=== PATIENT | male | born 1980 | race Caucasian/White ===

== ENCOUNTER 2019-09-19 04:47 | Emergency (ER) | payer OTHER, SELFPAY ==
--- NOTE | ~2019-09-19 | XR_ITS ---
EXAMINATION: XR chest 1V portable DATE: 09/19/2019 06:16 INDICATION: Shortness of breath and wheezing TECHNIQUE: frontal view of the chest was obtained. COMPARISON: Chest radiograph dated 10/07/18 FINDINGS: The lungs remain clear with no focal airspace opacities, pulmonary edema, pleural effusion or pneumot horax. The cardiomediastinal silhouette is normal. Visualized bones and soft tissues are unremarkable . IMPRESSION: 1. No acute cardiopulmonary disease. Reviewed, dictated and finalized at location A.
[2019-09-19 04:51] VITALS: BP 138/103; PULSE 107; RESP 20; TEMP 36.6; O2SAT 100
[2019-09-19 05:05] VITALS: RESP 20
--- NOTE | 2019-09-19 05:05 | ED.GENADULT ---
HPI - General Adult General Chief complaint: Unspecified <Steve Reynolds MD - Last Filed: 09/19/19 06:45> Stated complaint: BLOOD POISONING; CP <Steve Reynolds MD - Last Filed: 09/19/19 06:45> Time Seen by Provider: 09/19/19 04:57 <Steve Reynolds MD - Last Filed: 09/19/19 06:45> History of Present Illness HPI narrative: 39 yo male with h/o bipolar disorder presents to the ED c/o of feeling sick. He feels like his blood is poisoned . He has had pain throughout his entire body for a few days. He also has some SOB. History is limited by psychiatric disorder. <Steve Reynolds MD - Last Filed: 09/19/19 06:45> Related Data Allergies/adverse reactions: Allergies Allergy/AdvReac Type Severity Reaction Status Date / Time cefaclor Allergy Unknown HIVES Verified 09/19/19 04:56 <Steve Reynolds MD - Last Filed: 09/19/19 06:45> Review of Systems Constitutional: Constitutional: Denies fever(s) <Steve Reynolds MD - Last Filed: 09/19/19 06:45> ENT: Denies sore throat <Steve Reynolds MD - Last Filed: 09/19/19 06:45> Cardiovascular: Cardiovascular: Reports chest pain <Steve Reynolds MD - Last Filed: 09/19/19 06:45> Respiratory: Respiratory: Reports cough and Reports dyspnea <Steve Reynolds MD - Last Filed: 09/19/19 06:45> Gastrointestinal: Gastrointestinal: Denies nausea and Denies vomiting <Steve Reynolds MD - Last Filed: 09/19/19 06:45> Musculoskeletal: Musculoskeletal: Reports back pain <Steve Reynolds MD - Last Filed: 09/19/19 06:45> PMFSH Past Medical History Medical History: Medical History Asthma Bipolar 1 disorder Hyperlipidemia Hypertension Seizure <Steve Reynolds MD - Last Filed: 09/19/19 06:45> Surgical History Surgical History: Surgical History H/O myringotomy History of tonsillectomy <Steve Reynolds MD - Last Filed: 09/19/19 06:45> Social History Social History: Social History Alcohol intake: current Gender identity (if verbalized by the patient): Male <Steve Reynolds MD - Last Filed: 09/19/19 06:45> Exam Const: General: alert <tSeve Reynolds MD - Last Filed: 09/19/19 06:45> Orientation/consciousness: patient oriented x3 <Steve Reynolds MD - Last Filed: 09/19/19 06:45> HENMT: Head: normal to inspection <Steve Reynolds MD - Last Filed: 09/19/19 06:45> Eyes: Pupils: Equal, round and reactive pupils present <Steve Reynolds MD - Last Filed: 09/19/19 06:45> Resp: Effort & Inspection: normal respiratory effort <Steve Reynolds MD - Last Filed: 09/19/19 06:45> Auscultation: wheezes <Steve Reynolds MD - Last Filed: 09/19/19 06:45> Cardio: Rate: regular rate and tachycardic <Steve Reynolds MD - Last Filed: 09/19/19 06:45> GI: GI Palp: Yes Soft to palpation and No Tenderness to palpation present (GI) <Steve Reynolds MD - Last Filed: 09/19/19 06:45> Skin: General skin exam: normal color <Steve Reynolds MD - Last Filed: 09/19/19 06:45> Rashes: no rashes <Steve Reynolds MD - Last Filed: 09/19/19 06:45> Neuro: General: patient oriented x3, moves all extremities, no focal motor deficits and CN's II-XI intact bilaterally <Steve Reynolds MD - Last Filed: 09/19/19 06:45> Speech: normal speech <Steve Reynolds MD - Last Filed: 09/19/19 06:45> Extrem: General: no edema <Steve Reynolds MD - Last Filed: 09/19/19 06:45> Psych: Appearance: disheveled <Steve Reynolds MD - Last Filed: 09/19/19 06:45> Affect: Anxious affect present <Steve Reynolds MD - Last Filed: 09/19/19 06:45> Thought content: Yes Paranoid delusions present <Steve Reynolds MD - Last Filed: 09/19/19 06:45> Course Reevaluation(s) Reevaluation #1: Sheila
[2019-09-19] MEDS: KETOROLAC (*BKC) 60 MG/2 ML VIAL IM (05:09)
[2019-09-19 05:21] VITALS: PULSE 101; RESP 20
[2019-09-19] MEDS: ALBUTEROL SULFATE (*SP) AEROSOL 1 PUFF 2 PUFF INHALATION (05:21)
[2019-09-19] MEDS: LORAZEPAM 1 MG TABLET PO (06:00)
[2019-09-19] MEDS: SODIUM CHLORIDE 0.9% IV 1,000 ML 999 ML IV CONT (07:04)
[2019-09-19 07:12] LABS: Basophils Percent Auto 1.2 % (0.2-1.2); Eosinophils Percent Auto 0.3 % (0-4.4); Hematocrit 44.8 % (42.0-52.0); Immature Granulocyte Absolute 0.01 K/mm3 (0.00-0.031); Immature Granulocyte Percent A 0.3 % (0-0.5); Lymphocytes Percent Auto 31.2 % (18.3-44.2); Mean Corpuscular HGB Conc 35.7 g/dl (32-36); Mean Corpuscular Hemoglobin 33.1 pg (26-34); Mean Corpuscular Volume 92.8 fl (80-100); Mean Platelet Volume 9.4 fl (7.4-10.4); Monocytes Absolute Auto 0.5 K/mm3 (0.1-0.6); Monocytes Percent Auto 15.3 % (2.6-8.5); Neutrophils Absolute Auto 1.7 K/mm3 (1.3-6.7); Neutrophils Percent Auto 51.7 % (45.5-73.1); Platelet Count Result 211 k/mm3 (150-375); Red Blood Count 4.83 M/mm3 (4.6-6.20); Red Cell Distribution Width 12.6 % (11.5-14.5); White Blood Count 3.2 K/mm3 (4.5-10.0)
--- NOTE | 2019-09-19 07:21 | PC.NURSE ---
Assumed care of pt, lights dimmed, pt alert on stretcher, given urinal for u/a sample
[2019-09-19 07:23] LABS: Creatine Kinase 177 U/L (55-170)
[2019-09-19 07:25] VITALS: BP 154/89; PULSE 99; RESP 17; O2SAT 99
[2019-09-19 07:25] LABS: Alanine Aminotransferase 115 U/L (4-50); Albumin Level 4.6 g/dL (3.5-5.1); Alkaline Phosphatase 192 U/L (38-126); Aspartate Amino Transferase 351 U/L (17-59); Bilirubin,Total 1.5 mg/dL (0.2-1.3); Blood Urea Nitrogen 17 mg/dL (9-20); Calcium 8.2 mg/dL (8.4-10.2); Carbon Dioxide 20 mmol/L (22-30); Chloride 101 mmol/L (98-107); Estimated CRCL calculation 96 ml/min; Estimated Glomerular Filt Rate > 60; Glucose 111 mg/dL (75-110); Potassium 3.8 mmol/L (3.4-5.0); Sodium 135 mmol/L (137-145)
--- NOTE | 2019-09-19 07:33 | ECG_ITS ---
Measurements Intervals Page Rate: 90 P: 31 MN: 138 QRS: 39 QRSD: 87 T: 7 QT: 398 QTc: 488 Interpretive Statements SINUS RHYTHM BORDERLINE T WAVE ABNORMALITY- INFERIOR LEADS BASELINE ARTIFACT- II, III BORDERLINE ECG Electronically Signed On 09-19-2019 7:50:00 CDT by Onur Rob D.O.
[2019-09-19 07:43] LABS: Add Urine Microscopic? YES; Amorphous Sediment Urine Few; Appearance Urine Clear (Clear); Bacteria Urine Trace /hpf; Bilirubin Urine 1+ (Negative); Blood Urine Negative (Negative); Color Urine Amber (Yellow); Glucose Urine UA Negative (Negative); Hyaline Casts Urine 50+ /lpf; Ketones Urine Negative (Negative); Leukocyte Esterase Ur Negative LEU/UL (Negative); Mucus Urine Heavy /lpf; Nitrate Urine Negative (Negative); Protein Urine 2+ mg/dL (Negative); RBC Urine 0-2 /hpf (0-2); Squamous Epithelial Cell Urine Rare /hpf (Few)
[2019-09-19 07:44] LABS: Specific Grav Ur 1.033 (1.001-1.035)
[2019-09-19 07:47] LABS: Ethanol 290 mg/dL (<10)
--- NOTE | 2019-09-19 07:48 | PC.NURSE ---
EDP AT BEDSIDE DISCUSSING POC, PT REQUEST BREAKFAST TRAY - ORDERED PER EDP VORB
[2019-09-19 07:56] LABS: Amphetamine Screen Urine Negative (Negative); Barbiturate Screen Urine Negative (Negative); Benzodiazepines Screen Urine Negative (Negative); Cannabinoid Screen Urine Positive (Negative); Cocaine Screen Urine Negative (Negative); Methadone Screen Urine Negative (Negative); Opiate Screen Urine Negative (Negative); Phencyclidine Screen Urine Negative (Negative)
[2019-09-19 08:18] LABS: Troponin I 0.019 ng/mL (0.000-0.034)
[2019-09-19 08:59] VITALS: BP 154/94; PULSE 103; RESP 14; O2SAT 99
== END 2019-09-19 09:00 | disposition home or self-care (01) ==
PROVIDERS: Emergency Medicine; Emergency Provider General Practice
DX: J45.909 Unspecified asthma, uncomplicated (principal); F41.9 Anxiety disorder, unspecified; F31.9 Bipolar disorder, unspecified; E78.5 Hyperlipidemia, unspecified; I10 Essential (primary) hypertension; G40.909 Epilepsy, unspecified, not intractable, without status epilepticus
CPT/HCPCS: 36415; 71045; 80053; 80307; 81001; 82550; 84443; 84484; 85025; 93005; 96360; 96372; 99284; A9270; J1885; J7030

== ENCOUNTER 2019-10-24 06:55 | Observation (INO) | payer OTHER, SELFPAY ==
[2019-10-24] VITALS (15 sets, daily range): BP systolic 140–164; BP diastolic 85–132; PULSE 74–122; RESP 18–26; TEMP 36.1–37; O2SAT 98–100; BMI 28.5; BMI 28.6
--- NOTE | ~2019-10-24 | US_ITS ---
EXAMINATION: US right upper quadrant DATE: 10/24/2019 15:21 INDICATION: Elevated liver enzymes TECHNIQUE: Multiple grayscale and Doppler ultrasound images of the abdomen were obtained. COMPARISON: 09/03/[address] dated 10/24/2019 and 09/02/2015 FINDINGS: The pancreatic head and body are normal in appearance. The pancreatic tail is not visualized. Liver has is enlarged with normal contour and smooth surface. There is increased parenchymal echogenicity a nd coarsened echotexture consistent with diffuse hepatic steatosis. A chronic hemangioma at the later al segment of the left hepatic lobe seen on the prior CT studies is not identified on the provided ul trasound images. No liver lesion identified. No intrahepatic biliary duct dilation suspected. Portal venous flow was seen in the hepatopetal, normal direction and has normal Doppler waveform. The gallb ladder is normal in appearance. There is no cholelithiasis. The common bile duct measures 5 mm, whic h is normal. Sonographic Vazquez sign was reported as negative by the security and privacy consultant. Visualized portion of the right kidney demonstrates normal echogenicity and contour with no hydronephrosis. IMPRESSION: 1. Hepatomegaly with diffuse hepatic steatosis. Reviewed, dictated and finalized at location A.
--- NOTE | ~2019-10-24 | XR_ITS ---
EXAMINATION: XR chest 1V portable INDICATION: Shortness of breath and cough TECHNIQUE: Portable AP chest at 0739 hours COMPARISON: 09/19/2019 FINDINGS: The lungs are free of acute opacities. There is no pleural effusion or pneumothorax. The ca rdiomediastinal silhouette is normal. The visualized bones and soft tissues are unremarkable. IMPRESSION: 1. No acute cardiopulmonary abnormality. Reviewed, dictated and finalized at location A.
--- NOTE | ~2019-10-24 | CT_ITS ---
EXAMINATION: CT abdomen pelvis w con INDICATION: Epigastric pain TECHNIQUE: Computed tomographic images of the abdomen and pelvis were obtained after the administrati on of 100 cc of Omnipaque 350 intravenous contrast. The dose-length product (DLP) was 563.94 mGy-cm. Automated exposure control and iterative reconstruction technique were employed. COMPARISON: 09/02/2015 FINDINGS: The lung bases are clear. The heart size is normal. The liver is diffusely low in attenuati on when compared with the spleen, consistent with hepatic steatosis. There is a stable 2.9 x 2.0 cm m ass with peripheral nodular enhancement in the left hepatic lobe, likely hemangioma. The spleen, panc reas, gallbladder, and adrenal glands are normal. The kidneys are unremarkable. No pathologically enl arged abdominal or pelvic lymph nodes are identified. There is no free intraperitoneal gas or evidenc e of bowel obstruction. The appendix is normal. There is mild lumbar spondylosis. There is a tiny fat -containing umbilical hernia. IMPRESSION: 1. No CT correlate for the patient's symptoms. 2. Diffuse hepatic steatosis. Reviewed, dictated and finalized at location A.
[2019-10-24 07:47] LABS: Basophils Absolute Auto 0.1 K/mm3 (0.0-0.1); Eosinophils Percent Auto 0.5 % (0-4.4); Hematocrit 45.7 % (42.0-52.0); Hemoglobin 18.3 g/dL (14.0-18.0); Immature Granulocyte Absolute 0.02 K/mm3 (0.00-0.031); Immature Granulocyte Percent A 0.3 % (0-0.5); Immature Platelet Fraction Pct 2.6 % (0.9-11.2); Lymphocytes Absolute Auto 2.85 K/mm3 (0.9-3.2); Lymphocytes Percent Auto 46.3 % (18.3-44.2); Mean Corpuscular Hemoglobin 36.5 pg (26-34); Mean Corpuscular Volume 91.2 fl (80-100); Monocytes Absolute Auto 0.6 K/mm3 (0.1-0.6); Monocytes Percent Auto 10.4 % (2.6-8.5); Neutrophils Absolute Auto 2.6 K/mm3 (1.3-6.7); Neutrophils Percent Auto 41.5 % (45.5-73.1); Platelet Count Result 324 k/mm3 (150-375); Red Blood Count 5.01 M/mm3 (4.6-6.20); Red Cell Distribution Width 12.9 % (11.5-14.5); White Blood Count 6.2 K/mm3 (4.5-10.0)
[2019-10-24] MEDS: ONDANSETRON INJ 4 MG/2 ML VIAL IV PUSH (07:48)
--- NOTE | 2019-10-24 07:48 | ECG_ITS ---
Measurements Intervals [place] Rate: 110 P: 38 NM: 140 QRS: 27 QRSD: 85 T: -7 QT: 344 QTc: 466 Interpretive Statements SINUS TACHYCARDIA NONSPECIFIC T-WAVE ABNORMALITY- INFERIOR LEADS ABNORMAL ECG Electronically Signed On 10-24-2019 8:18:21 CDT by Onur Rob D.O.
[2019-10-24] MEDS: SODIUM CHLORIDE 0.9% IV 1,000 ML 999 ML IV CONT (07:49)
[2019-10-24 08:01] LABS: Alanine Aminotransferase 301 U/L (4-50); Albumin Level 3.5 g/dL (3.5-5.1); Alkaline Phosphatase 285 U/L (38-126); Bilirubin,Total 2.6 mg/dL (0.2-1.3)
[2019-10-24 08:03] LABS: Estimated Glomerular Filt Rate > 60
[2019-10-24 08:09] LABS: Troponin I 0.026 ng/mL (0.000-0.034)
[2019-10-24 08:10] LABS: Aspartate Amino Transferase 801 U/L (17-59)
[2019-10-24 08:16] LABS: Blood Urea Nitrogen 15 mg/dL (9-20); Calcium 8.7 mg/dL (8.4-10.2); Chloride 95 mmol/L (98-107); Estimated Glomerular Filt Rate > 60; Glucose 104 mg/dL (75-110); Potassium 4.6 mmol/L (3.4-5.0); Sodium 129 mmol/L (137-145)
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
--- NOTE | 2019-10-24 08:33 | PC.NURSE ---
PT RESTING IN BED, STATES THAT HIS N/V HAS GOTTEN BETTER SINCE ZOFRAN ADMINISTERED.
[2019-10-24] MEDS: PROMETHAZINE HCL 25 MG/ML AMPUL 12.5 MG IV PUSH (09:34)
[2019-10-24] MEDS: MORPHINE SULFATE 4 MG/ML INJ IV PUSH ×3 (09:34→20:12)
[2019-10-24] MEDS: IBUPROFEN IV 800 MG/200 ML 800 MG/200 ML BAG 400 MG IVPB (10:35)
--- NOTE | 2019-10-24 11:10 | ADMGEN ---
This patient, Teodoro Waddell, was admitted to 2 Medical Room 241-. Patient/family oriented to hospital policies and general routines including ID bracelet, bed and alarms, visiting hours, pain management, procedures, bathroom and other care routines, personal items, smoking policy, room service/diet, and visiting hours. Valuables list has been completed. Information on how to activate the Rapid Response Team has been discussed. Patient/Family are encouraged to report perceived risks to care and to ask questions if they do not understand what they are told or what they should do.
[2019-10-24] MEDS: SODIUM CHLORIDE 0.9% IV 1,000 ML 200 ML IV CONT ×3 (12:06→22:12)
--- NOTE | 2019-10-24 13:12 | PM.IMHP ---
H&P: HPI History of Present Illness Date/Time: 10/24/19 13:12 Chief complaint: alcoholic hepatitis Narrative: Teodoro Waddell is a 39 year old male Who has a long history of having alcoholism. patient has been to rehab in the past and stated he does not want to go to rehab this time. The patient also had a history of heroin use and when to present for about 3 years and states that he no longer uses heroin. The patient states that he drinks about 18 beers a day plus about a pt of vodka a day. He also occasionally smokes marijuana. He is on nonfunctioning alcoholic. He does not work. He does deal with depression and anxiety. He stated that his depression anxiety has got worse since the COVID outbreaks. He states that he cannot go to rehab at this time because his father just had his knee replaced and needs his help. His mother brother and sister are all functioning alcoholic and he lives with his parents so it is difficult for him to get away from this. 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 The patient had elevated liver enzymes 4 years ago when I saw him. We had a long conversation at that time about stopping the alcohol and that the liver may be able to turn around but the patient continued to drink. The patient was here in August of this year with abdominal pain and generalized achiness. The patient stated he felt like he had COVID at 1 time but was tested negative. The patient stated he has been nauseated for several months and does spitting up clear phlegm. He has also had abdominal pain as well. I do not think that he is seen a GI specialist for his elevated liver enzymes in several years. The patient stated that he was nauseated. The patient had a CT of his abdomen due to elevated lipase and elevated liver enzymes. He does have a stable 2.9 x 2.0 cm mass with peripheral nodular enhancement in the left hepatic lobe likely hemangioma. There is no CT correlation for the patient's symptoms and he has diffuse hepatic steatosis. The patient was made NPO. He was given IV fluids, Zofran IV, Phenergan, morphine, and IV ibuprofen in the emergency room. I have spent at least 60 minutes with the patient discussing his lab results and the affects of his alcoholism. And the treatment plan. Date of service 10/24/2019 Review of Systems Review of Systems: All systems reviewed & are unremarkable except as noted in HPI and below Constitutional: Constitutional: Reports as per HPI and Reports no additional constitutional complaints Eyes: Eyes: Reports as per HPI and Reports no additional eye complaints ENT: Reports system reviewed and no additional complaints, except as documented and Reports Normal hearing present Cardiovascular: Cardiovascular: Reports no additional cardiovascular complaints Respiratory: Respiratory: Reports no additional respiratory complaints and Reports no additional respiratory complaints Gastrointestinal: Gastrointestinal: Reports as per HPI and Reports no additional gastrointestinal complaints Musculoskeletal: Musculoskeletal: Reports no additional musculoskeletal complaints Integumentary/Breasts: Skin/Breast: Reports system reviewed and no additional complaints, except as docu and Reports as per HPI Neurologic: Reports system reviewed and no additional complaints, except as documented, Reports as per HPI and Reports Normal hearing present Psychiatric: Psychiatric: Reports no additional psychiatric complaints and Reports as per HPI Endocrine: Endocrine: Reports no additional endocrine complaints Hematologic/Lymphatic: Hematologic/Lymphatic: Reports no additional hematologic/lymphatic complaints Allergic/Immunologic: Allergic/Immunologic: Reports no additional allergic/immunologic complaints [facility] Past Medical History Medical History (Updated 10/24/19 @ 13:42 by Noa Quintanilla NP) Alcoholism /alcohol abuse Asthma Bipolar 1 disorder Depression with anxiety Elevated liver function tests Hi
[2019-10-24] MEDS: FOLIC ACID 1 MG/0.2 ML INJ IV PUSH (13:45)
[2019-10-24] MEDS: chlordiazePOXIDE 25 MG CAPSULE PO ×2 (13:45→18:04)
[2019-10-24] MEDS: THIAMINE HCL 200 MG/2 ML VIAL 100 MG IV PUSH (13:46)
[2019-10-24] MEDS: busPIRone HCL 5 MG TABLET 15 MG PO ×2 (14:19→18:04)
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
[2019-10-24] MEDS: hydrALAZINE HCL 20 MG/ML VIAL 10 MG IV PUSH (18:14)
--- NOTE | 2019-10-24 18:16 | PC.NURSE ---
B/P elevated at 154/102. HR 110s-130s. Patient denies symptoms with elevated HR. Called Noa Quintanilla NP and notified her of patient's vital signs. IV Hydralazine administered. Patient due for IV Ativan at 1900. Will administer when due. Gave scheduled Librium as ordered.
[2019-10-24 19:44] LABS: LDL Cholesterol Direct 74 mg/dL
[2019-10-24 19:45] LABS: Cholesterol > 650 mg/dL (0-200)
[2019-10-24 19:46] LABS: Triglycerides > 2625 mg/dL (<150)
[2019-10-24] MEDS: AMITRIPTYLINE HCL 25 MG TABLET 50 MG PO (20:17)
[2019-10-24] MEDS: FAMOTIDINE 20 MG/2 ML VIAL IV PUSH (20:17)
[2019-10-24 20:34] LABS: Hepatitis B Surface Antigen Negative (Negative)
[2019-10-24 20:40] LABS: HAV RESULT Negative (Negative); Hepatitis B Core IgM Result Negative (Negative)
[2019-10-24 20:53] LABS: Hepatitis C Virus Antibody Reactive (Negative)
[2019-10-25] VITALS (8 sets, daily range): BP systolic 117–148; BP diastolic 71–100; PULSE 77–124; RESP 14–20; TEMP 36.3–36.8; O2SAT 99–100
[2019-10-25] MEDS: chlordiazePOXIDE 25 MG CAPSULE PO ×4 (00:43→18:10)
[2019-10-25] MEDS: SODIUM CHLORIDE 0.9% IV 1,000 ML 200 ML IV CONT ×2 (03:43→08:30)
[2019-10-25 05:45] LABS: Basophils Percent Auto 0.8 % (0.2-1.2); Eosinophils Absolute Auto 0.1 K/mm3 (0-0.3); Hemoglobin 13.5 g/dL (14.0-18.0); Immature Granulocyte Absolute 0.02 K/mm3 (0.00-0.031); Immature Granulocyte Percent A 0.5 % (0-0.5); Lymphocytes Absolute Auto 1.21 K/mm3 (0.9-3.2); Lymphocytes Percent Auto 30.3 % (18.3-44.2); Mean Corpuscular HGB Conc 37.5 g/dl (32-36); Mean Corpuscular Hemoglobin 35.5 pg (26-34); Mean Corpuscular Volume 94.7 fl (80-100); Mean Platelet Volume 10.1 fl (7.4-10.4); Monocytes Absolute Auto 0.3 K/mm3 (0.1-0.6); Monocytes Percent Auto 7.5 % (2.6-8.5); Neutrophils Absolute Auto 2.4 K/mm3 (1.3-6.7); Neutrophils Percent Auto 58.9 % (45.5-73.1); Platelet Count Result 154 k/mm3 (150-375); Red Cell Distribution Width 12.6 % (11.5-14.5)
[2019-10-25 05:54] LABS: Lactic Acid 0.6 mmol/L (0.7-2.1)
[2019-10-25 07:16] LABS: LDL Cholesterol Direct < 60 mg/dL; Triglycerides > 2625 mg/dL (<150)
[2019-10-25 07:18] LABS: Alanine Aminotransferase 183 U/L (4-50); Albumin Level 2.9 g/dL (3.5-5.1); Alkaline Phosphatase 179 U/L (38-126); Anion Gap 12.6 mmol/L (7-16); Aspartate Amino Transferase 400 U/L (17-59); Bilirubin,Total 1.7 mg/dL (0.2-1.3); Blood Urea Nitrogen 8 mg/dL (9-20); Calcium 6.8 mg/dL (8.4-10.2); Carbon Dioxide 17 mmol/L (22-30); Chloride 105 mmol/L (98-107); Estimated CRCL calculation 96 ml/min; Estimated Glomerular Filt Rate > 60; Glucose 92 mg/dL (75-110); Lactate Dehydrogenase 1039 U/L (313-618); Lipase 575 U/L (23-300); Magnesium 1.1 mg/dL (1.6-2.3); Phosphorus 3.2 mg/dL (2.5-4.5); Potassium 3.6 mmol/L (3.4-5.0); Sodium 131 mmol/L (137-145)
[2019-10-25 07:20] LABS: Cholesterol 474 mg/dL (0-200)
[2019-10-25] MEDS: THIAMINE HCL 200 MG/2 ML VIAL 100 MG IV PUSH (08:31)
[2019-10-25] MEDS: FAMOTIDINE 20 MG/2 ML VIAL IV PUSH ×2 (08:31→20:06)
[2019-10-25] MEDS: FOLIC ACID 1 MG/0.2 ML INJ IV PUSH (08:31)
[2019-10-25] MEDS: busPIRone HCL 5 MG TABLET 15 MG PO ×3 (08:31→16:47)
[2019-10-25] MEDS: MORPHINE SULFATE 4 MG/ML INJ IV PUSH ×4 (08:32→19:59)
[2019-10-25] MEDS: hydrALAZINE HCL 20 MG/ML VIAL 10 MG IV PUSH ×2 (09:26→16:59)
--- NOTE | 2019-10-25 10:15 | WPDGIPROGNO ---
Progress Note: A&P Additional Plan patient alert and comfortable this morning. Less jittery. Tolerated diet without difficulty. Notes only minimal epigastric pain today. Physical exam reveals patient to be alert. Vital signs stable. Lungs are clear. Heart without murmur. Abdomen bowel sounds are present soft no organomegaly evident. Nontender epigastric area. Labs reveal total bilirubin 1.7, direct bilirubin 0. AST 400, ALT 183, alk-phos 179. Impression 1. Alcoholic hepatitis. 2. Alcohol abuse 3. HCV positive. hepatitis C virus RNA pending to ensure this is a true positive. If so then referral for antiviral therapy would be indicated. plan is for continued alcohol abstinence. Patient would benefit from a support group. Continue monitor LFTs as after discharge. Subjective Date/time seen: 10/25/19 10:15 Objective Data Vital Signs Vital Signs: Vital Signs - 24 hr 10/24/19 10:26 10/24/19 11:01 10/24/19 12:00 Temperature 98.6 F Pulse Rate 93 100 100 Pulse Rate [Left Radial] Respiratory Rate 21 H 21 H 18 Blood Pressure 147/105 H 153/105 H 157/102 H Pulse Oximetry 99 98 99 10/24/19 15:56 10/24/19 18:00 10/24/19 18:47 Temperature 98.0 F 97.6 F Pulse Rate 74 114 H 122 H Pulse Rate [Left Radial] Respiratory Rate 18 18 Blood Pressure 141/92 H 154/102 H 143/91 H Pulse Oximetry 99 98 10/24/19 20:00 10/25/19 00:00 10/25/19 04:00 Temperature 96.9 F L 97.4 F L 97.6 F Pulse Rate 112 H 91 77 Pulse Rate [Left Radial] 110 H 91 77 Respiratory Rate 20 18 18 Blood Pressure 140/85 129/71 139/83 Pulse Oximetry 98 99 100 10/25/19 08:00 10/25/19 09:57 Temperature 97.8 F Pulse Rate 106 H Pulse Rate [Left Radial] Respiratory Rate 16 Blood Pressure 148/100 H 130/86 Pulse Oximetry 99 Intake/Output Intake/Output: Intake & Output 10/22/19 10/23/19 10/24/19 10/25/19 23:59 23:59 23:59 23:59 Intake Total 3590 2520 Output Total 375 1000 Balance 3215 1520 Meds/Results Medications: Active Medications Generic Name Dose Route Start Last Admin Trade Name Freq PRN Reason Stop Dose Admin Albuterol 2 puff 10/24/19 13:08 Proventil Hfa INHALATION QID PRN shortness of breath or wheezing Amitriptyline HCl 50 mg 10/24/19 21:00 10/24/19 20:17 Elavil PO 50 mg HS JERILYN Administration Buspirone HCl 15 mg 10/24/19 13:00 10/25/19 08:31 Buspar PO 15 mg TID JERILYN Administration Chlordiazepoxide HCl 25 mg 10/24/19 13:15 10/25/19 06:15 Librium Po PO 25 mg Q6HR JERILYN Administration Famotidine 20 mg 10/24/19 21:00 10/25/19 08:31 Pepcid Iv IV PUSH 20 mg Q12HR JERILYN Administration Folic Acid 1 mg 10/24/19 09:00 10/25/19 08:31 Folic Acid Inj IV PUSH 1 mg QAM JERILYN Administration Hydralazine HCl 10 mg 10/24/19 13:12 10/25/19 09:26 Apresoline Hcl Inj IV PUSH 10 mg Q8H PRN Administration Blood Pressure - High Sodium Chloride 1,000 mls @ 200 mls/hr 10/24/19 10:00 10/25/19 08:30 Normal Saline Iv IV CONT 200 mls/hr .Q5H JERILYN Administration Lorazepam 0.5 mg 10/24/19 13:07 10/25/19 09:31 Ativan Inj IV PUSH 0.5 mg Q4H PRN Administration Anxiety Morphine Sulfate 4 mg 10/24/19 09:58 10/25/19 08:32 Morphine Sulfate Inj IV PUSH 4 mg Q2H PRN Administration Pain Rated 7-10 Promethazine HCl 12.5 mg 10/24/19 09:58 Phenergan Inj IV PUSH Q6H PRN Nausea Thiamine HCl 100 mg 10/24/19 09:00 10/25/19 08:31 Thiamine Hcl Inj IV PUSH 100 mg QAM JERILYN Administration Radiology Results: ITS Impressions Chest X-Ray 10/24/19 07:42 IMPRESSION: 1. No acute cardiopulmonary abnormality. Abdomen/Pelvis CT 10/24/19 08:19 IMPRESSION: 1. No CT correlate for the patient's symptoms. 2. Diffuse hepatic steatosis. Upper Quadrant Ultrasound 10/24/19 15:22 IMPRESSION: 1. Hepatomegaly with diffuse hepatic steatosis. Labs Labs: Laborato
--- NOTE | 2019-10-25 13:34 | PM.IMPN ---
Progress Note: A&P Assessment and Plan (1) Elevated liver function tests: Code(s): R79.89 - Other specified abnormal findings of blood chemistry Status: Chronic Assessment and Plan: ALT 301 and AST 801 on admission. Lipase slightly elevated at 575. Atorvastatin on hold. Dr. Mendenhall consulted. [place] related to alcoholic hepatitis. LFTs trending down. Mag level low which we will replace. LDH elevated for unclear reasons. CXR clear making COVID less likely. LFTs have been elevated in the past possibly related to hepatic steatosis or from alcohol. HepC Ab positive but awaiting viral load. RUQ showing hepatomegaly with diffuse hepatic steatosis. Metabolic nongap acidosis noted. Need to monitor this closely. (2) Alcoholism /alcohol abuse: Code(s): F10.20 - Alcohol dependence, uncomplicated Status: Chronic Assessment and Plan: Patietn with hx of alcoholism. He is refusing inpatient therapy but is willing to do outpatient therapy. CIWA score running up to 8. Continue Librium scheduled. Ativan IV available as needed. Morphine also available for pain which help. Continue folic acid and thiamine. He has had withdrawal seizures in the past. (3) Hypertension: Code(s): I10 - Essential (primary) hypertension Status: Chronic Assessment and Plan: Patient's blood pressure was reviewed on 10/25/19. Blood pressure better controlled. Will continue current medications. HCTZ remains on hold. Hydralazine available as needed. (4) Asthma: Code(s): J45.909 - Unspecified asthma, uncomplicated Status: Chronic Assessment and Plan: No wheezing. Continue with inhaler. (5) Hyperlipidemia: Code(s): E78.5 - Hyperlipidemia, unspecified Status: Chronic Assessment and Plan: TC 650 with TG 2625. LDL normal. LFTs elevated. Atorvastatin on hold. Patient will need to follow up with his PCP for further evaluation and treatment. (6) History of marijuana use: Code(s): Z87.898 - Personal history of other specified conditions Status: Chronic Assessment and Plan: This will most likely make his anxiety worse by possibly causing more paranoia. (7) Depression with anxiety: Code(s): F41.8 - Other specified anxiety disorders Status: Chronic Assessment and Plan: Mood stable overall. Continue with BuSpar and amitriptyline Subjective Date/time seen: 08/04/20 13:34 Interval history: 39yo male with hx of alcoholism here for abd pain and found to have elevated LFTs. Patient feeling better. Complains of RUQ and epigatric pain of about 1 month duration. COVID negative one week ago. Shaking today but better with Ativan. Last drink was yesterday. Exam Narrative: Exam Narrative: AF 97.8 130/81 116 14 99% ra Gen - NARD Chest - CTA bilaterally, nml RR CV - Tachycardic but regular Abd - soft. NT/ND (patient received narcotics recently) Ext - No pedal edema Neuro - Alert and orientedx4. Nonfocal exam. Psych - anxious, mildly tremulous Skin - Warm and dry Objective Data Vital Signs Vital Signs: Vital Signs - 24 hr 10/24/19 15:56 10/24/19 18:00 10/24/19 18:47 Temperature 98.0 F 97.6 F Pulse Rate 74 114 H 122 H Pulse Rate [Left Radial] Respiratory Rate 18 18 Blood Pressure 141/92 H 154/102 H 143/91 H Pulse Oximetry 99 98 10/24/19 20:00 10/25/19 00:00 10/25/19 04:00 Temperature 96.9 F L 97.4 F L 97.6 F Pulse Rate 112 H 91 77 Pulse Rate [Left Radial] 110 H 91 77 Respiratory Rate 20 18 18 Blood Pressure 140/85 129/71 139/83 Pulse Oximetry 98 99 100 10/25/19 08:00 10/25/19 09:57 10/25/19 13:32 Temperature 97.8 F 97.8 F Pulse Rate 106 H 116 H Pulse Rate [Left Radial] Respiratory Rate 16 14 Blood Pressure 148/100 H 130/86 130/81 Pulse Oximetry 99 99 Intake/Output Intake/Output: Intake & Output 10/22/19 10/23/19 10/24/19 10/25/19 23:59 23:59 2
--- NOTE | 2019-10-25 16:32 | PCCCNOTE ---
On 10/25/19, the student, [ Loretta Still], provided care and completed [facility] documentation on this patient. I have reviewed the student's documentation and agree with the findings.
[2019-10-25] MEDS: SODIUM CHLORIDE 0.9% IV 1,000 ML 70 ML IV CONT (16:42)
[2019-10-25] MEDS: MAGNESIUM SULF 2 GM/WATER 50ML 2 GM/50 ML BAG IVPB (16:43)
[2019-10-25] MEDS: AMITRIPTYLINE HCL 25 MG TABLET 50 MG PO (20:05)
[2019-10-26] VITALS: BP 140/88; PULSE 118; RESP 20; TEMP 36.8; O2SAT 98
[2019-10-26] MEDS: chlordiazePOXIDE 25 MG CAPSULE PO ×3 (00:18→12:13)
[2019-10-26 05:36] LABS: Hematocrit 36.6 % (42.0-52.0); Hemoglobin 12.7 g/dL (14.0-18.0); Immature Platelet Fraction Pct 6.5 % (0.9-11.2); Mean Corpuscular HGB Conc 34.7 g/dl (32-36); Mean Corpuscular Hemoglobin 33.5 pg (26-34); Mean Corpuscular Volume 96.6 fl (80-100); Platelet Count Result 135 k/mm3 (150-375); Red Blood Count 3.79 M/mm3 (4.6-6.20); Red Cell Distribution Width 13.2 % (11.5-14.5); White Blood Count 5.6 K/mm3 (4.5-10.0)
[2019-10-26 06:01] LABS: Alanine Aminotransferase 133 U/L (4-50); Albumin Level 3.1 g/dL (3.5-5.1); Alkaline Phosphatase 181 U/L (38-126); Anion Gap 8.5 mmol/L (7-16); Aspartate Amino Transferase 217 U/L (17-59); Blood Urea Nitrogen 7 mg/dL (9-20); Calcium 7.5 mg/dL (8.4-10.2); Carbon Dioxide 28 mmol/L (22-30); Chloride 101 mmol/L (98-107); Estimated CRCL calculation 96 ml/min; Estimated Glomerular Filt Rate > 60; Glucose 93 mg/dL (75-110); Lactate Dehydrogenase 775 U/L (313-618); Magnesium 1.6 mg/dL (1.6-2.3); Phosphorus 3.2 mg/dL (2.5-4.5); Potassium 3.5 mmol/L (3.4-5.0); Sodium 134 mmol/L (137-145)
[2019-10-26 06:19] VITALS: BP 157/93; PULSE 89; RESP 20; TEMP 36.6; O2SAT 98
[2019-10-26] MEDS: hydrALAZINE HCL 20 MG/ML VIAL 10 MG IV PUSH (06:20)
[2019-10-26] MEDS: SODIUM CHLORIDE 0.9% IV 1,000 ML 70 ML IV CONT (06:23)
[2019-10-26] MEDS: MORPHINE SULFATE 4 MG/ML INJ IV PUSH (06:38)
[2019-10-26 08:00] VITALS: BP 132/82; PULSE 101; RESP 18; TEMP 36.8; O2SAT 98
[2019-10-26] MEDS: MAGNESIUM SULF 2 GM/WATER 50ML 2 GM/50 ML BAG IVPB (08:05)
[2019-10-26] MEDS: FOLIC ACID 1 MG/0.2 ML INJ IV PUSH (08:06)
[2019-10-26] MEDS: FAMOTIDINE 20 MG/2 ML VIAL IV PUSH (08:06)
[2019-10-26] MEDS: THIAMINE HCL 200 MG/2 ML VIAL 100 MG IV PUSH (08:06)
[2019-10-26] MEDS: busPIRone HCL 5 MG TABLET 15 MG PO ×2 (08:06→12:13)
--- NOTE | 2019-10-26 09:37 | WPDGIPROGNO ---
Progress Note: A&P Additional Plan Patient continues to improve. Currently denies pain. Tolerating diet. Physical exam reveals him to be alert. Vital signs stable. HEENT exam unremarkable. He is anicteric. Lungs are clear. Heart without murmur. Abdomen bowel sounds are present soft nontender with no organomegaly. Labs reveal total bilirubin 1.0, AST 217, ALT 133, alk-phos 181, all of these are improving. Impression 1. Alcoholic hepatitis. Gradual decline in LFTs noted. Plan is for outpatient rehab. Follow LFTs is an outpatient. Patient will need to avoid alcohol. Alcohol rehab strongly encourage. 2. HCV positive. Plan is for HCV- RNA analysis to determine if this is a true positive. This is pending. This can be followed as an outpatient. Subjective Date/time seen: 10/26/19 09:37 Objective Data Vital Signs Vital Signs: Vital Signs - 24 hr 10/25/19 09:57 10/25/19 13:32 10/25/19 16:00 Temperature 97.8 F 98.2 F Pulse Rate 116 H 124 H Respiratory Rate 14 14 Blood Pressure 130/86 130/81 142/90 H Pulse Oximetry 99 99 10/25/19 17:52 10/25/19 20:00 10/26/19 00:00 Temperature 97.9 F 98.2 F Pulse Rate 122 H 108 H 118 H Respiratory Rate 20 20 Blood Pressure 117/76 144/91 H 140/88 Pulse Oximetry 100 98 10/26/19 06:19 Temperature 98 F Pulse Rate 89 Respiratory Rate 20 Blood Pressure 157/93 H Pulse Oximetry 98 Intake/Output Intake/Output: Intake & Output 10/23/19 10/24/19 10/25/19 10/26/19 23:59 23:59 23:59 23:59 Intake Total 3590 5242 1800 Output Total 375 2000 1300 Balance 3215 3242 500 Meds/Results Medications: Active Medications Generic Name Dose Route Start Last Admin Trade Name Freq PRN Reason Stop Dose Admin Albuterol 2 puff 10/24/19 13:08 Proventil Hfa INHALATION QID PRN shortness of breath or wheezing Amitriptyline HCl 50 mg 10/24/19 21:00 10/25/19 20:05 Elavil PO 50 mg HS JERILYN Administration Buspirone HCl 15 mg 10/24/19 13:00 10/26/19 08:06 Buspar PO 15 mg TID JERILYN Administration Chlordiazepoxide HCl 25 mg 10/24/19 13:15 10/26/19 06:07 Librium Po PO 25 mg Q6HR JERILYN Administration Famotidine 20 mg 10/24/19 21:00 10/26/19 08:06 Pepcid Iv IV PUSH 20 mg Q12HR JERILYN Administration Folic Acid 1 mg 10/24/19 09:00 10/26/19 08:06 Folic Acid Inj IV PUSH 1 mg QAM JERILYN Administration Hydralazine HCl 10 mg 10/24/19 13:12 10/26/19 06:20 Apresoline Hcl Inj IV PUSH 10 mg Q8H PRN Administration Blood Pressure - High Sodium Chloride 1,000 mls @ 70 mls/hr 10/24/19 10:00 10/26/19 06:25 Normal Saline Iv IV CONT Not Given .[id number] JERILYN Lorazepam 0.5 mg 10/24/19 13:07 10/26/19 08:06 Ativan Inj IV PUSH 0.5 mg Q4H PRN Administration Anxiety Morphine Sulfate 2 mg 10/26/19 07:09 Morphine Sulfate Inj IV PUSH Q2H PRN Pain Rated 7-10 Promethazine HCl 12.5 mg 10/24/19 09:58 Phenergan Inj IV PUSH Q6H PRN Nausea Thiamine HCl 100 mg 10/24/19 09:00 10/26/19 08:06 Thiamine Hcl Inj IV PUSH 100 mg QAM JERILYN Administration Radiology Results: ITS Impressions Chest X-Ray 10/24/19 07:42 IMPRESSION: 1. No acute cardiopulmonary abnormality. Abdomen/Pelvis CT 10/24/19 08:19 IMPRESSION: 1. No CT correlate for the patient's symptoms. 2. Diffuse hepatic steatosis. Upper Quadrant Ultrasound 10/24/19 15:22 IMPRESSION: 1. Hepatomegaly with diffuse hepatic steatosis. Labs Labs: Laboratory Results - last 24 hr 10/26/19 10/26/19 04:44 04:44 WBC 5.6 RBC 3.79 L Hgb 12.7 L Hct 36.6 L MCV 96.6 MCH 33.5 D MCHC 34.7 RDW 13.2 Plt Count 135 L MPV 11.0 H % Immature Plt Fraction 6.5 Sodium 134 L Potassium 3.5 Chloride 101 Carbon Dioxide 28 Anion Gap 8.5 BUN 7 L Creatinine 0.90 Estim Creat Clear Calc 96 Estimated GFR > 60 Glucose 93 Calcium 7.5 L Phos
--- NOTE | 2019-10-26 11:14 | PCNFU ---
Nutrition Follow-Up Complete: Unintended wt loss r/t vomitting as evidience by 30lb wt loss over the last 6 weeks Goal: PO intake of 75% or greater to maintain wt Patient has met goal at 100% meal consumption Pt current nutrition is low fat. Nutrition recommendation: Agree with recommendations Last recorded weight is 88.1 kg. Bowel Motility: no bowel movement reported Labs Reviewed: Hgb (127) Hct (36.6) Alb (3.1) Na (134) BUN (7) ALT (133) AST (217) Meds Noted: proventil, elavil, folic acid, ativan, thiamine, normal saline, phenergan Additional Notes: Patient states dislike of low fat diet. Would not recommend change in diet at this time. Patient requested ensure compact TID rather than BID. Diet office was contacted. Patient reports some nausea but states it is unrelated to food. Patient reports good appetite and consuming 100% of meals. Follow up in 5 days
[2019-10-26 13:14] VITALS: BP 136/80; PULSE 91; RESP 16; TEMP 36.6; O2SAT 99
[2019-10-26] MEDS: MORPHINE SULFATE 2 MG/ML INJ IV PUSH (13:28)
--- NOTE | 2019-10-26 15:36 | PM.DS ---
DS: Admitting Diagnosis Admitting Diagnosis Admitting Diagnosis: Other specified abnormal findings of blood chemistry DS: Discharge Diagnosis Discharge Diagnosis (1) Elevated liver function tests: Code(s): R79.89 - Other specified abnormal findings of blood chemistry Status: Chronic Assessment and Plan: AST 801 and ALT 301 on admission. Lipase slightly elevated at 575. Atorvastatin on hold. GI consulted. [place] related to alcoholic hepatitis. LFTs trending down to 217 and 133 respectfully. Mag level low which we will replace. LDH elevated for unclear reasons but improved on recheck. CXR clear. LFTs have been elevated in the past possibly related to hepatic steatosis and/or from alcohol. HepC Ab positive but awaiting viral load. RUQ showing hepatomegaly with diffuse hepatic steatosis. Metabolic nongap acidosis noted that resolved on recheck. (2) Alcoholism /alcohol abuse: Code(s): F10.20 - Alcohol dependence, uncomplicated Status: Chronic Assessment and Plan: Patietn with hx of alcoholism. He is refusing inpatient therapy but is willing to do outpatient therapy. He was monitored with [facility] protocol. Continue Librium scheduled. Ativan IV available as needed and has only needed once today. He ws started on folic acid and thiamine. He has had withdrawal seizures in the past. He feels comfortable with discharge. Home with Librium. He was educated extensively about the benefits of abstaining from alcohol. Social work provided information about therapy. (3) Hypertension: Code(s): I10 - Essential (primary) hypertension Status: Chronic Assessment and Plan: Patient's blood pressure monitored. Blood pressure well controlled. Will continue current medications. HCTZ remained on hold. Hydralazine available as needed. (4) Asthma: Code(s): J45.909 - Unspecified asthma, uncomplicated Status: Chronic Assessment and Plan: No wheezing. We continued with inhaler. (5) Hyperlipidemia: Code(s): E78.5 - Hyperlipidemia, unspecified Status: Chronic Assessment and Plan: TC 650 with TG 2625. LDL normal. LFTs elevated. Atorvastatin on hold. Patient will need to follow up with his PCP for further evaluation and treatment. This could be contributing to his elevated Lipase. No treatment until LFTs improve. (6) History of marijuana use: Code(s): Z87.898 - Personal history of other specified conditions Status: Chronic Assessment and Plan: This will most likely make his anxiety worse by possibly causing more paranoia. Recommend stopping marijuana use. (7) Depression with anxiety: Code(s): F41.8 - Other specified anxiety disorders Status: Chronic Assessment and Plan: Mood stable overall. Continue with BuSpar and amitriptyline DS: Summary Hospital Course Reason for hospitalization: 39yo male with hx of alcoholism here for for withdrawal. Please see H&P for details Hospital Course: As above Time Spent with Patient Time attestation: Total time spent providing and/or coordinating discharge services:34 minutes Time spent: Greater than 30 minutes Exam Narrative: Exam Narrative: Feels better. Eating normally. Still with epigastric pain. No change in pain with eating. Feels comfortable with discharge plan. AF 136/80 91 16 99% ra Gen - NARD Chest - CTA bilaterally, nml RR CV - RRR S1/S2 Abd - soft. NT/ND. So guarding or pain i the epigastric region Ext - No pedal edema Neuro - Alert and orientedx4. Nonfocal exam. Psych - nml mood and affect, no tremors noted Skin - Warm and dry DS: Data Data Completed and Pending Labs on day of discharge: Labs from last 24 hours 10/26/19 10/26/19 04:44 04:44 WBC 5.6 RBC 3.79 L Hgb 12.7 L Hct 36.6 L MCV 96.6 MCH 33.5 D MCHC 34.7 RDW 13.2 Plt Count 135 L MPV 11.0 H % Immature Plt Frac
[2019-11-03 14:35] LABS: Hepatitis C RNA, Quant PCR <15 IU/mL
--- NOTE | 2019-11-04 11:23 | PC.NURSE ---
HCV RNA PCR Ius/ml- <15 HCV RNA PCR log Ius/ml- 1.18 Dr. Cee aware of findings. NO PCP
== END 2019-10-26 17:17 | disposition home or self-care (01) ==
LOC: ANHED 10:00 → ANH2MED 10:43
PROVIDERS: Internal Medicine Gastroenterology; Nurse Practitioner; Admitting Provider Internal Medicine; Emergency Provider Emergency Medicine; Visit Provider Internal Medicine
DX: F10.230 Alcohol dependence with withdrawal, uncomplicated (principal); K70.10 Alcoholic hepatitis without ascites; F10.20 Alcohol dependence, uncomplicated; R79.89 Other specified abnormal findings of blood chemistry; E87.2 Acidosis; R10.13 Epigastric pain; F31.9 Bipolar disorder, unspecified; F41.8 Other specified anxiety disorders; E78.5 Hyperlipidemia, unspecified; I10 Essential (primary) hypertension; J45.909 Unspecified asthma, uncomplicated; Z87.891 Personal history of nicotine dependence; Z87.898 Personal history of other specified conditions
CPT/HCPCS: 36415; 71045; 74177; 76705; 80048; 80053; 80061; 80074; 80076; 83605; 83615; 83690; 83735; 84100; 84443; 84484; 85025; 85027; 85055; 87522; 93005; 96361; 96365; 96375; 96376; 99285; A9270; G0378; G0379; J0360; J1741; J2060; J2270; J2405; J2550; J3411; J3475; J7030; Q9967

== ENCOUNTER 2020-03-24 20:08 | Emergency (ER) | payer OTHER, SELFPAY ==
--- NOTE | ~2020-03-24 | XR_ITS ---
EXAMINATION: XR lumbar spine 2-3V DATE: 03/24/2020 20:49 INDICATION: Low back pain TECHNIQUE: Anteroposterior and lateral views of the lumbar spine, and cone-down lateral view of the l umbosacral junction were obtained. COMPARISON: None. FINDINGS: There is no fracture. There are 2 mm of retrolisthesis of L5 on S1. The vertebral body heig hts are maintained. There is mild loss of intervertebral disc space height throughout the lumbar spin e. Small degenerative osteophytes project from the anterior endplates of multiple vertebral bodies. IMPRESSION: 1. Mild lumbar spondylosis without acute findings. Reviewed, dictated and finalized at location A. 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
[2020-03-24 20:10] VITALS: BP 145/89; PULSE 104; RESP 18; TEMP 36.3; O2SAT 100
[2020-03-24] MEDS: HYDROcodone/acetaminophen (*CRX) 5-325 MG TABLET 1 TAB PO (20:48)
[2020-03-24] MEDS: KETOROLAC (*BKC) 60 MG/2 ML VIAL IM (20:49)
[2020-03-24] MEDS: ORPHENADRINE CITRATE 100 MG TABLET.ER PO (20:49)
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
== END 2020-03-24 21:46 | disposition home or self-care (01) ==
PROVIDERS: Emergency Provider Emergency Medicine
DX: M54.5 Low back pain (principal); F31.9 Bipolar disorder, unspecified; F41.9 Anxiety disorder, unspecified; E78.5 Hyperlipidemia, unspecified; I10 Essential (primary) hypertension; Z87.891 Personal history of nicotine dependence; F10.20 Alcohol dependence, uncomplicated
CPT/HCPCS: 72100; 96372; 99283; A9270; J1885

== ENCOUNTER 2020-03-25 07:55 | Inpatient (IN) | payer OTHER, SELFPAY ==
[2020-03-25] VITALS (20 sets, daily range): BP systolic 143–169; BP diastolic 97–109; PULSE 88–159; RESP 20–38; TEMP 35.6–36.7; O2SAT 95–100; BMI 30.2
--- NOTE | ~2020-03-25 | XR_ITS ---
XR chest 1V portable 03/30/2020 06:15 Indication: Respiratory failure Procedure: AP portable chest Comparison: Comparison to multiple prior studies sequentially, with oldest reviewed study dated 06/2020. Findings: Endotracheal tube tip 3.3 cm above the valerie. Right IJ central line tip in the SVC. NG tub e in the stomach. Heart size normal. Bilateral perihilar airspace disease is unchanged from . No significant effusion or pneumothorax. Impression: 1: Stable bilateral perihilar airspace disease, consistent with mild edema. Pneumonia less favored. Reviewed, dictated and finalized at location A. ICU Impression: 1: Stable bilateral perihilar airspace disease, consistent with mild edema. Pne umonia less favored.
--- NOTE | ~2020-03-25 | XR_ITS ---
XR chest ET placement 03/26/2020 06:16 Indication: Dyspnea. Shortness of breath. Procedure: AP portable chest Comparison: Comparison to multiple prior studies sequentially, with oldest reviewed study dated 10/2015. Findings: Endotracheal tube tip approximately 1.6 cm above the valerie. NG tube in the stomach. There are bilateral perihilar infiltrates with peribronchial thickening. No significant pleural effusion or pneumothorax. Impression: 1: Bilateral perihilar interstitial infiltrates which may represent mild edema versus pneumonia. Reviewed, dictated and finalized at location A. ETEER Impression: 1: Bilateral perihilar interstitial infiltrates which may represent mild edema versus pneumonia.
--- NOTE | ~2020-03-25 | XR_ITS ---
XR chest 1V portable 03/28/2020 06:11 Indication: Respiratory failure Procedure: AP portable chest Comparison: Comparison to multiple prior studies sequentially, with oldest reviewed study dated 05/2019. Findings: There are bilateral perihilar infiltrates with peribronchial thickening. No significant eff usion or pneumothorax. Low lung volumes. Endotracheal tube tip 4.2 cm above the valerie. NG tube in th e stomach. Right IJ central line tip in the SVC. Impression: 1: Bilateral perihilar interstitial infiltrates with peribronchial thickening, mild edema versus atyp ical pneumonia. Reviewed, dictated and finalized at location A. L SEPARATOR Impression: 1: Bilateral perihilar interstitial infiltrates with peribronchial thickening, mild edema versus atypical pneumonia.
--- NOTE | ~2020-03-25 | XR_ITS ---
XR chest 1V portable 03/31/2020 06:00 Indication: Respiratory failure Procedure: AP portable chest Comparison: Comparison to multiple prior studies sequentially, with oldest reviewed study dated 07/2020. Findings: Cardiomegaly. Bilateral perihilar airspace disease. Right IJ central line tip in the SVC. S mall left pleural effusion. No pneumothorax. Impression: 1: Improving bilateral perihilar airspace disease, likely resolving edema. Pneumonia less favored alt logan not excluded. Reviewed, dictated and finalized at location A. MACHINE FILLER Impression: 1: Improving bilateral perihilar airspace disease, likely resolving edema. Pneu monia less favored although not excluded.
--- NOTE | ~2020-03-25 | XR_ITS ---
XR abdomen obstructive series DATE: 03/27/2020 15:33 INDICATION: Abdominal firmness, distention TECHNIQUE: Portable supine and upright AP views of the abdomen COMPARISON: 03/2020 abdomen for orogastric tube placement 03/25/2020 CTA chest abdomen pelvis FINDINGS: Orogastric tube tip overlies the distal esophagus the lower thorax. Advancement is recommen ded. A catheter overlies the right common femoral vein, external and common iliac veins, terminating at S1 level. There is gaseous distention of the transverse colon and portions of the ascending and descending colo n. The small bowel is relatively gasless. No apparent intraperitoneal free air is detected. IMPRESSION: Orogastric tube in lower chest; advancement is recommended Nonspecific bowel gas pattern, without evidence of obstruction Reviewed, dictated and finalized at Location A. Reviewed, dictated and finalized at location B. SE COOK
--- NOTE | ~2020-03-25 | XR_ITS ---
XR chest 1V portable 03/27/2020 05:51 Indication: Respiratory failure Procedure: AP portable chest Comparison: Comparison to multiple prior studies sequentially, with oldest reviewed study dated 09/18. Findings: Endotracheal tube tip 3.5 cm above the valerie. NG tube in the stomach. Right IJ central jermaine e tip in the SVC. Cardiomegaly. Mild interstitial edema. No significant effusion or pneumothorax. No acute osseous abnormality. Impression: 1: Cardiomegaly with mild interstitial edema. No significant change. Reviewed, dictated and finalized at location A. Y CARVER Impression: 1: Cardiomegaly with mild interstitial edema. No significant change.
--- NOTE | ~2020-03-25 | US_ITS ---
EXAMINATION: US renal BI EXAM DATE: 03/26/2020 17:47 INDICATION: Elevated creatinine, acute kidney insufficiency. TECHNIQUE: Multiple grayscale and Doppler images of the kidneys were obtained (by a technologist who performed the scan) and subsequently reviewed. There is no prior study for comparison. FINDINGS: Right kidney: There is normal contour and echogenicity. It measures 13.8 x 5.4 x 6.0 centimeters. T here are no focal renal lesions identified. There is no hydronephrosis. Left kidney: There is normal contour and echogenicity. It measures 10.4 x 5.5 x 5.4 centimeters. Th ere are no focal renal lesions identified. There is no hydronephrosis. Berman catheter within collapsed bladder is not fully evaluated. Incidental note made of hepatic steat osis. IMPRESSION: 1. Sonographically unremarkable kidneys. 2. Hepatic steatosis. Reviewed, dictated and finalized at location A. WAY COMMISSIONER
--- NOTE | ~2020-03-25 | XR_ITS ---
EXAMINATION: XR abdomen NG/feed tube rechec EXAM DATE: 03/27/2020 16:15 INDICATION: OGT advanced . TECHNIQUE: Frontal projection of the upper abdomen, frontal projection lower abdomen/pelvis for inter pretation. Comparison is made to prior examination from earlier same day. FINDINGS: Tip of the nasogastric tube projects over gastric bubble. Side port is above the gastroeso phageal junction. Could be safely advanced 5-10 cm. Several loops of air-filled bowel identified. IMPRESSION: Feeding tube tip in stomach but could be safely advanced 5-10 cm. Reviewed, dictated and finalized at location A. RINARY HOSPITAL ATTENDANT
--- NOTE | ~2020-03-25 | CT_ITS ---
EXAMINATION: CTA chest abdomen pelvis DATE: 03/25/2020 09:39 INDICATION: Chest, abdominal and back pain TECHNIQUE: Computed tomographic angiography (CTA) of the chest, abdomen and pelvis was performed with 150 cc of Omnipaque-350 intravenous contrast. Additional 3D reconstructions utilizing rotating maxim um intensity projection (MIP) were performed. Automated exposure control and iterative reconstruction technique were employed. The dose-length product was 911.78 mGy-cm. COMPARISON: CT abdomen and pelvis dated 10/24/[address] dated 10/07/2018 FINDINGS: Chest: Lungs are clear with no pneumonia, pulmonary edema, pleural effusion or pneumothorax. Heart size is n ormal. No pericardial effusion. Thoracic aorta is normal in caliber with no dissection. No pathologic ally enlarged thoracic lymphadenopathy. There are bridging osteophytes at multiple levels in the spin e, consistent with diffuse idiopathic skeletal hyperostosis (DISH). Abdomen and pelvis: Diffuse hepatic steatosis. 3.1 cm hemangioma in the lateral segment of the left hepatic lobe with garth racteristic peripheral discontiguous puddling of contrast evident on the prior CT . Gallbladder, sple en, bilateral adrenal glands and kidneys are normal. There is edema at the head of the pancreas with surrounding peripancreatic stranding and nonloculated peripancreatic/retroperitoneal fluid which exte nds caudally along the duodenum and anterior right pararenal space consistent with acute interstitial pancreatitis. No evident hemorrhage, parenchymal necrosis or loculated fluid collections to suggest abscess or walled off necrosis. Bowels including the appendix are normal. Abdominal aorta is normal i n caliber with no dissection. Mild lumbar spondylosis. IMPRESSION: 1. Radiographically uncomplicated acute interstitial pancreatitis. Correlate with amylase and lipase levels. 2. Normal aorta. 3. Diffuse hepatic steatosis. Reviewed, dictated and finalized at location A. MOTIVE SALES EXECUTIVE IMPRESSION: 1. Radiographically uncomplicated acute interstitial pancreatitis. Correlate wi amylase and lipase levels. 2. Normal aorta. 3. Diffuse hepatic steatosis.
--- NOTE | ~2020-03-25 | XR_ITS ---
XR abdomen NG/feed tube insert INDICATION: Evaluate NG tube position. TECHNIQUE: Limited KUB perform for evaluating NG tube . COMPARISON: No prior studies for comparison. FINDINGS: NG tube tip in the stomach, side-port near the expected location of the GE junction.. Visu alized bowel gas pattern is unremarkable. IMPRESSION: 1: NG tube tip in the stomach, side port near the expected location of the GE junction. Reviewed, dictated and finalized at location A. R STEWARD/STEWARDESS
--- NOTE | ~2020-03-25 | XR_ITS ---
XR chest port-a-cath/central 03/26/2020 06:39 Indication: Central line placement Procedure: AP portable chest Comparison: Comparison to multiple prior studies sequentially, with oldest reviewed study dated 10/07. Findings: Endotracheal tube tip 2 cm above the valerie. NG tube in the stomach. Right IJ central line tip in the SVC. Heart size normal. There is bilateral perihilar interstitial infiltration. No pleural effusion or pneumothorax. Impression: 1: Bilateral perihilar interstitial infiltrates may represent mild edema versus pneumonia. Reviewed, dictated and finalized at location A. ORATE PLANNER Impression: 1: Bilateral perihilar interstitial infiltrates may represent mild edema versus pneumonia.
--- NOTE | ~2020-03-25 | XR_ITS ---
EXAMINATION: XR abdomen obstructive series DATE: 03/30/2020 10:42 INDICATION: Abdominal distention. TECHNIQUE: Upright and supine views of the abdomen were obtained. COMPARISON: CT abdomen and pelvis 03/25/2019 FINDINGS: There are no dilated loops of bowel. No free intraperitoneal gas. The nasogastric tube tip is in the stomach. IMPRESSION: 1. Nonobstructive bowel gas pattern. Reviewed, dictated and finalized at location A. AND STOCKING IRONER
--- NOTE | ~2020-03-25 | XR_ITS ---
EXAMINATION: XR abdomen/kub 1V EXAM DATE: 04/03/2020 11:10 INDICATION: Constipation. TECHNIQUE: Frontal projection(s) of the abdomen for interpretation. Comparison is made to prior exami nation from 03/30/2020. FINDINGS: Moderate amount of colonic gas, only small amount of colonic stool. No small bowel dilati on, nonobstructive bowel gas pattern. There are no suspicious calcifications identified. There is no organomegaly suspected. The bones are unremarkable. IMPRESSION: Moderate amount of colonic gas, small amount of stool. Reviewed, dictated and finalized at location B. ERING MACHINE OPERATOR
--- NOTE | ~2020-03-25 | XR_ITS ---
XR chest 1V portable 03/29/2020 06:30 Indication: Respiratory failure Procedure: AP portable chest Comparison: Comparison to multiple prior studies sequentially, with oldest reviewed study dated 06/2020. Findings: Endotracheal tube tip 4 cm above the valerie. NG tube in the stomach. Right IJ central line tip in the SVC. Borderline heart size. There is mild interstitial edema. Small left effusion. No pneu mothorax. Impression: 1: Mild interstitial edema with small left effusion. Reviewed, dictated and finalized at location A. TED CIRCUIT BOARD ASSEMBLY REPAIRER Impression: 1: Mild interstitial edema with small left effusion.
--- NOTE | 2020-03-25 08:03 | ECG_ITS ---
Measurements Intervals [place] Rate: 103 P: 57 IN: 145 QRS: 31 QRSD: 93 T: 14 QT: 371 QTc: 488 Interpretive Statements SINUS TACHYCARDIA BORDERLINE ST-T WAVE ABNORMALITY- INFERIOR LEADS BORDERLINE ECG Electronically Signed On 03-25-2020 8:07:53 [employer]ITAL [employer]IA ASSOCIATE by Onur Rob D.O.
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
[2020-03-25] MEDS: LABETALOL HCL INJ 100 MG/20 ML VIAL 10 MG IV PUSH (08:10)
[2020-03-25] MEDS: fentaNYL CITRATE INJ (*CRX) 100 MCG/2 ML VIAL 50 MCG IV PUSH (08:11)
[2020-03-25] MEDS: SODIUM CHLORIDE 0.9% IV 1,000 ML 999 ML IV CONT (08:11)
[2020-03-25] MEDS: LORazepam INJ (*CRX) 2 MG/ML VIAL 1 MG IV PUSH ×6 (08:14→21:31)
[2020-03-25 08:22] LABS: Partial Thromboplastin Time 32.3 SECONDS (22.3-36.8); Prothrombin Time 13.8 Seconds (11.1-14.7)
--- NOTE | 2020-03-25 08:35 | PC.NURSE ---
Pt reports unable to provide urine sample at this time, fluids infusing, urinal at bedside.
[2020-03-25 08:40] LABS: Basophils Percent Auto 0.3 % (0.2-1.2); Eosinophils Percent Auto 0.1 % (0-4.4); Hematocrit 38.5 % (42.0-52.0); Hemoglobin 17.1 g/dL (14.0-18.0); Immature Granulocyte Absolute 0.12 K/mm3 (0.00-0.031); Immature Granulocyte Percent A 0.9 % (0-0.5); Immature Platelet Fraction Pct 1.9 % (0.9-11.2); Lymphocytes Absolute Auto 1.87 K/mm3 (0.9-3.2); Lymphocytes Percent Auto 14.2 % (18.3-44.2); Mean Corpuscular HGB Conc 44.4 g/dl (32-36); Mean Corpuscular Hemoglobin 40.8 pg (26-34); Mean Corpuscular Volume 91.9 fl (80-100); Mean Platelet Volume 10.1 fl (7.4-10.4); Monocytes Absolute Auto 0.8 K/mm3 (0.1-0.6); Monocytes Percent Auto 6.3 % (2.6-8.5); Neutrophils Absolute Auto 10.3 K/mm3 (1.3-6.7); Neutrophils Percent Auto 78.2 % (45.5-73.1); Platelet Count Result 228 k/mm3 (150-375); Red Blood Count 4.19 M/mm3 (4.6-6.20); Red Cell Distribution Width 12.1 % (11.5-14.5); White Blood Count 13.2 K/mm3 (4.5-10.0)
[2020-03-25 09:02] LABS: Add Urine Microscopic? YES; Appearance Urine Clear (Clear); Bacteria Urine Trace /hpf; Bilirubin Urine Negative (Negative); Blood Urine Negative (Negative); Color Urine Yellow (Yellow); Glucose Urine UA Negative (Negative); Ketones Urine Trace mg/dL (Negative); Leukocyte Esterase Ur Negative LEU/UL (Negative); Mucus Urine Rare /lpf; Nitrate Urine Negative (Negative); Protein Urine 1+ mg/dL (Negative); Specific Grav Ur 1.024 (1.001-1.035); Urobilinogen Urine Negative mg/dL (<2.0); WBC Urine 0-3 /hpf
[2020-03-25 09:10] LABS: Sodium 128 mmol/L (137-145)
[2020-03-25 09:11] LABS: Chloride 95 mmol/L (98-107); Potassium 2.7 mmol/L (3.4-5.0)
[2020-03-25 09:12] LABS: Blood Urea Nitrogen 15 mg/dL (9-20); Estimated CRCL calculation 99 ml/min; Estimated Glomerular Filt Rate > 60; Glucose 99 mg/dL (75-110)
[2020-03-25 09:13] LABS: Calcium 7.7 mg/dL (8.4-10.2)
--- NOTE | 2020-03-25 09:37 | PC.NURSE ---
Pt to CT scan via stretcher.
[2020-03-25 09:42] LABS: Troponin I < 0.012 ng/mL (0.000-0.034)
[2020-03-25] MEDS: MORPHINE SULFATE (*CRX) 4 MG/ML INJ IV PUSH ×4 (10:11→20:02)
[2020-03-25] MEDS: ONDANSETRON INJ 4 MG/2 ML VIAL IV PUSH ×2 (10:17→17:12)
[2020-03-25] MEDS: chlordiazePOXIDE (*CRX) 25 MG CAPSULE PO ×3 (10:22→14:03)
--- NOTE | 2020-03-25 12:37 | ADMGEN ---
This patient, Teodoro Waddell, was admitted to IMU Room 206-02. Patient/family oriented to hospital policies and general routines including ID bracelet, bed and alarms, visiting hours, pain management, procedures, bathroom and other care routines, personal items, smoking policy, room service/diet, and visiting hours. Information on how to activate the Rapid Response Team has been discussed. Patient/Family are encouraged to report perceived risks to care and to ask questions if they do not understand what they are told or what they should do.
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
[2020-03-25] MEDS: LACTATED RINGERS 1,000 ML 150 ML IV CONT ×2 (14:02→22:11)
[2020-03-25] MEDS: chlordiazePOXIDE (*CRX) 25 MG CAPSULE 50 MG PO (17:11)
[2020-03-25] MEDS: SODIUM CHLORIDE 0.9% IV 500 ML IV CONT (18:12)
--- NOTE | 2020-03-25 18:27 | PC.NURSE ---
Dr. Gibbs notified of pending lab results related to lipemia. Will repeat labs in AM.
[2020-03-25] MEDS: GABAPENTIN 300 MG CAPSULE PO (18:59)
[2020-03-25] MEDS: busPIRone HCL 5 MG TABLET 15 MG PO (18:59)
[2020-03-25] MEDS: QUEtiapine FUMARATE 100 MG TABLET 400 MG PO (20:03)
[2020-03-25] MEDS: CYCLOBENZAPRINE HCL 10 MG TABLET PO (20:03)
--- NOTE | 2020-03-25 21:51 | PC.NURSE ---
This patient, Teodoro Waddell, was transferred to [ICU 11 ] on 03/25/20 at 2140. Personal belongings sent with patient. Report given to [ ]. Appropriate documentation sent with patient.
[2020-03-25] MEDS: SODIUM CHLORIDE 0.9% IV 500 ML 999 ML IV CONT (22:13)
[2020-03-25] MEDS: dexmedeTOMIDine 400 MCG/100 ML 400 MCG/100 ML BAG 16.22 MCG IV CONT (22:18)
--- NOTE | 2020-03-25 22:25 | PC.NURSE ---
This patient, Teodoro Nationmichelle, was received from [ ] on 03/25/20 at 2225. Patient/family oriented to unit policies and routines
[2020-03-25] MEDS: SODIUM CHLORIDE 0.9% IV 500 ML 999 ML (23:43)
[2020-03-26] VITALS (45 sets, daily range): BP systolic 75–104; BP diastolic 40–72; PULSE 111–134; RESP 14–60; TEMP 36.6–37.5; O2SAT 93–100; BMI 31.1
--- NOTE | 2020-03-26 | ECHO_ITS ---
Patient Info Name: Teodoro Waddell Age: 40 years : 1980 Gender: Male Ht: 69 in Wt: 211 lbs BSA: 2.19 m2 HR: 125 bpm BP: 99 / 67 mmHg Heart Rhythm: Tachycardia Technical Quality: Good Exam Date: 03/26/2020 10:57 AM Exam Location: [facility] Patient Status: Inpatient Admit Date: 03/25/2020 Staff Ordering Physician: Fabio Monroe MD It Security Specialist: Mark Kim RDCS Attending Provider: Shahrzad Hood MD Exam Type: CA echo dop color flow w con Study Info Indications R65.21 - Severe sepsis with septic shock Complete two-dimensional, color flow and Doppler transthoracic echocardiogram is performed with contrast to opacify the left ventricle and to improve the deliniation of the left ventricle endocardial borders. Contrast/Agitated Saline Contrast/Ag. Saline: Definity Amount: 3.00 ml Administered By: Constanza Salter RN Existing IV Access: Yes History/Risk Factors Pancreatitis; EtOH abuse, polysubstance abuse, HoTN. Summary 1. Left ventricular chamber dimension is normal. 2. Left ventricular systolic function is low normal, estimated at 50-55%. 3. There is mildly increased left ventricular wall thickness. 4. The left ventricular diastolic function is grade I diastolic dysfunction. 5. There is mild tricuspid valve regurgitation. Left Ventricle Left ventricular chamber dimension is normal. Left ventricular systolic function is low normal, estimated at 50-55%. There is mildly increased left ventricular wall thickness. The left ventricular diastolic function is grade I diastolic dysfunction. Right Ventricle Right ventricular chamber dimension is normal. Right ventricular systolic function is normal. Left Atria Left atrial chamber dimension is normal. Right Atria Right atrial chamber dimension is normal. Atrial Septum Intact interatrial septum visualized by color flow imaging. Aortic Valve The aortic valve is probable trileaflet. There is mild aortic valve sclerosis. There is no aortic valve stenosis. There is trace aortic valve regurgitation. Pulmonic Valve The pulmonic valve is normal. There is no pulmonic valve stenosis. There is trace pulmonic regurgitation. Mitral Valve The mitral valve has normal leaflets. There is no mitral valve stenosis. There is trace mitral valve regurgitation. Tricuspid Valve The tricuspid valve leaflets are normal. There is no significant tricuspid valve stenosis. There is mild tricuspid valve regurgitation. No pulmonary hypertension, estimated pulmonary arterial systolic pressure is 32 mmHg. Pericardium/Pleural The pericardium appears normal. There is no pericardial effusion. Inferior Vena Cava Normal inferior vena cava with <50% collapse upon inspiration consistent with elevated right atrial pressure, 10 mmHg. Aorta The aortic root size at the sinus of Valsalva is normal. The prox ascending aorta size is normal. Left Ventricular Outflow Tract Name Value Normal LVOT 2D LVOT Diameter 2.18 cm LVOT Doppler LVOT Peak Gradient 4 mmHg
[2020-03-26] MEDS: LORazepam INJ (*CRX) 2 MG/ML VIAL 1 MG IV PUSH (00:05)
[2020-03-26] MEDS: chlordiazePOXIDE (*CRX) 25 MG CAPSULE 50 MG PO (00:06)
[2020-03-26] MEDS: ONDANSETRON INJ 4 MG/2 ML VIAL IV PUSH (01:13)
[2020-03-26] MEDS: MORPHINE SULFATE (*CRX) 4 MG/ML INJ IV PUSH (01:15)
[2020-03-26 05:19] LABS: Hematocrit 43.3 % (42.0-52.0); Hemoglobin 17.8 g/dL (14.0-18.0); Mean Platelet Volume 10.6 fl (7.4-10.4); Platelet Count Result 123 k/mm3 (150-375); Red Blood Count 4.56 M/mm3 (4.6-6.20); Red Cell Distribution Width 12.7 % (11.5-14.5); White Blood Count 3.1 K/mm3 (4.5-10.0)
--- NOTE | 2020-03-26 05:30 | WPDPROCEDUR ---
Procedures Intubation Intubation Date: 03/26/20 Intubation Time: 05:05 A pre-procedural Time-Out was completed immediately before starting the procedure and confirmed: Patient Identification, Site, Procedure, Patient Position and the Availability of Requisite Equipment: Yes Sedative: none Paralytic: rocuronium Mg given: 60 Laryngoscope: Bhavik ET tube size: cuffed Tube secured depth (cm): 26 Tube secured location: teeth Tube placement confirmation: visualized tube passing through cords, equal breath sounds bilaterally, no breath sounds over epigastrium and confirmation by capnometry Patient tolerated procedure: well and no complications Intubation complications: none Additional comments: Date of service was 03/26/2020 at 05:05 hrs
[2020-03-26 05:32] LABS: Mean Corpuscular HGB Conc 41.1 g/dl (32-36)
[2020-03-26] MEDS: NOREPINEPHRINE 8 MG/D5W 250 ML 8 MG/250 ML BAG 13.13 MG IV CONT (05:36)
[2020-03-26] MEDS: FENTANYL 2,500MCG/NS250ML(*CRX 2,500 MCG/250 ML BAG IV CONT (05:37)
[2020-03-26] MEDS: SODIUM CHLORIDE 0.9% IV 500 ML 999 ML (05:38)
--- NOTE | 2020-03-26 06:20 | WPDPROCEDUR ---
Procedures Central Line Placement Right IJ: Central Line Date: 03/26/20 Central Line Time: 06:00 The patient/family/POA understand(s) and acknowledge(s) the need to proceed with central venous catheter insertion as an important element of the patient's clinical management.: Yes Time Out Performed: Yes Patient Position: supine Patient placed on monitor/pulse ox: Yes Provider Prep: mask, sterile gown, Max. sterile barrier precautions, cap and hand hygiene with conventional soap/water or alcohol based hand rub Sterile US Technique with sterile gel/sterile probe covers: Yes Micronesian: 7 Length (cm): 17 Depth of Insertion (cm): 16 Post Procedure: sutured in place, good blood return, all ports aspirated, flushed, capped, transparent dressing, securement product and aseptic technique maintained throughout procedure Post procedure x-ray: tip of catheter in good position and no pneumothorax seen Patient tolerated procedure: well Complications: none Additional comments: Date of service of procedure was 03/26/2020 at 6 am.
[2020-03-26 07:02] LABS: Blood Urea Nitrogen 12 mg/dL (8-26); Chloride 104 mmol/L (98-109); Estimated CRCL calculation 48 ml/min; Estimated Glomerular Filt Rate 35; Potassium 3.6 mmol/L (3.5-4.9); Sodium 129 mmol/L (138-146)
[2020-03-26 08:45] LABS: Arterial Blood Gas Ventilator rate 14 /MIN; Base Excess ABG -6.5 mEq/l (+/-2.0); Device VENTILATOR; Fractional Inspired Oxygen 50 %; HCO3 ABG 16.4 mEq/l (22.0-26.0); Oxygen Content ABG 19.3 %vol (16.0-22.0); Oxygen Saturation ABG 98.3 % (95.0-100.0); Oxyhemoglobin 97.3 % THb (90.0-100.0); PCO2 ABG 26.3 mmHg (35.0-45.0); PO2 ABG 112.9 mmHg (80.0-100.0); PO2 FiO2 Ratio Arterial Blood 2.26 %; Site Drawn RIGHT BRACHIAL; pH ABG 7.413 (7.350-7.450)
[2020-03-26] MEDS: LACTATED RINGERS 1,000 ML 999 ML IV CONT ×2 (08:45→10:24)
[2020-03-26 08:46] LABS: Arterial Blood Gas PEEP 5 cmH2O; Arterial Blood Gas Tidal Volume 500 ml; Arterial Blood Gas Vent Mode CMV
[2020-03-26] MEDS: INSULIN HUMAN REGULAR (*BKC) 100 UNITS in SODIUM CHLORIDE 0.9% IV 99 ML IV CONT (08:46)
[2020-03-26] MEDS: FOLIC ACID 1 MG TABLET PO (08:47)
[2020-03-26] MEDS: LORATADINE 10 MG TABLET PO (08:47)
[2020-03-26] MEDS: THIAMINE HCL 100 MG TABLET PO (08:47)
[2020-03-26] MEDS: ATORVASTATIN 20 MG TABLET PO (08:47)
[2020-03-26] MEDS: PANTOPRAZOLE 40 MG TABLET PO (08:47)
[2020-03-26] MEDS: busPIRone HCL 5 MG TABLET 15 MG PO ×3 (08:47→16:04)
[2020-03-26] MEDS: DEXTROSE 5%/0.9% SOD CHL 1,000 ML 100 ML IV CONT (08:51)
[2020-03-26] MEDS: POTASSIUM CHLORIDE 20 MEQ PACKET (FOR LIQUID) 40 MEQ FEED TUBE (08:51)
[2020-03-26 09:07] LABS: Glucose Point of Care 129 (65-105)
--- NOTE | 2020-03-26 09:37 | WPDCNINT ---
Assessment and Plan Assessment and plan (1) Acute respiratory failure: Code(s): J96.00 - Acute respiratory failure, unspecified whether with hypoxia or hypercapnia Status: Acute Assessment and Plan: Acute Respiratory failure secondary to alcohol withdrawal, suspected aspiration, pancreatitis Continue full mechanical ventilation support to prevent hypoxemia/hypercarbia and end organ damage. ABG and PCXR reviewed and will repeat in am. Low tidal volume ventilation strategy to prevent volutrauma Patient on Levaquin. I will add Flagyl (2) Pancreatitis: Code(s): K85.90 - Acute pancreatitis without necrosis or infection, unspecified Status: Acute Assessment and Plan: Secondary to alcohol versus hypertriglyceridemia NPO Patient on empiric antibiotics IV fluids Currently on fentanyl infusion for pain control CT abdomen reviewed (3) Alcohol withdrawal: Qualifiers: Complication of substance-induced condition: uncomplicated Qualified Code(s): F10.230 - Alcohol dependence with withdrawal, uncomplicated Code(s): F10.239 - Alcohol dependence with withdrawal, unspecified Status: Acute Assessment and Plan: Now sedated on Versed infusion Thiamine and folic acid (4) Acute alcoholic hepatitis: Code(s): K70.10 - Alcoholic hepatitis without ascites Status: Acute Assessment and Plan: Maryjane's Discriminant Function for Alcoholic Hepatitis calculated and does not suggest treatment with steroids Continue monitoring LFTs CT abdomen review (5) Hypotension: Code(s): I95.9 - Hypotension, unspecified Status: Acute Assessment and Plan: Will give 1 L LR bolus Continue Levophed Continue IV fluids Monitor lactic acid level (6) Hypertriglyceridemia: Code(s): E78.1 - Pure hyperglyceridemia Status: Acute Assessment and Plan: Patient has history of hypertriglyceridemia Patient's blood appears lipemic as per report from lab Triglycerides level is pending but anticipated will be very high I will start patient on IV dextrose and IV insulin infusion Nephrology consulted for plasma exchange (7) FIGUEROA (acute kidney injury): Code(s): N17.9 - Acute kidney failure, unspecified Status: Acute Assessment and Plan: Likely secondary to sepsis and hypotension Continue aggressive volume resuscitation Check CK level Accurate intake and output monitoring Nephrology consulted Monitor electrolytes Additional Plan DVT prophylaxis -subcutaneous Lovenox Stress ulcer prophylaxis -Protonix Nutrition -NPO Code Status - Full Code Total Critical Care Time - 40 minutes Due to a high probability of clinically significant, life threatening deterioration, the patient required my highest level of preparedness to intervene emergently and I personally spent this critical care time directly and personally managing the patient. This critical care time included obtaining a history; examining the patient; pulse oximetry; ordering and review of studies; arranging urgent treatment with development of a management plan; evaluation of patient's response to treatment; frequent reassessment; and discussions with other providers. It was exclusive of separately billable procedures and treating other patients and teaching time. Please see Assessment and Plan section and the rest of the note for further information on patient assessment and treatment Glass Artist Consult Note Consult date: 03/26/20 Time Seen: 07:00 HPI: Teodoro Waddell is a 40 year old male with past medical history of alcoholism, bipolar moved disorder, seizure disorder, hyperlipidemia, alcohol withdrawal seizures and drug abuse. 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 He started drinking alcohol at about age 25. He drinks about 15 beers per day. He has tried to quit using naltrexone unsuccessfully. He follows at [facility] for his psychiatric care.
[2020-03-26 10:07] LABS: Glucose Point of Care 129 (65-105)
[2020-03-26 11:06] LABS: Glucose Point of Care 103 (65-105)
[2020-03-26] MEDS: metroNIDAZOLE 500 MG/ISO 100ML 500 MG/100 ML BAG 100 MG IVPB ×2 (11:16→18:00)
[2020-03-26] MEDS: PERFLUTREN LIPID MICROSPHERES 1.5 ML VIAL DILUTED TO 10 ML TOTAL VOLUME IV PUSH (11:22)
[2020-03-26 12:05] LABS: Glucose Point of Care 90 (65-105)
--- NOTE | 2020-03-26 13:33 | WPDPROCEDUR ---
Procedures Central Line Placement Right Femoral: Central Line Date: 03/26/20 Central Line Time: 12:30 Discussed w/ the patient/family/POA,the placement of a central venous catheter, including its clinical necessity/indication & associated potential risks, benifits and alternatives.: Yes The patient/family/POA understand(s) and acknowledge(s) the need to proceed with central venous catheter insertion as an important element of the patient's clinical management.: Yes Consent: Informed verbal consent obtained from patient's father and mother by phone after explanation of risks and benefits along with alternatives. Time Out Performed: Yes Patient Position: supine Patient placed on monitor/pulse ox: Yes Provider Prep: mask, sterile gown, sterile gloves, Max. sterile barrier precautions, cap and hand hygiene with conventional soap/water or alcohol based hand rub Central line prep: 2% Chlorhexidine scrub Local anesthesia used: lidocaine 1% Amount of anesthesia used (ml): 5 Sterile US Technique with sterile gel/sterile probe covers: Yes Central line lumen inserted: triple Romanian: 12 Length (cm): 20 Depth of Insertion (cm): 20 Post Procedure: sutured in place, good blood return, all ports aspirated, flushed, capped, transparent dressing and antimicrobial product Patient tolerated procedure: well Complications: none Additional comments: Temporary hemodialysis catheter inserted for therapeutic plasma exchange
--- NOTE | 2020-03-26 13:34 | PM.EVENT ---
Event Note Event Note Event Note: Triglyceride level was too high and could not be measured by our lab. Specimen was sent out to outside lab. In light of patient's pancreatitis, worsening clinical status including renal failure, respiratory fail and shock I discussed with Dr. Nichols regarding starting patient on therapeutic plasma exchange for hypertriglyceridemia. He was in agreement with the plan. Although we do not have accurate triglyceride level, it is clear that level is very high. His blood is grossly lipemic and when collected in avial 2/3rd of top portion turns to white. I spoke to patient's father and mother by phone and updated them with patient's current status treatment plan. They verbalized understanding and gave verbal consent to place dialysis catheter and also pursue plasma exchange to treat his hypertriglyceridemia. Temporary hemodialysis catheter placed in right femoral area without any complication. Nephrology notified.
--- NOTE | 2020-03-26 13:36 | PM.CNNEP ---
Assessment and Plan Assessment and plan (1) FIGUEROA (acute kidney injury): Code(s): N17.9 - Acute kidney failure, unspecified Status: Acute Assessment and Plan: Teodoro has acute kidney injury. His baseline creatinine is normal. Today the creatinine jose to 2.1. This could be due to pancreatitis and 3rd spacing. The patient also received contrast for a CT scan earlier. This could have caused the creatinine to rise as well. His blood pressure is a little soft as well which could be contributing as well. Obstruction is always a possibility we will see what the ultrasound shows. Rhabdomyolysis is also a possibility. We can check a CK. other causes such as glomerulonephritis and interstitial nephritis are less likely in this scenario. Will check a renal ultrasound, CPK, urine electrolytes, urine eosinophils. (2) Hypertriglyceridemia: Code(s): E78.1 - Pure hyperglyceridemia Status: Acute Assessment and Plan: The patient has very high triglycerides. The serum is clearly lipemic on visual inspection in the lab. It is so high that interferes with the lipase and liver enzymes. causes of hypertriglyceridemia include genetic causes, alcohol, high carb diets, and high fat intake especially if poor quality fats and in patients with a concurrent high carb diet. Because the triglycerides are so high it is unlikely that medical therapy is going to reduce these very quickly and he has pancreatitis so it would be prudent to get the triglycerides down more quickly. For this reason I think we should do plasmapheresis. I have called the plasmapheresis nurses who will be on standby when the catheter is placed and will do a treatment today. We can repeat a triglyceride level in the morning and do another plasmapheresis if needed. (3) Pancreatitis: Code(s): K85.90 - Acute pancreatitis without necrosis or infection, unspecified Status: Acute Assessment and Plan: The patient has evidence of this on CT scan. Will get a lipase in the morning when triglycerides are lower hopefully. He is getting supportive care. (4) Acute respiratory failure: Code(s): J96.00 - Acute respiratory failure, unspecified whether with hypoxia or hypercapnia Status: Acute Assessment and Plan: The patient is on the ventilator and getting supportive care. (5) Hypertension: Qualifiers: Hypertension type: unspecified Qualified Code(s): I10 - Essential (primary) hypertension Code(s): I10 - Essential (primary) hypertension Status: Chronic Assessment and Plan: His blood pressure is a bit soft right now. This could be from 3rd spacing due to the pancreatitis or from sepsis. (6) Bipolar 1 disorder: Code(s): F31.9 - Bipolar disorder, unspecified Status: Acute History of Present Illness Reason for Consult Consult date: 03/26/20 Chief Complaint Chief complaint: Acute alcoholic pancreatitis, alcohol withdrawl History of Present Illness Narrative: Teodoro is an unfortunate 40-year-old gentleman who has hypertriglyceridemia. The patient was admitted to the hospital with abdominal pain. This is accompanied by nausea and vomiting. This has been going on for the last day or 2. He went to the emergency room and was evaluated. He was found to have a Tender belly. CT was done which showed pancreatitis. He also diffuse hepatic steatosis. Is a past history of bipolar disorder. He also has alcohol abuse disorder as well. He has had seizures with withdrawal in the past. He is intubated and sedated and cannot give a history. triglyceride levels last admission were very high over 2625. This time they could not be measured at all being above the upper limits of there technique. So this was sent out to [facility]. The serum was visibly lipemic. Lipase levels were also unable to be done because of the huge amount of lipids in the
[2020-03-26 14:02] LABS: Glucose Point of Care 86 (65-105)
[2020-03-26] MEDS: NOREPINEPHRINE 8 MG/D5W 250 ML 8 MG/250 ML BAG 20.63 MG IV CONT (14:41)
[2020-03-26 15:06] LABS: Glucose Point of Care 86 (65-105)
[2020-03-26] MEDS: DEXTROSE 5%/0.9% SOD CHL 1,000 ML 150 ML IV CONT (16:03)
[2020-03-26 16:11] LABS: Glucose Point of Care 93 (65-105)
[2020-03-26 16:20] LABS: Total Protein Urine Random 19 mg/dL
--- NOTE | 2020-03-26 16:41 | PM.IMPN ---
Progress Note: A&P Assessment and Plan (1) Acute alcoholic pancreatitis: Qualifiers: Acute pancreatitis complication: no infection or necrosis Qualified Code(s): K85.20 - Alcohol induced acute pancreatitis without necrosis or infection Code(s): K85.20 - Alcohol induced acute pancreatitis without necrosis or infection Status: Acute Assessment and Plan: Bowel rest Analgesics p.r.n. IV fluids for hydration (2) Alcohol withdrawal: Qualifiers: Complication of substance-induced condition: uncomplicated Qualified Code(s): F10.230 - Alcohol dependence with withdrawal, uncomplicated Code(s): F10.239 - Alcohol dependence with withdrawal, unspecified Status: Acute Assessment and Plan: Scheduled p.o. Librium 50mg q6h with sips, p.r.n. IV lorazepam, thiamin, folic acid (3) Epigastric abdominal pain: Code(s): R10.13 - Epigastric pain Status: Acute Assessment and Plan: Suspect due to a combination of alcohol induced gastritis and pancreatitis However laboratory results are delayed due to lipemia of serum NPO (except meds with sips), pantoprazole, analgesics p.r.n. (4) Acute alcoholic hepatitis: Code(s): K70.10 - Alcoholic hepatitis without ascites Status: Acute Assessment and Plan: Monitor transaminases with abstention from alcohol No indication for steroids at this time Screen for viral hepatitis Ultrasound liver (5) Bipolar 1 disorder: Code(s): F31.9 - Bipolar disorder, unspecified Status: Acute Assessment and Plan: Resume gabapentin, buspirone, and quetiapine (6) Hypertension: Qualifiers: Hypertension type: unspecified Qualified Code(s): I10 - Essential (primary) hypertension Code(s): I10 - Essential (primary) hypertension Status: Chronic Assessment and Plan: Acute elevation likely due to alcohol withdrawal and anxiety and pain Monitor with p.r.n. hydralazine (7) Alcoholism /alcohol abuse: Code(s): F10.20 - Alcohol dependence, uncomplicated Status: Chronic (8) Hyperlipidemia: Qualifiers: Hyperlipidemia type: unspecified Qualified Code(s): E78.5 - Hyperlipidemia, unspecified Code(s): E78.5 - Hyperlipidemia, unspecified Status: Chronic Assessment and Plan: Check lipid panel complicated with pancreatitis and Acute renal failure pt had line placed today and will start plasmapheresis tonite (9) History of marijuana use: Code(s): Z87.898 - Personal history of other specified conditions Status: Chronic (10) Hypokalemia: Code(s): E87.6 - Hypokalemia Status: Acute Assessment and Plan: IV supplementation and follow-up lab Subjective Date/time seen: 03/26/20 16:41 Interval history: 40 year old male alcoholic with bipolar 1 disorder. 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 He started drinking alcohol at about age 25. He drinks about 15 beers per day. Pt has high triglycerides levels causing pancreatitis and Acute renal failure Review of Systems Review of Systems: All systems reviewed & are unremarkable except as noted in HPI and below Exam Narrative: Exam Narrative: General: younger male intubated in icu HEENT: EOMI, PERRL, sclerae nonicteric, pharyngeal mucosa pink and intact NECK: No JVD, adenopathy, or thyromegaly ABDOMEN: BS hypoactive, soft, MILD-MODERATE EPIGASTRIC TENDERNESS, distended and tense EXTREMITIES: No cyanosis, edema, or clubbing NEUROLOGIC: CN intact and symmetric to inspection. Mild tremor or outstretched hands. MUSCULOSKELETAL: Tone and strength symmetric. PSYCH: Alert. Oriented to person, place, and time. Anxious. Objective Data Vital Signs Vital Signs: Vital Signs - 24 hr 03/25/20 18:00 03/25/20 19:57 03/25/20 20:00 Temperature 36.3 C L Pulse Rate 131 H 130 H 148 H Pulse Rate [Bilateral Pedal (Dorsalis Pedis) Palpation] R
[2020-03-26] MEDS: CALCIUM GLUC 2,000 MG/NS 100ML 2,000 MG/100 ML BAG 100 MG IVPB (16:43)
[2020-03-26] MEDS: SODIUM CHLORIDE 0.9% IV 1,000 ML 10 ML IV CONT (16:44)
[2020-03-26 17:20] LABS: Creatinine Urine 444.3 mg/dL; Ur Ttl Prot Creatinine Ratio 0.04 mg/mg (0-0.20)
[2020-03-26 17:38] LABS: Sodium Urine Random < 5 meq/L
[2020-03-26] MEDS: HEPARIN SODIUM, PORCINE 10,000 UNITS/10 ML VIAL 10000 UNITS XX (17:59)
--- NOTE | 2020-03-26 18:33 | PM.EVENT ---
Event Note Event Note Event Note: Patient is undergoing plasmapheresis. Is to remove the triglycerides. The resultant plasma is milky in appearance. The patient was seen at 5:30 p.m.
[2020-03-26 18:53] LABS: Lactic Acid Reflex 1.2 mmol/L (0.7-2.1)
--- NOTE | 2020-03-26 19:11 | P.PNCROSS_ITS ---
Event Note Event Note Event Note: Transfer Note Nursing staff called me in IMU yesterday evening as the patient was exhibiting withdrawal symptoms with tachycardia, diaphoresis, hallucinations, and not staying in the bed. He was just given ativan IV by his nurse. I consulted our Curator Of [employer], Dr. Matthew who is in agreement that we should transfer the patient to ICU to initiate a Precedex IV drip for his severe withdrawal symptoms. CIWA-AR score >25. The patient was transferred to ICU and started on Precedex IV. I was called by nursing staff as the patient was hypotensive and on arriving to bedside the patient appeared very sedated and had course breath sounds. The patient was emergently intubated to protect his airway as he was very sedated and I started empiric IV antibiotics for possible pneumonia as the patient had course breath sounds and might have aspirated. Blood cultures and lactic acid were ordered. NS IV bolus was ordered. I placed a right IJ central line for vasopressor support. I have called and updated our Curator Of [employer], Dr. Matthew with the overnight events of this patient.
[2020-03-26 21:33] LABS: Reference Lab Test Result 0.8
[2020-03-26] MEDS: MAGNESIUM SULF 2 GM/WATER 50ML 2 GM/50 ML BAG IVPB (22:49)
[2020-03-26] MEDS: CALCIUM GLUCONATE 1,000 MG/10 ML VIAL 1000 MG IV PUSH (22:50)
[2020-03-27] VITALS (27 sets, daily range): BP systolic 97–123; BP diastolic 55–80; PULSE 109–130; RESP 14–27; TEMP 36.6–37.9; O2SAT 92–100
[2020-03-27] MEDS: metroNIDAZOLE 500 MG/ISO 100ML 500 MG/100 ML BAG 100 MG IVPB ×4 (00:08→18:20)
[2020-03-27] MEDS: MAGNESIUM SULF 2 GM/WATER 50ML 2 GM/50 ML BAG 6 GM IVPB (00:15)
[2020-03-27 02:15] LABS: Hematocrit 38.2 % (42.0-52.0); Hemoglobin 13.3 g/dL (14.0-18.0); Immature Platelet Fraction Pct 9.3 % (0.9-11.2); Mean Corpuscular HGB Conc 34.8 g/dl (32-36); Mean Corpuscular Hemoglobin 34.3 pg (26-34); Mean Corpuscular Volume 98.5 fl (80-100); Mean Platelet Volume 10.4 fl (7.4-10.4); Platelet Count Result 80 k/mm3 (150-375); Red Blood Count 3.88 M/mm3 (4.6-6.20); White Blood Count 11.2 K/mm3 (4.5-10.0)
[2020-03-27 03:33] LABS: Alanine Aminotransferase 40 U/L (4-50); Albumin Level 3.3 g/dL (3.5-5.1); Alkaline Phosphatase 44 U/L (38-126); Anion Gap 12 mmol/L (8-16); Aspartate Amino Transferase 152 U/L (17-59); Bilirubin,Total 2.4 mg/dL (0.2-1.3); Blood Urea Nitrogen 20 mg/dL (9-20); Calcium 4.3 mg/dL (8.4-10.2); Carbon Dioxide 16 mmol/L (22-30); Chloride 106 mmol/L (98-107); Estimated CRCL calculation 51 ml/min; Estimated Glomerular Filt Rate 37; Glucose 101 mg/dL (75-110); Lipase 1516 U/L (23-300); Magnesium 1.4 mg/dL (1.6-2.3); Phosphorus 2.9 mg/dL (2.5-4.5); Sodium 134 mmol/L (137-145)
[2020-03-27 03:50] LABS: Triglycerides 1791 mg/dL (<150)
[2020-03-27 04:15] LABS: Alveolar/Arterial O2 Gradient 107.9 mmHg; Carboxyhemoglobin 0.3 % THb (0-2.0); Fractional Inspired Oxygen 30 %; HCO3 ABG 13.9 mEq/l (22.0-26.0); Methemoglobin ABG 0.3 %THb (0-1.5); Oxygen Saturation ABG 91.1 % (95.0-100.0); Oxyhemoglobin 92.5 % THb (90.0-100.0); PCO2 ABG 32.1 mmHg (35.0-45.0); PO2 ABG 68.3 mmHg (80.0-100.0); PO2 FiO2 Ratio Arterial Blood 2.28 %; Reduced Hemoglobin 6.9 %THb (0-5.0); Total Hemoglobin 13.8 g/dL (12.0-18.0)
[2020-03-27 04:16] LABS: Site Drawn LEFT RADIAL; pH ABG 7.254 (7.350-7.450)
[2020-03-27 04:17] LABS: Arterial Blood Gas PEEP 5 cmH2O; Arterial Blood Gas Tidal Volume 500 ml; Arterial Blood Gas Vent Mode CMV; Arterial Blood Gas Ventilator rate 14 /MIN; Device VENTILATOR
[2020-03-27] MEDS: NOREPINEPHRINE 8 MG/D5W 250 ML 8 MG/250 ML BAG 20.63 MG IV CONT (04:31)
[2020-03-27] MEDS: SODIUM BICARBONATE 8.4% 150 MEQ in DEXTROSE 5% 1,000 ML 950 ML 125 MEQ IV CONT ×3 (04:55→22:16)
[2020-03-27 06:03] LABS: Glucose Point of Care 142 (65-105)
[2020-03-27] MEDS: FENTANYL 2,500MCG/NS250ML(*CRX 2,500 MCG/250 ML BAG 10 MCG IV CONT (07:30)
[2020-03-27] MEDS: ENOXAPARIN 30 MG/0.3 ML SYRINGE SUB-Q (07:32)
[2020-03-27] MEDS: THIAMINE HCL 100 MG TABLET PO (07:32)
[2020-03-27] MEDS: busPIRone HCL 5 MG TABLET 15 MG PO ×3 (07:32→18:18)
[2020-03-27] MEDS: ATORVASTATIN 20 MG TABLET PO (07:32)
[2020-03-27] MEDS: FOLIC ACID 1 MG TABLET PO (07:32)
[2020-03-27] MEDS: PANTOPRAZOLE 40 MG TABLET PO (07:33)
[2020-03-27] MEDS: LORATADINE 10 MG TABLET PO (07:33)
--- NOTE | 2020-03-27 09:58 | PM.PNNEP ---
Progress Note: A&P Assessment and Plan (1) FIGUEROA (acute kidney injury): Code(s): N17.9 - Acute kidney failure, unspecified Status: Acute Assessment and Plan: Teodoro has acute kidney injury. His baseline creatinine is normal. Urine electrolytes Are pre renal. Urinalysis is relatively bland Ultrasound is unremarkable This could be due to pancreatitis and 3rd spacing. The patient also received contrast for a CT scan earlier. This could have caused the creatinine to rise as well. His blood pressure is a little soft as well which could be contributing as well. Rhabdomyolysis is also a possibility. CPK is pending I think. I can't figure out from the system. (2) Hypertriglyceridemia: Code(s): E78.1 - Pure hyperglyceridemia Status: Acute Assessment and Plan: The patient has very high triglycerides. The serum is clearly lipemic on visual inspection in the lab. He had plasmapheresis yesterday and the triglyceride level is down to 1700. Will do another treatment today. Discussed with Dr. Matthew who is going to put him on an insulin drip. (3) Pancreatitis: Code(s): K85.90 - Acute pancreatitis without necrosis or infection, unspecified Status: Acute Assessment and Plan: The patient has evidence of this on CT scan. Will get a lipase in the morning when triglycerides are lower hopefully. He is getting supportive care. (4) Acute respiratory failure: Code(s): J96.00 - Acute respiratory failure, unspecified whether with hypoxia or hypercapnia Status: Acute Assessment and Plan: The patient is on the ventilator and getting supportive care. (5) Hypertension: Qualifiers: Hypertension type: unspecified Qualified Code(s): I10 - Essential (primary) hypertension Code(s): I10 - Essential (primary) hypertension Status: Chronic Assessment and Plan: His blood pressure is well controlled (6) Bipolar 1 disorder: Code(s): F31.9 - Bipolar disorder, unspecified Status: Acute Subjective Date/time seen: 03/27/20 09:58 Interval history: Patient is on the ventilator. Waking up a little bit. Sedatives are being increased. Review of Systems Review of Systems: ROS unobtainable: Yes unobtainable due to medical condition Exam Narrative: Exam Narrative: WDWN in NAD skin no rash head ncat lungs coarse upper airway noise bilaterally cor reg no rub abd BS+ nontender and soft ext no edema. Objective Data Vital Signs Vital Signs: Vital Signs - 24 hr 03/26/20 10:00 03/26/20 10:32 03/26/20 11:05 Temperature Pulse Rate 127 H 123 H Pulse Rate [Bilateral Pedal (Dorsalis Pedis) Palpation] 124 H Respiratory Rate 60 H 29 H Blood Pressure 82/40 L Pulse Oximetry 96 03/26/20 11:10 03/26/20 11:12 03/26/20 11:28 Temperature Pulse Rate 130 H 122 H 120 H Pulse Rate [Bilateral Pedal (Dorsalis Pedis) Palpation] Respiratory Rate 28 H 26 H Blood Pressure Pulse Oximetry 95 97 03/26/20 11:38 03/26/20 11:51 03/26/20 12:00 Temperature 37.3 C Pulse Rate 121 H 124 H 120 H Pulse Rate [Bilateral Pedal (Dorsalis Pedis) Palpation] Respiratory Rate 30 H 27 H Blood Pressure 100/72 86/62 L Pulse Oximetry 97 03/26/20 13:53 03/26/20 14:00 03/26/20 14:41 Temperature Pulse Rate 114 H 120 H 118 H Pulse Rate [Bilateral Pedal (Dorsalis Pedis) Palpation] Respiratory Rate 26 H Blood Pressure 95/64 L 93/63 L Pulse Oximetry 98 03/26/20 14:45 03/26/20 15:06 03/26/20 15:09 Temperature Pulse Rate 117 H 117 H Pulse Rate [Bilateral Pedal (Dorsalis Pedis) Palpation] 117 H Respiratory Rate 21 H Blood Pressure Pulse Oximetry 98 96 03/26/20 16:00 03/26/20 16:36 03/26/20 18:00 Temperature 37.2 C 36.6 C Pulse Rate 118 H 119 H 113 H Pulse Rate [Bilateral Pedal (Dorsalis Pedis) Palpation] Respiratory Rate 20 21 H Blood Pressure 95/60 L
[2020-03-27] MEDS: INSULIN HUMAN REGULAR (*BKC) 100 UNITS in SODIUM CHLORIDE 0.9% IV 99 ML IV CONT (10:01)
[2020-03-27] MEDS: MAGNESIUM SULF 2 GM/WATER 50ML 2 GM/50 ML BAG IVPB (10:01)
[2020-03-27] MEDS: DEXTROSE 10% 1,000 ML 30 ML IV CONT (10:01)
[2020-03-27 10:54] LABS: Glucose Point of Care 159 (65-105)
--- NOTE | 2020-03-27 11:15 | PCDIET ---
ICU Rounding Note: Patient remains NPO with plan for plasmapheresis again today. OG to LIS with reported 1300mL output thus far. Last recorded weight is 95.8kg which is stable with last review. +I/O. Bowel Motility: No documented BM as of yet. Labs Reviewed: TG (1791), Lipase (1516), Glu (142), Cr (2.0), Na (134), Alb (3.3), Ca (4.3), Mg (1.4) Meds Noted: Fentanyl, Folic Acid, Heparin, Lipitor, Calcium Gluconate, Aspart, Levaquin, Magnesium Sulfate, Flagyl, Versed, Levophed, Protonix, Vitamin B1, D5/150mEq NaHCO3 at 125mL/hr Additional Notes: No documented skin breakdown. Following daily in ICU rounds. Assessing/reassessing every 3 days.
--- NOTE | 2020-03-27 12:23 | WPDINTPN ---
Progress Note: A&P Assessment and Plan (1) Acute respiratory failure: Code(s): J96.00 - Acute respiratory failure, unspecified whether with hypoxia or hypercapnia Status: Acute Assessment and Plan: Acute Respiratory failure secondary to alcohol withdrawal, suspected aspiration, pancreatitis Continue full mechanical ventilation support to prevent hypoxemia/hypercarbia and end organ damage. ABG and PCXR reviewed and will repeat in am. Low tidal volume ventilation strategy to prevent volutrauma Continue Levaquin and Flagyl for possible aspiration -continue fentanyl Versed for sedation maintain RASS of 0-2 (2) Pancreatitis: Code(s): K85.90 - Acute pancreatitis without necrosis or infection, unspecified Status: Acute Assessment and Plan: Secondary to alcohol versus hypertriglyceridemia NPO Patient on empiric antibiotics Continue IV fluids Currently on fentanyl infusion for pain control CT abdomen pelvis 03/25/2020 showed acute interstitial pancreatitis, diffuse hepatic steatosis (3) Alcohol withdrawal: Qualifiers: Complication of substance-induced condition: uncomplicated Qualified Code(s): F10.230 - Alcohol dependence with withdrawal, uncomplicated Code(s): F10.239 - Alcohol dependence with withdrawal, unspecified Status: Acute Assessment and Plan: Now sedated on Versed infusion Thiamine and folic acid MVI (4) Acute alcoholic hepatitis: Code(s): K70.10 - Alcoholic hepatitis without ascites Status: Acute Assessment and Plan: Maryjane's Discriminant Function for Alcoholic Hepatitis calculated and does not suggest treatment with steroids LFTs trending down, likely related to hepatic steatosis and alcoholic hepatitis CT abdomen review (5) Hypotension: Code(s): I95.9 - Hypotension, unspecified Status: Acute Assessment and Plan: Patient received adequate amount of IV fluids Hypotension could be related to severe sepsis, septic shock, pancreatitis, sedation Continue IV fluids Lactic acid level was 1.2 (6) Hypertriglyceridemia: Code(s): E78.1 - Pure hyperglyceridemia Status: Acute Assessment and Plan: Patient has history of hypertriglyceridemia Patient's blood appears lipemic as per report from lab Triglycerides significantly elevated, patient started plasma exchange -patient also started this more insulin infusion dextrose to prevent hypoglycemia (7) FIGUEROA (acute kidney injury): Code(s): N17.9 - Acute kidney failure, unspecified Status: Acute Assessment and Plan: Likely secondary to sepsis and hypotension, rhabdomyolysis Continue aggressive volume resuscitation Check CK level Accurate intake and output monitoring Appreciate neurology evaluation and recommendation Monitor electrolytes Additional Plan DVT prophylaxis -subcutaneous Lovenox Stress ulcer prophylaxis -Protonix Nutrition -NPO Code Status - Full Code Total Critical Care Time - 34 minutes Due to a high probability of clinically significant, life threatening deterioration, the patient required my highest level of preparedness to intervene emergently and I personally spent this critical care time directly and personally managing the patient. This critical care time included obtaining a history; examining the patient; pulse oximetry; ordering and review of studies; arranging urgent treatment with development of a management plan; evaluation of patient's response to treatment; frequent reassessment; and discussions with other providers. It was exclusive of separately billable procedures and treating other patients and teaching time. Please see Assessment and Plan section and the rest of the note for further information on patient assessment and treatment Subjective Date/time seen: 03/27/20 12:23 Interval history: Reason for consult: Severe hypertriglyceridemia requiring plasmapheresis, alcoholic hepatitis acute respiratory failu
[2020-03-27 12:30] LABS: Glucose Point of Care 134 (65-105)
[2020-03-27 12:59] LABS: Anion Gap 7 mmol/L (8-16); Blood Urea Nitrogen 20 mg/dL (9-20); Calcium 4.2 mg/dL (8.4-10.2); Carbon Dioxide 25 mmol/L (22-30); Chloride 102 mmol/L (98-107); Estimated CRCL calculation 59 ml/min; Estimated Glomerular Filt Rate 45; Glucose 133 mg/dL (75-110); Potassium 3.4 mmol/L (3.4-5.0); Sodium 134 mmol/L (137-145)
[2020-03-27 15:11] LABS: Glucose Point of Care 111 (65-105)
[2020-03-27] MEDS: DEXTROSE 50% 25 GM/50 ML SYRINGE IV PUSH (17:39)
[2020-03-27 17:53] LABS: Anion Gap 7 mmol/L (8-16); Blood Urea Nitrogen 20 mg/dL (9-20); Calcium 3.8 mg/dL (8.4-10.2); Carbon Dioxide 25 mmol/L (22-30); Chloride 104 mmol/L (98-107); Estimated CRCL calculation 63 ml/min; Estimated Glomerular Filt Rate 48; Glucose 78 mg/dL (75-110); Potassium 3.1 mmol/L (3.4-5.0); Sodium 136 mmol/L (137-145)
[2020-03-27 17:55] LABS: Glucose Point of Care 39 (65-105)
[2020-03-27 18:28] LABS: Glucose Point of Care 145 (65-105)
[2020-03-27 21:40] LABS: Anion Gap 3 mmol/L (8-16); Blood Urea Nitrogen 19 mg/dL (9-20); Calcium 3.9 mg/dL (8.4-10.2); Carbon Dioxide 28 mmol/L (22-30); Chloride 103 mmol/L (98-107); Estimated CRCL calculation 67 ml/min; Estimated Glomerular Filt Rate 52; Glucose 73 mg/dL (75-110); Potassium 2.8 mmol/L (3.4-5.0); Sodium 134 mmol/L (137-145)
[2020-03-27 21:48] LABS: Glucose Point of Care 76 (65-105)
[2020-03-27] MEDS: FENTANYL 2,500MCG/NS250ML(*CRX 2,500 MCG/250 ML BAG 12.5 MCG IV CONT (22:57)
[2020-03-28] VITALS (38 sets, daily range): BP systolic 90–104; BP diastolic 55–67; PULSE 82–116; RESP 16–24; TEMP 36.9–38.9; O2SAT 93–97
[2020-03-28] MEDS: metroNIDAZOLE 500 MG/ISO 100ML 500 MG/100 ML BAG 100 MG IVPB ×4 (00:20→17:20)
[2020-03-28] MEDS: DEXTROSE 50% 25 GM/50 ML SYRINGE IV PUSH ×2 (00:33→05:01)
[2020-03-28 01:01] LABS: Glucose Point of Care 50 (65-105)
[2020-03-28 01:01] LABS: Glucose Point of Care 110 (65-105)
[2020-03-28 04:33] LABS: Hematocrit 29.7 % (42.0-52.0); Hemoglobin 10.5 g/dL (14.0-18.0); Immature Platelet Fraction Pct 8.1 % (0.9-11.2); Mean Corpuscular HGB Conc 35.4 g/dl (32-36); Mean Corpuscular Hemoglobin 33.5 pg (26-34); Mean Corpuscular Volume 94.9 fl (80-100); Mean Platelet Volume 10.4 fl (7.4-10.4); Platelet Count Result 66 k/mm3 (150-375); Red Blood Count 3.13 M/mm3 (4.6-6.20); Red Cell Distribution Width 12.9 % (11.5-14.5); White Blood Count 8.6 K/mm3 (4.5-10.0)
[2020-03-28 04:38] LABS: Alveolar/Arterial O2 Gradient 84.2 mmHg; Arterial Blood Gas PEEP 5 cmH2O; Arterial Blood Gas Tidal Volume 500 ml; Arterial Blood Gas Vent Mode CMV; Arterial Blood Gas Ventilator rate 16 /MIN; Base Excess ABG 1.6 mEq/l (+/-2.0); Carboxyhemoglobin 0.3 % THb (0-2.0); Device VENTILATOR; Fractional Inspired Oxygen 30 %; HCO3 ABG 26.5 mEq/l (22.0-26.0); Methemoglobin ABG 0.3 %THb (0-1.5); Modified Allen's Test Unable to perform; Oxygen Content ABG 18.3 %vol (16.0-22.0); Oxygen Saturation ABG 95.8 % (95.0-100.0); Oxyhemoglobin 95.4 % THb (90.0-100.0); PCO2 ABG 42.7 mmHg (35.0-45.0); PO2 ABG 79.5 mmHg (80.0-100.0); PO2 FiO2 Ratio Arterial Blood 2.65 %; Site Drawn LEFT RADIAL; Total Hemoglobin 13.6 g/dL (12.0-18.0); pH ABG 7.411 (7.350-7.450)
[2020-03-28] MEDS: INSULIN HUMAN REGULAR (*BKC) 100 UNITS in SODIUM CHLORIDE 0.9% IV 99 ML IV CONT (04:48)
[2020-03-28 04:50] LABS: Alanine Aminotransferase 26 U/L (4-50); Albumin Level 2.9 g/dL (3.5-5.1); Alkaline Phosphatase 39 U/L (38-126); Anion Gap 3 mmol/L (8-16); Aspartate Amino Transferase 114 U/L (17-59); Bilirubin,Total 1.3 mg/dL (0.2-1.3); Blood Urea Nitrogen 17 mg/dL (9-20); Carbon Dioxide 32 mmol/L (22-30); Chloride 101 mmol/L (98-107); Creatine Kinase 1476 U/L (55-170); Estimated CRCL calculation 76 ml/min; Estimated Glomerular Filt Rate > 60; Glucose 38 mg/dL (75-110); Lipase 863 U/L (23-300); Magnesium 1.8 mg/dL (1.6-2.3); Potassium 2.9 mmol/L (3.4-5.0); Sodium 136 mmol/L (137-145); Triglycerides 172 mg/dL (<150)
[2020-03-28] MEDS: SODIUM BICARBONATE 8.4% 150 MEQ in DEXTROSE 5% 1,000 ML 950 ML 125 MEQ IV CONT (06:25)
[2020-03-28 07:00] LABS: Glucose Point of Care 78 (65-105)
[2020-03-28] MEDS: ENOXAPARIN 30 MG/0.3 ML SYRINGE SUB-Q (08:22)
[2020-03-28] MEDS: ATORVASTATIN 20 MG TABLET PO (08:22)
[2020-03-28] MEDS: busPIRone HCL 5 MG TABLET 15 MG PO ×3 (08:22→17:20)
[2020-03-28] MEDS: FOLIC ACID 1 MG TABLET PO (08:23)
[2020-03-28] MEDS: LORATADINE 10 MG TABLET PO (08:23)
[2020-03-28] MEDS: THIAMINE HCL 100 MG TABLET PO (08:24)
[2020-03-28] MEDS: PANTOPRAZOLE 40 MG TABLET PO (08:57)
[2020-03-28 09:04] LABS: Glucose Point of Care 85 (65-105)
[2020-03-28] MEDS: KCL 20 MEQ/SW 100 ML 100 ML 50 MEQ IVPB (09:44)
--- NOTE | 2020-03-28 11:07 | PCDIET ---
ICU Rounding Note: Patient remains NPO with significant gastric output, per RN. Last recorded weight is 101.4kg which is increased from last review. +I/O. Bowel Motility: No documented BM. Labs Reviewed: Lipase (863), TG (172), Hgb (10.5), Hct (29.7), Mg (1.4), Ca (4.0), K (2.9), Na (136) Meds Noted: Vitamin B1, Levophed, Protonix, Albuterol, Lipitor, Novolog, Aspart, Versed, Levophed, Fentanyl, Folic Acid, Levaquin, Flagyl, Versed, KCl, D5/NaHCO3 at 125mL/hr Additional Notes: No documented skin breakdown. Following daily in ICU rounds. Assessing/reassessing every 3 days.
[2020-03-28] MEDS: dexmedeTOMIDine 400 MCG/100 ML 400 MCG/100 ML BAG 5.07 MCG IV CONT (11:24)
[2020-03-28] MEDS: DEXTROSE 5%/0.9% SOD CHL 1,000 ML 100 ML IV CONT ×2 (11:39→21:15)
[2020-03-28 11:51] LABS: Glucose Point of Care 94 (65-105)
--- NOTE | 2020-03-28 13:30 | PC.NURSE ---
1329- PER DR. AGUILA TURN PRECEDEX TO 0.7 MCG/KG/HR. TITRATE DOWN VERSED THEN FENTANYL. WILL CONTINUE TO MONITOR
--- NOTE | 2020-03-28 14:31 | PM.IMPN ---
Progress Note: A&P Assessment and Plan (1) Acute alcoholic pancreatitis: Qualifiers: Acute pancreatitis complication: no infection or necrosis Qualified Code(s): K85.20 - Alcohol induced acute pancreatitis without necrosis or infection Code(s): K85.20 - Alcohol induced acute pancreatitis without necrosis or infection Status: Acute Assessment and Plan: Bowel rest Analgesics p.r.n. IV fluids for hydration (2) Alcohol withdrawal: Qualifiers: Complication of substance-induced condition: uncomplicated Qualified Code(s): F10.230 - Alcohol dependence with withdrawal, uncomplicated Code(s): F10.239 - Alcohol dependence with withdrawal, unspecified Status: Acute Assessment and Plan: Scheduled p.o. Librium 50mg q6h with sips, p.r.n. IV lorazepam, thiamin, folic acid (3) Epigastric abdominal pain: Code(s): R10.13 - Epigastric pain Status: Acute Assessment and Plan: Suspect due to a combination of alcohol induced gastritis and pancreatitis (4) Acute alcoholic hepatitis: Code(s): K70.10 - Alcoholic hepatitis without ascites Status: Acute Assessment and Plan: Monitor transaminases with abstention from alcohol (5) Bipolar 1 disorder: Code(s): F31.9 - Bipolar disorder, unspecified Status: Acute Assessment and Plan: Resume gabapentin, buspirone, and quetiapine (6) Hypertension: Qualifiers: Hypertension type: unspecified Qualified Code(s): I10 - Essential (primary) hypertension Code(s): I10 - Essential (primary) hypertension Status: Chronic Assessment and Plan: Acute elevation likely due to alcohol withdrawal and anxiety and pain Monitor with p.r.n. hydralazine (7) Alcoholism /alcohol abuse: Code(s): F10.20 - Alcohol dependence, uncomplicated Status: Chronic (8) Hyperlipidemia: Qualifiers: Hyperlipidemia type: unspecified Qualified Code(s): E78.5 - Hyperlipidemia, unspecified Code(s): E78.5 - Hyperlipidemia, unspecified Status: Chronic Assessment and Plan: Check lipid panel complicated with pancreatitis and Acute renal failure pt had line placed today and will start plasmapheresis tonite (9) History of marijuana use: Code(s): Z87.898 - Personal history of other specified conditions Status: Chronic (10) Hypokalemia: Code(s): E87.6 - Hypokalemia Status: Acute Assessment and Plan: IV supplementation and follow-up lab (11) FIGUEROA (acute kidney injury): Code(s): N17.9 - Acute kidney failure, unspecified Status: Acute Assessment and Plan: Seen by nephrology, kidney function being monitored, continue hydration likely prerenal (12) Hypertriglyceridemia: Code(s): E78.1 - Pure hyperglyceridemia Status: Acute Assessment and Plan: Sp plasmapheresis, triglycerides come down. Subjective Date/time seen: 03/28/20 14:31 Interval history: 40 year old male alcoholic with bipolar 1 disorder. 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 He started drinking alcohol at about age 25. He drinks about 15 beers per day. Pt has high triglycerides levels causing pancreatitis and Acute renal failure. Pt sp plasmapheresis under nephrology. pt had episode of withdrawal last night. Pt is with restraints in icu and is still intubated. Review of Systems Review of Systems: ROS unobtainable: Yes unobtainable due to endotracheal tube Exam Narrative: Exam Narrative: General: younger male intubated in icu HEENT: EOMI, PERRL, sclerae nonicteric, pharyngeal mucosa pink and intact NECK: No JVD, adenopathy, or thyromegaly ABDOMEN: soft non tender EXTREMITIES: No cyanosis, edema, or clubbing NEUROLOGIC: CN intact and symmetric to inspection. Mild tremor or outstretched hands. MUSCULOSKELETAL: Tone and strength symmetric. PSYCH:Sedated Objective Data Vital Si
--- NOTE | 2020-03-28 14:44 | WPDINTPN ---
Progress Note: A&P Assessment and Plan (1) Acute respiratory failure: Code(s): J96.00 - Acute respiratory failure, unspecified whether with hypoxia or hypercapnia Status: Acute Assessment and Plan: Acute Respiratory failure secondary to alcohol withdrawal, suspected aspiration, pancreatitis Continue full mechanical ventilation support to prevent hypoxemia/hypercarbia and end organ damage. ABG and PCXR reviewed and will repeat in am. Low tidal volume ventilation strategy to prevent volutrauma Continue Levaquin and Flagyl for possible aspiration -continue fentanyl Versed for sedation maintain RASS of 0-2 -start Precedex infusion, wean fentanyl Versed. (2) Pancreatitis: Code(s): K85.90 - Acute pancreatitis without necrosis or infection, unspecified Status: Acute Assessment and Plan: Secondary to alcohol versus hypertriglyceridemia NPO Patient on empiric antibiotics Continue IV fluids Currently on fentanyl infusion for pain control CT abdomen pelvis 03/25/2020 showed acute interstitial pancreatitis, diffuse hepatic steatosis (3) Alcohol withdrawal: Qualifiers: Complication of substance-induced condition: uncomplicated Qualified Code(s): F10.230 - Alcohol dependence with withdrawal, uncomplicated Code(s): F10.239 - Alcohol dependence with withdrawal, unspecified Status: Acute Assessment and Plan: Now sedated on Versed infusion Thiamine and folic acid MVI -continues to be tremulous and agitated (4) Acute alcoholic hepatitis: Code(s): K70.10 - Alcoholic hepatitis without ascites Status: Acute Assessment and Plan: Maryjane's Discriminant Function for Alcoholic Hepatitis calculated and does not suggest treatment with steroids LFTs trending down, likely related to hepatic steatosis and alcoholic hepatitis CT abdomen review (5) Hypotension: Code(s): I95.9 - Hypotension, unspecified Status: Acute Assessment and Plan: Patient received adequate amount of IV fluids Hypotension could be related to severe sepsis, septic shock, pancreatitis, sedation Continue IV fluids Lactic acid level was 1.2 (6) Hypertriglyceridemia: Code(s): E78.1 - Pure hyperglyceridemia Status: Acute Assessment and Plan: Patient has history of hypertriglyceridemia Patient's blood appears lipemic as per report from lab Triglycerides significantly elevated, patient received plasma exchange on 03/26/2020 and 03/27/2020. Triglyceride level 172 this morning. -discontinued insulin infusion which was being used for hypertriglyceridemia. (7) FIGUEROA (acute kidney injury): Code(s): N17.9 - Acute kidney failure, unspecified Status: Acute Assessment and Plan: RESOLVED Likely secondary to sepsis and hypotension, rhabdomyolysis Continue aggressive volume resuscitation CK levels elevated, will trend Accurate intake and output monitoring Appreciate neurology evaluation and recommendation Monitor electrolytes Additional Plan DVT prophylaxis -subcutaneous Lovenox Stress ulcer prophylaxis -Protonix Nutrition -NPO Code Status - Full Code Total Critical Care Time - 33 minutes Due to a high probability of clinically significant, life threatening deterioration, the patient required my highest level of preparedness to intervene emergently and I personally spent this critical care time directly and personally managing the patient. This critical care time included obtaining a history; examining the patient; pulse oximetry; ordering and review of studies; arranging urgent treatment with development of a management plan; evaluation of patient's response to treatment; frequent reassessment; and discussions with other providers. It was exclusive of separately billable procedures and treating other patients and teaching time. Please see Assessment and Plan section and the rest of the note for further information on patient assessment and treatment [place]
[2020-03-28 16:25] LABS: Glucose Point of Care 105 (65-105)
--- NOTE | 2020-03-28 17:02 | PM.PNNEP ---
Progress Note: A&P Assessment and Plan (1) FIGUEROA (acute kidney injury): Code(s): N17.9 - Acute kidney failure, unspecified Status: Acute Assessment and Plan: Teodoro has acute kidney injury. His baseline creatinine is normal. Urine electrolytes Are pre renal. Urinalysis is relatively bland Ultrasound is unremarkable his creatinine has fallen to normal. CK is mildly high at 1476, not high enough to bother the kidneys. Will view from a distance (2) Hypertriglyceridemia: Code(s): E78.1 - Pure hyperglyceridemia Status: Acute Assessment and Plan: The patient has very high triglycerides. The serum is clearly lipemic on visual inspection in the lab. He had plasmapheresis yesterday and the triglyceride level is down to 172 (3) Pancreatitis: Code(s): K85.90 - Acute pancreatitis without necrosis or infection, unspecified Status: Acute Assessment and Plan: The patient has evidence of this on CT scan. Lipase is high but better. He is getting supportive care. (4) Acute respiratory failure: Code(s): J96.00 - Acute respiratory failure, unspecified whether with hypoxia or hypercapnia Status: Acute Assessment and Plan: The patient is on the ventilator and getting supportive care. (5) Hypertension: Qualifiers: Hypertension type: unspecified Qualified Code(s): I10 - Essential (primary) hypertension Code(s): I10 - Essential (primary) hypertension Status: Chronic Assessment and Plan: His blood pressure is well controlled (6) Bipolar 1 disorder: Code(s): F31.9 - Bipolar disorder, unspecified Status: Acute Subjective Date/time seen: 03/28/20 17:02 Interval history: Patient is on the ventilator. resting comfortably on sedatives. Review of Systems Review of Systems: ROS unobtainable: Yes unobtainable due to medical condition Exam Narrative: Exam Narrative: WDWN in NAD skin no rash head ncat lungs coarse upper airway noise bilaterally cor reg no rub or gallop abd BS+ nontender and soft ext no edema. no cyanosis Objective Data Vital Signs Vital Signs: Vital Signs - 24 hr 03/27/20 17:13 03/27/20 17:14 03/27/20 17:20 Temperature Pulse Rate 124 H 124 H 124 H Respiratory Rate 16 17 Blood Pressure 97/56 L Pulse Oximetry 03/27/20 17:28 03/27/20 18:00 03/27/20 18:22 Temperature Pulse Rate 112 H 120 H 123 H Respiratory Rate 18 19 19 Blood Pressure 100/62 Pulse Oximetry 96 95 03/27/20 20:00 03/27/20 20:28 03/27/20 22:00 Temperature 37.1 C Pulse Rate 111 H 111 H 109 H Respiratory Rate 14 17 Blood Pressure 106/64 101/63 Pulse Oximetry 97 97 97 03/27/20 22:57 03/27/20 23:08 03/28/20 00:00 Temperature 37.1 C Pulse Rate 111 H 111 H 109 H Respiratory Rate 16 16 Blood Pressure 101/61 Pulse Oximetry 96 97 03/28/20 02:00 03/28/20 02:03 03/28/20 04:00 Temperature Pulse Rate 107 H 107 H 108 H Respiratory Rate 19 16 16 Blood Pressure 104/65 90/56 L Pulse Oximetry 97 97 03/28/20 04:44 03/28/20 06:00 03/28/20 08:00 Temperature 36.9 C 37.1 C Pulse Rate 109 H 112 H 116 H Respiratory Rate 16 24 H Blood Pressure 98/57 L 94/59 L Pulse Oximetry 97 97 95 03/28/20 08:06 03/28/20 10:00 03/28/20 10:48 Temperature 37.2 C Pulse Rate 114 H 105 H 102 H Respiratory Rate 20 16 Blood Pressure 99/57 L Pulse Oximetry 95 95 03/28/20 11:09 03/28/20 11:24 03/28/20 12:00 Temperature 38.1 C H Pulse Rate 102 H 109 H 109 H Respiratory Rate 16 16 Blood Pressure 102/58 L Pulse Oximetry 95 94 03/28/20 12:59 03/28/20 13:00 03/28/20 13:29 Temperature Pulse Rate 103 H 103 H 100 Respiratory Rate 16 16 16 Blood Pressure Pulse Oximetry 03/28/20 13:46 03/28/20 13:57 03/28/20 14:00 Temperature 38.5 C H Pulse Rate 92 90 88 Respiratory Rate 16 16 Blood Pressure 91/55 L Pulse Oximetry 94
[2020-03-28] MEDS: dexmedeTOMIDine 400 MCG/100 ML 400 MCG/100 ML BAG 17.75 MCG IV CONT ×2 (17:33→22:53)
[2020-03-28] MEDS: FENTANYL 2,500MCG/NS250ML(*CRX 2,500 MCG/250 ML BAG 12.5 MCG IV CONT (19:27)
[2020-03-28 21:18] LABS: Glucose Point of Care 98 (65-105)
[2020-03-29] VITALS (34 sets, daily range): BP systolic 94–125; BP diastolic 61–81; PULSE 84–94; RESP 13–24; TEMP 36.9–39.7; O2SAT 93–100
[2020-03-29 01:06] LABS: Glucose Point of Care 119 (65-105)
[2020-03-29] MEDS: dexmedeTOMIDine 400 MCG/100 ML 400 MCG/100 ML BAG 17.75 MCG IV CONT ×3 (01:16→09:24)
[2020-03-29 04:21] LABS: Alveolar/Arterial O2 Gradient 93.6 mmHg; Carboxyhemoglobin 0.3 % THb (0-2.0); Fractional Inspired Oxygen 30 %; HCO3 ABG 24.8 mEq/l (22.0-26.0); Methemoglobin ABG 0.6 %THb (0-1.5); Oxygen Content ABG 15.1 %vol (16.0-22.0); Oxyhemoglobin 94.6 % THb (90.0-100.0); PCO2 ABG 36.8 mmHg (35.0-45.0); PO2 ABG 77.1 mmHg (80.0-100.0); PO2 FiO2 Ratio Arterial Blood 2.57 %; Reduced Hemoglobin 4.5 %THb (0-5.0); Total Hemoglobin 11.3 g/dL (12.0-18.0); pH ABG 7.447 (7.350-7.450)
[2020-03-29 04:22] LABS: Arterial Blood Gas PEEP 5 cmH2O; Arterial Blood Gas Tidal Volume 500 ml; Arterial Blood Gas Vent Mode CMV; Arterial Blood Gas Ventilator rate 16 /MIN; Device VENTILATOR; Modified Allen's Test Pass; Site Drawn RIGHT RADIAL
[2020-03-29 04:29] LABS: Hematocrit 28.6 % (42.0-52.0); Hemoglobin 9.8 g/dL (14.0-18.0); Immature Platelet Fraction Pct 5.4 % (0.9-11.2); Mean Corpuscular HGB Conc 34.3 g/dl (32-36); Mean Corpuscular Hemoglobin 33.2 pg (26-34); Mean Corpuscular Volume 96.9 fl (80-100); Mean Platelet Volume 10.7 fl (7.4-10.4); Platelet Count Result 70 k/mm3 (150-375); Red Blood Count 2.95 M/mm3 (4.6-6.20); Red Cell Distribution Width 13.9 % (11.5-14.5); White Blood Count 6.9 K/mm3 (4.5-10.0)
[2020-03-29 04:41] LABS: Alanine Aminotransferase 26 U/L (4-50); Albumin Level 2.7 g/dL (3.5-5.1); Alkaline Phosphatase 71 U/L (38-126); Anion Gap 2 mmol/L (8-16); Aspartate Amino Transferase 120 U/L (17-59); Bilirubin,Total 1.1 mg/dL (0.2-1.3); Blood Urea Nitrogen 14 mg/dL (9-20); Calcium 4.4 mg/dL (8.4-10.2); Carbon Dioxide 33 mmol/L (22-30); Chloride 102 mmol/L (98-107); Estimated CRCL calculation 85 ml/min; Estimated Glomerular Filt Rate > 60; Glucose 149 mg/dL (75-110); Lipase 614 U/L (23-300); Magnesium 1.7 mg/dL (1.6-2.3); Sodium 137 mmol/L (137-145); Triglycerides 328 mg/dL (<150)
[2020-03-29 04:50] LABS: Glucose Point of Care 141 (65-105)
[2020-03-29 05:01] LABS: Creatine Kinase 1558 U/L (55-170)
[2020-03-29] MEDS: metroNIDAZOLE 500 MG/ISO 100ML 500 MG/100 ML BAG 100 MG IVPB ×5 (05:40→23:32)
[2020-03-29 06:41] LABS: Glucose Point of Care 148 (65-105)
[2020-03-29] MEDS: ATORVASTATIN 20 MG TABLET PO (08:49)
[2020-03-29] MEDS: LORATADINE 10 MG TABLET PO (08:49)
[2020-03-29] MEDS: ENOXAPARIN 30 MG/0.3 ML SYRINGE SUB-Q (08:49)
[2020-03-29] MEDS: busPIRone HCL 5 MG TABLET 15 MG PO ×3 (08:49→17:36)
[2020-03-29] MEDS: FOLIC ACID 1 MG TABLET PO (08:49)
[2020-03-29] MEDS: THIAMINE HCL 100 MG TABLET PO (08:51)
[2020-03-29] MEDS: PANTOPRAZOLE 40 MG TABLET PO (08:51)
[2020-03-29] MEDS: DEXTROSE 5%/0.9% SOD CHL 1,000 ML 100 ML IV CONT (09:02)
--- NOTE | 2020-03-29 10:45 | PCDIET ---
ICU Rounding Note: MD order to start Vital 1.2 at 10mL/hr today via OG. Last recorded weight is 99.8kg which is decreased from last review. +I/O noted. Bowel Motility: No documented BM. Labs Reviewed: TG (328), Lipase (614), Hgb (9.8), Hct (28.6), Glu (149), Ca (4.4), K (3.0) Meds Noted: Albuterol, Lipitor, Folic Acid, Levaquin, Versed, Thiamine, Levophed, Protonix, Precedex, Fentanyl, Novolog, Levaquin, Flagyl Additional Notes: No documented skin breakdown. Recommend replacement of K+ and Ca2+ as medically appropriate. Following daily in ICU rounds. Assessing/reassessing every Thursday/Thursday.
[2020-03-29 12:18] LABS: Glucose Point of Care 128 (65-105)
[2020-03-29] MEDS: INSULIN HUMAN REGULAR (*BKC) 100 UNITS in SODIUM CHLORIDE 0.9% IV 99 ML IV CONT (12:24)
--- NOTE | 2020-03-29 13:07 | PM.PNNEP ---
Progress Note: A&P Assessment and Plan (1) FIGUEROA (acute kidney injury): Code(s): N17.9 - Acute kidney failure, unspecified Status: Acute Assessment and Plan: Teodoro has acute kidney injury. His baseline creatinine is normal. Urine electrolytes Are pre renal. Urinalysis is relatively bland Ultrasound is unremarkable his creatinine has fallen to normal. CK is 1500 or so. (2) Hypertriglyceridemia: Code(s): E78.1 - Pure hyperglyceridemia Status: Acute Assessment and Plan: The patient has very high triglycerides. The serum is clearly lipemic on visual inspection in the lab. He had plasmapheresis yesterday and the triglyceride level is Back up to 328. Discussed with Dr. Matthew. He is going to restart the insulin drip. (3) Pancreatitis: Code(s): K85.90 - Acute pancreatitis without necrosis or infection, unspecified Status: Acute Assessment and Plan: The patient has evidence of this on CT scan. Lipase is high but better. He is getting supportive care. (4) Acute respiratory failure: Code(s): J96.00 - Acute respiratory failure, unspecified whether with hypoxia or hypercapnia Status: Acute Assessment and Plan: The patient is on the ventilator and getting supportive care. (5) Hypertension: Qualifiers: Hypertension type: unspecified Qualified Code(s): I10 - Essential (primary) hypertension Code(s): I10 - Essential (primary) hypertension Status: Chronic Assessment and Plan: His blood pressure is well controlled (6) Bipolar 1 disorder: Code(s): F31.9 - Bipolar disorder, unspecified Status: Acute Subjective Date/time seen: 03/29/20 13:07 Interval history: Patient is on the ventilator. resting comfortably on sedatives. Review of Systems Review of Systems: ROS unobtainable: Yes unobtainable due to medical condition Exam Narrative: Exam Narrative: WDWN in NAD skin no rash head ncat lungs coarse upper airway noise bilaterally cor reg no rub or gallop abd BS+ nontender and somewhat distended ext no edema. no cyanosis Objective Data Vital Signs Vital Signs: Vital Signs - 24 hr 03/28/20 13:29 03/28/20 13:46 03/28/20 13:57 Temperature Pulse Rate 100 92 90 Respiratory Rate 16 16 Blood Pressure Pulse Oximetry 03/28/20 14:00 03/28/20 14:11 03/28/20 15:06 Temperature 38.5 C H Pulse Rate 88 89 88 Respiratory Rate 16 16 Blood Pressure 91/55 L Pulse Oximetry 94 96 03/28/20 15:40 03/28/20 16:00 03/28/20 16:40 Temperature 38.0 C H Pulse Rate 88 85 84 Respiratory Rate 16 16 16 Blood Pressure 91/55 L Pulse Oximetry 94 03/28/20 17:20 03/28/20 17:33 03/28/20 17:40 Temperature Pulse Rate 85 84 82 Respiratory Rate 16 16 Blood Pressure Pulse Oximetry 95 03/28/20 18:00 03/28/20 18:34 03/28/20 18:57 Temperature 38.9 C H Pulse Rate 82 82 82 Respiratory Rate 16 16 16 Blood Pressure 94/66 L Pulse Oximetry 96 03/28/20 19:27 03/28/20 20:00 03/28/20 20:49 Temperature 37.3 C Pulse Rate 82 82 84 Respiratory Rate 16 16 Blood Pressure 95/65 L Pulse Oximetry 95 94 03/28/20 22:00 03/28/20 22:49 03/28/20 22:51 Temperature Pulse Rate 83 83 83 Respiratory Rate 16 16 16 Blood Pressure 102/67 Pulse Oximetry 95 03/28/20 22:53 03/28/20 23:03 03/29/20 00:00 Temperature 37.0 C Pulse Rate 83 83 84 Respiratory Rate 16 16 Blood Pressure 108/73 Pulse Oximetry 95 94 03/29/20 01:00 03/29/20 01:16 03/29/20 01:27 Temperature Pulse Rate 85 84 84 Respiratory Rate 16 16 16 Blood Pressure Pulse Oximetry 03/29/20 02:00 03/29/20 02:41 03/29/20 02:50 Temperature 36.9 C Pulse Rate 84 84 84 Respiratory Rate 16 16 Blood Pressure 111/76 Pulse Oximetry 96 96 03/29/20 04:00 03/29/20 04:27 03/29/20 04:34 Temperature Pulse Rate 85 84 85 Respiratory Rate
[2020-03-29 13:36] LABS: Glucose Point of Care 119 (65-105)
--- NOTE | 2020-03-29 14:06 | WPDINTPN ---
Progress Note: A&P Assessment and Plan (1) Acute respiratory failure: Code(s): J96.00 - Acute respiratory failure, unspecified whether with hypoxia or hypercapnia Status: Acute Assessment and Plan: Acute Respiratory failure secondary to alcohol withdrawal, suspected aspiration, pancreatitis Continue full mechanical ventilation support to prevent hypoxemia/hypercarbia and end organ damage. ABG and PCXR reviewed and will repeat in am. place pt on ASV mode Started on precedex and will wean versed and fentanyl Continue Levaquin and Flagyl for possible aspiration (2) Pancreatitis: Code(s): K85.90 - Acute pancreatitis without necrosis or infection, unspecified Status: Acute Assessment and Plan: Secondary to alcohol versus hypertriglyceridemia Lipase trending down Patient on empiric antibiotics Continue IV fluids Currently on fentanyl infusion for pain control CT abdomen pelvis 03/25/2020 showed acute interstitial pancreatitis, diffuse hepatic steatosis (3) Alcohol withdrawal: Qualifiers: Complication of substance-induced condition: uncomplicated Qualified Code(s): F10.230 - Alcohol dependence with withdrawal, uncomplicated Code(s): F10.239 - Alcohol dependence with withdrawal, unspecified Status: Acute Assessment and Plan: On precedex Thiamine and folic acid MVI -continues to be tremulous and agitated (4) Acute alcoholic hepatitis: Code(s): K70.10 - Alcoholic hepatitis without ascites Status: Acute Assessment and Plan: Maryjane's Discriminant Function for Alcoholic Hepatitis calculated and does not suggest treatment with steroids LFTs trending down, likely related to hepatic steatosis and alcoholic hepatitis CT abdomen review (5) Hypotension: Code(s): I95.9 - Hypotension, unspecified Status: Acute Assessment and Plan: Patient received adequate amount of IV fluids Hypotension could be related to severe sepsis, septic shock, pancreatitis, sedation OFF levophed Continue IV fluids Lactic acid level was 1.2 (6) Hypertriglyceridemia: Code(s): E78.1 - Pure hyperglyceridemia Status: Acute Assessment and Plan: Patient has history of hypertriglyceridemia Patient's blood appears lipemic as per report from lab Triglycerides significantly elevated, patient received plasma exchange on 03/26/2020 and 03/27/2020. Triglyceride level 172 this morning. restart insulin infusion which was being used for hypertriglyceridemia. (7) FIGUEROA (acute kidney injury): Code(s): N17.9 - Acute kidney failure, unspecified Status: Acute Assessment and Plan: RESOLVED Likely secondary to sepsis and hypotension, rhabdomyolysis Continue aggressive volume resuscitation CK levels elevated, will trend Accurate intake and output monitoring Appreciate neurology evaluation and recommendation Monitor electrolytes Additional Plan DVT prophylaxis -subcutaneous Lovenox Stress ulcer prophylaxis -Protonix Nutrition -NPO Code Status - Full Code Total Critical Care Time - 33 minutes Due to a high probability of clinically significant, life threatening deterioration, the patient required my highest level of preparedness to intervene emergently and I personally spent this critical care time directly and personally managing the patient. This critical care time included obtaining a history; examining the patient; pulse oximetry; ordering and review of studies; arranging urgent treatment with development of a management plan; evaluation of patient's response to treatment; frequent reassessment; and discussions with other providers. It was exclusive of separately billable procedures and treating other patients and teaching time. Please see Assessment and Plan section and the rest of the note for further information on patient assessment and treatment Subjective Date/time seen: 03/29/20 14:06 Interval history: Reason for consult: Se
[2020-03-29] MEDS: dexmedeTOMIDine 400 MCG/100 ML 400 MCG/100 ML BAG 20.28 MCG IV CONT ×2 (14:15→21:21)
[2020-03-29] MEDS: ACETAMINOPHEN ELIXIR 325 MG/10.15 ML UDC 650 MG PO (14:19)
[2020-03-29 16:01] LABS: Glucose Point of Care 112 (65-105)
[2020-03-29 16:47] LABS: Glucose Point of Care 55 (65-105)
[2020-03-29 17:40] LABS: Glucose Point of Care 75 (65-105)
--- NOTE | 2020-03-29 18:09 | PM.IMPN ---
Progress Note: A&P Assessment and Plan (1) Acute alcoholic pancreatitis: Qualifiers: Acute pancreatitis complication: no infection or necrosis Qualified Code(s): K85.20 - Alcohol induced acute pancreatitis without necrosis or infection Code(s): K85.20 - Alcohol induced acute pancreatitis without necrosis or infection Status: Acute Assessment and Plan: Bowel rest Analgesics p.r.n. IV fluids for hydration 03/29/20 18:09 Patient is a 40-year-old male with past medical history of heroin abuse stopped age of 23, at age of 25 he started drinking alcohol he presented emergency department with nausea or vomiting epigastric he was withdrawing from alcohol, acute pancreatitis and hypertriglyceridemia had a plasmapheresis, patient went into respiratory distress and was intubated currently Precedex and Versed, unable to provide any review of symptoms, patient is seen by physician coder and pickling solution maker will continue to monitor. (2) Alcohol withdrawal: Qualifiers: Complication of substance-induced condition: uncomplicated Qualified Code(s): F10.230 - Alcohol dependence with withdrawal, uncomplicated Code(s): F10.239 - Alcohol dependence with withdrawal, unspecified Status: Acute Assessment and Plan: Scheduled p.o. Librium 50mg q6h with sips, p.r.n. IV lorazepam, thiamin, folic acid (3) Epigastric abdominal pain: Code(s): R10.13 - Epigastric pain Status: Acute Assessment and Plan: Suspect due to a combination of alcohol induced gastritis and pancreatitis (4) Acute alcoholic hepatitis: Code(s): K70.10 - Alcoholic hepatitis without ascites Status: Acute Assessment and Plan: Monitor transaminases with abstention from alcohol (5) Bipolar 1 disorder: Code(s): F31.9 - Bipolar disorder, unspecified Status: Acute Assessment and Plan: Resume gabapentin, buspirone, and quetiapine (6) Hypertension: Qualifiers: Hypertension type: unspecified Qualified Code(s): I10 - Essential (primary) hypertension Code(s): I10 - Essential (primary) hypertension Status: Chronic Assessment and Plan: Acute elevation likely due to alcohol withdrawal and anxiety and pain Monitor with p.r.n. hydralazine (7) Alcoholism /alcohol abuse: Code(s): F10.20 - Alcohol dependence, uncomplicated Status: Chronic (8) Hyperlipidemia: Qualifiers: Hyperlipidemia type: unspecified Qualified Code(s): E78.5 - Hyperlipidemia, unspecified Code(s): E78.5 - Hyperlipidemia, unspecified Status: Chronic Assessment and Plan: Check lipid panel complicated with pancreatitis and Acute renal failure pt had line placed today and will start plasmapheresis tonite (9) History of marijuana use: Code(s): Z87.898 - Personal history of other specified conditions Status: Chronic (10) Hypokalemia: Code(s): E87.6 - Hypokalemia Status: Acute Assessment and Plan: IV supplementation and follow-up lab (11) FIGUEROA (acute kidney injury): Code(s): N17.9 - Acute kidney failure, unspecified Status: Acute Assessment and Plan: Seen by nephrology, kidney function being monitored, continue hydration likely prerenal (12) Hypertriglyceridemia: Code(s): E78.1 - Pure hyperglyceridemia Status: Acute Assessment and Plan: Sp plasmapheresis, triglycerides come down. Subjective Date/time seen: 03/29/20 18:09 Patient is a 40-year-old male with past medical history of heroin abuse stopped age of 23, at age of 25 he started drinking alcohol he presented emergency department with nausea or vomiting epigastric he was withdrawing from alcohol, acute pancreatitis and hypertriglyceridemia had a plasmapheresis, patient went into respiratory distress and was intubated currently Precedex and Versed, unable to provide any review of symptoms, patient is see
[2020-03-29 18:44] LABS: Glucose Point of Care 102 (65-105)
[2020-03-29 22:07] LABS: Glucose Point of Care 54 (65-105)
[2020-03-29 22:07] LABS: Glucose Point of Care 57 (65-105)
[2020-03-29] MEDS: DEXTROSE 50% 25 GM/50 ML SYRINGE IV PUSH (22:12)
[2020-03-29 23:19] LABS: Glucose Point of Care 108 (65-105)
[2020-03-29] MEDS: dexmedeTOMIDine 400 MCG/100 ML 400 MCG/100 ML BAG 25.35 MCG IV CONT (23:21)
[2020-03-30] VITALS (36 sets, daily range): BP systolic 94–133; BP diastolic 62–86; PULSE 79–100; RESP 18–45; TEMP 36.8–38.9; O2SAT 93–99
[2020-03-30 00:26] LABS: Glucose Point of Care 110 (65-105)
[2020-03-30] MEDS: dexmedeTOMIDine 400 MCG/100 ML 400 MCG/100 ML BAG 25.35 MCG IV CONT ×2 (03:29→06:33)
[2020-03-30 03:34] LABS: Glucose Point of Care 56 (65-105)
[2020-03-30 04:34] LABS: Alveolar/Arterial O2 Gradient 112.5 mmHg; Base Excess ABG 3.8 mEq/l (+/-2.0); Carboxyhemoglobin 0.3 % THb (0-2.0); Fractional Inspired Oxygen 30 %; HCO3 ABG 25.9 mEq/l (22.0-26.0); Methemoglobin ABG 0.5 %THb (0-1.5); Oxygen Content ABG 14.6 %vol (16.0-22.0); Oxygen Saturation ABG 95.1 % (95.0-100.0); Oxyhemoglobin 94.1 % THb (90.0-100.0); PCO2 ABG 30.9 mmHg (35.0-45.0); PO2 ABG 65.1 mmHg (80.0-100.0); PO2 FiO2 Ratio Arterial Blood 2.17 %; Reduced Hemoglobin 5.1 %THb (0-5.0)
[2020-03-30 04:37] LABS: Device VENTILATOR; Modified Allen's Test Pass; Site Drawn RIGHT RADIAL; pH ABG 7.542 (7.350-7.450)
[2020-03-30] MEDS: ACETAMINOPHEN ELIXIR 325 MG/10.15 ML UDC 650 MG PO (05:08)
[2020-03-30 05:37] LABS: Hematocrit 28.5 % (42.0-52.0); Hemoglobin 9.8 g/dL (14.0-18.0); Mean Corpuscular HGB Conc 34.4 g/dl (32-36); Mean Corpuscular Hemoglobin 32.8 pg (26-34); Mean Corpuscular Volume 95.3 fl (80-100); Mean Platelet Volume 10.3 fl (7.4-10.4); Platelet Count Result 80 k/mm3 (150-375); Red Blood Count 2.99 M/mm3 (4.6-6.20); Red Cell Distribution Width 13.8 % (11.5-14.5); White Blood Count 8.3 K/mm3 (4.5-10.0)
[2020-03-30] MEDS: metroNIDAZOLE 500 MG/ISO 100ML 500 MG/100 ML BAG 100 MG IVPB ×3 (05:46→17:53)
[2020-03-30 05:50] LABS: Glucose Point of Care 69 (65-105)
[2020-03-30 05:50] LABS: Glucose Point of Care 93 (65-105)
[2020-03-30 05:55] LABS: Alanine Aminotransferase 25 U/L (4-50); Albumin Level 2.9 g/dL (3.5-5.1); Alkaline Phosphatase 78 U/L (38-126); Anion Gap 2 mmol/L (8-16); Aspartate Amino Transferase 158 U/L (17-59); Bilirubin,Total 1.2 mg/dL (0.2-1.3); Blood Urea Nitrogen 8 mg/dL (9-20); Calcium 5.7 mg/dL (8.4-10.2); Carbon Dioxide 32 mmol/L (22-30); Chloride 104 mmol/L (98-107); Estimated CRCL calculation 92 ml/min; Estimated Glomerular Filt Rate > 60; Glucose 75 mg/dL (75-110); Lipase 516 U/L (23-300); Magnesium 1.7 mg/dL (1.6-2.3); Potassium 2.7 mmol/L (3.4-5.0); Sodium 138 mmol/L (137-145); Triglycerides 223 mg/dL (<150)
[2020-03-30 06:20] LABS: Creatine Kinase 3877 U/L (55-170)
[2020-03-30 08:06] LABS: Glucose Point of Care 105 (65-105)
[2020-03-30 08:06] LABS: Glucose Point of Care 111 (65-105)
[2020-03-30] MEDS: LORATADINE 10 MG TABLET PO (08:06)
[2020-03-30] MEDS: FOLIC ACID 1 MG TABLET PO (08:06)
[2020-03-30] MEDS: ENOXAPARIN 30 MG/0.3 ML SYRINGE SUB-Q (08:06)
[2020-03-30] MEDS: busPIRone HCL 5 MG TABLET 15 MG PO (08:06)
[2020-03-30] MEDS: ATORVASTATIN 20 MG TABLET PO (08:06)
[2020-03-30] MEDS: PANTOPRAZOLE 40 MG TABLET PO (08:07)
[2020-03-30] MEDS: THIAMINE HCL 100 MG TABLET PO (08:07)
[2020-03-30 09:33] LABS: Glucose Point of Care 100 (65-105)
[2020-03-30] MEDS: POTASSIUM CHLORIDE 20 MEQ PACKET (FOR LIQUID) 40 MEQ (09:45)
[2020-03-30] MEDS: POTASSIUM CHLORIDE 20 MEQ PACKET (FOR LIQUID) 40 MEQ FEED TUBE (09:54)
--- NOTE | 2020-03-30 10:26 | PM.PNNEP ---
Progress Note: A&P Assessment and Plan (1) FIGUEROA (acute kidney injury): Code(s): N17.9 - Acute kidney failure, unspecified Status: Acute Assessment and Plan: Teodoro has acute kidney injury. His baseline creatinine is normal. Urine electrolytes Are pre renal. Urinalysis is relatively bland Ultrasound is unremarkable his creatinine has fallen to normal. CK is now above 3000. Will check a urinalysis. He was on atorvastatin at home. We can check an anti- YOBANI and other antibody tests. (2) Hypertriglyceridemia: Code(s): E78.1 - Pure hyperglyceridemia Status: Acute Assessment and Plan: The patient has very high triglycerides. The serum is clearly lipemic on visual inspection in the lab. Plasmapheresis brought it down from unmeasurable levels to 175 but then jose. Insulin drip brought the level back down but the patient keeps getting hypoglycemic. Patient has elevated CPK so gemfibrozil was stopped. Difficult situation (3) Pancreatitis: Code(s): K85.90 - Acute pancreatitis without necrosis or infection, unspecified Status: Acute Assessment and Plan: The patient has evidence of this on CT scan. Lipase is high but better. He is getting supportive care. (4) Acute respiratory failure: Code(s): J96.00 - Acute respiratory failure, unspecified whether with hypoxia or hypercapnia Status: Acute Assessment and Plan: The patient is on the ventilator and getting supportive care. (5) Hypertension: Qualifiers: Hypertension type: unspecified Qualified Code(s): I10 - Essential (primary) hypertension Code(s): I10 - Essential (primary) hypertension Status: Chronic Assessment and Plan: His blood pressure is well controlled (6) Bipolar 1 disorder: Code(s): F31.9 - Bipolar disorder, unspecified Status: Acute Subjective Date/time seen: 03/30/20 10:26 Interval history: Patient is on the ventilator. resting comfortably on Precedex Review of Systems Review of Systems: ROS unobtainable: Yes unobtainable due to medical condition Exam Narrative: Exam Narrative: WDWN in NAD skin no rash head ncat lungs coarse upper airway noise bilaterally cor reg no rub or gallop abd BS+ nontender and somewhat distended ext no edema. no cyanosis Objective Data Vital Signs Vital Signs: Vital Signs - 24 hr 03/29/20 11:07 03/29/20 12:00 03/29/20 14:00 Temperature 39.7 C H Pulse Rate 88 90 91 Respiratory Rate 13 24 H Blood Pressure 122/79 125/81 Pulse Oximetry 98 98 99 03/29/20 14:15 03/29/20 14:18 03/29/20 14:19 Temperature 39.4 C H Pulse Rate 92 92 Respiratory Rate 19 Blood Pressure Pulse Oximetry 97 03/29/20 16:00 03/29/20 16:23 03/29/20 16:53 Temperature 39.4 C H 39.4 C H Pulse Rate 91 89 Respiratory Rate 21 H Blood Pressure 103/65 Pulse Oximetry 98 99 03/29/20 18:00 03/29/20 19:30 03/29/20 19:39 Temperature 39.6 C H Pulse Rate 88 88 90 Respiratory Rate 14 17 Blood Pressure 115/69 Pulse Oximetry 96 99 03/29/20 20:00 03/29/20 21:21 03/29/20 22:00 Temperature 37.8 C H Pulse Rate 89 90 94 Respiratory Rate 18 17 20 Blood Pressure 94/61 L 110/71 Pulse Oximetry 98 97 03/29/20 23:21 03/29/20 23:30 03/29/20 23:41 Temperature 37.8 C H Pulse Rate 92 93 Respiratory Rate 20 Blood Pressure Pulse Oximetry 100 03/30/20 00:00 03/30/20 01:02 03/30/20 02:00 Temperature 38.1 C H 36.8 C 37.8 C H Pulse Rate 93 100 Respiratory Rate 19 20 Blood Pressure 123/78 109/70 Pulse Oximetry 98 95 03/30/20 03:18 03/30/20 03:29 03/30/20 04:00 Temperature 37.9 C H Pulse Rate 93 93 93 Respiratory Rate 18 18 23 H Blood Pressure 124/86 Pulse Oximetry 98 03/30/20 04:41 03/30/20 05:08 03/30/20 06:00 Temperature 37.9 C H 37.9 C H Pulse Rate 97 92 Respiratory Rate 24 H Blood Pressure 133/83 Pulse Oxime
[2020-03-30 10:37] LABS: Glucose Point of Care 129 (65-105)
--- NOTE | 2020-03-30 11:22 | WPDINTPN ---
Progress Note: A&P Assessment and Plan (1) Acute respiratory failure: Code(s): J96.00 - Acute respiratory failure, unspecified whether with hypoxia or hypercapnia Status: Acute Assessment and Plan: Acute Respiratory failure secondary to alcohol withdrawal, suspected aspiration, pancreatitis Continue full mechanical ventilation support to prevent hypoxemia/hypercarbia and end organ damage. ABG and PCXR reviewed and will repeat in am. Pt on ASV, will place patient on pressure support ventilation and evaluate for extubation. Patient only on Precedex which will start weaning Continue Levaquin and Flagyl for possible aspiration (2) Pancreatitis: Code(s): K85.90 - Acute pancreatitis without necrosis or infection, unspecified Status: Acute Assessment and Plan: Secondary to alcohol versus hypertriglyceridemia Lipase trending down Patient on empiric antibiotics Continue IV fluids CT abdomen pelvis 03/25/2020 showed acute interstitial pancreatitis, diffuse hepatic steatosis (3) Alcohol withdrawal: Qualifiers: Complication of substance-induced condition: uncomplicated Qualified Code(s): F10.230 - Alcohol dependence with withdrawal, uncomplicated Code(s): F10.239 - Alcohol dependence with withdrawal, unspecified Status: Acute Assessment and Plan: On precedex Thiamine and folic acid MVI -continues to be tremulous and agitated (4) Acute alcoholic hepatitis: Code(s): K70.10 - Alcoholic hepatitis without ascites Status: Acute Assessment and Plan: Maryjane's Discriminant Function for Alcoholic Hepatitis calculated and does not suggest treatment with steroids LFTs trending down, likely related to hepatic steatosis and alcoholic hepatitis CT abdomen review (5) Hypotension: Code(s): I95.9 - Hypotension, unspecified Status: Acute Assessment and Plan: Patient received adequate amount of IV fluids Hypotension could be related to severe sepsis, septic shock, pancreatitis, sedation OFF levophed Continue IV fluids Lactic acid level was 1.2 (6) Hypertriglyceridemia: Code(s): E78.1 - Pure hyperglyceridemia Status: Acute Assessment and Plan: Patient has history of hypertriglyceridemia Patient's blood appears lipemic as per report from lab Triglycerides significantly elevated, patient received plasma exchange on 03/26/2020 and 03/27/2020. Triglyceride level 172 this morning. restart insulin infusion which was being used for hypertriglyceridemia. Will hold off gemfibrozil due to elevated CK level as it can cause rhabdomyolysis. (7) FIGUEROA (acute kidney injury): Code(s): N17.9 - Acute kidney failure, unspecified Status: Acute Assessment and Plan: RESOLVED Likely secondary to sepsis and hypotension, rhabdomyolysis Continue aggressive volume resuscitation CK levels elevated, will trend Accurate intake and output monitoring Appreciate neurology evaluation and recommendation Monitor electrolytes Additional Plan DVT prophylaxis -subcutaneous Lovenox Stress ulcer prophylaxis -Protonix Nutrition -tolerated trickle tube feeds, currently on hold for possible extubation Code Status - Full Code Total Critical Care Time - 34 minutes Due to a high probability of clinically significant, life threatening deterioration, the patient required my highest level of preparedness to intervene emergently and I personally spent this critical care time directly and personally managing the patient. This critical care time included obtaining a history; examining the patient; pulse oximetry; ordering and review of studies; arranging urgent treatment with development of a management plan; evaluation of patient's response to treatment; frequent reassessment; and discussions with other providers. It was exclusive of separately billable procedures and treating other patients and teaching time. Please see Assessment and Plan section and the re
[2020-03-30 11:49] LABS: Erythrocyte Sedimentation Rate > 140 mm/hr (0-20)
[2020-03-30 11:53] LABS: Glucose Point of Care 123 (65-105)
--- NOTE | 2020-03-30 11:53 | PCDIET ---
Nutrition Follow-Up Complete: Nutrition Diagnosis: Inadequate oral intake related to pancreatitis/mechanical ventilation as evidenced by NPO status. Nutrition Goal: Patient to meet estimated nutritional needs. Goal in progress. Patient previously receiving Vital 1.2 at 10mL/hr but currently held for breathing trial. RN reports 250mL gastric output after tube feedings held. MD ordering obstructive series. If unable to resume tube feedings or extubate/advance diet, would consider parenteral nutrition. Clinimix 5/15 E at 40mL/hr recommended at initiation. Would continue to replace calcium, if appropriate. Last recorded weight is 101.3 kg which is increased from last review. +I/O. Bowel Motility: Last documented BM on 03/25/20 x 3. Abdomen round and distended, per RN. Labs Reviewed: TG (223), Lipase (516), Hgb (9.8), Hct (28.5), Glu (111), K (2.7), Alb (2.9), Ca (5.7) Meds Noted: Precedex, Morphine, Levophed, Folic Acid, Flagyl, Protonix, IV Aspart, D20 at 70mL/hr, Levaquin, KCl, Thiamine Additional Notes: No documented skin breakdown. Will continue to monitor with same goal. Nutrition Monitoring and Evaluation: Follow up every Thursday/Thursday.
[2020-03-30 11:59] LABS: Add Urine Microscopic? YES; Appearance Urine Clear (Clear); Bacteria Urine Trace /hpf; Bilirubin Urine Negative (Negative); Blood Urine 2+ (Negative); Color Urine Yellow (Yellow); Glucose Urine UA Negative (Negative); Ketones Urine Trace mg/dL (Negative); Leukocyte Esterase Ur Trace LEU/UL (NEGATIVE); Mucus Urine Rare /lpf; Nitrate Urine Negative (Negative); Protein Urine 1+ mg/dL (Negative); RBC Urine >75 /hpf (0-2); Specific Grav Ur 1.021 (1.001-1.035); WBC Urine 0-3 /hpf (0-3)
[2020-03-30 12:03] LABS: Alveolar/Arterial O2 Gradient 101.4 mmHg; Device VENTILATOR; Fractional Inspired Oxygen 30 %; HCO3 ABG 23.7 mEq/l (22.0-26.0); Modified Allen's Test Pass; Oxygen Content ABG 14.3 %vol (16.0-22.0); Oxygen Saturation ABG 96.4 % (95.0-100.0); Oxyhemoglobin 94.7 % THb (90.0-100.0); PCO2 ABG 31.1 mmHg (35.0-45.0); PO2 FiO2 Ratio Arterial Blood 2.53 %; Site Drawn RIGHT RADIAL; Total Hemoglobin 10.7 g/dL (12.0-18.0); pH ABG 7.499 (7.350-7.450)
[2020-03-30 12:04] LABS: Arterial Blood Gas PEEP 5 cmH2O; Arterial Blood Gas Vent Mode SPONTANEOUS; Peak Inspiratory Pressure 8 cmH2O
[2020-03-30] MEDS: dexmedeTOMIDine 400 MCG/100 ML 400 MCG/100 ML BAG 5.07 MCG IV CONT (12:07)
[2020-03-30 13:38] LABS: Glucose Point of Care 123 (65-105)
[2020-03-30] MEDS: LORazepam INJ (*CRX) 2 MG/ML VIAL 1 MG IV PUSH ×4 (14:11→22:50)
--- NOTE | 2020-03-30 14:30 | PM.IMPN ---
Progress Note: A&P Assessment and Plan (1) Acute alcoholic pancreatitis: Qualifiers: Acute pancreatitis complication: no infection or necrosis Qualified Code(s): K85.20 - Alcohol induced acute pancreatitis without necrosis or infection Code(s): K85.20 - Alcohol induced acute pancreatitis without necrosis or infection Status: Acute Assessment and Plan: Patient is a 40-year-old male with past medical history of heroin abuse stopped age of 23, at age of 25 he started drinking alcohol he presented emergency department with nausea or vomiting epigastric he was withdrawing from alcohol, acute pancreatitis and hypertriglyceridemia had a plasmapheresis, patient went into respiratory distress and was intubated currently Precedex and Versed, pt is extubated but still on precedex presently. (2) Alcohol withdrawal: Qualifiers: Complication of substance-induced condition: uncomplicated Qualified Code(s): F10.230 - Alcohol dependence with withdrawal, uncomplicated Code(s): F10.239 - Alcohol dependence with withdrawal, unspecified Status: Acute Assessment and Plan: Scheduled p.o. Librium 50mg q6h with sips, p.r.n. IV lorazepam, thiamin, folic acid (3) Epigastric abdominal pain: Code(s): R10.13 - Epigastric pain Status: Acute Assessment and Plan: Suspect due to a combination of alcohol induced gastritis and pancreatitis (4) Acute alcoholic hepatitis: Code(s): K70.10 - Alcoholic hepatitis without ascites Status: Acute Assessment and Plan: Monitor transaminases with abstention from alcohol (5) Bipolar 1 disorder: Code(s): F31.9 - Bipolar disorder, unspecified Status: Acute Assessment and Plan: Resume gabapentin, buspirone, and quetiapine (6) Hypertension: Qualifiers: Hypertension type: unspecified Qualified Code(s): I10 - Essential (primary) hypertension Code(s): I10 - Essential (primary) hypertension Status: Chronic Assessment and Plan: Acute elevation likely due to alcohol withdrawal and anxiety and pain Monitor with p.r.n. hydralazine (7) Alcoholism /alcohol abuse: Code(s): F10.20 - Alcohol dependence, uncomplicated Status: Chronic (8) Hyperlipidemia: Qualifiers: Hyperlipidemia type: unspecified Qualified Code(s): E78.5 - Hyperlipidemia, unspecified Code(s): E78.5 - Hyperlipidemia, unspecified Status: Chronic Assessment and Plan: Check lipid panel complicated with pancreatitis and Acute renal failure pt had line placed today and will start plasmapheresis tonite (9) History of marijuana use: Code(s): Z87.898 - Personal history of other specified conditions Status: Chronic (10) Hypokalemia: Code(s): E87.6 - Hypokalemia Status: Acute Assessment and Plan: IV supplementation and follow-up lab (11) FIGUEROA (acute kidney injury): Code(s): N17.9 - Acute kidney failure, unspecified Status: Acute Assessment and Plan: Seen by nephrology, kidney function being monitored, continue hydration likely prerenal (12) Hypertriglyceridemia: Code(s): E78.1 - Pure hyperglyceridemia Status: Acute Assessment and Plan: Sp plasmapheresis, triglycerides come down. Subjective Date/time seen: 03/30/20 14:30 Interval history: 40 year old male alcoholic with bipolar 1 disorder. 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 He started drinking alcohol at about age 25. He drinks about 15 beers per day. Pt has high triglycerides levels causing pancreatitis and Acute renal failure. Pt sp plasmapheresis x 2 under nephrology. Pt is intubated in icu. On precedex for alcohol withdrawl. pt is extubated. pt has a low potassium level. Review of Systems Review of Systems: All systems reviewed & are unremarkable except as noted in HPI and below Exam Narrative: Exam Narrative:
[2020-03-30 15:30] LABS: Glucose Point of Care 86 (65-105)
[2020-03-30] MEDS: dexmedeTOMIDine 400 MCG/100 ML 400 MCG/100 ML BAG 12.68 MCG IV CONT (17:46)
[2020-03-30 17:53] LABS: Glucose Point of Care 60 (65-105)
--- NOTE | 2020-03-30 18:15 | PC.NURSE ---
1730- PT TRYING TO GET OUT OUT BED. STATED HE WANTS TO GET DRESSED AND GO HOME. REMINDED PT THAT HE IS IN ICU AND CAN NOT LEAVE OR GET UP AT THIS TIME. PT HELPED BACK TO BED. CENTRAL LINE DRESSING CHANGED. 1734- PT ON Q 1 HOUR BLOOD SUGARS. BLOOD SUGAR- 60. CALLED DR. AGUILA AND HE STATED TO TURN DOWN INSULIN TO 3 UNITS/HR AND TURN UP D20 TO 100 MLS/HR. CHECK BLOOD SUGARS Q1 HOUR. PRECEDEX TURNED UP TO 1 MCG/KG/MIN.
[2020-03-30 18:46] LABS: Glucose Point of Care 60 (65-105)
--- NOTE | 2020-03-30 18:47 | PC.NURSE ---
1846- SPOKE WITH DR. AGUILA ABOUT PT BLOOD SUGAR 60. HE STATED TO STOP INSULIN DRIP AND D20 INFUSION. START D5NS@ 75 ML/HR. CONTINUE TO CHECK BLOOD SUGARS
[2020-03-30] MEDS: DEXTROSE 5%/0.9% SOD CHL 1,000 ML 75 ML IV CONT (19:00)
[2020-03-30] MEDS: DEXTROSE 50% 25 GM/50 ML SYRINGE IV PUSH (19:55)
[2020-03-30 20:31] LABS: Glucose Point of Care 115 (65-105)
[2020-03-30 20:31] LABS: Glucose Point of Care 47 (65-105)
[2020-03-30] MEDS: DEXTROSE 10% 1,000 ML 75 ML IV CONT (20:36)
[2020-03-30 21:31] LABS: Glucose Point of Care 110 (65-105)
[2020-03-30] MEDS: dexmedeTOMIDine 400 MCG/100 ML 400 MCG/100 ML BAG 38.03 MCG IV CONT (21:52)
[2020-03-30 22:29] LABS: Glucose Point of Care 118 (65-105)
[2020-03-30 23:30] LABS: Glucose Point of Care 110 (65-105)
[2020-03-31] VITALS (25 sets, daily range): BP systolic 95–130; BP diastolic 59–98; PULSE 82–94; RESP 20–45; TEMP 36–37.7; O2SAT 90–98
[2020-03-31] MEDS: dexmedeTOMIDine 400 MCG/100 ML 400 MCG/100 ML BAG 38.03 MCG IV CONT ×4 (00:13→09:56)
[2020-03-31] MEDS: metroNIDAZOLE 500 MG/ISO 100ML 500 MG/100 ML BAG 100 MG IVPB ×5 (00:14→23:49)
[2020-03-31 00:56] LABS: Glucose Point of Care 115 (65-105)
[2020-03-31] MEDS: LORazepam INJ (*CRX) 2 MG/ML VIAL 1 MG IV PUSH ×5 (01:20→15:35)
[2020-03-31 01:34] LABS: Glucose Point of Care 117 (65-105)
[2020-03-31 02:44] LABS: Glucose Point of Care 134 (65-105)
[2020-03-31 04:42] LABS: Glucose Point of Care 123 (65-105)
[2020-03-31 05:37] LABS: Alveolar/Arterial O2 Gradient 99.7 mmHg; Carboxyhemoglobin 0.3 % THb (0-2.0); Fractional Inspired Oxygen 28 %; HCO3 ABG 24.1 mEq/l (22.0-26.0); Methemoglobin ABG 0.9 %THb (0-1.5); Oxygen Content ABG 12.5 %vol (16.0-22.0); Oxygen Saturation ABG 93.6 % (95.0-100.0); Oxyhemoglobin 91.5 % THb (90.0-100.0); PCO2 ABG 32.3 mmHg (35.0-45.0); PO2 ABG 61.8 mmHg (80.0-100.0); PO2 FiO2 Ratio Arterial Blood 2.21 %; Reduced Hemoglobin 7.3 %THb (0-5.0); Total Hemoglobin 9.7 g/dL (12.0-18.0)
[2020-03-31 05:39] LABS: Device NASAL CANNULA; Modified Allen's Test Unable to perform; Site Drawn RIGHT RADIAL
[2020-03-31 06:06] LABS: Hematocrit 27.3 % (42.0-52.0); Hemoglobin 9.2 g/dL (14.0-18.0); Mean Corpuscular HGB Conc 33.7 g/dl (32-36); Mean Corpuscular Volume 97.8 fl (80-100); Mean Platelet Volume 10.3 fl (7.4-10.4); Platelet Count Result 129 k/mm3 (150-375); Red Blood Count 2.79 M/mm3 (4.6-6.20); Red Cell Distribution Width 13.7 % (11.5-14.5); White Blood Count 8.8 K/mm3 (4.5-10.0)
[2020-03-31 06:36] LABS: Alanine Aminotransferase 23 U/L (4-50); Albumin Level 2.8 g/dL (3.5-5.1); Alkaline Phosphatase 60 U/L (38-126); Anion Gap 3 mmol/L (8-16); Aspartate Amino Transferase 113 U/L (17-59); Blood Urea Nitrogen 6 mg/dL (9-20); Calcium 6.5 mg/dL (8.4-10.2); Carbon Dioxide 32 mmol/L (22-30); Chloride 102 mmol/L (98-107); Creatine Kinase 2638 U/L (55-170); Estimated CRCL calculation 124 ml/min; Estimated Glomerular Filt Rate > 60; Glucose 126 mg/dL (75-110); Lipase 344 U/L (23-300); Magnesium 1.5 mg/dL (1.6-2.3); Sodium 137 mmol/L (137-145); Triglycerides 223 mg/dL (<150)
[2020-03-31 08:04] LABS: Glucose Point of Care 131 (65-105)
[2020-03-31] MEDS: ENOXAPARIN 30 MG/0.3 ML SYRINGE SUB-Q (08:48)
[2020-03-31] MEDS: busPIRone HCL 5 MG TABLET 15 MG PO ×3 (08:48→17:03)
[2020-03-31] MEDS: THIAMINE HCL 100 MG TABLET PO (08:49)
[2020-03-31] MEDS: FOLIC ACID 1 MG TABLET PO (08:49)
[2020-03-31] MEDS: PANTOPRAZOLE 40 MG TABLET PO (08:49)
[2020-03-31] MEDS: LORATADINE 10 MG TABLET PO (08:49)
[2020-03-31] MEDS: MAGNESIUM SULF 2 GM/WATER 50ML 2 GM/50 ML BAG IVPB (09:35)
[2020-03-31 10:10] LABS: Glucose Point of Care 132 (65-105)
--- NOTE | 2020-03-31 10:10 | PM.IMPN ---
Progress Note: A&P Assessment and Plan (1) Acute alcoholic pancreatitis: Qualifiers: Acute pancreatitis complication: no infection or necrosis Qualified Code(s): K85.20 - Alcohol induced acute pancreatitis without necrosis or infection Code(s): K85.20 - Alcohol induced acute pancreatitis without necrosis or infection Status: Acute Assessment and Plan: Patient is a 40-year-old male with past medical history of heroin abuse stopped age of 23, at age of 25 he started drinking alcohol he presented emergency department with nausea or vomiting epigastric he was withdrawing from alcohol, acute pancreatitis and hypertriglyceridemia had a plasmapheresis patient went into respiratory distress and was intubated currently Precedex and Versed, pt is extubated but still on precedex presently. Wean precedex as possible. (2) Alcohol withdrawal: Qualifiers: Complication of substance-induced condition: uncomplicated Qualified Code(s): F10.230 - Alcohol dependence with withdrawal, uncomplicated Code(s): F10.239 - Alcohol dependence with withdrawal, unspecified Status: Acute Assessment and Plan: Continue precedex, vitamins (3) Epigastric abdominal pain: Code(s): R10.13 - Epigastric pain Status: Acute Assessment and Plan: Suspect due to a combination of alcohol induced gastritis and pancreatitis (4) Acute alcoholic hepatitis: Code(s): K70.10 - Alcoholic hepatitis without ascites Status: Acute Assessment and Plan: Monitor transaminases with abstention from alcohol (5) Bipolar 1 disorder: Code(s): F31.9 - Bipolar disorder, unspecified Status: Acute Assessment and Plan: Resume gabapentin, buspirone, and quetiapine (6) Hypertension: Qualifiers: Hypertension type: unspecified Qualified Code(s): I10 - Essential (primary) hypertension Code(s): I10 - Essential (primary) hypertension Status: Chronic Assessment and Plan: Acute elevation likely due to alcohol withdrawal and anxiety and pain Monitor with p.r.n. hydralazine (7) Alcoholism /alcohol abuse: Code(s): F10.20 - Alcohol dependence, uncomplicated Status: Chronic (8) Hyperlipidemia: Qualifiers: Hyperlipidemia type: unspecified Qualified Code(s): E78.5 - Hyperlipidemia, unspecified Code(s): E78.5 - Hyperlipidemia, unspecified Status: Chronic Assessment and Plan: s/p plasmapheresis (9) History of marijuana use: Code(s): Z87.898 - Personal history of other specified conditions Status: Chronic (10) Hypokalemia: Code(s): E87.6 - Hypokalemia Status: Acute Assessment and Plan: IV supplementation and follow-up lab (11) FIGUEROA (acute kidney injury): Code(s): N17.9 - Acute kidney failure, unspecified Status: Acute Assessment and Plan: Seen by nephrology, kidney function being monitored, continue hydration likely prerenal (12) Hypertriglyceridemia: Code(s): E78.1 - Pure hyperglyceridemia Status: Acute Assessment and Plan: Sp plasmapheresis with improvement Subjective Date/time seen: 03/31/20 10:10 Interval history: 03/25 Admitted for alcohol w/d, pancreatitis, severe hypertriglyceridemia. Aspiration pneumonia PM of 03/25. Plasma exchange on 03/26/2020 and 03/27/2020 for hypertriglyceridemia 03/31/2020: Restless and confused. Review of Systems Review of Systems: ROS unobtainable: Yes unobtainable due to medical condition Exam Narrative: Exam Narrative: HEENT: EOMI, PERRL, sclerae nonicteric, pharyngeal mucosa pink and intact NECK: No JVD CHEST: Coarse BS with diffuse expiratory wheezes HEART: NL S1/S2, regular, no murmur ABDOMEN: BS+, soft, nontender, no mass, no bruits EXTREMITIES: No cyanosis, edema, or clubbing NEUROLOGIC: CN intact and symmetric to inspection. MUSCULOSKELETAL: Tone and strength sym
[2020-03-31] MEDS: FUROSEMIDE INJ 40 MG/4 ML VIAL IV PUSH (11:00)
[2020-03-31] MEDS: DEXTROSE 10% 1,000 ML 75 ML IV CONT (11:42)
--- NOTE | 2020-03-31 12:09 | PM.PNNEP ---
Progress Note: A&P Assessment and Plan (1) FIGUEROA (acute kidney injury): Code(s): N17.9 - Acute kidney failure, unspecified Status: Acute Assessment and Plan: Teodoro has acute kidney injury. His baseline creatinine is normal. Urine electrolytes Are pre renal. Urinalysis is relatively bland Ultrasound is unremarkable his creatinine has fallen to normal. (2) Hypertriglyceridemia: Code(s): E78.1 - Pure hyperglyceridemia Status: Acute Assessment and Plan: The patient has very high triglycerides. The serum is clearly lipemic on visual inspection in the lab. Plasmapheresis brought it down from unmeasurable levels to 175 but then jose. The patient does not tolerate insulin drip. Likely his triglyceride levels have stayed below 500. (3) Pancreatitis: Code(s): K85.90 - Acute pancreatitis without necrosis or infection, unspecified Status: Acute Assessment and Plan: The patient has evidence of this on CT scan. Lipase is gradually improving. He is getting supportive care. (4) Acute respiratory failure: Code(s): J96.00 - Acute respiratory failure, unspecified whether with hypoxia or hypercapnia Status: Acute Assessment and Plan: The patient is extubated. Getting supportive care. (5) Hypertension: Qualifiers: Hypertension type: unspecified Qualified Code(s): I10 - Essential (primary) hypertension Code(s): I10 - Essential (primary) hypertension Status: Chronic Assessment and Plan: His blood pressure is well controlled. (6) Bipolar 1 disorder: Code(s): F31.9 - Bipolar disorder, unspecified Status: Acute (7) Rhabdomyolysis: Code(s): M62.82 - Rhabdomyolysis Status: Acute Assessment and Plan: CPK is up and down. Thankfully is below 3000 now. The patient does have some blood in the urine but has lots of red cells. So it is unclear whether the CK is spilling into his urine but there could be some of this. The patient was on atorvastatin before he came in but is off of this now. The patient does not have any stigmata of dermatomyositis and no prior complaints of polymyositis but his CPK has always been elevated even back to 2011. So he may have some sort of rheumatologic disorder. Serology is pending. Sed rate is high but of course he has severe pancreatitis which could do this. Subjective Date/time seen: 03/31/20 12:09 Interval history: Patient has been extubated. resting comfortably on Precedex He does not interact very well. He is coughing some He says his belly hurts some. But not too much more when I palpate Review of Systems Review of Systems: ROS unobtainable: Yes unobtainable due to medical condition Exam Narrative: Exam Narrative: WDWN in NAD skin no rash head ncat lungs coarse upper airway noise bilaterally with increased expiratory phase cor reg no rub or gallop abd BS+ nontender and somewhat distended. Not very tende. ext no edema. no cyanosis Objective Data Vital Signs Vital Signs: Vital Signs - 24 hr 03/30/20 12:18 03/30/20 13:30 03/30/20 13:58 Temperature 37.7 C H Pulse Rate 84 84 Respiratory Rate 29 H 29 H Blood Pressure 94/62 L Pulse Oximetry 98 97 03/30/20 14:00 03/30/20 14:36 03/30/20 15:48 Temperature Pulse Rate 89 85 86 Respiratory Rate 30 H 29 H 35 H Blood Pressure Pulse Oximetry 03/30/20 16:00 03/30/20 17:46 03/30/20 18:00 Temperature 38.0 C H 37.6 C H Pulse Rate 85 88 96 Respiratory Rate 35 H 45 H 40 H Blood Pressure 102/63 101/64 Pulse Oximetry 98 96 03/30/20 18:30 03/30/20 19:16 03/30/20 19:20 Temperature Pulse Rate 89 89 88 Respiratory Rate 43 H 43 H 44 H Blood Pressure Pulse Oximetry 03/30/20 20:00 03/30/20 21:19 03/30/20 21:51 Temperature 37.7 C H Pulse Rate 94 94 88 Respiratory Rate 35 H 28 H 28 H Blood Pressure 126/71 126/71 Pulse Oxim
[2020-03-31 12:30] LABS: Glucose Point of Care 124 (65-105)
[2020-03-31] MEDS: dexmedeTOMIDine 400 MCG/100 ML 400 MCG/100 ML BAG 30.42 MCG IV CONT ×5 (12:50→23:48)
--- NOTE | 2020-03-31 13:12 | WPDINTPN ---
Progress Note: A&P Assessment and Plan (1) Acute respiratory failure: Code(s): J96.00 - Acute respiratory failure, unspecified whether with hypoxia or hypercapnia Status: Acute Assessment and Plan: Acute Respiratory failure secondary to alcohol withdrawal, suspected aspiration, pancreatitis Extubated successfully on 03/30/2020, remains on 2 L nasal cannula with good O2 sat Patient only on Precedex which will start weaning Continue Levaquin and Flagyl for possible aspiration (2) Pancreatitis: Code(s): K85.90 - Acute pancreatitis without necrosis or infection, unspecified Status: Acute Assessment and Plan: Secondary to alcohol versus hypertriglyceridemia Lipase trending down Patient on empiric antibiotics Continue IV fluids CT abdomen pelvis 03/25/2020 showed acute interstitial pancreatitis, diffuse hepatic steatosis (3) Alcohol withdrawal: Qualifiers: Complication of substance-induced condition: uncomplicated Qualified Code(s): F10.230 - Alcohol dependence with withdrawal, uncomplicated Code(s): F10.239 - Alcohol dependence with withdrawal, unspecified Status: Acute Assessment and Plan: On precedex with p.r.n. Ativan Thiamine and folic acid MVI -continues to be tremulous and agitated (4) Acute alcoholic hepatitis: Code(s): K70.10 - Alcoholic hepatitis without ascites Status: Acute Assessment and Plan: Maryjane's Discriminant Function for Alcoholic Hepatitis calculated and does not suggest treatment with steroids LFTs trending down, likely related to hepatic steatosis and alcoholic hepatitis CT abdomen reviewed (5) Hypotension: Code(s): I95.9 - Hypotension, unspecified Status: Acute Assessment and Plan: Patient received adequate amount of IV fluids Hypotension could be related to severe sepsis, septic shock, pancreatitis, sedation OFF levophed Continue IV fluids Lactic acid level was 1.2 (6) Hypertriglyceridemia: Code(s): E78.1 - Pure hyperglyceridemia Status: Acute Assessment and Plan: Patient has history of hypertriglyceridemia Patient's blood appears lipemic as per report from lab Triglycerides significantly elevated, patient received plasma exchange on 03/26/2020 and 03/27/2020. Triglyceride level 172 this morning. Patient has been hypoglycemic despite being on D20 and insulin infusion. Will hold off gemfibrozil due to elevated CK level as it can cause rhabdomyolysis. (7) FIGUEROA (acute kidney injury): Code(s): N17.9 - Acute kidney failure, unspecified Status: Acute Assessment and Plan: RESOLVED Likely secondary to sepsis and hypotension, rhabdomyolysis Continue aggressive volume resuscitation CK levels trending down Accurate intake and output monitoring Appreciate neurology evaluation and recommendation Monitor electrolytes Additional Plan DVT prophylaxis -subcutaneous Lovenox Stress ulcer prophylaxis -Protonix Nutrition -start full liquid diet Code Status - Full Code Total Critical Care Time - 32 minutes Due to a high probability of clinically significant, life threatening deterioration, the patient required my highest level of preparedness to intervene emergently and I personally spent this critical care time directly and personally managing the patient. This critical care time included obtaining a history; examining the patient; pulse oximetry; ordering and review of studies; arranging urgent treatment with development of a management plan; evaluation of patient's response to treatment; frequent reassessment; and discussions with other providers. It was exclusive of separately billable procedures and treating other patients and teaching time. Please see Assessment and Plan section and the rest of the note for further information on patient assessment and treatment Subjective Date/time seen: 03/31/20 13:12 Interval history: Reason for consult: Severe hypertriglycerid
[2020-03-31 14:16] LABS: Glucose Point of Care 138 (65-105)
[2020-03-31 16:31] LABS: Glucose Point of Care 132 (65-105)
[2020-03-31 18:12] LABS: Glucose Point of Care 117 (65-105)
[2020-03-31 20:00] LABS: Glucose Point of Care 139 (65-105)
[2020-03-31] MEDS: AMITRIPTYLINE HCL 25 MG TABLET 50 MG PO (21:47)
[2020-03-31 22:04] LABS: Glucose Point of Care 130 (65-105)
[2020-03-31 23:46] LABS: Glucose Point of Care 134 (65-105)
[2020-04-01] VITALS (24 sets, daily range): BP systolic 98–133; BP diastolic 59–86; PULSE 80–99; RESP 25–42; TEMP 36.2–37.3; O2SAT 92–100
[2020-04-01 02:21] LABS: Glucose Point of Care 114 (65-105)
[2020-04-01] MEDS: metroNIDAZOLE 500 MG/ISO 100ML 500 MG/100 ML BAG 100 MG IVPB (04:35)
[2020-04-01 04:56] LABS: Hematocrit 27.2 % (42.0-52.0); Hemoglobin 9.4 g/dL (14.0-18.0); Mean Corpuscular HGB Conc 34.6 g/dl (32-36); Mean Corpuscular Hemoglobin 32.9 pg (26-34); Mean Corpuscular Volume 95.1 fl (80-100); Mean Platelet Volume 10.3 fl (7.4-10.4); Platelet Count Result 157 k/mm3 (150-375); Red Blood Count 2.86 M/mm3 (4.6-6.20); Red Cell Distribution Width 13.2 % (11.5-14.5)
[2020-04-01] MEDS: dexmedeTOMIDine 400 MCG/100 ML 400 MCG/100 ML BAG 30.42 MCG IV CONT (05:04)
[2020-04-01] MEDS: DEXTROSE 10% 1,000 ML 75 ML IV CONT (05:08)
[2020-04-01 05:13] LABS: Lactic Acid Reflex 0.9 mmol/L (0.7-2.1)
[2020-04-01 05:30] LABS: Alanine Aminotransferase 20 U/L (4-50); Alkaline Phosphatase 58 U/L (38-126); Anion Gap 3 mmol/L (8-16); Aspartate Amino Transferase 72 U/L (17-59); Blood Urea Nitrogen 6 mg/dL (9-20); CRP 17.4 mg/dL (<1.0); Calcium 7.3 mg/dL (8.4-10.2); Carbon Dioxide 32 mmol/L (22-30); Chloride 101 mmol/L (98-107); Estimated CRCL calculation 139 ml/min; Estimated Glomerular Filt Rate > 60; Glucose 122 mg/dL (75-110); Lipase 361 U/L (23-300); Magnesium 1.6 mg/dL (1.6-2.3); Potassium 3.1 mmol/L (3.4-5.0); Sodium 136 mmol/L (137-145); Triglycerides 319 mg/dL (<150)
[2020-04-01 05:46] LABS: Creatine Kinase 1107 U/L (55-170)
[2020-04-01] MEDS: LORazepam INJ (*CRX) 2 MG/ML VIAL 1 MG IV PUSH (06:32)
[2020-04-01 06:52] LABS: Glucose Point of Care 112 (65-105)
[2020-04-01 08:07] LABS: Glucose Point of Care 109 (65-105)
[2020-04-01] MEDS: PANTOPRAZOLE 40 MG TABLET PO (08:15)
[2020-04-01] MEDS: THIAMINE HCL 100 MG TABLET PO (08:15)
[2020-04-01] MEDS: FOLIC ACID 1 MG TABLET PO (08:16)
[2020-04-01] MEDS: busPIRone HCL 5 MG TABLET 15 MG PO ×3 (08:16→16:25)
[2020-04-01] MEDS: ENOXAPARIN 30 MG/0.3 ML SYRINGE SUB-Q (08:16)
[2020-04-01] MEDS: LORATADINE 10 MG TABLET PO (08:17)
[2020-04-01] MEDS: POTASSIUM CHLORIDE 20 MEQ TABLET 40 MEQ PO (09:03)
[2020-04-01] MEDS: FUROSEMIDE INJ 40 MG/4 ML VIAL IV PUSH (09:04)
[2020-04-01] MEDS: ENOXAPARIN 40 MG/0.4 ML SYRINGE SUB-Q (09:04)
[2020-04-01] MEDS: dexmedeTOMIDine 400 MCG/100 ML 400 MCG/100 ML BAG 25.35 MCG IV CONT ×2 (09:12→13:51)
[2020-04-01 10:13] LABS: Glucose Point of Care 124 (65-105)
--- NOTE | 2020-04-01 10:26 | PM.IMPN ---
Progress Note: A&P Assessment and Plan (1) Acute alcoholic pancreatitis: Qualifiers: Acute pancreatitis complication: no infection or necrosis Qualified Code(s): K85.20 - Alcohol induced acute pancreatitis without necrosis or infection Code(s): K85.20 - Alcohol induced acute pancreatitis without necrosis or infection Status: Acute Assessment and Plan: Patient is a 40-year-old male with past medical history of heroin abuse stopped age of 23, at age of 25 he started drinking alcohol he presented emergency department with nausea or vomiting epigastric he was withdrawing from alcohol, acute pancreatitis and hypertriglyceridemia had a plasmapheresis patient went into respiratory distress and was intubated currently Precedex and Versed, pt is extubated but still on precedex presently. Wean precedex as possible. Advance diet as tolerated. (2) Alcohol withdrawal: Qualifiers: Complication of substance-induced condition: uncomplicated Qualified Code(s): F10.230 - Alcohol dependence with withdrawal, uncomplicated Code(s): F10.239 - Alcohol dependence with withdrawal, unspecified Status: Acute Assessment and Plan: Continue precedex, vitamins (3) Epigastric abdominal pain: Code(s): R10.13 - Epigastric pain Status: Acute Assessment and Plan: Suspect due to a combination of alcohol induced gastritis and pancreatitis (4) Acute alcoholic hepatitis: Code(s): K70.10 - Alcoholic hepatitis without ascites Status: Acute Assessment and Plan: Monitor transaminases with abstention from alcohol (5) Bipolar 1 disorder: Code(s): F31.9 - Bipolar disorder, unspecified Status: Acute Assessment and Plan: Resume gabapentin, buspirone, and quetiapine (6) Hypertension: Qualifiers: Hypertension type: unspecified Qualified Code(s): I10 - Essential (primary) hypertension Code(s): I10 - Essential (primary) hypertension Status: Chronic Assessment and Plan: Acute elevation likely due to alcohol withdrawal and anxiety and pain Monitor with p.r.n. hydralazine (7) Alcoholism /alcohol abuse: Code(s): F10.20 - Alcohol dependence, uncomplicated Status: Chronic (8) Hyperlipidemia: Qualifiers: Hyperlipidemia type: unspecified Qualified Code(s): E78.5 - Hyperlipidemia, unspecified Code(s): E78.5 - Hyperlipidemia, unspecified Status: Chronic Assessment and Plan: s/p plasmapheresis (9) History of marijuana use: Code(s): Z87.898 - Personal history of other specified conditions Status: Chronic (10) Hypokalemia: Code(s): E87.6 - Hypokalemia Status: Acute Assessment and Plan: IV supplementation and follow-up lab (11) FIGUEROA (acute kidney injury): Code(s): N17.9 - Acute kidney failure, unspecified Status: Acute Assessment and Plan: resolved (12) Hypertriglyceridemia: Code(s): E78.1 - Pure hyperglyceridemia Status: Acute Assessment and Plan: S/p plasmapheresis with improvement Subjective Date/time seen: 04/01/20 10:26 Interval history: 03/25 Admitted for alcohol w/d, pancreatitis, severe hypertriglyceridemia. Aspiration pneumonia PM of 03/25. Plasma exchange on 03/26/2020 and 03/27/2020 for hypertriglyceridemia 04/01/2020: Restless and confused intermittently. Review of Systems Review of Systems: ROS unobtainable: Yes unobtainable due to medical condition Exam Narrative: Exam Narrative: HEENT: EOMI, PERRL, sclerae nonicteric, pharyngeal mucosa pink and intact NECK: No JVD CHEST: Coarse BS with diffuse expiratory wheezes HEART: NL S1/S2, regular, no murmur ABDOMEN: BS+, soft, nontender, no mass, no bruits EXTREMITIES: No cyanosis, edema, or clubbing NEUROLOGIC: CN intact and symmetric to inspection. MUSCULOSKELETAL: Tone and strength symmetric. PSYCH: Alert. Oriented to
--- NOTE | 2020-04-01 11:42 | PM.PNNEP ---
Progress Note: A&P Assessment and Plan (1) FIGUEROA (acute kidney injury): Code(s): N17.9 - Acute kidney failure, unspecified Status: Acute Assessment and Plan: Teodoro has acute kidney injury. His baseline creatinine is normal. Urine electrolytes Are pre renal. Urinalysis is relatively bland Ultrasound is unremarkable his creatinine has fallen to normal. (2) Hypertriglyceridemia: Code(s): E78.1 - Pure hyperglyceridemia Status: Acute Assessment and Plan: The patient has very high triglycerides. The serum is clearly lipemic on visual inspection in the lab. Plasmapheresis brought it down from unmeasurable levels to 175 but then jose. The patient does not tolerate insulin drip. Likely his triglyceride levels have stayed below 500. This seems to be doing pretty well. He pulled out his Mike catheter yesterday. We will view from a distance. (3) Pancreatitis: Code(s): K85.90 - Acute pancreatitis without necrosis or infection, unspecified Status: Acute Assessment and Plan: The patient has evidence of this on CT scan. Lipase is gradually improving. He is getting supportive care. (4) Acute respiratory failure: Code(s): J96.00 - Acute respiratory failure, unspecified whether with hypoxia or hypercapnia Status: Acute Assessment and Plan: The patient is extubated. Getting supportive care. (5) Hypertension: Qualifiers: Hypertension type: unspecified Qualified Code(s): I10 - Essential (primary) hypertension Code(s): I10 - Essential (primary) hypertension Status: Chronic Assessment and Plan: His blood pressure is well controlled. (6) Bipolar 1 disorder: Code(s): F31.9 - Bipolar disorder, unspecified Status: Acute (7) Rhabdomyolysis: Code(s): M62.82 - Rhabdomyolysis Status: Acute Assessment and Plan: CPK is up and down. Thankfully is below 3000 now. The patient does have some blood in the urine but has lots of red cells. So it is unclear whether the CK is spilling into his urine but there could be some of this. The patient was on atorvastatin before he came in but is off of this now. The patient does not have any stigmata of dermatomyositis and no prior complaints of polymyositis but his CPK has always been elevated even back to 2011. So he may have some sort of rheumatologic disorder. Serology is pending. Sed rate is high but of course he has severe pancreatitis which could do this. Subjective Date/time seen: 04/01/20 11:42 Interval history: Patient has been extubated. Becoming more agitated. Requires a lot of Precedex. Review of Systems Review of Systems: ROS unobtainable: Yes unobtainable due to medical condition Exam Narrative: Exam Narrative: WDWN in NAD skin no rash head ncat lungs coarse upper airway noise bilaterally with increased expiratory phase cor reg no rub or gallop abd BS+ Still somewhat distended. ext no edema. no cyanosis Objective Data Vital Signs Vital Signs: Vital Signs - 24 hr 03/31/20 12:00 03/31/20 12:50 03/31/20 14:00 Temperature 37.3 C Pulse Rate 90 90 90 Respiratory Rate 37 H 37 H 36 H Blood Pressure 119/71 95/61 L Pulse Oximetry 91 90 03/31/20 15:36 03/31/20 16:00 03/31/20 18:00 Temperature 36.4 C L Pulse Rate 90 85 82 Respiratory Rate 36 H 30 H 26 H Blood Pressure 96/66 L 106/73 Pulse Oximetry 94 94 03/31/20 18:54 03/31/20 19:43 03/31/20 20:00 Temperature 36.0 C L Pulse Rate 82 82 82 Respiratory Rate 29 H 29 H 28 H Blood Pressure 130/78 Pulse Oximetry 94 03/31/20 21:48 03/31/20 22:00 03/31/20 23:48 Temperature Pulse Rate 83 84 86 Respiratory Rate 31 H 30 H 28 H Blood Pressure 116/98 H Pulse Oximetry 98 03/31/20 23:57 04/01/20 00:00 04/01/20 02:00 Temperature 36.2 C L Pulse Rate 87 87 88 Respiratory Rate 40 H 27 H 34 H Blood Pressure 1
[2020-04-01] MEDS: QUEtiapine FUMARATE 100 MG TABLET 200 MG PO ×2 (11:52→20:32)
[2020-04-01 12:32] LABS: Glucose Point of Care 133 (65-105)
--- NOTE | 2020-04-01 13:34 | WPDINTPN ---
Progress Note: A&P Assessment and Plan (1) Acute respiratory failure: Code(s): J96.00 - Acute respiratory failure, unspecified whether with hypoxia or hypercapnia Status: Acute Assessment and Plan: Acute Respiratory failure secondary to alcohol withdrawal, suspected aspiration, pancreatitis Extubated successfully on 03/30/2020, currently on room air with good O2 sat Continue Precedex, started patient on Seroquel. Wean Precedex as tolerated Continue Zosyn (2) Pancreatitis: Code(s): K85.90 - Acute pancreatitis without necrosis or infection, unspecified Status: Acute Assessment and Plan: Secondary to alcohol versus hypertriglyceridemia Lipase trending down Patient on empiric antibiotics Start full liquid diet CT abdomen pelvis 03/25/2020 showed acute interstitial pancreatitis, diffuse hepatic steatosis (3) Alcohol withdrawal: Qualifiers: Complication of substance-induced condition: uncomplicated Qualified Code(s): F10.230 - Alcohol dependence with withdrawal, uncomplicated Code(s): F10.239 - Alcohol dependence with withdrawal, unspecified Status: Acute Assessment and Plan: On precedex with p.r.n. Ativan Thiamine and folic acid MVI -continues to be tremulous and agitated (4) Acute alcoholic hepatitis: Code(s): K70.10 - Alcoholic hepatitis without ascites Status: Acute Assessment and Plan: Maryjane's Discriminant Function for Alcoholic Hepatitis calculated and does not suggest treatment with steroids LFTs trending down, likely related to hepatic steatosis and alcoholic hepatitis CT abdomen reviewed (5) Hypotension: Code(s): I95.9 - Hypotension, unspecified Status: Acute Assessment and Plan: Patient received adequate amount of IV fluids Hypotension could be related to severe sepsis, septic shock, pancreatitis, sedation OFF levophed Continue IV fluids Lactic acid level was 1.2 (6) Hypertriglyceridemia: Code(s): E78.1 - Pure hyperglyceridemia Status: Acute Assessment and Plan: Patient has history of hypertriglyceridemia Patient's blood appears lipemic as per report from lab Triglycerides significantly elevated, patient received plasma exchange on 03/26/2020 and 03/27/2020. Triglyceride level 172 this morning. Patient was also intermittently on insulin D 20 but was hypoglycemic -started patient on gemfibrozil (7) FIGUEROA (acute kidney injury): Code(s): N17.9 - Acute kidney failure, unspecified Status: Acute Assessment and Plan: RESOLVED Likely secondary to sepsis and hypotension, rhabdomyolysis Continue aggressive volume resuscitation CK levels trending down Accurate intake and output monitoring Appreciate neurology evaluation and recommendation Monitor electrolytes Additional Plan DVT prophylaxis -subcutaneous Lovenox Stress ulcer prophylaxis -Protonix Nutrition -start full liquid diet Code Status - Full Code Total Critical Care Time - 32 minutes Due to a high probability of clinically significant, life threatening deterioration, the patient required my highest level of preparedness to intervene emergently and I personally spent this critical care time directly and personally managing the patient. This critical care time included obtaining a history; examining the patient; pulse oximetry; ordering and review of studies; arranging urgent treatment with development of a management plan; evaluation of patient's response to treatment; frequent reassessment; and discussions with other providers. It was exclusive of separately billable procedures and treating other patients and teaching time. Please see Assessment and Plan section and the rest of the note for further information on patient assessment and treatment Subjective Date/time seen: 04/01/20 13:34 Interval history: Reason for consult: Severe hypertriglyceridemia requiring plasmapheresis, alcoholic hepatitis acute respiratory
[2020-04-01] MEDS: gemfibroziL 600 MG TABLET PO (16:25)
[2020-04-01] MEDS: MORPHINE SULFATE (*CRX) 4 MG/ML INJ IV PUSH ×3 (16:26→22:51)
[2020-04-01] MEDS: DEXTROSE 5%/0.9% SOD CHL 1,000 ML 50 ML IV CONT (16:51)
[2020-04-01 17:19] LABS: Glucose Point of Care 141 (65-105)
[2020-04-01] MEDS: dexmedeTOMIDine 400 MCG/100 ML 400 MCG/100 ML BAG 20.28 MCG IV CONT ×2 (18:04→22:53)
[2020-04-01] MEDS: AMITRIPTYLINE HCL 25 MG TABLET 50 MG PO (20:32)
[2020-04-01 23:15] LABS: Glucose Point of Care 113 (65-105)
[2020-04-01 23:15] LABS: Glucose Point of Care 133 (65-105)
[2020-04-02] VITALS (27 sets, daily range): BP systolic 102–144; BP diastolic 57–92; PULSE 84–99; RESP 24–43; TEMP 36.6–37.3; O2SAT 95–99
[2020-04-02] MEDS: LORazepam INJ (*CRX) 2 MG/ML VIAL 1 MG IV PUSH ×4 (00:52→13:57)
[2020-04-02] MEDS: dexmedeTOMIDine 400 MCG/100 ML 400 MCG/100 ML BAG 38.03 MCG IV CONT ×8 (01:44→20:40)
[2020-04-02] MEDS: OLANZapine 10 MG INJ VIAL 2.5 MG IM ×2 (01:47→04:06)
[2020-04-02 05:10] LABS: Hematocrit 24.6 % (42.0-52.0); Hemoglobin 8.4 g/dL (14.0-18.0); Mean Corpuscular HGB Conc 34.1 g/dl (32-36); Mean Corpuscular Hemoglobin 33.3 pg (26-34); Mean Corpuscular Volume 97.6 fl (80-100); Mean Platelet Volume 10.5 fl (7.4-10.4); Platelet Count Result 181 k/mm3 (150-375); Red Blood Count 2.52 M/mm3 (4.6-6.20); Red Cell Distribution Width 12.9 % (11.5-14.5); White Blood Count 14.7 K/mm3 (4.5-10.0)
[2020-04-02 05:56] LABS: Alanine Aminotransferase 18 U/L (4-50); Albumin Level 2.8 g/dL (3.5-5.1); Alkaline Phosphatase 54 U/L (38-126); Anion Gap 3 mmol/L (8-16); Aspartate Amino Transferase 56 U/L (17-59); Bilirubin,Total 0.9 mg/dL (0.2-1.3); Blood Urea Nitrogen 9 mg/dL (9-20); Calcium 7.5 mg/dL (8.4-10.2); Carbon Dioxide 29 mmol/L (22-30); Chloride 105 mmol/L (98-107); Creatine Kinase 584 U/L (55-170); Estimated CRCL calculation 138 ml/min; Estimated Glomerular Filt Rate > 60; Glucose 97 mg/dL (75-110); Phosphorus 3.2 mg/dL (2.5-4.5); Potassium 3.1 mmol/L (3.4-5.0); Sodium 137 mmol/L (137-145)
[2020-04-02 07:35] LABS: Arterial Blood Gas Minute Volume 7 LPM; Arterial Blood Gas PEEP 5 cmH2O; Arterial Blood Gas Vent Mode ASV
[2020-04-02] MEDS: chlordiazePOXIDE (*CRX) 10 MG CAPSULE PO (07:45)
[2020-04-02] MEDS: POTASSIUM CHLORIDE 20 MEQ TABLET 40 MEQ PO ×2 (07:46→11:35)
[2020-04-02] MEDS: gemfibroziL 600 MG TABLET PO ×2 (07:46→16:32)
[2020-04-02] MEDS: busPIRone HCL 5 MG TABLET 15 MG PO ×3 (07:47→16:32)
[2020-04-02] MEDS: ENOXAPARIN 40 MG/0.4 ML SYRINGE SUB-Q (07:48)
[2020-04-02] MEDS: FOLIC ACID 1 MG TABLET PO (07:49)
[2020-04-02] MEDS: LORATADINE 10 MG TABLET PO (08:39)
[2020-04-02] MEDS: QUEtiapine FUMARATE 100 MG TABLET 200 MG PO (08:39)
[2020-04-02] MEDS: THIAMINE HCL 100 MG TABLET PO (08:39)
[2020-04-02] MEDS: PANTOPRAZOLE 40 MG TABLET PO (08:39)
[2020-04-02 09:11] LABS: CRP 14.5 mg/dL (<1.0); Lipase 362 U/L (23-300); Magnesium 1.2 mg/dL (1.6-2.3)
--- NOTE | 2020-04-02 10:10 | PCPTNOTE ---
Attempted PT eval. Karolina FITZPATRICK stated pt is sedated. Will hold PT for today.
--- NOTE | 2020-04-02 10:57 | WPDINTPN ---
Progress Note: A&P Assessment and Plan (1) Acute respiratory failure: Code(s): J96.00 - Acute respiratory failure, unspecified whether with hypoxia or hypercapnia Status: Acute Assessment and Plan: Acute Respiratory failure secondary to alcohol withdrawal, suspected aspiration, pancreatitis Extubated successfully on 03/30/2020, currently on room air with good O2 sat Wean Precedex as tolerated Continue Zosyn (2) Pancreatitis: Code(s): K85.90 - Acute pancreatitis without necrosis or infection, unspecified Status: Acute Assessment and Plan: Secondary to alcohol versus hypertriglyceridemia Lipase trending down Patient on empiric antibiotics Patient denies any abdominal pain. Will advance diet as tolerated CT abdomen pelvis 03/25/2020 showed acute interstitial pancreatitis, diffuse hepatic steatosis (3) Alcohol withdrawal: Qualifiers: Complication of substance-induced condition: uncomplicated Qualified Code(s): F10.230 - Alcohol dependence with withdrawal, uncomplicated Code(s): F10.239 - Alcohol dependence with withdrawal, unspecified Status: Acute Assessment and Plan: On precedex with p.r.n. Ativan which patient has been getting frequently Thiamine and folic acid MVI Will add scheduled Librium try to cut down on p.r.n. Ativan needs and use and also wean off Precedex (4) Acute alcoholic hepatitis: Code(s): K70.10 - Alcoholic hepatitis without ascites Status: Acute Assessment and Plan: Maryjane's Discriminant Function for Alcoholic Hepatitis calculated and does not suggest treatment with steroids LFTs trending down, likely related to hepatic steatosis and alcoholic hepatitis CT abdomen reviewed (5) Hypotension: Code(s): I95.9 - Hypotension, unspecified Status: Acute Assessment and Plan: Resolve after Patient received adequate amount of IV fluids Hypotension could be related to severe sepsis, septic shock, pancreatitis, sedation OFF levophed (6) Hypertriglyceridemia: Code(s): E78.1 - Pure hyperglyceridemia Status: Acute Assessment and Plan: Patient has history of hypertriglyceridemia Patient's blood appears lipemic as per report from lab Triglycerides significantly elevated, patient received plasma exchange on 03/26/2020 and 03/27/2020. Patient was also intermittently on insulin D 20 but was hypoglycemic Patient now on gemfibrozil Monitor levels (7) FIGUEROA (acute kidney injury): Code(s): N17.9 - Acute kidney failure, unspecified Status: Acute Assessment and Plan: RESOLVED Likely secondary to sepsis and hypotension, rhabdomyolysis Continue aggressive volume resuscitation CK levels trending down Accurate intake and output monitoring Appreciate neurology evaluation and recommendation Monitor electrolytes Replace low potassium (8) Hypoglycemia: Code(s): E16.2 - Hypoglycemia, unspecified Status: Acute Assessment and Plan: Advance diet as tolerated Wean dextrose fluid. Decreased to 30 mL per are this morning Additional Plan DVT prophylaxis -subcutaneous Lovenox Stress ulcer prophylaxis -Protonix Nutrition -advance diet as tolerated Code Status - Full Code Total Critical Care Time - 30 minutes Due to a high probability of clinically significant, life threatening deterioration, the patient required my highest level of preparedness to intervene emergently and I personally spent this critical care time directly and personally managing the patient. This critical care time included obtaining a history; examining the patient; pulse oximetry; ordering and review of studies; arranging urgent treatment with development of a management plan; evaluation of patient's response to treatment; frequent reassessment; and discussions with other providers. It was exclusive of separately billable procedures and treating other patients and teaching time. Please see Assessment and P
[2020-04-02] MEDS: MORPHINE SULFATE (*CRX) 4 MG/ML INJ IV PUSH ×2 (11:00→14:27)
[2020-04-02] MEDS: MAGNESIUM SULF 2 GM/WATER 50ML 2 GM/50 ML BAG IVPB (11:33)
[2020-04-02 12:06] LABS: Glucose Point of Care 112 (65-105)
--- NOTE | 2020-04-02 13:01 | PCDIET ---
Nutrition Follow-Up Complete: Nutrition Diagnosis: Inadequate oral intake related to pancreatitis/mechanical ventilation as evidenced by NPO status. Nutrition Goal: Patient to meet estimated nutritional needs. Goal in progress. Patient tolerated full liquid diet at breakfast, per RN, with MD order to advance diet to low fat. Will monitor intakes/tolerance and provide additional recommendations, as needed. Noted patient took little intake over weekend with documented emesis x 3 yesterday. Last recorded weight is 97.9 kg which is down from last review. -I/O. Bowel Motility: No new BM documented. If medically appropriate, would consider medication to promote BM. Labs Reviewed: Hgb (8.4), Hct (24.8), K (3.1), Alb (2.8), Luis Fernando Ca (8.46), Mg (1.2), Lipase (362) Meds Noted: Librium, Precedex, D5NS at 30mL/hr, Folic Acid, Lopid, Morphine, Protonix, Zosyn, Thiamine, KCl, Magnesium Sulfate Additional Notes: No documented skin breakdown. Will continue to monitor with same goal. Nutrition Monitoring and Evaluation: Follow up every 3 days.
--- NOTE | 2020-04-02 13:02 | PM.PNNEP ---
Progress Note: A&P Assessment and Plan (1) FIGUEROA (acute kidney injury): Code(s): N17.9 - Acute kidney failure, unspecified Status: Acute Assessment and Plan: resolved likely due to volume depletion/dehydration creatinine is within normal limits (2) Hypertriglyceridemia: Code(s): E78.1 - Pure hyperglyceridemia Status: Acute Assessment and Plan: quite severe as noted by admission labs s/p plasmapheresis x 2 with improvement in triglyceride level still elevated at this time though significantly better continue ongoing medical management (3) Pancreatitis: Code(s): K85.90 - Acute pancreatitis without necrosis or infection, unspecified Status: Acute Assessment and Plan: as noted by admission labs and imaging presumably secondary to #2 continue supportive therapy (4) Hypertension: Qualifiers: Hypertension type: unspecified Qualified Code(s): I10 - Essential (primary) hypertension Code(s): I10 - Essential (primary) hypertension Status: Chronic Assessment and Plan: reasonable control at this time follow trend of hemodynamics Nothing much else to add from renal perspective -- will follow from a distance. Subjective Date/time seen: 04/02/20 13:02 Noted ongoing issues with confusion and agitation in the last 24 hours although at the time of my visit, he seemed more calm and stated he needs to go home and would like to eat something. No apparent distress noted currently and denies any other complaints. Exam Narrative: Exam Narrative: General: WD/WN male in NAD Heart: normal S1 and S2; no rub Lungs: coarse breath sounds Abdomen: soft, nontender, mild distension, positive bowel sounds Extremities: no cyanosis or clubbing; no edema Skin: warm and dry Objective Data Vital Signs Vital Signs: Vital Signs Temp Pulse Resp BP Pulse Ox 04/02/20 12:07 89 30 H 04/02/20 11:55 88 28 H 04/02/20 11:34 36.9 C 04/02/20 11:01 36.7 C 90 30 H 122/67 96 04/02/20 10:00 36.7 C 89 34 H 138/86 99 04/02/20 09:17 92 34 H 04/02/20 08:46 92 43 H 04/02/20 08:00 36.7 C 90 29 H 130/77 98 04/02/20 06:08 91 31 H 04/02/20 06:00 37.3 C 91 30 H 107/62 96 04/02/20 04:04 93 29 H 04/02/20 03:56 36.8 C 92 28 H 127/62 95 04/02/20 03:53 93 127/57 L 04/02/20 02:00 94 27 H 127/73 96 04/02/20 01:44 97 29 H 04/02/20 00:00 36.6 C 99 27 H 109/59 L 97 04/01/20 22:53 99 27 H 04/01/20 22:00 98 29 H 109/59 L 97 04/01/20 20:00 36.8 C 88 26 H 100/68 100 Intake/Output Intake/Output: Intake & Output 03/30/20 03/31/20 04/01/20 04/02/20 23:59 23:59 23:59 23:59 Intake Total 1614 2760 2480 2880 Output Total 1175 2750 3750 4850 Balance 439 10 -4380 -1970 Meds/Results Medications: Active Medications Generic Name Dose Route Start Last Admin Trade Name Freq PRN Reason Stop Dose Admin Acetaminophen 650 mg 03/29/20 13:52 03/30/20 05:08 Acetaminophen Elixir 325 Mg/10.15 Ml Udc PO 650 mg Q6H PRN Administration Mild Pain (1-3) or Fever Albuterol 2 puff 03/25/20 18:02 Albuterol Sulfate (*Sp) Aerosol 1 Puff INHALATION QID PRN shortness of breath or wheezing Amitriptyline HCl 50 mg 03/31/20 21:00 04/01/20 20:32 Amitriptyline Hcl 25 Mg Tablet PO 50 mg HS JERILYN Administration Buspirone HCl 15 mg 03/25/20 17:00 04/02/20 16:32 Buspirone Hcl 5 Mg Tablet PO 15 mg TID JERILYN Administration Chlordiazepoxide HCl 25 mg 04/02/20 14:00 04/02/20 13:39 Chlordiazepoxide (*Crx) 25 Mg Capsule PO 25 mg Q8HR JERILYN Administration Dextrose 12.5 gm 03/27/20 04:23 03/30/20 19:55 Dextrose 50% 25 Gm/50 Ml Syringe IV PUSH 12.5 gm PRN PRN Administration Hypoglycemia Protocol Enoxaparin Sodium 40 mg 04/01/20 09:00 04/02/20 07:48 Enoxaparin 40 Mg/0.4 Ml Syringe SUB-Q 40 mg FLORENCIA
[2020-04-02] MEDS: chlordiazePOXIDE (*CRX) 25 MG CAPSULE PO ×2 (13:39→20:44)
[2020-04-02 17:55] LABS: Glucose Point of Care 96 (65-105)
[2020-04-02] MEDS: DEXTROSE 5%/0.9% SOD CHL 1,000 ML 30 ML IV CONT (18:05)
[2020-04-02] MEDS: AMITRIPTYLINE HCL 25 MG TABLET 50 MG PO (20:44)
[2020-04-03] VITALS (19 sets, daily range): BP systolic 89–130; BP diastolic 58–75; PULSE 78–137; RESP 22–36; TEMP 36.7–37.2; O2SAT 96–100
[2020-04-03 00:31] LABS: Glucose Point of Care 96 (65-105)
[2020-04-03] MEDS: dexmedeTOMIDine 400 MCG/100 ML 400 MCG/100 ML BAG 38.03 MCG IV CONT (00:33)
[2020-04-03] MEDS: dexmedeTOMIDine 400 MCG/100 ML 400 MCG/100 ML BAG 17.75 MCG IV CONT (04:28)
[2020-04-03] MEDS: chlordiazePOXIDE (*CRX) 25 MG CAPSULE PO ×3 (05:52→22:00)
[2020-04-03 06:45] LABS: Hematocrit 27.8 % (42.0-52.0); Hemoglobin 9.3 g/dL (14.0-18.0); Mean Corpuscular HGB Conc 33.5 g/dl (32-36); Mean Corpuscular Hemoglobin 33.2 pg (26-34); Mean Corpuscular Volume 99.3 fl (80-100); Mean Platelet Volume 10.3 fl (7.4-10.4); Platelet Count Result 238 k/mm3 (150-375); Red Cell Distribution Width 12.6 % (11.5-14.5); White Blood Count 13.7 K/mm3 (4.5-10.0)
[2020-04-03 07:04] LABS: Alanine Aminotransferase 16 U/L (4-50); Alkaline Phosphatase 72 U/L (38-126); Anion Gap 1 mmol/L (8-16); Aspartate Amino Transferase 45 U/L (17-59); Bilirubin,Total 0.9 mg/dL (0.2-1.3); Blood Urea Nitrogen 6 mg/dL (9-20); Calcium 8.3 mg/dL (8.4-10.2); Carbon Dioxide 31 mmol/L (22-30); Chloride 105 mmol/L (98-107); Creatine Kinase 267 U/L (55-170); Estimated CRCL calculation 156 ml/min; Estimated Glomerular Filt Rate > 60; Glucose 93 mg/dL (75-110); Lipase 306 U/L (23-300); Magnesium 1.4 mg/dL (1.6-2.3); Phosphorus 3.8 mg/dL (2.5-4.5); Potassium 3.8 mmol/L (3.4-5.0); Sodium 137 mmol/L (137-145); Triglycerides 324 mg/dL (<150)
--- NOTE | 2020-04-03 08:38 | PCPTNOTE ---
Attempted PT eval. Pt refused, states he doesn't feel good and wants to sleep. Will try again later today.
[2020-04-03] MEDS: busPIRone HCL 5 MG TABLET 15 MG PO ×3 (09:41→17:39)
[2020-04-03] MEDS: PANTOPRAZOLE 40 MG TABLET PO (09:41)
[2020-04-03] MEDS: ENOXAPARIN 40 MG/0.4 ML SYRINGE SUB-Q (09:41)
[2020-04-03] MEDS: FOLIC ACID 1 MG TABLET PO (09:41)
[2020-04-03] MEDS: MAGNESIUM SULF 2 GM/WATER 50ML 2 GM/50 ML BAG IVPB (09:41)
[2020-04-03] MEDS: LORATADINE 10 MG TABLET PO (09:41)
[2020-04-03] MEDS: gemfibroziL 600 MG TABLET PO ×2 (09:41→17:40)
[2020-04-03] MEDS: THIAMINE HCL 100 MG TABLET PO (09:41)
[2020-04-03] MEDS: ACETAMINOPHEN ELIXIR 325 MG/10.15 ML UDC 650 MG PO (09:45)
[2020-04-03] MEDS: polyethylene glycoL 3350 17 GM POWD.PACK PO (09:47)
--- NOTE | 2020-04-03 10:34 | PCDIET ---
ICU Rounding Note: Patient consuming 0-10% of meals. Refused breakfast due to feeling tight in abdomen, per RN. Miralax given. Recommend adding fat free Ensure Clear with meals for 240kcal and 8g protein each. Agree with low fat diet. Last recorded weight is 94kg which is decreased from last review. -I/O. Bowel Motility: Still no BM - Miralax given today. Labs Reviewed: Hgb (9.3), Hct (27.8), Glu (267), Mg (1.4), Lipase (306), TG (324) Meds Noted: Albuterol, Precedex, D5NS at 30mL/hr, Folic Acid, Lopid, Novolog, Morphine, Protonix, Zosyn, Thiamine, Miralax Additional Notes: No documented skin breakdown. Following daily in ICU rounds. Assessing/reassessing every 3 days.
--- NOTE | 2020-04-03 10:49 | WPDINTPN ---
Progress Note: A&P Assessment and Plan (1) Acute respiratory failure: Code(s): J96.00 - Acute respiratory failure, unspecified whether with hypoxia or hypercapnia Status: Acute Assessment and Plan: Acute Respiratory failure secondary to alcohol withdrawal, suspected aspiration, pancreatitis Extubated successfully on 03/30/2020, currently on room air with good O2 sat Continue Zosyn (2) Pancreatitis: Code(s): K85.90 - Acute pancreatitis without necrosis or infection, unspecified Status: Acute Assessment and Plan: Secondary to alcohol versus hypertriglyceridemia Lipase trending down Patient on empiric antibiotics Patient denies any abdominal pain. Will advance diet as tolerated CT abdomen pelvis 03/25/2020 showed acute interstitial pancreatitis, diffuse hepatic steatosis (3) Alcohol withdrawal: Qualifiers: Complication of substance-induced condition: uncomplicated Qualified Code(s): F10.230 - Alcohol dependence with withdrawal, uncomplicated Code(s): F10.239 - Alcohol dependence with withdrawal, unspecified Status: Acute Assessment and Plan: Improved Continue scheduled Librium, continue titration of precedex. Will decrease p.r.n. Ativan which may be causing excessive sedation Thiamine and folic acid MVI (4) Acute alcoholic hepatitis: Code(s): K70.10 - Alcoholic hepatitis without ascites Status: Acute Assessment and Plan: Maryjane's Discriminant Function for Alcoholic Hepatitis calculated and does not suggest treatment with steroids LFTs trending down, likely related to hepatic steatosis and alcoholic hepatitis CT abdomen reviewed (5) Hypotension: Code(s): I95.9 - Hypotension, unspecified Status: Acute Assessment and Plan: Resolve after Patient received adequate amount of IV fluids Hypotension could be related to severe sepsis, septic shock, pancreatitis, sedation OFF levophed (6) Hypertriglyceridemia: Code(s): E78.1 - Pure hyperglyceridemia Status: Acute Assessment and Plan: Patient has history of hypertriglyceridemia Patient's blood appears lipemic as per report from lab Triglycerides significantly elevated, patient received plasma exchange on 03/26/2020 and 03/27/2020. Patient was also intermittently on insulin D 20 but was hypoglycemic Patient now on gemfibrozil Monitor levels (7) FIGUEROA (acute kidney injury): Code(s): N17.9 - Acute kidney failure, unspecified Status: Acute Assessment and Plan: RESOLVED Likely secondary to sepsis and hypotension, rhabdomyolysis Continue aggressive volume resuscitation CK levels trending down Accurate intake and output monitoring Appreciate neurology evaluation and recommendation Monitor electrolytes Replace low potassium (8) Hypoglycemia: Code(s): E16.2 - Hypoglycemia, unspecified Status: Acute Assessment and Plan: Advance diet as tolerated Wean dextrose fluid. Decreased to 30 mL per are this morning (9) Constipation: Code(s): K59.00 - Constipation, unspecified Status: Acute Assessment and Plan: MiraLax p.r.n. added Check KUB to rule out ileus (10) Electrolyte abnormality: Code(s): E87.8 - Other disorders of electrolyte and fluid balance, not elsewhere classified Status: Acute Assessment and Plan: Replace low magnesium Additional Plan DVT prophylaxis -subcutaneous Lovenox Stress ulcer prophylaxis -Protonix Nutrition -advance diet as tolerated Code Status - Full Code Physical therapy, up in chair, incentive spirometry Total Critical Care Time - 31 minutes Due to a high probability of clinically significant, life threatening deterioration, the patient required my highest level of preparedness to intervene emergently and I personally spent this critical care time directly and personally managing the patient. This critical care time included obtaining a history; exami
[2020-04-03] MEDS: dexmedeTOMIDine 400 MCG/100 ML 400 MCG/100 ML BAG 5.07 MCG IV CONT (12:03)
[2020-04-03 14:56] LABS: Glucose Point of Care 128 (65-105)
--- NOTE | 2020-04-03 16:58 | PM.IMPN ---
Progress Note: A&P Assessment and Plan (1) Acute alcoholic pancreatitis: Qualifiers: Acute pancreatitis complication: no infection or necrosis Qualified Code(s): K85.20 - Alcohol induced acute pancreatitis without necrosis or infection Code(s): K85.20 - Alcohol induced acute pancreatitis without necrosis or infection Status: Acute Assessment and Plan: Patient is a 40-year-old male with past medical history of heroin abuse stopped age of 23, at age of 25 he started drinking alcohol he presented emergency department with nausea or vomiting epigastric he was withdrawing from alcohol, acute pancreatitis and hypertriglyceridemia had a plasmapheresis patient went into respiratory distress and was intubated currently Precedex and Versed, pt is extubated on librium weaning off precedex (2) Alcohol withdrawal: Qualifiers: Complication of substance-induced condition: uncomplicated Qualified Code(s): F10.230 - Alcohol dependence with withdrawal, uncomplicated Code(s): F10.239 - Alcohol dependence with withdrawal, unspecified Status: Acute Assessment and Plan: Continue Librium and vitamins weaning off Precedex (3) Epigastric abdominal pain: Code(s): R10.13 - Epigastric pain Status: Acute Assessment and Plan: Suspect due to a combination of alcohol induced gastritis and pancreatitis on iv zosyn (4) Acute alcoholic hepatitis: Code(s): K70.10 - Alcoholic hepatitis without ascites Status: Acute Assessment and Plan: Monitor transaminases with abstention from alcohol (5) Bipolar 1 disorder: Code(s): F31.9 - Bipolar disorder, unspecified Status: Acute Assessment and Plan: Resume gabapentin, buspirone, and quetiapine (6) Hypertension: Qualifiers: Hypertension type: unspecified Qualified Code(s): I10 - Essential (primary) hypertension Code(s): I10 - Essential (primary) hypertension Status: Chronic Assessment and Plan: Acute elevation likely due to alcohol withdrawal and anxiety and pain Monitor with p.r.n. hydralazine (7) Alcoholism /alcohol abuse: Code(s): F10.20 - Alcohol dependence, uncomplicated Status: Chronic (8) Hyperlipidemia: Qualifiers: Hyperlipidemia type: unspecified Qualified Code(s): E78.5 - Hyperlipidemia, unspecified Code(s): E78.5 - Hyperlipidemia, unspecified Status: Chronic Assessment and Plan: s/p plasmapheresis (9) History of marijuana use: Code(s): Z87.898 - Personal history of other specified conditions Status: Chronic (10) Hypokalemia: Code(s): E87.6 - Hypokalemia Status: Acute Assessment and Plan: IV supplementation and follow-up lab (11) FIGUEROA (acute kidney injury): Code(s): N17.9 - Acute kidney failure, unspecified Status: Acute Assessment and Plan: resolved (12) Hypertriglyceridemia: Code(s): E78.1 - Pure hyperglyceridemia Status: Acute Assessment and Plan: S/p plasmapheresis with improvement Subjective Date/time seen: 04/03/20 16:58 Interval history: 40 year old male alcoholic with bipolar 1 disorder. 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 He started drinking alcohol at about age 25. He drinks about 15 beers per day. Pt has high triglycerides levels causing pancreatitis and Acute renal failure. Pt sp plasmapheresis x 2 under nephrology. Pt is extubated being observed in icu Review of Systems Review of Systems: All systems reviewed & are unremarkable except as noted in HPI and below Exam Narrative: Exam Narrative: Younger male CHEST: normal breathing HEART: NL S1/S2, regular, no murmur ABDOMEN: BS+, soft, nontender, no mass, no bruits EXTREMITIES: No cyanosis, edema, or clubbing NEUROLOGIC: CN intact and symmetric to inspection. MUSCULOSKELETAL: Tone and strength symmetric. PSYCH: Alert. Orien
[2020-04-03 17:52] LABS: Glucose Point of Care 105 (65-105)
[2020-04-03] MEDS: AMITRIPTYLINE HCL 25 MG TABLET 50 MG PO (22:45)
[2020-04-04] VITALS (13 sets, daily range): BP systolic 110–134; BP diastolic 70–88; PULSE 100–128; RESP 18–30; TEMP 36.7–37.3; O2SAT 96–100
[2020-04-04 00:54] LABS: Glucose Point of Care 130 (65-105)
[2020-04-04] MEDS: MORPHINE SULFATE (*CRX) 4 MG/ML INJ IV PUSH ×4 (00:56→22:39)
[2020-04-04 08:12] LABS: Hematocrit 24.8 % (42.0-52.0); Hemoglobin 8.3 g/dL (14.0-18.0); Mean Corpuscular HGB Conc 33.5 g/dl (32-36); Mean Corpuscular Hemoglobin 32.9 pg (26-34); Mean Corpuscular Volume 98.4 fl (80-100); Mean Platelet Volume 9.8 fl (7.4-10.4); Platelet Count Result 304 k/mm3 (150-375); Red Blood Count 2.52 M/mm3 (4.6-6.20); Red Cell Distribution Width 12.5 % (11.5-14.5); White Blood Count 13.8 K/mm3 (4.5-10.0)
[2020-04-04 08:22] LABS: Alanine Aminotransferase 16 U/L (4-50); Albumin Level 3.1 g/dL (3.5-5.1); Alkaline Phosphatase 75 U/L (38-126); Anion Gap 4 mmol/L (8-16); Aspartate Amino Transferase 45 U/L (17-59); Bilirubin,Total 0.8 mg/dL (0.2-1.3); Blood Urea Nitrogen 6 mg/dL (9-20); Calcium 8.2 mg/dL (8.4-10.2); Carbon Dioxide 27 mmol/L (22-30); Chloride 105 mmol/L (98-107); Creatine Kinase 108 U/L (55-170); Estimated CRCL calculation 135 ml/min; Estimated Glomerular Filt Rate > 60; Glucose 108 mg/dL (75-110); Lipase 200 U/L (23-300); Magnesium 1.6 mg/dL (1.6-2.3); Phosphorus 3.7 mg/dL (2.5-4.5); Potassium 3.3 mmol/L (3.4-5.0); Sodium 136 mmol/L (137-145)
[2020-04-04] MEDS: FOLIC ACID 1 MG TABLET PO (08:48)
[2020-04-04] MEDS: ENOXAPARIN 40 MG/0.4 ML SYRINGE SUB-Q (08:48)
[2020-04-04] MEDS: busPIRone HCL 5 MG TABLET 15 MG PO ×3 (08:48→17:01)
[2020-04-04] MEDS: LORATADINE 10 MG TABLET PO (08:49)
[2020-04-04] MEDS: THIAMINE HCL 100 MG TABLET PO (08:49)
[2020-04-04] MEDS: PANTOPRAZOLE 40 MG TABLET PO (08:49)
[2020-04-04] MEDS: gemfibroziL 600 MG TABLET PO ×2 (08:50→17:00)
[2020-04-04] MEDS: chlordiazePOXIDE (*CRX) 25 MG CAPSULE PO ×2 (08:52→20:49)
--- NOTE | 2020-04-04 09:04 | WPDINTPN ---
Progress Note: A&P Assessment and Plan (1) Acute respiratory failure: Code(s): J96.00 - Acute respiratory failure, unspecified whether with hypoxia or hypercapnia Status: Acute Assessment and Plan: Acute Respiratory failure secondary to alcohol withdrawal, suspected aspiration, pancreatitis Extubated successfully on 03/30/2020, currently on room air with good O2 sat Continue Zosyn (2) Pancreatitis: Code(s): K85.90 - Acute pancreatitis without necrosis or infection, unspecified Status: Acute Assessment and Plan: Secondary to alcohol versus hypertriglyceridemia Lipase trending down Patient on empiric antibiotics Patient denies any abdominal pain. Will advance diet as tolerated CT abdomen pelvis 03/25/2020 showed acute interstitial pancreatitis, diffuse hepatic steatosis (3) Alcohol withdrawal: Qualifiers: Complication of substance-induced condition: uncomplicated Qualified Code(s): F10.230 - Alcohol dependence with withdrawal, uncomplicated Code(s): F10.239 - Alcohol dependence with withdrawal, unspecified Status: Acute Assessment and Plan: Improved Continue scheduled Librium, Precedex discontinued P.r.n. Ativan as needed Thiamine and folic acid MVI (4) Acute alcoholic hepatitis: Code(s): K70.10 - Alcoholic hepatitis without ascites Status: Acute Assessment and Plan: Maryjane's Discriminant Function for Alcoholic Hepatitis calculated and does not suggest treatment with steroids LFTs trending down, likely related to hepatic steatosis and alcoholic hepatitis CT abdomen reviewed (5) Hypotension: Code(s): I95.9 - Hypotension, unspecified Status: Acute Assessment and Plan: Resolve after Patient received adequate amount of IV fluids Hypotension could be related to severe sepsis, septic shock, pancreatitis, sedation OFF levophed (6) Hypertriglyceridemia: Code(s): E78.1 - Pure hyperglyceridemia Status: Acute Assessment and Plan: Patient has history of hypertriglyceridemia Patient's blood appears lipemic as per report from lab Triglycerides significantly elevated, patient received plasma exchange on 03/26/2020 and 03/27/2020. Patient was also intermittently on insulin D 20 but was hypoglycemic Patient now on gemfibrozil Monitor levels (7) FIGUEROA (acute kidney injury): Code(s): N17.9 - Acute kidney failure, unspecified Status: Acute Assessment and Plan: RESOLVED Likely secondary to sepsis and hypotension, rhabdomyolysis Continue aggressive volume resuscitation CK levels trending down Accurate intake and output monitoring Appreciate neurology evaluation and recommendation Monitor electrolytes Replace low potassium (8) Hypoglycemia: Code(s): E16.2 - Hypoglycemia, unspecified Status: Acute Assessment and Plan: Resolved. Will discontinue dextrose IV fluids Patient on regular diet now (9) Constipation: Code(s): K59.00 - Constipation, unspecified Status: Acute Assessment and Plan: Resolved with MiraLax p.r.n. added KUB done yesterday showed no obstruction or ileus (10) Electrolyte abnormality: Code(s): E87.8 - Other disorders of electrolyte and fluid balance, not elsewhere classified Status: Acute Assessment and Plan: Replace low potassium and magnesium Additional Plan DVT prophylaxis -subcutaneous Lovenox Stress ulcer prophylaxis -Protonix Nutrition -advance diet as tolerated Code Status - Full Code Continue Physical therapy, up in chair, incentive spirometry Transfer out of ICU today Subjective Date/time seen: 04/04/20 Patient in planes of nausea this morning and had 1 episode of emesis. He did eat her roast beef sandwich for dinner yesterday and did okay with no nausea vomiting at that time. He also complains of back pain 11/30 which is chronic for which he takes Flexeril and pain medication at home He has
[2020-04-04] MEDS: MAGNESIUM SULF 2 GM/WATER 50ML 2 GM/50 ML BAG IVPB (09:31)
[2020-04-04] MEDS: POTASSIUM CHLORIDE 20 MEQ TABLET 40 MEQ PO (09:32)
[2020-04-04 10:15] LABS: RNP Antibodies <1.0
[2020-04-04 10:41] LABS: JO 1 Antibody <1.0
[2020-04-04 11:39] LABS: Glucose Point of Care 119 (65-105)
--- NOTE | 2020-04-04 13:58 | PC.NURSE ---
1355- PT DISCHARGED TO FLOOR WITH TELE. PT WENT TO ROOM 243, REPORT GIVEN TO NANETTE BENÍTEZ. PT VITAL SIGNS STABLE AND STATED BACK PAIN WAS TOLERABLE. PT BELONGINGS WITH HIM AND CHART.
--- NOTE | 2020-04-04 14:23 | PCDIET ---
Nutrition Follow-Up Complete: Nutrition Diagnosis: Inadequate oral intake related to pancreatitis/mechanical ventilation as evidenced by NPO status. Nutrition Goal: Patient to meet estimated nutritional needs. Goal in progress. Patient reports tolerating small amounts of low fat diet. Intake records 0-25% of meals. Patient reports taking Ensure Clear with meals and would like to continue receiving galan flavor with all meals. Small, frequent meals encouraged to maximize intake. Last recorded weight is 94 kg. which is stable with last review. Bowel Motility: BM x 5 today. Labs Reviewed: Lipase (200), Hgb (8.3), Hct (24.8), K (3.3), Na (136), Alb (3.1) Meds Noted: Protonix, Morphine, Albuterol, Folic Acid, Lopid, Miralax, Vitamin B1, Zosyn, Magnesium Sulfate, KCl Additional Notes: No documented skin breakdown. Will continue to monitor with same goal. Nutrition Monitoring and Evaluation: Follow up every 5 days.
[2020-04-04] MEDS: ONDANSETRON INJ 4 MG/2 ML VIAL IV PUSH (14:36)
--- NOTE | 2020-04-04 15:23 | PM.IMPN ---
Progress Note: A&P Assessment and Plan (1) Acute alcoholic pancreatitis: Qualifiers: Acute pancreatitis complication: no infection or necrosis Qualified Code(s): K85.20 - Alcohol induced acute pancreatitis without necrosis or infection Code(s): K85.20 - Alcohol induced acute pancreatitis without necrosis or infection Status: Acute Assessment and Plan: Patient is a 40-year-old male with past medical history of heroin abuse stopped age of 23, at age of 25 he started drinking alcohol he presented emergency department with nausea or vomiting epigastric he was withdrawing from alcohol, acute pancreatitis and hypertriglyceridemia had a plasmapheresis pt is extubated on librium watch on the medical floor for any further alcholol withdrawl signs (2) Alcohol withdrawal: Qualifiers: Complication of substance-induced condition: uncomplicated Qualified Code(s): F10.230 - Alcohol dependence with withdrawal, uncomplicated Code(s): F10.239 - Alcohol dependence with withdrawal, unspecified Status: Acute Assessment and Plan: Continue Librium and vitamins (3) Epigastric abdominal pain: Code(s): R10.13 - Epigastric pain Status: Acute Assessment and Plan: Suspect due to a combination of alcohol induced gastritis and pancreatitis on iv zosyn (4) Acute alcoholic hepatitis: Code(s): K70.10 - Alcoholic hepatitis without ascites Status: Acute Assessment and Plan: Monitor transaminases with abstention from alcohol (5) Bipolar 1 disorder: Code(s): F31.9 - Bipolar disorder, unspecified Status: Acute Assessment and Plan: Resume gabapentin, buspirone, and quetiapine (6) Hypertension: Qualifiers: Hypertension type: unspecified Qualified Code(s): I10 - Essential (primary) hypertension Code(s): I10 - Essential (primary) hypertension Status: Chronic Assessment and Plan: Acute elevation likely due to alcohol withdrawal and anxiety and pain Monitor with p.r.n. hydralazine (7) Alcoholism /alcohol abuse: Code(s): F10.20 - Alcohol dependence, uncomplicated Status: Chronic (8) Hyperlipidemia: Qualifiers: Hyperlipidemia type: unspecified Qualified Code(s): E78.5 - Hyperlipidemia, unspecified Code(s): E78.5 - Hyperlipidemia, unspecified Status: Chronic Assessment and Plan: s/p plasmapheresis (9) History of marijuana use: Code(s): Z87.898 - Personal history of other specified conditions Status: Chronic (10) Hypokalemia: Code(s): E87.6 - Hypokalemia Status: Acute Assessment and Plan: continue to watch (11) FIGUEROA (acute kidney injury): Code(s): N17.9 - Acute kidney failure, unspecified Status: Acute Assessment and Plan: resolved (12) Hypertriglyceridemia: Code(s): E78.1 - Pure hyperglyceridemia Status: Acute Assessment and Plan: S/p plasmapheresis with improvement Subjective Date/time seen: 04/04/20 15:23 Interval history: 40 year old male alcoholic with bipolar 1 disorder. 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 He started drinking alcohol at about age 25. He drinks about 15 beers per day. Pt has high triglycerides levels causing pancreatitis and Acute renal failure. Pt sp plasmapheresis x 2 under nephrology. Pt is extubated being observed in icu, stable for transfer to the medical floor. Complaints of nausea and abdominal discomfort. Pt had several bowel movements yesterday loose movements Review of Systems Review of Systems: All systems reviewed & are unremarkable except as noted in HPI and below Exam Narrative: Exam Narrative: Younger male CHEST: normal breathing HEART: NL S1/S2, regular, no murmur ABDOMEN: BS+, soft, nontender, no mass, no bruits EXTREMITIES: No cyanosis, edema, or clubbing NEUROLOGIC: CN intact and symmetric to inspection
[2020-04-04 17:53] LABS: Glucose Point of Care 99 (65-105)
[2020-04-04 20:40] LABS: Glucose Point of Care 105 (65-105)
[2020-04-04] MEDS: AMITRIPTYLINE HCL 25 MG TABLET 50 MG PO (20:49)
[2020-04-04] MEDS: CALCIUM CARBONATE (TUMS) 500 MG (200 MG ELEMENTAL) PO (21:40)
[2020-04-05] VITALS (8 sets, daily range): BP systolic 122–135; BP diastolic 65–80; PULSE 114–130; RESP 16–20; TEMP 36.6–37.3; O2SAT 96–99
[2020-04-05] MEDS: LORazepam INJ (*CRX) 2 MG/ML VIAL 1 MG IV PUSH (00:35)
--- NOTE | 2020-04-05 00:57 | PC.NURSE ---
Pt attempting to use urinal and spilled saturating bed. Pt aggitated and pulse is 150. Pt given Ativan and reinforced need to stay in bed. Pt is very weak and unsteady.
[2020-04-05] MEDS: gemfibroziL 600 MG TABLET PO ×2 (05:16→17:26)
[2020-04-05 05:58] LABS: Alanine Aminotransferase 17 U/L (4-50); Albumin Level 3.4 g/dL (3.5-5.1); Alkaline Phosphatase 76 U/L (38-126); Anion Gap 3 mmol/L (8-16); Aspartate Amino Transferase 39 U/L (17-59); Bilirubin,Total 0.6 mg/dL (0.2-1.3); Blood Urea Nitrogen 5 mg/dL (9-20); Calcium 8.8 mg/dL (8.4-10.2); Carbon Dioxide 29 mmol/L (22-30); Chloride 103 mmol/L (98-107); Creatine Kinase 72 U/L (55-170); Estimated CRCL calculation 135 ml/min; Estimated Glomerular Filt Rate > 60; Glucose 100 mg/dL (75-110); Lipase 193 U/L (23-300); Magnesium 1.8 mg/dL (1.6-2.3); Phosphorus 3.9 mg/dL (2.5-4.5); Potassium 4.1 mmol/L (3.4-5.0); Sodium 135 mmol/L (137-145)
[2020-04-05 06:04] LABS: Hematocrit 26.8 % (42.0-52.0); Hemoglobin 8.9 g/dL (14.0-18.0); Mean Corpuscular HGB Conc 33.2 g/dl (32-36); Mean Corpuscular Volume 99.3 fl (80-100); Platelet Count Result 453 k/mm3 (150-375); Red Cell Distribution Width 12.4 % (11.5-14.5); White Blood Count 12.9 K/mm3 (4.5-10.0)
[2020-04-05 08:13] LABS: Glucose Point of Care 100 (65-105)
[2020-04-05] MEDS: ONDANSETRON INJ 4 MG/2 ML VIAL IV PUSH ×2 (08:20→16:29)
[2020-04-05] MEDS: MORPHINE SULFATE (*CRX) 4 MG/ML INJ IV PUSH ×2 (08:20→16:29)
[2020-04-05] MEDS: LORATADINE 10 MG TABLET PO (08:21)
[2020-04-05] MEDS: busPIRone HCL 5 MG TABLET 15 MG PO ×3 (08:21→17:26)
[2020-04-05] MEDS: PANTOPRAZOLE 40 MG TABLET PO (08:21)
[2020-04-05] MEDS: chlordiazePOXIDE (*CRX) 25 MG CAPSULE PO ×2 (08:21→20:25)
[2020-04-05] MEDS: ENOXAPARIN 40 MG/0.4 ML SYRINGE SUB-Q (08:21)
[2020-04-05] MEDS: FOLIC ACID 1 MG TABLET PO (08:21)
[2020-04-05] MEDS: THIAMINE HCL 100 MG TABLET PO (08:22)
[2020-04-05] MEDS: POTASSIUM CHLORIDE 20 MEQ PACKET (FOR LIQUID) 40 MEQ PO (09:51)
[2020-04-05 11:43] LABS: SM Antibody <1.0; SM/RNP Antibody <1.0
--- NOTE | 2020-04-05 12:14 | PM.IMPN ---
Progress Note: A&P Assessment and Plan (1) Acute alcoholic pancreatitis: Qualifiers: Acute pancreatitis complication: no infection or necrosis Qualified Code(s): K85.20 - Alcohol induced acute pancreatitis without necrosis or infection Code(s): K85.20 - Alcohol induced acute pancreatitis without necrosis or infection Status: Acute Assessment and Plan: Patient is a 40-year-old male with past medical history of heroin abuse stopped age of 23, at age of 25 he started drinking alcohol he presented emergency department with nausea or vomiting epigastric he was withdrawing from alcohol, acute pancreatitis and hypertriglyceridemia had a plasmapheresis. Pt having some abdominal pains today, hopeful discharge tomorrow (2) Alcohol withdrawal: Qualifiers: Complication of substance-induced condition: uncomplicated Qualified Code(s): F10.230 - Alcohol dependence with withdrawal, uncomplicated Code(s): F10.239 - Alcohol dependence with withdrawal, unspecified Status: Acute Assessment and Plan: Continue Librium and vitamins (3) Epigastric abdominal pain: Code(s): R10.13 - Epigastric pain Status: Acute Assessment and Plan: Suspect due to a combination of alcohol induced gastritis and pancreatitis on iv zosyn (4) Acute alcoholic hepatitis: Code(s): K70.10 - Alcoholic hepatitis without ascites Status: Acute Assessment and Plan: Monitor transaminases with abstention from alcohol (5) Bipolar 1 disorder: Code(s): F31.9 - Bipolar disorder, unspecified Status: Acute Assessment and Plan: Resume gabapentin, buspirone, and quetiapine (6) Hypertension: Qualifiers: Hypertension type: unspecified Qualified Code(s): I10 - Essential (primary) hypertension Code(s): I10 - Essential (primary) hypertension Status: Chronic Assessment and Plan: Acute elevation likely due to alcohol withdrawal and anxiety and pain Monitor with p.r.n. hydralazine (7) Alcoholism /alcohol abuse: Code(s): F10.20 - Alcohol dependence, uncomplicated Status: Chronic (8) Hyperlipidemia: Qualifiers: Hyperlipidemia type: unspecified Qualified Code(s): E78.5 - Hyperlipidemia, unspecified Code(s): E78.5 - Hyperlipidemia, unspecified Status: Chronic Assessment and Plan: s/p plasmapheresis (9) History of marijuana use: Code(s): Z87.898 - Personal history of other specified conditions Status: Chronic (10) Hypokalemia: Code(s): E87.6 - Hypokalemia Status: Acute Assessment and Plan: continue to watch (11) FIGUEROA (acute kidney injury): Code(s): N17.9 - Acute kidney failure, unspecified Status: Acute Assessment and Plan: resolved (12) Hypertriglyceridemia: Code(s): E78.1 - Pure hyperglyceridemia Status: Acute Assessment and Plan: S/p plasmapheresis with improvement Subjective Date/time seen: 04/05/20 12:14 Interval history: 40 year old male alcoholic with bipolar 1 disorder. 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 He started drinking alcohol at about age 25. He drinks about 15 beers per day. Pt has high triglycerides levels causing pancreatitis and Acute renal failure. Pt sp plasmapheresis x 2 under nephrology. Pt complains of abdominal pains otherwise is better, hopeful DC tomorrow. Review of Systems Review of Systems: All systems reviewed & are unremarkable except as noted in HPI and below Exam Narrative: Exam Narrative: Younger male CHEST: normal breathing HEART: NL S1/S2, regular, no murmur ABDOMEN: BS+, soft, nontender, no mass, no bruits EXTREMITIES: No cyanosis, edema, or clubbing NEUROLOGIC: CN intact and symmetric to inspection. MUSCULOSKELETAL: Tone and strength symmetric. PSYCH: Alert. Oriented to person only. Restless, moving around. Objective Data Vital
[2020-04-05 12:44] LABS: Glucose Point of Care 101 (65-105)
[2020-04-05] MEDS: CYCLOBENZAPRINE HCL 10 MG TABLET PO (13:28)
[2020-04-05] MEDS: CENTRAL LINE FLUSH 10 ML IV PUSH ×2 (13:30→20:25)
[2020-04-05 14:10] LABS: Reference Lab Test Name CMP
[2020-04-05] MEDS: AMITRIPTYLINE HCL 25 MG TABLET 50 MG PO (20:25)
[2020-04-06] VITALS (12 sets, daily range): BP systolic 107–133; BP diastolic 65–79; PULSE 113–136; RESP 16–22; TEMP 36.7–37.1; O2SAT 95–99
[2020-04-06] MEDS: CENTRAL LINE FLUSH 10 ML IV PUSH (05:43)
[2020-04-06] MEDS: gemfibroziL 600 MG TABLET PO ×2 (05:43→17:14)
[2020-04-06 06:31] LABS: Hematocrit 25.7 % (42.0-52.0); Hemoglobin 8.5 g/dL (14.0-18.0); Mean Corpuscular HGB Conc 33.1 g/dl (32-36); Mean Corpuscular Hemoglobin 32.4 pg (26-34); Mean Corpuscular Volume 98.1 fl (80-100); Mean Platelet Volume 9.7 fl (7.4-10.4); Platelet Count Result 558 k/mm3 (150-375); Red Blood Count 2.62 M/mm3 (4.6-6.20); Red Cell Distribution Width 12.3 % (11.5-14.5); White Blood Count 11.2 K/mm3 (4.5-10.0)
[2020-04-06] MEDS: MORPHINE SULFATE (*CRX) 4 MG/ML INJ IV PUSH (06:37)
[2020-04-06 06:46] LABS: Anion Gap 4 mmol/L (8-16); Blood Urea Nitrogen 5 mg/dL (9-20); Calcium 8.4 mg/dL (8.4-10.2); Carbon Dioxide 27 mmol/L (22-30); Chloride 101 mmol/L (98-107); Estimated CRCL calculation 106 ml/min; Estimated Glomerular Filt Rate > 60; Glucose 98 mg/dL (75-110); Potassium 3.9 mmol/L (3.4-5.0); Sodium 132 mmol/L (137-145); Triglycerides 286 mg/dL (<150)
[2020-04-06] MEDS: chlordiazePOXIDE (*CRX) 25 MG CAPSULE PO ×3 (10:13→20:50)
[2020-04-06] MEDS: FOLIC ACID 1 MG TABLET PO (10:14)
[2020-04-06] MEDS: LORATADINE 10 MG TABLET PO (10:14)
[2020-04-06] MEDS: busPIRone HCL 5 MG TABLET 15 MG PO ×3 (10:14→17:13)
[2020-04-06] MEDS: PANTOPRAZOLE 40 MG TABLET PO (10:14)
[2020-04-06] MEDS: POTASSIUM CHLORIDE 20 MEQ PACKET (FOR LIQUID) 40 MEQ PO (10:14)
[2020-04-06] MEDS: ENOXAPARIN 40 MG/0.4 ML SYRINGE SUB-Q (10:14)
[2020-04-06] MEDS: THIAMINE HCL 100 MG TABLET PO (10:15)
[2020-04-06] MEDS: NEOMYCIN/POLYMYXIN/BACITRACIN OINTMENT PACKET 1 PACKET (10:30)
--- NOTE | 2020-04-06 10:39 | PM.IMPN ---
Progress Note: A&P Assessment and Plan (1) Acute alcoholic pancreatitis: Qualifiers: Acute pancreatitis complication: no infection or necrosis Qualified Code(s): K85.20 - Alcohol induced acute pancreatitis without necrosis or infection Code(s): K85.20 - Alcohol induced acute pancreatitis without necrosis or infection Status: Acute Assessment and Plan: Patient is a 40-year-old male with past medical history of heroin abuse stopped age of 23, at age of 25 he started drinking alcohol he presented emergency department with nausea or vomiting epigastric he was withdrawing from alcohol, acute pancreatitis and hypertriglyceridemia had a plasmapheresis. Pt having some abdominal pains, and tachycardia today. (2) Alcohol withdrawal: Qualifiers: Complication of substance-induced condition: uncomplicated Qualified Code(s): F10.230 - Alcohol dependence with withdrawal, uncomplicated Code(s): F10.239 - Alcohol dependence with withdrawal, unspecified Status: Acute Assessment and Plan: Continue Librium and vitamins (3) Epigastric abdominal pain: Code(s): R10.13 - Epigastric pain Status: Acute Assessment and Plan: Suspect due to a combination of alcohol induced gastritis and pancreatitis on iv zosyn, monitor lipase. (4) Acute alcoholic hepatitis: Code(s): K70.10 - Alcoholic hepatitis without ascites Status: Acute Assessment and Plan: Monitor transaminases with abstention from alcohol (5) Bipolar 1 disorder: Code(s): F31.9 - Bipolar disorder, unspecified Status: Acute Assessment and Plan: Resume gabapentin, buspirone, and quetiapine (6) Hypertension: Qualifiers: Hypertension type: unspecified Qualified Code(s): I10 - Essential (primary) hypertension Code(s): I10 - Essential (primary) hypertension Status: Chronic Assessment and Plan: Acute elevation likely due to alcohol withdrawal and anxiety and pain Monitor with p.r.n. hydralazine (7) Alcoholism /alcohol abuse: Code(s): F10.20 - Alcohol dependence, uncomplicated Status: Chronic Assessment and Plan: Pt is on librium (8) Hyperlipidemia: Qualifiers: Hyperlipidemia type: unspecified Qualified Code(s): E78.5 - Hyperlipidemia, unspecified Code(s): E78.5 - Hyperlipidemia, unspecified Status: Chronic Assessment and Plan: s/p plasmapheresis (9) History of marijuana use: Code(s): Z87.898 - Personal history of other specified conditions Status: Chronic (10) Hypokalemia: Code(s): E87.6 - Hypokalemia Status: Acute Assessment and Plan: continue to watch (11) FIGUEROA (acute kidney injury): Code(s): N17.9 - Acute kidney failure, unspecified Status: Acute Assessment and Plan: resolved (12) Hypertriglyceridemia: Code(s): E78.1 - Pure hyperglyceridemia Status: Acute Assessment and Plan: S/p plasmapheresis with improvement order tricor for high triglycerides Subjective Date/time seen: 04/06/20 10:39 Interval history: 40 year old male alcoholic with bipolar 1 disorder. 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 He started drinking alcohol at about age 25. He drinks about 15 beers per day. Pt has high triglycerides levels causing pancreatitis and Acute renal failure. Pt sp plasmapheresis x 2 under nephrology. Pt complains of abdominal pains and tachycardia . Central line is red Review of Systems Review of Systems: All systems reviewed & are unremarkable except as noted in HPI and below Exam Narrative: Exam Narrative: Younger male central line redness CHEST: normal breathing HEART: NL S1/S2, regular, no murmur ABDOMEN: BS+, soft, nontender, no mass, no bruits EXTREMITIES: No cyanosis, edema, or clubbing NEUROLOGIC: CN intact and symmetric to inspection. MUSCULOSKELETAL: Tone and
[2020-04-06 10:54] LABS: Lipase 187 U/L (23-300)
[2020-04-06] MEDS: HYDROcodone/acetaminophen (*CRX) 5-325 MG TABLET 1 TAB PO ×2 (12:03→20:50)
[2020-04-06] MEDS: CYCLOBENZAPRINE HCL 10 MG TABLET PO ×2 (14:24→20:50)
[2020-04-06] MEDS: AMITRIPTYLINE HCL 25 MG TABLET 50 MG PO (20:50)
[2020-04-07] VITALS (9 sets, daily range): BP systolic 121–126; BP diastolic 74–81; PULSE 115–126; RESP 16–20; TEMP 36.6–37; O2SAT 98–100
[2020-04-07] MEDS: HYDROcodone/acetaminophen (*CRX) 5-325 MG TABLET 1 TAB PO ×3 (05:32→20:45)
[2020-04-07] MEDS: CYCLOBENZAPRINE HCL 10 MG TABLET PO ×2 (05:32→16:18)
[2020-04-07] MEDS: chlordiazePOXIDE (*CRX) 25 MG CAPSULE PO ×2 (05:32→07:01)
[2020-04-07] MEDS: gemfibroziL 600 MG TABLET PO ×2 (05:33→16:18)
--- NOTE | 2020-04-07 05:55 | ECG_ITS ---
Measurements Intervals Cullen Rate: 129 P: 59 VA: 130 QRS: 46 QRSD: 74 T: -61 QT: 312 QTc: 458 Interpretive Statements SINUS TACHYCARDIA DELAYED PRECORDIAL R/S TRANSITION ST-T WAVE ABNORMALITY IN INFERIOR LEADS- CONSIDER ISCHEMIA BASELINE ARTIFACT- I, II, AVR ABNORMAL ECG Electronically Signed On 04-07-2020 8:07:13 GINNER by Onur Rob D.O.
[2020-04-07 06:03] LABS: Hematocrit 30.5 % (42.0-52.0); Hemoglobin 10.3 g/dL (14.0-18.0); Mean Corpuscular HGB Conc 33.8 g/dl (32-36); Mean Corpuscular Volume 97.8 fl (80-100); Mean Platelet Volume 9.4 fl (7.4-10.4); Platelet Count Result 813 k/mm3 (150-375); Red Blood Count 3.12 M/mm3 (4.6-6.20); Red Cell Distribution Width 12.3 % (11.5-14.5); White Blood Count 12.1 K/mm3 (4.5-10.0)
[2020-04-07 06:16] LABS: Anion Gap 8 mmol/L (8-16); Blood Urea Nitrogen 6 mg/dL (9-20); Calcium 9.5 mg/dL (8.4-10.2); Carbon Dioxide 26 mmol/L (22-30); Chloride 100 mmol/L (98-107); Estimated CRCL calculation 120 ml/min; Estimated Glomerular Filt Rate > 60; Glucose 100 mg/dL (75-110); Potassium 4.3 mmol/L (3.4-5.0); Sodium 134 mmol/L (137-145)
[2020-04-07] MEDS: SODIUM CHLORIDE 0.9% IV 500 ML 999 ML IV CONT (06:41)
--- NOTE | 2020-04-07 06:44 | PM.EVENT ---
Event Note Event Note Event Note: [facility] Note Called to assess this patient secondary to tachycardia. EKG was obtained which showed sinus tachycardia. ON my arrival to bedside the patient is alert and oriented by very shaky. He is also diaphoretic and tells me that he feels very anxious. We will administer 500 ml IV NS bolus and increase his Librium to 50 mg TID. Continue to monitor closely.
[2020-04-07] MEDS: ONDANSETRON INJ 4 MG/2 ML VIAL IV PUSH ×2 (06:50→20:50)
[2020-04-07] MEDS: POTASSIUM CHLORIDE 20 MEQ PACKET (FOR LIQUID) 40 MEQ PO (08:55)
[2020-04-07] MEDS: ENOXAPARIN 40 MG/0.4 ML SYRINGE SUB-Q (08:55)
[2020-04-07] MEDS: PANTOPRAZOLE 40 MG TABLET PO (08:56)
[2020-04-07] MEDS: LORATADINE 10 MG TABLET PO (08:56)
[2020-04-07] MEDS: THIAMINE HCL 100 MG TABLET PO (08:56)
[2020-04-07] MEDS: busPIRone HCL 5 MG TABLET 15 MG PO ×3 (08:56→16:18)
[2020-04-07] MEDS: FENOFIBRATE NANOCRYSTALLIZED 145 MG TABLET PO (08:56)
[2020-04-07] MEDS: FOLIC ACID 1 MG TABLET PO (08:56)
[2020-04-07] MEDS: chlordiazePOXIDE (*CRX) 5 MG CAPSULE PO (09:34)
--- NOTE | 2020-04-07 10:31 | PCOTNOTE ---
Attempted to see pt this am. Pt refused all therapeutic activities/exercises stating he was not feeling good, his acid reflux was bothering him. Pt stated that there was nothing he wanted to participate in since he could not have a shower. 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 Will continue per POC duration/frequency.
[2020-04-07] MEDS: CALCIUM CARBONATE (TUMS) 500 MG (200 MG ELEMENTAL) PO ×2 (10:59→20:50)
[2020-04-07] MEDS: SODIUM CHLORIDE 0.9% IV 1,000 ML 75 ML IV CONT ×2 (11:59→20:50)
--- NOTE | 2020-04-07 13:28 | PM.IMPN ---
Progress Note: A&P Assessment and Plan (1) Acute alcoholic pancreatitis: Qualifiers: Acute pancreatitis complication: no infection or necrosis Qualified Code(s): K85.20 - Alcohol induced acute pancreatitis without necrosis or infection Code(s): K85.20 - Alcohol induced acute pancreatitis without necrosis or infection Status: Acute Assessment and Plan: Patient is a 40-year-old male with past medical history of heroin abuse stopped age of 23, at age of 25 he started drinking alcohol he presented emergency department with nausea or vomiting epigastric he was withdrawing from alcohol, acute pancreatitis and hypertriglyceridemia had a plasmapheresis. Pt tachycardiac, ST, today continue iv fluids continue scheduled librium and await BC (2) Alcohol withdrawal: Qualifiers: Complication of substance-induced condition: uncomplicated Qualified Code(s): F10.230 - Alcohol dependence with withdrawal, uncomplicated Code(s): F10.239 - Alcohol dependence with withdrawal, unspecified Status: Acute Assessment and Plan: Continue Librium and vitamins (3) Epigastric abdominal pain: Code(s): R10.13 - Epigastric pain Status: Acute Assessment and Plan: Suspect due to a combination of alcohol induced gastritis and pancreatitis on iv zosyn, lipase down (4) Acute alcoholic hepatitis: Code(s): K70.10 - Alcoholic hepatitis without ascites Status: Acute Assessment and Plan: Monitor transaminases with abstention from alcohol (5) Bipolar 1 disorder: Code(s): F31.9 - Bipolar disorder, unspecified Status: Acute Assessment and Plan: Resume gabapentin, buspirone, and quetiapine (6) Hypertension: Qualifiers: Hypertension type: unspecified Qualified Code(s): I10 - Essential (primary) hypertension Code(s): I10 - Essential (primary) hypertension Status: Chronic Assessment and Plan: Acute elevation likely due to alcohol withdrawal and anxiety and pain Monitor with p.r.n. hydralazine (7) Alcoholism /alcohol abuse: Code(s): F10.20 - Alcohol dependence, uncomplicated Status: Chronic Assessment and Plan: Pt is on librium (8) Hyperlipidemia: Qualifiers: Hyperlipidemia type: unspecified Qualified Code(s): E78.5 - Hyperlipidemia, unspecified Code(s): E78.5 - Hyperlipidemia, unspecified Status: Chronic Assessment and Plan: s/p plasmapheresis (9) History of marijuana use: Code(s): Z87.898 - Personal history of other specified conditions Status: Chronic (10) Hypokalemia: Code(s): E87.6 - Hypokalemia Status: Acute Assessment and Plan: continue to watch (11) FIGUEROA (acute kidney injury): Code(s): N17.9 - Acute kidney failure, unspecified Status: Acute Assessment and Plan: resolved (12) Hypertriglyceridemia: Code(s): E78.1 - Pure hyperglyceridemia Status: Acute Assessment and Plan: S/p plasmapheresis with improvement order tricor for high triglycerides Subjective Date/time seen: 04/07/20 13:28 Interval history: 40 year old male alcoholic with bipolar 1 disorder. 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 He started drinking alcohol at about age 25. He drinks about 15 beers per day. Pt has high triglycerides levels causing pancreatitis and Acute renal failure. Pt sp plasmapheresis x 2 under nephrology. Pt is still tachycardic today, ST. Review of Systems Review of Systems: All systems reviewed & are unremarkable except as noted in HPI and below Exam Narrative: Exam Narrative: Younger male anxious CHEST: normal breathing HEART: NL S1/S2, regular, no murmur ABDOMEN: BS+, soft, nontender, no mass, no bruits EXTREMITIES: No cyanosis, edema, or clubbing NEUROLOGIC: CN intact and symmetric to inspection. MUSCULOSKELETAL: Tone and strength symmetric.
[2020-04-07] MEDS: chlordiazePOXIDE (*CRX) 25 MG CAPSULE 50 MG PO ×2 (13:32→20:46)
[2020-04-07] MEDS: AMITRIPTYLINE HCL 25 MG TABLET 50 MG PO (20:46)
[2020-04-08] VITALS (9 sets, daily range): BP systolic 108–119; BP diastolic 58–68; PULSE 112–134; RESP 16–20; TEMP 36.1–36.6; O2SAT 96–99
[2020-04-08 01:57] LABS: IFOB Positive Control Positive; Immunochemical Fecal Occult Bl Negative (N)
[2020-04-08] MEDS: ONDANSETRON INJ 4 MG/2 ML VIAL IV PUSH (04:40)
[2020-04-08] MEDS: HYDROcodone/acetaminophen (*CRX) 5-325 MG TABLET 1 TAB PO ×3 (04:40→18:11)
[2020-04-08 05:54] LABS: Alanine Aminotransferase 26 U/L (4-50); Albumin Level 3.9 g/dL (3.5-5.1); Alkaline Phosphatase 70 U/L (38-126); Anion Gap 4 mmol/L (8-16); Aspartate Amino Transferase 42 U/L (17-59); Bilirubin,Total 0.4 mg/dL (0.2-1.3); Blood Urea Nitrogen 7 mg/dL (9-20); Calcium 9.3 mg/dL (8.4-10.2); Carbon Dioxide 29 mmol/L (22-30); Chloride 100 mmol/L (98-107); Estimated CRCL calculation 119 ml/min; Estimated Glomerular Filt Rate > 60; Glucose 100 mg/dL (75-110); Magnesium 1.5 mg/dL (1.6-2.3); Potassium 4.3 mmol/L (3.4-5.0); Sodium 133 mmol/L (137-145)
[2020-04-08] MEDS: chlordiazePOXIDE (*CRX) 25 MG CAPSULE 50 MG PO ×3 (06:10→20:39)
[2020-04-08] MEDS: gemfibroziL 600 MG TABLET PO ×2 (06:10→16:07)
[2020-04-08] MEDS: POTASSIUM CHLORIDE 20 MEQ PACKET (FOR LIQUID) 40 MEQ PO (08:31)
[2020-04-08] MEDS: busPIRone HCL 5 MG TABLET 15 MG PO ×3 (08:32→16:07)
[2020-04-08] MEDS: THIAMINE HCL 100 MG TABLET PO (08:32)
[2020-04-08] MEDS: PANTOPRAZOLE 40 MG TABLET PO (08:32)
[2020-04-08] MEDS: LORATADINE 10 MG TABLET PO (08:32)
[2020-04-08] MEDS: FOLIC ACID 1 MG TABLET PO (08:32)
[2020-04-08] MEDS: ENOXAPARIN 40 MG/0.4 ML SYRINGE SUB-Q (08:32)
[2020-04-08] MEDS: FENOFIBRATE NANOCRYSTALLIZED 145 MG TABLET PO (08:32)
[2020-04-08] MEDS: MAGNESIUM OXIDE 400 MG TABLET PO (09:01)
[2020-04-08] MEDS: MAGNESIUM SULF 2 GM/WATER 50ML 2 GM/50 ML BAG IVPB (09:01)
[2020-04-08] MEDS: chlordiazePOXIDE (*CRX) 5 MG CAPSULE PO (09:02)
[2020-04-08] MEDS: CYCLOBENZAPRINE HCL 10 MG TABLET PO ×2 (11:04→18:11)
--- NOTE | 2020-04-08 13:27 | PM.IMPN ---
Progress Note: A&P Assessment and Plan (1) Acute alcoholic pancreatitis: Qualifiers: Acute pancreatitis complication: no infection or necrosis Qualified Code(s): K85.20 - Alcohol induced acute pancreatitis without necrosis or infection Code(s): K85.20 - Alcohol induced acute pancreatitis without necrosis or infection Status: Acute Assessment and Plan: Patient is a 40-year-old male with past medical history of heroin abuse stopped age of 23, at age of 25 he started drinking alcohol he presented emergency department with nausea or vomiting epigastric he was withdrawing from alcohol, acute pancreatitis and hypertriglyceridemia had a plasmapheresis. Pt tachycardiac, ST, today continue iv fluids continue scheduled librium and await BC 04/08/20 13:27 40 year old male alcoholic with bipolar 1 disorder. 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 He started drinking alcohol at about age 25. He drinks about 15 beers per day. Pt has high triglycerides levels causing pancreatitis and Acute renal failure. Pt sp plasmapheresis x 2 under nephrology. 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 Patient is participating in PT OT (2) Alcohol withdrawal: Qualifiers: Complication of substance-induced condition: uncomplicated Qualified Code(s): F10.230 - Alcohol dependence with withdrawal, uncomplicated Code(s): F10.239 - Alcohol dependence with withdrawal, unspecified Status: Acute Assessment and Plan: Continue Librium and vitamins (3) Epigastric abdominal pain: Code(s): R10.13 - Epigastric pain Status: Acute Assessment and Plan: Suspect due to a combination of alcohol induced gastritis and pancreatitis on iv zosyn, lipase down (4) Acute alcoholic hepatitis: Code(s): K70.10 - Alcoholic hepatitis without ascites Status: Acute Assessment and Plan: Monitor transaminases with abstention from alcohol (5) Bipolar 1 disorder: Code(s): F31.9 - Bipolar disorder, unspecified Status: Acute Assessment and Plan: Resume gabapentin, buspirone, and quetiapine (6) Hypertension: Qualifiers: Hypertension type: unspecified Qualified Code(s): I10 - Essential (primary) hypertension Code(s): I10 - Essential (primary) hypertension Status: Chronic Assessment and Plan: Acute elevation likely due to alcohol withdrawal and anxiety and pain Monitor with p.r.n. hydralazine (7) Alcoholism /alcohol abuse: Code(s): F10.20 - Alcohol dependence, uncomplicated Status: Chronic Assessment and Plan: Pt is on librium (8) Hyperlipidemia: Qualifiers: Hyperlipidemia type: unspecified Qualified Code(s): E78.5 - Hyperlipidemia, unspecified Code(s): E78.5 - Hyperlipidemia, unspecified Status: Chronic Assessment and Plan: s/p plasmapheresis (9) History of marijuana use: Code(s): Z87.898 - Personal history of other specified conditions Status: Chronic (10) Hypokalemia: Code(s): E87.6 - Hypokalemia Status: Acute Assessment and Plan: continue to watch (11) FIGUEROA (acute kidney injury): Code(s): N17.9 - Acute kidney failure, unspecified Status: Acute Assessment and Plan: resolved (12) Hypertriglyceridemia: Code(s): E78.1 - Pure hyperglyceridemia Status: Acute Assessment and Plan: S/p plasmapheresis with improvement order tricor for high triglycerides Subjective Date/time seen: 04/08/20 13:27 40 year old male alcoholic with bipolar 1 disorder. He is a former heroin user who quit at about
[2020-04-08] MEDS: SODIUM CHLORIDE 0.9% IV 1,000 ML 75 ML IV CONT (15:35)
[2020-04-08] MEDS: AMITRIPTYLINE HCL 25 MG TABLET 50 MG PO (20:39)
[2020-04-09] VITALS: BP 119/68; PULSE 113
[2020-04-09 03:00] VITALS: BP 115/72; PULSE 115; RESP 16; TEMP 36.2; O2SAT 99
[2020-04-09] MEDS: HYDROcodone/acetaminophen (*CRX) 5-325 MG TABLET 1 TAB PO (03:45)
[2020-04-09] MEDS: CYCLOBENZAPRINE HCL 10 MG TABLET PO ×2 (03:45→13:05)
[2020-04-09 04:00] VITALS: BP 119/68; PULSE 120
[2020-04-09] MEDS: SODIUM CHLORIDE 0.9% IV 1,000 ML 75 ML IV CONT (04:58)
[2020-04-09 05:26] LABS: Hematocrit 29.3 % (42.0-52.0); Hemoglobin 9.4 g/dL (14.0-18.0); Mean Corpuscular HGB Conc 32.1 g/dl (32-36); Mean Corpuscular Hemoglobin 32.6 pg (26-34); Mean Corpuscular Volume 101.7 fl (80-100); Mean Platelet Volume 8.9 fl (7.4-10.4); Platelet Count Result 913 k/mm3 (150-375); Red Blood Count 2.88 M/mm3 (4.6-6.20); Red Cell Distribution Width 12.3 % (11.5-14.5); White Blood Count 10.5 K/mm3 (4.5-10.0)
[2020-04-09 05:43] LABS: Triglycerides 241 mg/dL (<150)
[2020-04-09 05:46] LABS: Alanine Aminotransferase 24 U/L (4-50); Albumin Level 3.8 g/dL (3.5-5.1); Alkaline Phosphatase 68 U/L (38-126); Anion Gap 5 mmol/L (8-16); Aspartate Amino Transferase 33 U/L (17-59); Bilirubin,Total 0.4 mg/dL (0.2-1.3); Blood Urea Nitrogen 6 mg/dL (9-20); Calcium 9.2 mg/dL (8.4-10.2); Carbon Dioxide 32 mmol/L (22-30); Chloride 98 mmol/L (98-107); Estimated CRCL calculation 119 ml/min; Estimated Glomerular Filt Rate > 60; Glucose 100 mg/dL (75-110); Magnesium 1.6 mg/dL (1.6-2.3); Potassium 4.3 mmol/L (3.4-5.0); Sodium 135 mmol/L (137-145)
[2020-04-09] MEDS: gemfibroziL 600 MG TABLET PO (05:57)
[2020-04-09] MEDS: chlordiazePOXIDE (*CRX) 25 MG CAPSULE 50 MG PO (05:57)
[2020-04-09 08:00] VITALS: PULSE 131
[2020-04-09] MEDS: ENOXAPARIN 40 MG/0.4 ML SYRINGE SUB-Q (08:25)
[2020-04-09] MEDS: POTASSIUM CHLORIDE 20 MEQ PACKET (FOR LIQUID) 40 MEQ PO (08:25)
[2020-04-09] MEDS: FENOFIBRATE NANOCRYSTALLIZED 145 MG TABLET PO (08:26)
[2020-04-09] MEDS: busPIRone HCL 5 MG TABLET 15 MG PO (08:26)
[2020-04-09] MEDS: FOLIC ACID 1 MG TABLET PO (08:26)
[2020-04-09] MEDS: THIAMINE HCL 100 MG TABLET PO (08:26)
[2020-04-09] MEDS: LORATADINE 10 MG TABLET PO (08:26)
[2020-04-09] MEDS: PANTOPRAZOLE 40 MG TABLET PO (08:26)
[2020-04-09 08:30] VITALS: BP 104/58; PULSE 122
[2020-04-09 10:00] VITALS: BP 121/66; PULSE 101; RESP 14; TEMP 36.3; O2SAT 98
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
[2020-04-09] MEDS: MAGNESIUM OXIDE 400 MG TABLET PO (11:16)
--- NOTE | 2020-04-09 12:01 | PM.DS ---
DS: Admitting Diagnosis Admitting Diagnosis Admitting Diagnosis: Chief Complaint: abdominal pain DS: Discharge Diagnosis Discharge Diagnosis (1) Acute alcoholic pancreatitis: Qualifiers: Acute pancreatitis complication: no infection or necrosis Qualified Code(s): K85.20 - Alcohol induced acute pancreatitis without necrosis or infection Code(s): K85.20 - Alcohol induced acute pancreatitis without necrosis or infection Status: Acute Assessment and Plan: Patient is a 40-year-old male with past medical history of heroin abuse stopped age of 23, at age of 25 he started drinking alcohol he presented emergency department with nausea or vomiting epigastric he was withdrawing from alcohol, acute pancreatitis and hypertriglyceridemia had a plasmapheresis. Pt tachycardiac, ST, today continue iv fluids continue scheduled librium and await BC 40 year old male alcoholic with bipolar 1 disorder. 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 He started drinking alcohol at about age 25. He drinks about 15 beers per day. Pt has high triglycerides levels causing pancreatitis and Acute renal failure. Pt sp plasmapheresis x 2 under nephrology. 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 Patient is participating in PT OT. (2) Alcohol withdrawal: Qualifiers: Complication of substance-induced condition: uncomplicated Qualified Code(s): F10.230 - Alcohol dependence with withdrawal, uncomplicated Code(s): F10.239 - Alcohol dependence with withdrawal, unspecified Status: Acute Assessment and Plan: Continue Librium and vitamins (3) Epigastric abdominal pain: Code(s): R10.13 - Epigastric pain Status: Acute Assessment and Plan: Suspect due to a combination of alcohol induced gastritis and pancreatitis on iv zosyn, lipase down (4) Acute alcoholic hepatitis: Code(s): K70.10 - Alcoholic hepatitis without ascites Status: Acute Assessment and Plan: Monitor transaminases with abstention from alcohol (5) Bipolar 1 disorder: Code(s): F31.9 - Bipolar disorder, unspecified Status: Acute Assessment and Plan: Resume gabapentin, buspirone, and quetiapine (6) Hypertension: Qualifiers: Hypertension type: unspecified Qualified Code(s): I10 - Essential (primary) hypertension Code(s): I10 - Essential (primary) hypertension Status: Chronic Assessment and Plan: Acute elevation likely due to alcohol withdrawal and anxiety and pain Monitor with p.r.n. hydralazine (7) Alcoholism /alcohol abuse: Code(s): F10.20 - Alcohol dependence, uncomplicated Status: Chronic Assessment and Plan: Pt is on librium (8) Hyperlipidemia: Qualifiers: Hyperlipidemia type: unspecified Qualified Code(s): E78.5 - Hyperlipidemia, unspecified Code(s): E78.5 - Hyperlipidemia, unspecified Status: Chronic Assessment and Plan: s/p plasmapheresis (9) History of marijuana use: Code(s): Z87.898 - Personal history of other specified conditions Status: Chronic (10) Hypokalemia: Code(s): E87.6 - Hypokalemia Status: Acute Assessment and Plan: continue to watch (11) FIGUEROA (acute kidney injury): Code(s): N17.9 - Acute kidney failure, unspecified Status: Acute Assessment and Plan: resolved (12) Hypertriglyceridemia: Code(s): E78.1 - Pure hyperglyceridemia Status: Acute Assessment and Plan: S/p plasmapheresis with improvement order tricor for high triglycerides DS: Summary Hospital Course Reason for hosp
== END 2020-04-09 13:33 | disposition home or self-care (01) | DRG 282 ==
LOC: ANHED 08:25 → ANHIMU 11:39 → ANHICU 21:50 → ANH2MED 04-09 12:01 → ANHICU 04-10 10:00
PROVIDERS: Internal Medicine; Internal Medicine Nephrology; Admitting Provider Family Medicine; Emergency Provider Emergency Medicine; PCP Nurse Practitioner; Visit Provider Family Medicine
DX: K85.20 Alcohol induced acute pancreatitis without necrosis or infection (principal); F10.230 Alcohol dependence with withdrawal, uncomplicated; J96.00 Acute respiratory failure, unspecified whether with hypoxia or hypercapnia; E78.1 Pure hyperglyceridemia; K29.20 Alcoholic gastritis without bleeding; K70.10 Alcoholic hepatitis without ascites; T17.890A Other foreign object in other parts of respiratory tract causing asphyxiation, initial encounter; N17.9 Acute kidney failure, unspecified; I10 Essential (primary) hypertension; E78.5 Hyperlipidemia, unspecified; E87.6 Hypokalemia; M62.82 Rhabdomyolysis; F31.9 Bipolar disorder, unspecified; I95.9 Hypotension, unspecified; Z87.891 Personal history of nicotine dependence
CPT/HCPCS: 36415; 36600; 71045; 71275; 74018; 74019; 74174; 76775; 80048; 80053; 80061; 81001; 82150; 82274; 82375; 82533; 82550; 82570; 82805; 83050; 83540; 83550; 83605; 83690; 83735; 84100; 84156; 84300; 84478; 84484; 85025; 85027; 85055; 85610; 85652; 85730; 85999; 86038; 86140; 86235; 86704; 86803; 87040; 87070; 87086; 87205; 87340; 93005; 94002; 94003; 96361; 96374; 96375; 97110; 97116; 97161; 97165; 97530; 97535; 99285; A9270; C1751; C1752; C8929; J0610; J1644; J1650; J1815; J1940; J1956; J2060; J2250; J2270; J2405; J2543; J3010; J3475; J3480; J7030; J7040; J7042; J7070; J7120; P9047; Q9957; Q9967

== ENCOUNTER 2020-08-27 09:00 | Emergency (ER) | payer OTHER, SELFPAY ==
[2020-08-27 09:05] VITALS: BP 132/81; PULSE 85; RESP 18; TEMP 36.3; O2SAT 98
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
[2020-08-27] MEDS: TETANUS,DIPHTHERIA,AC PERTUSSIS ADULT (0.5 ML) BOOSTRIX IM (09:42)
[2020-08-27] MEDS: KETOROLAC (*BKC) 60 MG/2 ML VIAL IM (09:43)
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
--- NOTE | 2020-08-29 11:00 | PC.NURSE ---
Pts wounds were cleaned with normal saline, Neosporin was placed on wounds and covered with a bandage and wrapped in koban
== END 2020-08-27 10:57 | disposition home or self-care (01) ==
PROVIDERS: Emergency Provider Nurse Practitioner; PCP Nurse Practitioner
DX: T23.262A Burn of second degree of back of left hand, initial encounter (principal); T23.222A Burn of second degree of single left finger (nail) except thumb, initial encounter; Z23 Encounter for immunization; J45.909 Unspecified asthma, uncomplicated; F31.9 Bipolar disorder, unspecified; F41.9 Anxiety disorder, unspecified; E78.5 Hyperlipidemia, unspecified; I10 Essential (primary) hypertension; F10.20 Alcohol dependence, uncomplicated; Z87.891 Personal history of nicotine dependence; T31.0 Burns involving less than 10% of body surface; X12.XXXA Contact with other hot fluids, initial encounter
CPT/HCPCS: 16020; 90471; 90715; 96372; 99283; A9270; J1885

== ENCOUNTER 2021-02-15 15:02 | Emergency (ER) | payer OTHER, SELFPAY ==
--- NOTE | ~2021-02-15 | XR_ITS ---
EXAMINATION: XR chest 1V portable INDICATION: Cough TECHNIQUE: Portable AP chest at 2239 hours COMPARISON: 03/31/2020 FINDINGS: The lungs are free of acute opacities. There is no pleural effusion or pneumothorax. The ca rdiomediastinal silhouette is normal. The visualized bones and soft tissues are unremarkable. IMPRESSION: 1. No acute cardiopulmonary abnormality. Reviewed, dictated and finalized at location [facility]
[2021-02-15 15:11] VITALS: PULSE 78; RESP 20; TEMP 36.9; O2SAT 99
--- NOTE | 2021-02-15 15:14 | ECG_ITS ---
Measurements Intervals [place] Rate: 94 P: 45 CA: 151 QRS: 22 QRSD: 98 T: 16 QT: 359 QTc: 451 Interpretive Statements SINUS RHYTHM DELAYED PRECORDIAL R/S TRANSITION BORDERLINE ECG Electronically Signed On 02-16-2021 7:05:47 [employer] by Onur Rob D.O.
--- NOTE | 2021-02-15 15:29 | PC.NURSE ---
patient arrived to [facility] via [facility]. patient requested to go to a facility with psych services but was denied that request by [facility]. patient angry about not being taken someplace that can actually do something . patient states that today is his birthday and to celebrate he smoked some crack and drank a lot . patient states that he has thoughts of self harm and wants to just end it all . patient states he plans on blowing his fucking head off with a gun but has no gun. patient states he has been hospitalized in the past for SI but has had no previous attempts
[2021-02-15 15:32] LABS: Basophils Absolute Auto 0.1 K/mm3 (0.0-0.1); Basophils Percent Auto 0.4 % (0.2-1.2); Eosinophils Percent Auto 0.1 % (0-4.4); Hemoglobin 16.3 g/dL (14.0-18.0); Immature Granulocyte Absolute 0.07 K/mm3 (0.00-0.031); Immature Granulocyte Percent A 0.5 % (0-0.5); Lymphocytes Absolute Auto 3.69 K/mm3 (0.9-3.2); Lymphocytes Percent Auto 25.1 % (18.3-44.2); Mean Corpuscular Volume 94.1 fl (80-100); Mean Platelet Volume 8.8 fl (7.4-10.4); Monocytes Absolute Auto 0.7 K/mm3 (0.1-0.6); Monocytes Percent Auto 4.8 % (2.6-8.5); Neutrophils Absolute Auto 10.2 K/mm3 (1.3-6.7); Neutrophils Percent Auto 69.1 % (45.5-73.1); Platelet Count Result 452 k/mm3 (150-375); Red Cell Distribution Width 12.3 % (11.5-14.5); White Blood Count 14.7 K/mm3 (4.5-10.0)
[2021-02-15 15:36] LABS: Add Urine Microscopic? YES; Appearance Urine Cloudy (Clear); Bilirubin Urine Negative (Negative); Blood Urine 1+ (Negative); Color Urine Yellow (Yellow); Glucose Urine UA Negative (Negative); Ketones Urine Trace mg/dL (Negative); Leukocyte Esterase Ur Negative LEU/UL (Negative); Mucus Urine Rare /lpf; Nitrate Urine Negative (Negative); Protein Urine 1+ mg/dL (Negative); RBC Urine 0-2 /hpf (0-2); Squamous Epithelial Cell Urine Rare /hpf (Few); Urobilinogen Urine Negative mg/dL (<2.0)
[2021-02-15 15:43] LABS: Alanine Aminotransferase 30 U/L (4-50); Albumin Level 5.4 g/dL (3.5-5.1); Alkaline Phosphatase 87 U/L (38-126); Anion Gap 19 mmol/L (8-16); Aspartate Amino Transferase 38 U/L (17-59); Bilirubin,Total 0.5 mg/dL (0.2-1.3); Blood Urea Nitrogen 14 mg/dL (9-20); Calcium 9.4 mg/dL (8.4-10.2); Carbon Dioxide 21 mmol/L (22-30); Chloride 102 mmol/L (98-107); Estimated CRCL calculation 84 ml/min; Estimated Glomerular Filt Rate > 60; Glucose 99 mg/dL (65-110); Potassium 3.7 mmol/L (3.4-5.0); Sodium 142 mmol/L (137-145)
[2021-02-15 15:56] LABS: Amphetamine Screen Urine Negative (Negative); Barbiturate Screen Urine Negative (Negative); Benzodiazepines Screen Urine Negative (Negative); Cannabinoid Screen Urine Positive (Negative); Cocaine Screen Urine Negative (Negative); Methadone Screen Urine Negative (Negative); Opiate Screen Urine Negative (Negative); Phencyclidine Screen Urine Negative (Negative)
[2021-02-15 16:14] LABS: Thyroid Stimulating Hormone 0.568 uIU/mL (0.465-4.680)
[2021-02-15 17:24] LABS: Ethanol 404 mg/dL (<10)
[2021-02-15 17:38] LABS: Acetaminophen < 10 ug/mL (10-30); Salicylate < 1.0 mg/dL (2-20)
[2021-02-15] MEDS: ONDANSETRON HCL ODT 4 MG TABLET PO (17:43)
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
[2021-02-15] MEDS: LORazepam (*CRX) 1 MG TABLET PO (18:28)
[2021-02-15] MEDS: THIAMINE HCL 200 MG/2 ML VIAL 100 MG IV PUSH (19:48)
[2021-02-15] MEDS: SODIUM CHLORIDE 0.9% IV 1,000 ML 999 ML IV CONT (19:48)
[2021-02-15 19:50] VITALS: BP 147/92; PULSE 126; RESP 20; TEMP 37; O2SAT 97
[2021-02-15] MEDS: FOLIC ACID 1 MG/0.2 ML INJ IV PUSH (20:17)
[2021-02-15] MEDS: chlordiazePOXIDE (*CRX) 25 MG CAPSULE 50 MG PO (20:21)
[2021-02-15] MEDS: ONDANSETRON INJ 4 MG/2 ML VIAL IV PUSH (20:22)
[2021-02-15] MEDS: BELLADONNA ALK/PHENOB ELIX 10 ML, MAG HYDROX/ALUMINUM HYD/SIMETH 30 ML, LIDOCAINE HCL 2... PO (22:49)
[2021-02-15] MEDS: PANTOPRAZOLE SODIUM IV 40 MG VIAL IV PUSH (22:50)
[2021-02-16 02:13] LABS: Ethanol 114 mg/dL (<10)
[2021-02-16 02:25] VITALS: BP 123/64; PULSE 93; RESP 15; O2SAT 97
[2021-02-16] MEDS: SODIUM CHLORIDE 0.9% IV 500 ML 999 ML IV CONT (03:13)
[2021-02-16] MEDS: PROMETHAZINE HCL 25 MG/ML AMPUL 12.5 MG IV PUSH (03:13)
[2021-02-16] MEDS: chlordiazePOXIDE (*CRX) 25 MG CAPSULE 50 MG PO (06:01)
[2021-02-16 06:29] LABS: Alanine Aminotransferase 23 U/L (4-50); Albumin Level 4.1 g/dL (3.5-5.1); Alkaline Phosphatase 68 U/L (38-126); Anion Gap 5 mmol/L (8-16); Aspartate Amino Transferase 31 U/L (17-59); Bilirubin,Total 0.5 mg/dL (0.2-1.3); Blood Urea Nitrogen 11 mg/dL (9-20); Calcium 8.5 mg/dL (8.4-10.2); Carbon Dioxide 29 mmol/L (22-30); Chloride 105 mmol/L (98-107); Estimated CRCL calculation 92 ml/min; Estimated Glomerular Filt Rate > 60; Glucose 105 mg/dL (65-110); Sodium 139 mmol/L (137-145)
[2021-02-16 06:43] LABS: Ethanol < 10 mg/dL (<10)
--- NOTE | 2021-02-16 07:28 | PC.NURSE ---
Pt ETOH <10 upon most recent blood draw. Jonelle at [facility] contacted and she states someone will be out to evaluate the pt today.
[2021-02-16 10:27] VITALS: BP 145/99; PULSE 96; RESP 18; O2SAT 97
== END 2021-02-16 10:29 | disposition home or self-care (01) ==
PROVIDERS: Emergency Medicine; General Practice; Emergency Provider Emergency Medicine; PCP Nurse Practitioner
DX: R45.851 Suicidal ideations (principal); F12.10 Cannabis abuse, uncomplicated; F10.20 Alcohol dependence, uncomplicated; Y90.8 Blood alcohol level of 240 mg/100 ml or more; F31.9 Bipolar disorder, unspecified; J45.909 Unspecified asthma, uncomplicated; F41.8 Other specified anxiety disorders; E78.5 Hyperlipidemia, unspecified; I10 Essential (primary) hypertension; Z87.891 Personal history of nicotine dependence; Z98.62 Peripheral vascular angioplasty status; R94.31 Abnormal electrocardiogram [ECG] [EKG]
CPT/HCPCS: 36415; 71045; 80053; 80307; 81001; 84443; 85025; 93005; 96361; 96374; 96375; 99284; A9270; C9113; J2405; J2550; J3411; J7030; J7040

== ENCOUNTER 2023-03-08 10:18 | Emergency (ER) | payer OTHER, SELFPAY ==
[2023-03-08 11:09] VITALS: BP 166/90; PULSE 94; RESP 18; TEMP 36.2; O2SAT 100
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
== END 2023-03-08 12:07 | disposition short-term general hospital (02) ==
PROVIDERS: Emergency Provider Nurse Practitioner Family; PCP Internal Medicine
DX: R14.0 Abdominal distension (gaseous) (principal); R11.2 Nausea with vomiting, unspecified; Z20.822 Contact with and (suspected) exposure to COVID-19; Z87.891 Personal history of nicotine dependence; J45.909 Unspecified asthma, uncomplicated; E78.5 Hyperlipidemia, unspecified; I10 Essential (primary) hypertension; M62.82 Rhabdomyolysis; F32.A Depression, unspecified
CPT/HCPCS: 87426; 87804; 99213; C9803; G0463

== ENCOUNTER 2023-07-17 06:16 | Emergency (ER) | payer OTHER, SELFPAY ==
[2023-07-17 06:23] VITALS: BP 164/98; PULSE 86; RESP 17; TEMP 36.5; O2SAT 100
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
[2023-07-17] MEDS: diphenhydrAMINE HCl CAP 25 MG CAPSULE PO (07:33)
[2023-07-17] MEDS: predniSONE 20 MG TABLET PO (07:33)
[2023-07-17 07:36] VITALS: BP 156/97; PULSE 90; RESP 18; O2SAT 100
== END 2023-07-17 07:38 | disposition home or self-care (01) ==
PROVIDERS: Emergency Provider Student in an Organized Health Care Education/Training Program; PCP Internal Medicine
DX: L29.9 Pruritus, unspecified (principal); J45.909 Unspecified asthma, uncomplicated; F41.8 Other specified anxiety disorders; E78.5 Hyperlipidemia, unspecified; I10 Essential (primary) hypertension
CPT/HCPCS: 99283; A9270; J7512

== ENCOUNTER 2023-08-03 03:00 | Inpatient (IN) | payer OTHER, SELFPAY ==
[2023-08-03] VITALS (19 sets, daily range): BP systolic 131–157; BP diastolic 71–107; PULSE 68–120; RESP 18–25; TEMP 35.9–37.1; O2SAT 98–100; BMI 30.9
--- NOTE | ~2023-08-03 | CT_ITS ---
Clinical Indication: Chest pain, shortness of breath CT Scan of the Chest with Contrast: Technique: Contiguous sections were acquired throughout the chest after intravenous administration of 100 cc of Omnipaque 350. Dose reduction technique was used on this scan by utilizing automated expos ure control and iterative reconstruction technique. The dose-length product (DLP) was 472.58 mGy-cm. COMPARISON: 03/25/2020 Findings: There is no evidence of any significant mediastinal, hilar or axillary lymphadenopathy. There is no f illing defect in the pulmonary arterial tree to suggest pulmonary embolus. There is no evidence of ao rtic dissection or aneurysm. There is no evidence of pleural or pericardial effusion. The lungs are clear. No pulmonary nodules or infiltrates are noted. Images through the upper abdomen reveal diffuse fatty infiltration of liver. There is a 3 cm mass nayely bismark area of fatty sparing the left hepatic lobe anteriorly (axial image 57), stable from prior exam. Impression: No evidence of pulmonary embolus, aortic dissection, or aortic aneurysm. Clear lungs. Diffuse fatty infiltration of liver. Stable 3 cm mass versus area of fatty sparing in the left hepati c lobe. Reviewed, dictated and finalized at [facility]. Impression: No evidence of pulmonary embolus, aortic dissection, or aortic aneurysm. Clear lungs. Diffuse fatty infiltration of liver. Stable 3 cm mass versus area of fatty spar ing in the left hepatic lobe.
--- NOTE | ~2023-08-03 | XR_ITS ---
Portable chest x-ray Comparison: 02/15/2021 Clinical History: Chest pain Findings: Lungs are clear, without focal consolidation or pleural effusion. Cardiomediastinal silho uette is stable. Bones and soft tissues are unremarkable. Impression: Clear lungs. Reviewed, dictated and finalized at location . Impression: Clear lungs.
--- NOTE | 2023-08-03 03:05 | ECG_ITS ---
SEE SCANNED COPY FOR CONFIRMED REPORT MTDD
[2023-08-03 03:15] LABS: Basophils Absolute Auto 0.1 K/mm3 (0.0-0.1); Basophils Percent Auto 0.9 % (0.2-1.2); Eosinophils Percent Auto 0.7 % (0-4.4); Hematocrit 47.2 % (42.0-52.0); Hemoglobin 17.2 g/dL (14.0-18.0); Immature Granulocyte Absolute 0.02 K/mm3 (0.00-0.031); Immature Granulocyte Percent A 0.3 % (0-0.5); Lymphocytes Absolute Auto 2.15 K/mm3 (0.9-3.2); Lymphocytes Percent Auto 37.6 % (18.3-44.2); Mean Corpuscular HGB Conc 36.4 g/dl (32-36); Mean Corpuscular Hemoglobin 32.5 pg (26-34); Mean Corpuscular Volume 89.2 fl (80-100); Mean Platelet Volume 8.9 fl (7.4-10.4); Monocytes Absolute Auto 0.8 K/mm3 (0.1-0.6); Monocytes Percent Auto 13.8 % (2.6-8.5); Neutrophils Absolute Auto 2.7 K/mm3 (1.3-6.7); Neutrophils Percent Auto 46.7 % (45.5-73.1); Platelet Count Result 265 k/mm3 (150-375); Red Blood Count 5.29 M/mm3 (4.6-6.20); Red Cell Distribution Width 14.4 % (11.5-14.5); White Blood Count 5.7 K/mm3 (4.5-10.0)
[2023-08-03 03:27] LABS: INR 1.1; Partial Thromboplastin Time 30.9 Seconds (22.3-36.8); Prothrombin Time 14.4 Seconds (11.1-14.7)
[2023-08-03 03:41] LABS: Troponin I 0.033 ng/mL (0.000-0.034)
[2023-08-03 03:48] LABS: Alanine Aminotransferase 343 U/L (6-50); Albumin Level 3.8 g/dL (3.5-5.1); Alkaline Phosphatase 155 U/L (38-126); Anion Gap 13 mmol/L (4-12); Bilirubin,Total 2.1 mg/dL (0.2-1.3); Blood Urea Nitrogen 13 mg/dL (9-20); Calcium 7.7 mg/dL (8.4-10.2); Carbon Dioxide 15 mmol/L (22-30); Chloride 105 mmol/L (98-107); Estimated CRCL calculation 96 ml/min; Estimated Glomerular Filt Rate > 60; Glucose 108 mg/dL (65-110); Lipase 82 U/L (23-300); Sodium 133 mmol/L (137-145)
[2023-08-03 03:50] LABS: Aspartate Amino Transferase 850 U/L (17-59)
[2023-08-03 04:16] LABS: Ethanol 257 mg/dL (<10)
[2023-08-03 04:26] LABS: NT Pro B Type Natriuretic Pept 44 pg/mL (19.9-100)
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
[2023-08-03 05:24] LABS: D Dimer 1.25 ug/mL (<0.48)
[2023-08-03 05:25] LABS: Amphetamine Screen Urine Negative (Negative); Barbiturate Screen Urine Negative (Negative); Benzodiazepines Screen Urine Positive (Negative); Cannabinoid Screen Urine Positive (Negative); Cocaine Screen Urine Negative (Negative); Methadone Screen Urine Negative (Negative); Opiate Screen Urine Negative (Negative); Phencyclidine Screen Urine Negative (Negative)
--- NOTE | 2023-08-03 06:25 | ECG_ITS ---
SEE SCANNED COPY FOR CONFIRMED REPORT MTDD
[2023-08-03 07:19] LABS: Troponin I 0.035 ng/mL (0.000-0.034)
[2023-08-03] MEDS: SODIUM CHLORIDE 0.9% IV 1,000 ML 999 ML IV CONT (07:55)
[2023-08-03] MEDS: ONDANSETRON INJ 4 MG/2 ML VIAL IV PUSH ×2 (07:56→10:35)
[2023-08-03] MEDS: LORazepam INJ (*CRX) 2 MG/ML VIAL IV PUSH (07:56)
[2023-08-03] MEDS: NITROGLYCERIN SL 0.4 MG TABLET SUBLINGUAL (08:00)
[2023-08-03 08:15] LABS: HDL Direct 44 mg/dL
--- NOTE | 2023-08-03 08:17 | PC.NURSE ---
0800: Pt rates chest pain 7/10 first dose 0.4mg nitro given 0805: Pt rates chest pain 5/10 second dose 0.4mg nitro given 0810: Pt rates chest pain 5/10 third dose 0.4mg nitro given 0815: Pt rates chest pain 4/10 EDP made aware
[2023-08-03] MEDS: MORPHINE SULFATE (*CRX) 2 MG/ML INJ IV PUSH (08:21)
[2023-08-03 08:23] LABS: LDL Cholesterol Direct 40 mg/dL
[2023-08-03 08:28] LABS: Glucose Point of Care 107 mg/dl (65-105)
[2023-08-03 08:38] LABS: Cholesterol 440 mg/dL (0-200)
[2023-08-03 09:02] LABS: Triglycerides > 2625 mg/dL (<150)
[2023-08-03 09:52] LABS: Troponin I 0.033 ng/mL (0.000-0.034)
[2023-08-03] MEDS: THIAMINE HCL 200 MG/2 ML VIAL 100 MG IV PUSH (10:35)
--- NOTE | 2023-08-03 10:37 | ECG_ITS ---
SEE SCANNED COPY FOR CONFIRMED REPORT MTDD
[2023-08-03 11:47] LABS: Glucose Point of Care 94 mg/dl (65-105)
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
[2023-08-03] MEDS: chlordiazePOXIDE (*CRX) 25 MG CAPSULE PO ×2 (12:32→17:12)
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
[2023-08-03] MEDS: PANTOPRAZOLE 40 MG TABLET PO (15:00)
[2023-08-03 16:24] LABS: Glucose Point of Care 161 mg/dl (65-105)
[2023-08-03] MEDS: SODIUM CHLORIDE 0.9% IV 1,000 ML 100 ML IV CONT (17:12)
--- NOTE | 2023-08-03 18:14 | PC.NURSE ---
ASCVD Risk electrical estimator is unable to be completed at this time due to the fact that the [facility] website is under maintenance.
[2023-08-03] MEDS: LORazepam INJ (*CRX) 2 MG/ML VIAL 4 MG IV PUSH (21:34)
[2023-08-03] MEDS: chlordiazePOXIDE (*CRX) 25 MG CAPSULE 50 MG PO (23:06)
[2023-08-03] MEDS: LORazepam INJ (*CRX) 2 MG/ML VIAL 1 MG IV PUSH (23:45)
[2023-08-04] VITALS (11 sets, daily range): BP systolic 129–154; BP diastolic 78–94; PULSE 60–103; RESP 20; TEMP 36–36.7; O2SAT 96–100
[2023-08-04 00:54] LABS: Glucose Point of Care 136 mg/dl (65-105)
[2023-08-04] MEDS: LORazepam INJ (*CRX) 2 MG/ML VIAL IV PUSH ×5 (02:05→20:06)
[2023-08-04 04:37] LABS: Hematocrit 42.8 % (42.0-52.0); Hemoglobin 14.5 g/dL (14.0-18.0); Mean Corpuscular HGB Conc 33.9 g/dl (32-36); Mean Corpuscular Hemoglobin 31.9 pg (26-34); Mean Corpuscular Volume 94.3 fl (80-100); Mean Platelet Volume 9.4 fl (7.4-10.4); Platelet Count Result 169 k/mm3 (150-375); Red Blood Count 4.54 M/mm3 (4.6-6.20); Red Cell Distribution Width 14.7 % (11.5-14.5); White Blood Count 2.9 K/mm3 (4.5-10.0)
[2023-08-04] MEDS: chlordiazePOXIDE (*CRX) 25 MG CAPSULE 50 MG PO ×4 (05:06→23:56)
[2023-08-04 05:14] LABS: Alanine Aminotransferase 226 U/L (6-50); Alkaline Phosphatase 137 U/L (38-126); Anion Gap 4 mmol/L (4-12); Aspartate Amino Transferase 390 U/L (17-59); Bilirubin,Total 1.7 mg/dL (0.2-1.3); Blood Urea Nitrogen 5 mg/dL (9-20); Calcium 7.6 mg/dL (8.4-10.2); Carbon Dioxide 24 mmol/L (22-30); Chloride 105 mmol/L (98-107); Cholesterol 251 mg/dL (0-200); Creatine Kinase 147 U/L (55-170); Estimated CRCL calculation 108 ml/min; Estimated Glomerular Filt Rate > 60; Glucose 133 mg/dL (65-110); Magnesium 1.4 mg/dL (1.6-2.3); Potassium 3.9 mmol/L (3.4-5.0); Sodium 133 mmol/L (137-145)
[2023-08-04 05:34] LABS: LDL Cholesterol Direct < 30 mg/dL
[2023-08-04 06:05] LABS: Triglycerides 2544 mg/dL (<150)
[2023-08-04 07:45] LABS: Ammonia 10 umol/L (9-30)
--- NOTE | 2023-08-04 08:05 | P.CONGI_ITS ---
I, Trace Calzada MD, have provided a substantive portion of the care of this patient and discussed the patient with my Nurse Practitioner. I have reviewed any new relevant radiographic and laboratory results including medications. I agree with her documentation as noted below.?I personally performed the medical decision making and much of the history and exam for this encounter. briefly he is an alcoholic about 1 case of beer daily for years, previous admission for pancreatitis here with new onset of chest pain and anxiety/tremors, he came to ER, cardiac evaluation negative. He was found to have alcoholic hepatitis with bili 2, elevated transaminases but coming back down. Admitted with alcoholic withdrawal, on [facility] protocol, thiamine. Today is better, no pain, less anxiety and he is eating. Plan is to continue medical support, thiamine, nutrition support, AA referral and alcohol cessation. Assessment and Plan Assessment and plan (1) Fatty liver: Code(s): K76.0 - Fatty (change of) liver, not elsewhere classified Status: Acute (2) Alcoholic hepatitis: Qualifiers: Ascites presence: without ascites Qualified Code(s): K70.10 - Alcoholic hepatitis without ascites Code(s): K70.10 - Alcoholic hepatitis without ascites Status: Acute (3) Elevated liver enzymes: Code(s): R74.8 - Abnormal levels of other serum enzymes Status: Acute (4) Alcohol withdrawal: Qualifiers: Complication of substance-induced condition: uncomplicated Qualified Code(s): F10.230 - Alcohol dependence with withdrawal, uncomplicated Code(s): F10.239 - Alcohol dependence with withdrawal, unspecified Status: Acute (5) Hyponatremia: Code(s): E87.1 - Hypo-osmolality and hyponatremia Status: Acute (6) Hypomagnesemia: Code(s): E83.42 - Hypomagnesemia Status: Acute Plan 1) Fatty liver/alcoholic hepatitis/elevated LFT's/ETOH abuse/ETOH withdraw: Patient with Hx of ETOH abuse as well and prior episodes of alcoholic pancreatitis, alcoholic hepatitis, and withdrawn seizures. CTA showed diffuse fatty infiltration and stable 3 cm mass vs fatty sparing in the left hepatic lobe. LFT's trending down since admission showing total bili 2.1-->1.7, Alk Phos 155-->137, AST 850-->390, alt 343-->226. INR 1.1, ammonia 10, albumin 3.0, lipase 82, platelets 169, and TG 2455. Pattern consistent with alcoholic hepatitis. No abnormal pancreas findings. * No signs of liver decompensation at this time but given his long Hx of ETOH abuse he is likely to progress to cirrhosis without alcohol cessation * No indication for steroids as he has a low Maddrey score * No need for acute intervention given that symptoms are alcohol related and LFT's trending down * Alcohol abstinence and rehab strongly recommended * Continue CIWA protocol * pending treatment for elevated triglycerides * Will recheck Hepatitis panel since it was last checked in 2019, if not immune recommend Hepatitis A and B vaccine outpatient * Continue supportive care * Patient is aware that he will need to follow up with us outpatient for management 2) Hyponatremia/hypomagnesemia: Sodium today at 133 and mag 1.4. Likely secondary to nutritional deficiency/ETOH abuse * Primary care team to monitor and correct Thank you for allowing me to share in the care of this patient. GI Consult Note Consult date/time: 08/04/23 08:05 Reason for consult: Alcoholic hepatitis HPI: Teodoro Waddell is a 43 year old male with history of alcohol withdrawal seizures,
--- NOTE | 2023-08-04 08:05 | WPDGICN ---
Assessment and Plan Assessment and plan (1) Fatty liver: Code(s): K76.0 - Fatty (change of) liver, not elsewhere classified Status: Acute (2) Alcoholic hepatitis: Qualifiers: Ascites presence: without ascites Qualified Code(s): K70.10 - Alcoholic hepatitis without ascites Code(s): K70.10 - Alcoholic hepatitis without ascites Status: Acute (3) Elevated liver enzymes: Code(s): R74.8 - Abnormal levels of other serum enzymes Status: Acute (4) Alcohol withdrawal: Qualifiers: Complication of substance-induced condition: uncomplicated Qualified Code(s): F10.230 - Alcohol dependence with withdrawal, uncomplicated Code(s): F10.239 - Alcohol dependence with withdrawal, unspecified Status: Acute (5) Hyponatremia: Code(s): E87.1 - Hypo-osmolality and hyponatremia Status: Acute (6) Hypomagnesemia: Code(s): E83.42 - Hypomagnesemia Status: Acute Plan 1) Fatty liver/alcoholic hepatitis/elevated LFT's/ETOH abuse/ETOH withdraw: Patient with Hx of ETOH abuse as well and prior episodes of alcoholic pancreatitis, alcoholic hepatitis, and withdrawn seizures. CTA showed diffuse fatty infiltration and stable 3 cm mass vs fatty sparing in the left hepatic lobe. LFT's trending down since admission showing total bili 2.1-->1.7, Alk Phos 155-->137, AST 850-->390, alt 343-->226. INR 1.1, ammonia 10, albumin 3.0, lipase 82, platelets 169, and TG 2455. Pattern consistent with alcoholic hepatitis. No abnormal pancreas findings. No signs of liver decompensation at this time but given his long Hx of ETOH abuse he is likely to progress to cirrhosis without alcohol cessation No indication for steroids as he has a low Maddrey score No need for acute intervention given that symptoms are alcohol related and LFT's trending down Alcohol abstinence and rehab strongly recommended [facility] pending treatment for elevated triglycerides Will recheck Hepatitis panel since it was last checked in 2019, if not immune recommend Hepatitis A and B vaccine outpatient Continue supportive care Patient is aware that he will need to follow up with us outpatient for management 2) Hyponatremia/hypomagnesemia: Sodium today at 133 and mag 1.4. Likely secondary to nutritional deficiency/ETOH abuse Primary care team to monitor and correct Thank you for allowing me to share in the care of this patient. GI Consult Note Consult date/time: 08/04/23 08:05 Reason for consult: Alcoholic hepatitis HPI: Teodoro Waddell is a 43 year old male with history of alcohol withdrawal seizures, Hx of alcoholic pancreatitis and hepatitis in the past, fatty liver, hypertension, hyperlipidemia, asthma, bipolar disorder, depression, and anxiety. He presented to the ER with complaints of chest pain. GI was consulted for alcoholic hepatitis. Patient with a long Hx of alcohol abuse since age 13 and on average he drinks a case of beer daily and uses marijuana. Reflux well controlled with PPI outpatient. Denies abdominal pain and chest pain has resolved. Denies nausea or vomiting today. Denies swallowing difficulties, regurgitation, early satiety, weight loss, or appetite loss. He is having regular BM's. last BM today was loose and non urgent. Denies diarrhea, constipation, hematochezia, or melena. Admits to tremors but denies jaundice, fevers, dark urine, itching, easy bruising, or tingling of the skin. ENDOSCOPY HISTORY: EGD: Per patient he had 2 EGD's in the past with Dr. Fernandes > 10 years ago COLONOSCOPY: No prior colonoscopy Hx and family Hx negative for CRC or IBD IMAGING: CTA chest 08/03/2023 Impression: No evidence of pulmonary embolus, aortic dissection, or aortic aneurysm. Clear lungs. Diffuse fatty infiltration of liver. Stable 3 cm mass versus area of fatty sparing in the left hepatic lobe. CTA ches
[2023-08-04] MEDS: PANTOPRAZOLE 40 MG TABLET PO (09:06)
[2023-08-04] MEDS: PSYLLIUM POWDER PACKET 1 PACKET PO (09:06)
[2023-08-04] MEDS: MAGNESIUM OXIDE 400 MG TABLET PO (09:06)
[2023-08-04] MEDS: ENOXAPARIN 40 MG/0.4 ML SYRINGE SUB-Q (09:06)
[2023-08-04] MEDS: THIAMINE HCL 200 MG/2 ML VIAL 100 MG IV PUSH (09:06)
[2023-08-04] MEDS: LOSARTAN POTASSIUM 50 MG TABLET PO (09:06)
[2023-08-04 09:49] LABS: Hepatitis B Surface Antigen Negative (Negative)
[2023-08-04 09:55] LABS: HAV RESULT Negative (Negative); Hepatitis B Core IgM Result Negative (Negative)
[2023-08-04 10:07] LABS: Hepatitis C Virus Antibody Reactive (Negative)
[2023-08-04 11:59] LABS: Glucose Point of Care 141 mg/dl (65-105)
--- NOTE | 2023-08-04 12:27 | PM.IMPN ---
Progress Note: A&P Assessment and Plan (1) Alcohol withdrawal: Qualifiers: Complication of substance-induced condition: uncomplicated Qualified Code(s): F10.230 - Alcohol dependence with withdrawal, uncomplicated Code(s): F10.239 - Alcohol dependence with withdrawal, unspecified Status: Acute (2) Elevated troponin: Code(s): R79.89 - Other specified abnormal findings of blood chemistry Status: Acute (3) Chest pain: Code(s): R07.9 - Chest pain, unspecified Status: Acute (4) Alcoholic hepatitis: Qualifiers: Ascites presence: without ascites Qualified Code(s): K70.10 - Alcoholic hepatitis without ascites Code(s): K70.10 - Alcoholic hepatitis without ascites Status: Acute (5) Hypercholesterolemia with hypertriglyceridemia: Code(s): E78.2 - Mixed hyperlipidemia Status: Acute (6) Hypertension: Qualifiers: Hypertension type: unspecified Qualified Code(s): I10 - Essential (primary) hypertension Code(s): I10 - Essential (primary) hypertension Status: Chronic (7) Asthma: Code(s): J45.909 - Unspecified asthma, uncomplicated Status: Chronic Plan Continue librium and ativan prn IV transfer to medical floor CIWA scores thiamine iv Pt can eat, can take a shower and walk in his room hopeful dc in 1-2 days time with AAA numbers Subjective Date/time seen: 08/04/23 12:27 Interval history: 43-year-old male with history of alcoholism, alcohol withdrawal including history of alcohol withdrawal seizures, fatty liver, hypertension, hyperlipidemia, asthma, bipolar disorder, depression, and anxiety who presented to the emergency department for evaluation of chest pain. The patient provides the following history. He is a daily drinker last had a drink at about 22:00 last night. He went to bed but it does not sound as though he fell asleep and at about 03:00 he developed a tightness in the mid chest region associated with mild shortness of breath. He has a history of GERD symptoms and states that it is similar but is never been this bad before. He had some nausea and several episodes of nonbloody and nonbilious emesis thereafter. He continues to have intermittent discomfort in the chest. Interval history:pt admitted for alcholol withdrawl still having tremors stabilised on Librium today can transfer to the medical floor Review of Systems Review of Systems: Tremors, shakiness Exam Narrative: General: Moderately ill-appearing male Neck: Supple. Respiratory: Lungs are clear to auscultation bilaterally. Cardiovascular: Regular rate and rhythm with S1-S2. Chest: No tenderness to palpation over the chest wall. Gastrointestinal: Abdomen is soft and vertebral with positive bowel sounds. Mild tenderness to deep palpation epigastric region. No guarding or rebound tenderness. Skin: Warm and dry. Extremities: No cyanosis, clubbing, or edema. Radial and pedal pulses intact. Neurological: Alert and oriented. Cranial nerves 2-12 are grossly intact. Speech is clear. No tongue fasciculations. Tremors noted of the upper extremities. Psychiatric: Pleasant and cooperative with normal mood. Slightly anxious. Objective Data Vital Signs Vital Signs: Vital Signs - 24 hr 08/03/23 14:00 08/03/23 15:49 08/03/23 16:00 Temperature 36.7 C Pulse Rate 105 H 94 Respiratory Rate 22 H Blood Pressure 152/90 H Pulse Oximetry 99 Oxygen Delivery Room Air 08/03/23 16:00 08/03/23 18:00 08/03/23 19:58 Temperature 36.4 C Pulse Rate 93 82 71 Respiratory Rate 20 Blood Pressure 149/74 H Pulse Oximetry 100 Oxygen Delivery 08/03/23 20:00 08/03/23 20:00 08/03/23 22:00 Temperature Pulse Rate 82 87 Respiratory Rate Blood Pressure Pulse Oximetry Oxygen Delivery Room Air 08/03/23 23:37 08/04/23 00:00 08/04/23 00:00 Temperature 36.5 C Pulse Rate 98 86 Respiratory
[2023-08-05 05:19] VITALS: BP 142/68; PULSE 101; RESP 20; TEMP 36.4; O2SAT 98
[2023-08-05] MEDS: chlordiazePOXIDE (*CRX) 25 MG CAPSULE 50 MG PO ×4 (05:38→23:48)
[2023-08-05 07:26] VITALS: BP 152/98; PULSE 88; RESP 20; TEMP 36; O2SAT 100
[2023-08-05] MEDS: LOSARTAN POTASSIUM 50 MG TABLET PO (08:49)
[2023-08-05] MEDS: THIAMINE HCL 200 MG/2 ML VIAL 100 MG IV PUSH (08:49)
[2023-08-05] MEDS: ENOXAPARIN 40 MG/0.4 ML SYRINGE SUB-Q (08:49)
[2023-08-05] MEDS: MAGNESIUM OXIDE 400 MG TABLET PO ×2 (08:49→17:17)
[2023-08-05] MEDS: PANTOPRAZOLE 40 MG TABLET PO (08:49)
[2023-08-05] MEDS: PSYLLIUM POWDER PACKET 1 PACKET PO (08:49)
[2023-08-05 11:04] LABS: Hematocrit 43.5 % (42.0-52.0); Hemoglobin 14.5 g/dL (14.0-18.0); Immature Platelet Fraction Pct 6.5 % (0.9-11.2); Mean Corpuscular HGB Conc 33.3 g/dl (32-36); Mean Corpuscular Hemoglobin 31.7 pg (26-34); Platelet Count Result 154 k/mm3 (150-375); Red Blood Count 4.58 M/mm3 (4.6-6.20); Red Cell Distribution Width 15.6 % (11.5-14.5); White Blood Count 4.6 K/mm3 (4.5-10.0)
[2023-08-05 12:11] LABS: Alanine Aminotransferase 172 U/L (6-50); Albumin Level 3.7 g/dL (3.5-5.1); Alkaline Phosphatase 144 U/L (38-126); Anion Gap 6 mmol/L (4-12); Aspartate Amino Transferase 148 U/L (17-59); Bilirubin,Total 1.6 mg/dL (0.2-1.3); Blood Urea Nitrogen 10 mg/dL (9-20); Calcium 9.1 mg/dL (8.4-10.2); Carbon Dioxide 25 mmol/L (22-30); Chloride 102 mmol/L (98-107); Estimated CRCL calculation 108 ml/min; Estimated Glomerular Filt Rate > 60; Glucose 123 mg/dL (65-110); Potassium 3.9 mmol/L (3.4-5.0); Sodium 133 mmol/L (137-145)
[2023-08-05] MEDS: LORazepam INJ (*CRX) 2 MG/ML VIAL IV PUSH ×2 (12:12→18:47)
[2023-08-05 12:13] LABS: Magnesium 1.3 mg/dL (1.6-2.3)
--- NOTE | 2023-08-05 12:21 | PC.NURSE ---
Notified Dr. Azar of Mag level of 1.3. New order to increased home dose of Mag Ox to BID from [facility]
--- NOTE | 2023-08-05 14:48 | WPDGIPROGNO ---
Progress Note: A&P Assessment and Plan (1) Alcoholic ketoacidosis: Code(s): E87.29 - Other acidosis Status: Acute Assessment and Plan: treated, he is eating liver enzymes coming down (2) Alcoholic hepatitis: Qualifiers: Ascites presence: without ascites Qualified Code(s): K70.10 - Alcoholic hepatitis without ascites Code(s): K70.10 - Alcoholic hepatitis without ascites Status: Acute Assessment and Plan: thiamine, nutrition support ciwa protocol will need AA referral and abstinence (3) Elevated liver enzymes: Code(s): R74.8 - Abnormal levels of other serum enzymes Status: Acute (4) Hypertriglyceridemia: Code(s): E78.1 - Pure hyperglyceridemia Status: Acute Assessment and Plan: noted high TG, will need diet and treatment with fibrates +/- niacin (5) Fatty liver: Code(s): K76.0 - Fatty (change of) liver, not elsewhere classified Status: Acute Assessment and Plan: from alcohol abuse Subjective Date/time seen: 08/05/23 14:48 Interval history: overall better still some tremors Review of Systems Review of Systems: All systems reviewed & are unremarkable except as noted in HPI and below Exam Const: General: cooperative, healthy appearing, comfortable and no acute distress Orientation/consciousness: oriented to person, oriented to place and oriented to time HENMT: Head: normal to inspection Eyes: General: appearance normal, both eyes and all related structures Sclera: sclerae normal Pupils: Equal, round and reactive pupils present Neck: Neck: supple Chest: Chest palpation & inspection: normal inspection of the chest Resp: Effort & Inspection: normal respiratory effort and able to speak in complete sentences Auscultation: clear to auscultation bilaterally Cardio: Rate: regular rate Rhythm: regular rhythm GI: Inspection: normal to inspection and non-distended GI Palp: Yes Soft to palpation, No Tenderness to palpation present (GI) and No Guarding due to palpation present (GI) Auscultation: normal bowel sounds Skin: General skin exam: normal color and no rashes or lesions noted Neuro: General: oriented to person, oriented to place and oriented to time Cranial nerves: Yes Equal, round and reactive pupils present Speech: normal speech Gait exam (Neuro): Normal gait present Other: tremors Extrem: General: normal to inspection and no edema Psych: Affect: Anxious affect present Objective Data Vital Signs Vital Signs: Vital Signs - 24 hr 08/04/23 15:40 08/04/23 20:09 08/05/23 05:19 Temperature 97.6 F 98.0 F 97.6 F Pulse Rate 87 103 H 101 H Respiratory Rate 20 20 20 Blood Pressure 151/88 H 152/87 H 142/68 H Pulse Oximetry 100 98 98 Oxygen Delivery 08/05/23 07:26 08/05/23 08:00 Temperature 96.8 F L Pulse Rate 88 Respiratory Rate 20 Blood Pressure 152/98 H Pulse Oximetry 100 Oxygen Delivery Room Air Intake/Output Intake/Output: Intake & Output 08/02/23 08/03/23 08/04/23 08/05/23 23:59 23:59 23:59 23:59 Intake Total 1640 3106 1480 Output Total 200 2460 1200 Balance 1440 646 280 Meds/Results Medications: Active Medications Generic Name Dose Route Start Last Admin Trade Name Freq PRN Reason Stop Dose Admin Albuterol 2 puff 08/03/23 13:30 Albuterol Sulfate (*Sp) Aerosol 1 Puff INHALATION QID PRN shortness of breath or wheezing Chlordiazepoxide HCl 50 mg 08/04/23 00:00 08/05/23 11:28 Chlordiazepoxide (*Crx) 25 Mg Capsule PO 50 mg Q6HR JERILYN Administration Enoxaparin Sodium 40 mg 08/04/23 09:00 08/05/23 08:49 Enoxaparin 40 Mg/0.4 Ml Syringe SUB-Q 40 mg DAILY JERILYN Administration Lorazepam 2 mg 08/03/23 22:40 08/05/23 12:12 Lorazepam Inj (*Crx) 2 Mg/Ml Vial IV PUSH 2 mg Q2H PRN Administration Alcohol Withdrawal Lorazepam 4 mg 08/03/23 22:40 Lorazepam Inj (*Crx) 2 Mg/Ml Vial IV PUSH Q2HR P
--- NOTE | 2023-08-05 15:41 | PM.IMPN ---
Progress Note: A&P Assessment and Plan (1) Alcohol withdrawal: Qualifiers: Complication of substance-induced condition: uncomplicated Qualified Code(s): F10.230 - Alcohol dependence with withdrawal, uncomplicated Code(s): F10.239 - Alcohol dependence with withdrawal, unspecified Status: Acute (2) Elevated troponin: Code(s): R79.89 - Other specified abnormal findings of blood chemistry Status: Acute (3) Chest pain: Code(s): R07.9 - Chest pain, unspecified Status: Acute (4) Alcoholic hepatitis: Qualifiers: Ascites presence: without ascites Qualified Code(s): K70.10 - Alcoholic hepatitis without ascites Code(s): K70.10 - Alcoholic hepatitis without ascites Status: Acute (5) Hypercholesterolemia with hypertriglyceridemia: Code(s): E78.2 - Mixed hyperlipidemia Status: Acute (6) Hypertension: Qualifiers: Hypertension type: unspecified Qualified Code(s): I10 - Essential (primary) hypertension Code(s): I10 - Essential (primary) hypertension Status: Chronic (7) Asthma: Code(s): J45.909 - Unspecified asthma, uncomplicated Status: Chronic Plan Continue librium and ativan prn IV transfer to medical floor CIWA scores thiamine iv MV GI rounding Encourage food Pt can eat, can take a shower and walk in his room hopeful dc in 1-2 days time with AAA numbers Subjective Date/time seen: 08/05/23 15:41 Interval history: 43-year-old male with history of alcoholism, alcohol withdrawal including history of alcohol withdrawal seizures, fatty liver, hypertension, hyperlipidemia, asthma, bipolar disorder, depression, and anxiety who presented to the emergency department for evaluation of chest pain. The patient provides the following history. He is a daily drinker last had a drink at about 22:00 last night. He went to bed but it does not sound as though he fell asleep and at about 03:00 he developed a tightness in the mid chest region associated with mild shortness of breath. He has a history of GERD symptoms and states that it is similar but is never been this bad before. He had some nausea and several episodes of nonbloody and nonbilious emesis thereafter. He continues to have intermittent discomfort in the chest. Interval history:pt admitted for alcohol withdrawal still having tremors stabilizing on Librium today can transfer to the medical floor watch mg levels encourage nutrition Review of Systems Review of Systems: Much the same ongoing through with drawl Exam Narrative: General: Moderately ill-appearing male with tattoos on body Respiratory: Lungs are clear to auscultation bilaterally. Cardiovascular: Regular rate and rhythm with S1-S2. Chest: No tenderness to palpation over the chest wall. Gastrointestinal: Abdomen is soft and vertebral with positive bowel sounds. Mild tenderness to deep palpation epigastric region. No guarding or rebound tenderness. Skin: Warm and dry. Extremities: No cyanosis, clubbing, or edema. Radial and pedal pulses intact. Neurological: Alert and oriented. Cranial nerves 2-12 are grossly intact. Speech is clear. No tongue fasciculations. Tremors noted of the upper extremities. Psychiatric: Pleasant and cooperative with normal mood. Slightly anxious. Objective Data Vital Signs Vital Signs: Vital Signs - 24 hr 08/04/23 20:09 08/05/23 05:19 08/05/23 07:26 Temperature 36.7 C 36.4 C 36.0 C L Pulse Rate 103 H 101 H 88 Respiratory Rate 20 20 20 Blood Pressure 152/87 H 142/68 H 152/98 H Pulse Oximetry 98 98 100 Oxygen Delivery 08/05/23 08:00 Temperature Pulse Rate Respiratory Rate Blood Pressure Pulse Oximetry Oxygen Delivery Room Air Intake/Output Intake/Output: Intake & Output 08/02/23 08/03/23 08/04/23 08/05/23 23:59 23:59 23:59 23:59 Intake Total 1640 3106 1480 Output Total 200 2460 1200 Balance 1440 646 280
[2023-08-05 15:57] VITALS: BP 147/87; PULSE 93; RESP 20; TEMP 36.1; O2SAT 99
--- NOTE | 2023-08-05 17:40 | PC.NURSE ---
This patient, Teodoro Waddell, was transferred to [[id number] ] on 08/05/23 at 1740. Personal belongings sent with patient. Report given to [NANETTE Falk @ [phone] ]. Appropriate documentation sent with patient.
--- NOTE | 2023-08-05 17:45 | ADMGEN ---
This patient, Teodoro Waddell, was admitted to 3 [facility] Room 331-01. Patient/family oriented to hospital policies and general routines including ID bracelet, bed and alarms, visiting hours, pain management, procedures, bathroom and other care routines, personal items, smoking policy, room service/diet, and visiting hours. Information on how to activate the Rapid Response Team has been discussed. Patient/Family are encouraged to report perceived risks to care and to ask questions if they do not understand what they are told or what they should do.
[2023-08-05 18:48] VITALS: BP 142/93; PULSE 83; RESP 16; TEMP 36.4; O2SAT 98
[2023-08-06] VITALS: BP 147/88; PULSE 93; RESP 20; TEMP 36.8; O2SAT 99
[2023-08-06] MEDS: LORazepam INJ (*CRX) 2 MG/ML VIAL 4 MG IV PUSH (00:18)
[2023-08-06] MEDS: chlordiazePOXIDE (*CRX) 25 MG CAPSULE 50 MG PO (06:03)
[2023-08-06 06:43] LABS: Anion Gap 5 mmol/L (4-12); Blood Urea Nitrogen 13 mg/dL (9-20); Calcium 9.6 mg/dL (8.4-10.2); Carbon Dioxide 30 mmol/L (22-30); Chloride 97 mmol/L (98-107); Estimated CRCL calculation 108 ml/min; Estimated Glomerular Filt Rate > 60; Glucose 100 mg/dL (65-110); Magnesium 1.3 mg/dL (1.6-2.3); Potassium 4.1 mmol/L (3.4-5.0); Sodium 132 mmol/L (137-145)
[2023-08-06 08:01] VITALS: BP 130/94; PULSE 94; RESP 16; TEMP 36.3; O2SAT 98
[2023-08-06] MEDS: MAGNESIUM OXIDE 400 MG TABLET PO (08:59)
[2023-08-06] MEDS: MULTIVITAMINS THERAPEUTIC TAB (*BKC) 1 TABLET PO (08:59)
[2023-08-06] MEDS: PANTOPRAZOLE 40 MG TABLET PO (09:00)
[2023-08-06] MEDS: LOSARTAN POTASSIUM 50 MG TABLET PO (09:00)
[2023-08-06] MEDS: ENOXAPARIN 40 MG/0.4 ML SYRINGE SUB-Q (09:00)
[2023-08-06] MEDS: THIAMINE HCL 200 MG/2 ML VIAL 100 MG IV PUSH (09:00)
[2023-08-06] MEDS: PSYLLIUM POWDER PACKET 1 PACKET PO (09:00)
[2023-08-06] MEDS: LORazepam INJ (*CRX) 2 MG/ML VIAL IV PUSH (09:03)
--- NOTE | 2023-08-06 11:21 | PM.DS ---
DS: Admitting Diagnosis Discharge Date 08/06/2023 Admitting Diagnosis Chest pain. DS: Discharge Diagnosis Discharge Diagnosis (1) Alcohol withdrawal: Qualifiers: Complication of substance-induced condition: uncomplicated Qualified Code(s): F10.230 - Alcohol dependence with withdrawal, uncomplicated Code(s): F10.239 - Alcohol dependence with withdrawal, unspecified Status: Acute Assessment and Plan: Continue Librium at home prn MV on dc GI follow up Encourage food Pt can eat, can take a shower and walk in his room hopeful dc in 1-2 days time with AAA numbers (2) Elevated troponin: Code(s): R79.89 - Other specified abnormal findings of blood chemistry Status: Acute Assessment and Plan: non urgent (3) Chest pain: Code(s): R07.9 - Chest pain, unspecified Status: Acute Assessment and Plan: muscular related (4) Alcoholic hepatitis: Qualifiers: Ascites presence: without ascites Qualified Code(s): K70.10 - Alcoholic hepatitis without ascites Code(s): K70.10 - Alcoholic hepatitis without ascites Status: Acute Assessment and Plan: gi follow up given to pt (5) Hypercholesterolemia with hypertriglyceridemia: Code(s): E78.2 - Mixed hyperlipidemia Status: Acute (6) Hypertension: Qualifiers: Hypertension type: unspecified Qualified Code(s): I10 - Essential (primary) hypertension Code(s): I10 - Essential (primary) hypertension Status: Chronic (7) Asthma: Code(s): J45.909 - Unspecified asthma, uncomplicated Status: Chronic DS: Summary Hospital Course Hospital Course: 43-year-old male with history of alcoholism, alcohol withdrawal including history of alcohol withdrawal seizures, fatty liver, hypertension, hyperlipidemia, asthma, bipolar disorder, depression, and anxiety who presented to the emergency department for evaluation of chest pain. The patient provides the following history. He is a daily drinker last had a drink at about 22:00 last night. He went to bed but it does not sound as though he fell asleep and at about 03:00 he developed a tightness in the mid chest region associated with mild shortness of breath. He has a history of GERD symptoms and states that it is similar but is never been this bad before. He had some nausea and several episodes of nonbloody and nonbilious emesis thereafter. He continues to have intermittent discomfort in the chest. 08/05/2023:pt admitted for alcohol withdrawal still having tremors stabilizing on Librium today can transfer to the medical floor watch mg levels encourage nutrition 08/06/2023: Continue Librium at home prn MV on dc GI follow up Encourage food Pt can eat, can take a shower and walk in his room hopeful dc in 1-2 days time with AAA numbers replace magnesium with supplements Time Spent with Patient Time attestation: Total time spent providing and/or coordinating discharge services:50 minutes on day of DC Exam Narrative: General: overweight with tattoos on body Respiratory: Lungs are clear to auscultation bilaterally. Cardiovascular: Regular rate and rhythm with S1-S2. Chest: No tenderness to palpation over the chest wall. Gastrointestinal: Abdomen is soft and vertebral with positive bowel sounds. Mild tenderness to deep palpation epigastric region. No guarding or rebound tenderness. Skin: Warm and dry. Extremities: No cyanosis, clubbing, or edema. Radial and pedal pulses intact. Neurological: Alert and oriented. Cranial nerves 2-12 are grossly intact. Speech is clear. No tongue fasciculations. Tremors noted of the upper extremities. Psychiatric: Pleasant and cooperative with normal mood. DS: Data Data Completed and Pending Labs on day of discharge: Labs from last 24 hours 08/06/23 08/05/23 05:36 10:55 Sodium 132 L 133 L Potassium 4.1 3.9 Chloride 97 L 102 Carbon Dioxide
[2023-08-06 15:03] LABS: Hepatitis C RNA, Quant PCR <15 NOT DETECTED IU/mL (NOT DETECTED)
== END 2023-08-06 11:35 | disposition home or self-care (01) | DRG 775 ==
LOC: ANHED 07:52 → ANHIMU 08:15 → ANH3MEDSUR 08-05 17:41
PROVIDERS: Nurse Practitioner Family; Physician Assistant; Admitting Provider General Practice; Emergency Provider Emergency Medicine; PCP Internal Medicine; Visit Provider Family Medicine
DX: F10.239 Alcohol dependence with withdrawal, unspecified (principal); K70.10 Alcoholic hepatitis without ascites; K70.0 Alcoholic fatty liver; R07.9 Chest pain, unspecified; Y90.8 Blood alcohol level of 240 mg/100 ml or more; I10 Essential (primary) hypertension; E87.29 Other acidosis; E78.5 Hyperlipidemia, unspecified; E78.1 Pure hyperglyceridemia; E78.2 Mixed hyperlipidemia; E87.1 Hypo-osmolality and hyponatremia; E83.42 Hypomagnesemia; F31.9 Bipolar disorder, unspecified; F41.9 Anxiety disorder, unspecified; F12.90 Cannabis use, unspecified, uncomplicated; J45.909 Unspecified asthma, uncomplicated; K21.9 Gastro-esophageal reflux disease without esophagitis; R25.1 Tremor, unspecified; R79.89 Other specified abnormal findings of blood chemistry; Z87.891 Personal history of nicotine dependence
CPT/HCPCS: 36415; 71045; 71275; 80048; 80053; 80061; 80074; 80307; 82140; 82550; 82948; 83690; 83735; 83880; 84484; 85025; 85027; 85055; 85380; 85610; 85730; 87522; 93005; 99285; A9270; J1650; J2060; J2270; J2405; J3411; J3475; J7030; Q9967

== ENCOUNTER 2023-10-12 12:40 | Emergency (ER) | payer OTHER, SELFPAY ==
[2023-10-12] VITALS (9 sets, daily range): BP systolic 146–186; BP diastolic 93–106; PULSE 64–90; RESP 18–26; TEMP 36.6; O2SAT 99–100
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
[2023-10-12] MEDS: SODIUM CHLORIDE 0.9% IV 1,000 ML 999 ML IV CONT (14:00)
[2023-10-12] MEDS: chlordiazePOXIDE (*CRX) 25 MG CAPSULE 50 MG PO ×2 (14:01→17:01)
[2023-10-12] MEDS: KETOROLAC 30 MG/ML VIAL (*BKC) IV PUSH (14:01)
[2023-10-12 14:06] LABS: Basophils Absolute Auto 0.1 K/mm3 (0.0-0.1); Basophils Percent Auto 0.6 % (0.2-1.2); Eosinophils Percent Auto 0.3 % (0-4.4); Hematocrit 40.4 % (42.0-52.0); Hemoglobin 14.3 g/dL (14.0-18.0); Immature Granulocyte Absolute 0.06 K/mm3 (0.00-0.031); Immature Granulocyte Percent A 0.7 % (0-0.5); Lymphocytes Absolute Auto 1.93 K/mm3 (0.9-3.2); Lymphocytes Percent Auto 21.5 % (18.3-44.2); Mean Corpuscular HGB Conc 35.4 g/dl (32-36); Mean Corpuscular Hemoglobin 34.5 pg (26-34); Mean Corpuscular Volume 97.6 fl (80-100); Mean Platelet Volume 9.6 fl (7.4-10.4); Monocytes Percent Auto 10.9 % (2.6-8.5); Neutrophils Absolute Auto 5.9 K/mm3 (1.3-6.7); Platelet Count Result 335 k/mm3 (150-375); Red Blood Count 4.14 M/mm3 (4.6-6.20); Red Cell Distribution Width 13.2 % (11.5-14.5)
[2023-10-12 14:15] LABS: Ethanol < 10 mg/dL (<10)
[2023-10-12 14:16] LABS: Alanine Aminotransferase 31 U/L (6-50); Albumin Level 4.5 g/dL (3.5-5.1); Alkaline Phosphatase 86 U/L (38-126); Anion Gap 16 mmol/L (4-12); Aspartate Amino Transferase 35 U/L (17-59); Bilirubin,Total 0.7 mg/dL (0.2-1.3); Blood Urea Nitrogen 11 mg/dL (9-20); Calcium 8.2 mg/dL (8.4-10.2); Carbon Dioxide 17 mmol/L (22-30); Chloride 104 mmol/L (98-107); Estimated CRCL calculation 107 ml/min; Estimated Glomerular Filt Rate > 60; Glucose 112 mg/dL (65-110); Lipase 54 U/L (23-300); Potassium 3.4 mmol/L (3.4-5.0); Sodium 137 mmol/L (137-145)
[2023-10-12] MEDS: LOPERAMIDE HCL 2 MG CAPSULE 4 MG PO (17:01)
[2023-10-12] MEDS: predniSONE 20 MG TABLET 40 MG PO (17:01)
--- NOTE | 2023-10-12 18:31 | PCCCNOTE ---
CC was called to the ED for alcoholic resources. Pt given [employer] information. He will contact horacio. I also left a face-sheet and pt info [facility] [employer] [facility].
== END 2023-10-12 18:18 | disposition home or self-care (01) ==
PROVIDERS: Emergency Provider Emergency Medicine; PCP Internal Medicine
DX: M54.16 Radiculopathy, lumbar region (principal); R19.7 Diarrhea, unspecified; F10.20 Alcohol dependence, uncomplicated; Y90.0 Blood alcohol level of less than 20 mg/100 ml; I10 Essential (primary) hypertension; J45.909 Unspecified asthma, uncomplicated; E78.5 Hyperlipidemia, unspecified; F41.8 Other specified anxiety disorders; F31.9 Bipolar disorder, unspecified; Z87.891 Personal history of nicotine dependence; Z79.899 Other long term (current) drug therapy
CPT/HCPCS: 36415; 80053; 80307; 83690; 85025; 96361; 96374; 99284; A9270; J1885; J7030; J7512

== ENCOUNTER 2024-03-20 02:09 | Inpatient (IN) | payer OTHER, SELFPAY ==
[2024-03-20] VITALS (16 sets, daily range): BP systolic 109–164; BP diastolic 83–105; PULSE 96–126; RESP 16–31; TEMP 36.7–37.6; O2SAT 92–100; BMI 78.9; BMI 37.4
--- NOTE | ~2024-03-20 | XR_ITS ---
EXAMINATION: XR chest PICC line DATE: 03/20/2024 13:16 INDICATION: PICC line insertion TECHNIQUE: frontal view of the chest was obtained. COMPARISON: Chest radiograph dated 08/03/2023 FINDINGS: Right upper extremity peripherally inserted central venous catheter (PICC) tip at the mid superior v pete cava. Lungs are clear with no focal airspace opacities, pulmonary edema, pleural effusion or pneu mothorax. The cardiomediastinal silhouette is normal. Mild thoracic dextrocurvature. IMPRESSION: 1. Right PICC line tip at the midsuperior vena cava. No acute cardiopulmonary disease. Reviewed, dictated and finalized at location A. TIONAL COUNSELOR IMPRESSION: 1. Right PICC line tip at the midsuperior vena cava. No acute cardiopulmonary d isease.
--- NOTE | ~2024-03-20 | CT_ITS ---
EXAMINATION: CT abdomen pelvis w con DATE: 03/20/2024 03:08 INDICATION: Abdominal pain TECHNIQUE: Computed tomography (CT) of the abdomen and pelvis was performed with 100 mL Omnipaque-350 intravenous contrast. Automated exposure control and iterative reconstruction technique were employe d. The dose-length product was 1431.55 mGy-cm. COMPARISON: 03/25/2020 FINDINGS: Lung bases are clear. Heart size is normal. No pericardial or pleural effusion. Small sliding-type hi atal hernia. Hepatomegaly with diffuse hepatic steatosis. No interval change in a 3.4 cm hemangioma i n the left hepatic lobe with peripheral discontiguous puddling of contrast. There is a second 1.2 cm flash filling hemangioma in the left hepatic lobe. Gallbladder, spleen, bilateral adrenal glands and kidneys are normal. Again seen is a now minimal amount of infiltrate stranding about the head of the pancreas suspicious for acute interstitial pancreatitis. There are couple mildly prominent but still normal-sized likely reactive lymph nodes about the head of the pancreas. Bowels including the appendi x are normal. Bladder is normal. No free intraperitoneal gas or fluid. No pathologically enlarged abd ominal or pelvic lymphadenopathy. Mild lumbar dextrocurvature with mild spondylosis. IMPRESSION: 1. Minimal inflammatory stranding about the head of the pancreas suspicious for acute interstitial pa ncreatitis. Correlate with lipase levels. 2. Diffuse hepatic steatosis. 3. Small sliding-type hiatal hernia. Reviewed, dictated and finalized at location A. TAL RESEARCH ANALYST IMPRESSION: 1. Minimal inflammatory stranding about the head of the pancreas suspicious for acute interstitial pancreatitis. Correlate with lipase levels. 2. Diffuse hepatic steatosis. 3. Small sliding-type hiatal hernia.
[2024-03-20] MEDS: SODIUM CHLORIDE 0.9% IV 1,000 ML 999 ML IV CONT (02:25)
[2024-03-20] MEDS: MORPHINE SULFATE (*CRX) 4 MG/ML INJ IV PUSH ×2 (02:26→06:50)
[2024-03-20] MEDS: ONDANSETRON INJ 4 MG/2 ML VIAL IV PUSH ×2 (02:26→07:59)
[2024-03-20] MEDS: THIAMINE 500 MG/NS 100 ML 500 MG/100 ML BAG 200 MG IVPB (02:32)
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
[2024-03-20 02:42] LABS: Ethanol 198 mg/dL (<10)
[2024-03-20 02:49] LABS: Alanine Aminotransferase 725 U/L (6-50); Albumin Level 3.1 g/dL (3.5-5.1); Alkaline Phosphatase 202 U/L (38-126); Anion Gap 10 mmol/L (4-12); Bilirubin,Total 1.7 mg/dL (0.2-1.3); Blood Urea Nitrogen 11 mg/dL (9-20); Carbon Dioxide 18 mmol/L (22-30); Chloride 102 mmol/L (98-107); Estimated CRCL calculation 146 ml/min; Estimated Glomerular Filt Rate > 60; Glucose 112 mg/dL (65-110); Potassium 3.7 mmol/L (3.4-5.0); Sodium 130 mmol/L (137-145)
[2024-03-20 03:02] LABS: Aspartate Amino Transferase 1697 U/L (17-59)
[2024-03-20 03:09] LABS: Lipase 547 U/L (23-300)
[2024-03-20 03:35] LABS: Bacteria Urine None Seen /hpf; Non Pathogenic Casts 0-2; RBC Urine 0-2 /hpf (0-2); Squamous Epithelial Cell Urine None Seen /hpf (Few); WBC Urine 0-5 /hpf (0-3)
[2024-03-20 03:51] LABS: Add Urine Microscopic? YES; Appearance Urine Clear (Clear); Bilirubin Urine Negative (Negative); Blood Urine Negative (Negative); Color Urine Dark Yellow (Yellow); Glucose Urine UA Negative (Negative); Ketones Urine Trace mg/dL (Negative); Leukocyte Esterase Ur Negative LEU/UL (Negative); Nitrate Urine Negative (Negative); Protein Urine Negative (Negative); Specific Grav Ur 1.028 (1.001-1.035)
[2024-03-20 04:37] LABS: Hemoglobin 14.2 g/dL (14.0-18.0)
[2024-03-20 04:38] LABS: Hematocrit 35.5 % (42.0-52.0)
--- NOTE | 2024-03-20 05:03 | PC.NURSE ---
Patient requesting more pain medication and can I have some librium? ERP notified of patients request.
[2024-03-20] MEDS: chlordiazePOXIDE (*CRX) 25 MG CAPSULE PO (05:29)
[2024-03-20] MEDS: DEXTROSE 5%/0.45% SOD CHL 1,000 ML 125 ML IV CONT (05:32)
[2024-03-20 05:33] LABS: Glucose Point of Care 124 mg/dl (65-105)
--- NOTE | 2024-03-20 05:45 | PC.NURSE ---
Bedside glucose is 124, maintenance fluids started per orders, seizure precautions started as ordered. Patient has call light within reach. Patient is a/ox4. Repeat CIWA done, patient has no complaints at this time. Patient updated on plan of care and plan for admission.
[2024-03-20] MEDS: INSULIN HUMAN REGULAR (*BKC) 100 UNITS in SODIUM CHLORIDE 0.9% IV 99 ML IV CONT (06:17)
--- NOTE | 2024-03-20 06:35 | PC.NURSE ---
This patient, Teodoro Waddell, was admitted to Intensive Care Unit-2. Patient/family oriented to hospital policies and general routines including ID bracelet, bed and alarms, visiting hours, pain management, procedures, bathroom and other care routines, personal items, smoking policy, room service/diet, and visiting hours. Information on how to activate the Rapid Response Team has been discussed. Patient/Family are encouraged to report perceived risks to care and to ask questions if they do not understand what they are told or what they should do.
[2024-03-20 07:06] LABS: Glucose Point of Care 151 mg/dl (65-105)
[2024-03-20] MEDS: LACTATED RINGERS 1,000 ML 999 ML IV CONT (07:58)
[2024-03-20] MEDS: THIAMINE HCL 200 MG/2 ML VIAL 100 MG IV PUSH (07:58)
[2024-03-20 08:03] LABS: Glucose Point of Care 148 mg/dl (65-105)
[2024-03-20] MEDS: PANTOPRAZOLE SODIUM IV 40 MG VIAL IV PUSH (08:08)
[2024-03-20] MEDS: ENOXAPARIN 40 MG/0.4 ML SYRINGE SUB-Q (08:08)
[2024-03-20] MEDS: chlordiazePOXIDE (*CRX) 25 MG CAPSULE 50 MG PO ×3 (08:08→20:07)
[2024-03-20 08:41] LABS: Triglycerides > 2625 mg/dL (<150)
[2024-03-20] MEDS: MORPHINE SULFATE (*CRX) 4 MG/ML INJ 2 MG IV PUSH ×5 (09:07→22:32)
[2024-03-20] MEDS: DEXTROSE 5%/LACTATED RINGERS 1,000 ML 150 ML IV CONT (09:13)
[2024-03-20 09:15] LABS: Glucose Point of Care 125 mg/dl (65-105)
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
[2024-03-20] MEDS: LACTATED RINGERS 500 ML IV CONT ×2 (09:40→14:05)
[2024-03-20] MEDS: FOLIC ACID 1 MG/0.2 ML INJ IV PUSH (10:22)
[2024-03-20 10:35] LABS: INR 1.6
[2024-03-20 10:36] LABS: Partial Thromboplastin Time 43.4 Seconds (22.3-36.8)
[2024-03-20] MEDS: LORazepam INJ (*CRX) 2 MG/ML VIAL IV PUSH ×3 (10:37→20:40)
[2024-03-20 10:42] LABS: Basophils Percent Auto 0.2 % (0.2-1.2); Eosinophils Percent Auto 0.6 % (0-4.4); Hematocrit 37.6 % (42.0-52.0); Hemoglobin 13.3 g/dL (14.0-18.0); Immature Granulocyte Absolute 0.03 K/mm3 (0.00-0.031); Immature Granulocyte Percent A 0.5 % (0-0.5); Lymphocytes Absolute Auto 0.96 K/mm3 (0.9-3.2); Lymphocytes Percent Auto 14.6 % (18.3-44.2); Mean Corpuscular HGB Conc 35.4 g/dl (32-36); Mean Corpuscular Hemoglobin 34.4 pg (26-34); Mean Corpuscular Volume 97.2 fl (80-100); Mean Platelet Volume 9.3 fl (7.4-10.4); Monocytes Absolute Auto 0.4 K/mm3 (0.1-0.6); Monocytes Percent Auto 6.1 % (2.6-8.5); Neutrophils Absolute Auto 5.1 K/mm3 (1.3-6.7); Red Blood Count 3.87 M/mm3 (4.6-6.20); Red Cell Distribution Width 14.5 % (11.5-14.5); White Blood Count 6.6 K/mm3 (4.5-10.0)
[2024-03-20 10:43] LABS: Lactic Acid Reflex 2.4 mmol/L (0.7-2.0)
[2024-03-20 10:48] LABS: Platelet Count Result 175 k/mm3 (150-375)
[2024-03-20 10:52] LABS: CRP < 0.5 mg/dL (<1.0); Creatine Kinase 111 U/L (55-170)
[2024-03-20 11:09] LABS: Glucose Point of Care 106 mg/dl (65-105)
[2024-03-20 11:09] LABS: Glucose Point of Care 125 mg/dl (65-105)
[2024-03-20 11:46] LABS: MRSA (PCR) NOT DETECTED (NOT DETECTE)
[2024-03-20 11:55] LABS: Alanine Aminotransferase 710 U/L (6-50); Albumin Level 3.2 g/dL (3.5-5.1); Alkaline Phosphatase 167 U/L (38-126); Anion Gap 5 mmol/L (4-12); Bilirubin,Total 1.6 mg/dL (0.2-1.3); Blood Urea Nitrogen 11 mg/dL (9-20); Calcium 7.4 mg/dL (8.4-10.2); Carbon Dioxide 18 mmol/L (22-30); Chloride 107 mmol/L (98-107); Estimated CRCL calculation 261 ml/min; Estimated Glomerular Filt Rate > 60; Glucose 100 mg/dL (65-110); Phosphorus 3.5 mg/dL (2.5-4.5); Potassium 3.8 mmol/L (3.4-5.0); Sodium 130 mmol/L (137-145)
[2024-03-20 12:12] LABS: Aspartate Amino Transferase 1858 U/L (17-59)
[2024-03-20 12:20] LABS: Glucose Point of Care 129 mg/dl (65-105)
[2024-03-20 13:06] LABS: Glucose Point of Care 126 mg/dl (65-105)
[2024-03-20] MEDS: CENTRAL LINE FLUSH 10 ML IV PUSH ×2 (13:13→20:09)
[2024-03-20] MEDS: LACTATED RINGERS IV CONT ×2 (13:13→21:52)
[2024-03-20] MEDS: DEXTROSE IV CONT ×2 (13:13→21:52)
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
[2024-03-20 13:19] LABS: Reflex Lactic Acid Yes or No Add Lactic
[2024-03-20] MEDS: predniSONE 20 MG TABLET 40 MG PO (14:05)
[2024-03-20] MEDS: hydrALAZINE HCL 20 MG/ML VIAL 5 MG IV PUSH (14:08)
[2024-03-20 14:10] LABS: Glucose Point of Care 137 mg/dl (65-105)
[2024-03-20 14:34] LABS: Lactic Acid 1.8 mmol/L (0.7-2.0)
[2024-03-20 15:09] LABS: Triglycerides > 2625 mg/dL (<150)
[2024-03-20 16:16] LABS: Glucose Point of Care 131 mg/dl (65-105)
[2024-03-20 18:32] LABS: Glucose Point of Care 158 mg/dl (65-105)
[2024-03-20 21:22] LABS: Glucose Point of Care 182 mg/dl (65-105)
[2024-03-20 21:37] LABS: Triglycerides > 2625 mg/dL (<150)
[2024-03-20 22:14] LABS: Glucose Point of Care 190 mg/dl (65-105)
[2024-03-21] VITALS (13 sets, daily range): BP systolic 129–151; BP diastolic 76–106; PULSE 82–108; RESP 13–21; TEMP 36.5–37; O2SAT 92–98
[2024-03-21 00:08] LABS: Glucose Point of Care 186 mg/dl (65-105)
[2024-03-21] MEDS: LORazepam INJ (*CRX) 2 MG/ML VIAL IV PUSH ×3 (01:48→20:09)
[2024-03-21] MEDS: MORPHINE SULFATE (*CRX) 4 MG/ML INJ 2 MG IV PUSH ×8 (01:48→23:12)
[2024-03-21 01:56] LABS: Glucose Point of Care 178 mg/dl (65-105)
[2024-03-21] MEDS: chlordiazePOXIDE (*CRX) 25 MG CAPSULE 50 MG PO ×4 (03:50→20:09)
[2024-03-21] MEDS: CENTRAL LINE FLUSH 10 ML IV PUSH ×2 (03:54→20:12)
[2024-03-21 04:03] LABS: Glucose Point of Care 180 mg/dl (65-105)
[2024-03-21 04:34] LABS: INR 1.2; Prothrombin Time 15.2 Seconds (11.1-14.7)
[2024-03-21 04:35] LABS: Partial Thromboplastin Time 32.7 Seconds (22.3-36.8)
[2024-03-21 04:37] LABS: Lactic Acid Reflex 1.4 mmol/L (0.7-2.0)
[2024-03-21] MEDS: LACTATED RINGERS IV CONT ×3 (04:51→19:47)
[2024-03-21] MEDS: DEXTROSE IV CONT ×3 (04:51→19:47)
[2024-03-21 05:53] LABS: Glucose Point of Care 160 mg/dl (65-105)
[2024-03-21 07:46] LABS: Glucose Point of Care 154 mg/dl (65-105)
[2024-03-21 08:32] LABS: Triglycerides > 2625 mg/dL (<150)
[2024-03-21 08:44] LABS: Alanine Aminotransferase 722 U/L (6-50); Albumin Level 3.6 g/dL (3.5-5.1); Alkaline Phosphatase 150 U/L (38-126); Anion Gap 1 mmol/L (4-12); Bilirubin,Total 3.6 mg/dL (0.2-1.3); Blood Urea Nitrogen 3 mg/dL (9-20); Calcium 7.2 mg/dL (8.4-10.2); Carbon Dioxide 22 mmol/L (22-30); Chloride 104 mmol/L (98-107); Creatine Kinase 94 U/L (55-170); Estimated CRCL calculation 197 ml/min; Estimated Glomerular Filt Rate > 60; Glucose 129 mg/dL (65-110); Lipase 373 U/L (23-300); Magnesium 0.9 mg/dL (1.6-2.3); Phosphorus 2.8 mg/dL (2.5-4.5); Potassium 4.7 mmol/L (3.4-5.0); Sodium 127 mmol/L (137-145)
[2024-03-21 09:02] LABS: Aspartate Amino Transferase 1236 U/L (17-59)
[2024-03-21] MEDS: LOSARTAN POTASSIUM 50 MG TABLET PO (09:39)
[2024-03-21] MEDS: MULTIVITAMINS THERAPEUTIC TAB (*BKC) 1 TABLET PO (09:39)
[2024-03-21] MEDS: predniSONE 20 MG TABLET 40 MG PO (09:40)
[2024-03-21] MEDS: ENOXAPARIN 40 MG/0.4 ML SYRINGE SUB-Q (09:41)
[2024-03-21] MEDS: THIAMINE HCL 200 MG/2 ML VIAL 100 MG IV PUSH (09:41)
[2024-03-21] MEDS: PANTOPRAZOLE SODIUM IV 40 MG VIAL IV PUSH (09:43)
[2024-03-21] MEDS: FOLIC ACID 1 MG/0.2 ML INJ IV PUSH (09:57)
[2024-03-21 10:02] LABS: Glucose Point of Care 178 mg/dl (65-105)
[2024-03-21 10:12] LABS: Triglycerides > 2625 mg/dL (<150)
--- NOTE | 2024-03-21 11:31 | WPDINTPN ---
Progress Note: A&P Assessment and Plan (1) Pancreatitis: Code(s): K85.90 - Acute pancreatitis without necrosis or infection, unspecified Status: Acute Assessment and Plan: 03/20: Patient presented with abdominal pain in the epigastric region and right upper quadrant, was found to have acute pancreatitis with elevated triglycerides and lipase. Also elevated LFTs -patient adequately fluid-resuscitated in the ER and ICU -, currently on D10 LR infusion -also on insulin infusion at 5 units/hr for hypertriglyceridemia, -PICC line was inserted on 03/20 -triglycerides remain elevated, will increase insulin infusion and if patient is hypoglycemic will increase D10 to D20 IV infusion -03/20: Preliminary blood cultures are negative x2 -pain control with morphine (2) Acute alcoholic hepatitis: Code(s): K70.10 - Alcoholic hepatitis without ascites Status: Acute Assessment and Plan: Acute alcoholic hepatitis -Elevated LFTs and bilirubin -Maryjane's Discriminant Function is 22.9 (it was 38 on 03/20) -continue prednisone 40 mg p.o. daily (3) Hypertriglyceridemia: Code(s): E78.1 - Pure hyperglyceridemia Status: Acute Assessment and Plan: -Monitor triglycerides Q 6 hours -patient has been adequately fluid-resuscitated -currently on insulin infusion at 5 units/hr and D10 LR at 150 mL/hour -will continue to increase insulin infusion and may need to increased dextrose 10% to dextrose 20% infusion -unable to treat hypertriglyceridemia with fenofibrate and gemfibrozil due to liver dysfunction (4) Hypertension: Qualifiers: Hypertension type: unspecified Qualified Code(s): I10 - Essential (primary) hypertension Code(s): I10 - Essential (primary) hypertension Status: Chronic Assessment and Plan: Continue to monitor for now, patient on losartan/HCTZ -continue losartan and hold HCTZ (5) History of marijuana use: Code(s): Z87.898 - Personal history of other specified conditions Status: Chronic Assessment and Plan: Will monitor for withdrawal (6) Alcohol abuse: Code(s): F10.10 - Alcohol abuse, uncomplicated Status: Acute Assessment and Plan: CIWA protocol in place, with monitor patient for alcohol withdrawal and DTs -Librium has been ordered along with p.r.n. Ativan Plan DVT prophylaxis: Lovenox Stress ulcer prophylaxis: Protonix Nutrition: Full liquid diet, will advance as tolerated Code Status: Full code Critical Care Time Spent: 34 minutes Due to a high probability of clinically significant, life threatening deterioration, the patient required my highest level of preparedness to intervene emergently and I personally spent this critical care time directly and personally managing the patient. This critical care time included obtaining a history; examining the patient; pulse oximetry; ordering and review of studies; arranging urgent treatment with development of a management plan; evaluation of patient's response to treatment; frequent reassessment; and discussions with other providers. It was exclusive of separately billable procedures and treating other patients and teaching time. Please see Assessment and Plan section and the rest of the note for further information on patient assessment and treatment This dictation may have been done utilizing a voice recognition system. Attempts have been made to correct errors. However, there may be uncorrected grammatical, spelling, and recognitions errors present. Subjective Date/time seen: 03/21/24 11:31 Interval history: Reason for consult: Pancreatitis, hypertriglyceridemia, elevated LFTs, alcohol intoxication 03/21/2024: Patient seen and examined in the ICU, is awake, alert, complains of abdominal pain. Denies any chest pain, shortness of breath, nausea vomiting at this time. Patient states he is hungry. Hemodynamically stable, adequate urine output, afebrile. Triglycerides remain elevated, patient is on insulin infusion. Review of Systems Review of Systems: All systems reviewed & are unremarkable except as noted in HPI and below Exam Narrative: General: Pleasant gentleman complaining of abdominal pain HEENT:? Pupils equal and reactive, sclerae is clear Neck:? Supple and thick Respiratory:? Clear to auscultation bilaterally, no wheezing, adequate air entry Cardiac:? S1-S2 is normal, regular rate and rhythm Abdomen:? Soft, tender to palpation in the epigastric region and right upper quadrant. Hypoactive bowels, abdomen is protuberant Extremities:? No edema, palpable pedal pulse Neuro:? Patient is awake, alert, oriented, nonfocal, answers to questions appropriately and follows simple command Skin:? Warm and dry Psych:? Anxious Objective Data Vital Signs Vital Signs: Vital Signs - 24 hr 03/20/24 12:00 03/20/24 12:00 03/20/24 12:00 Temperature 98.2 F Pulse Rate 107 H 106 H Respiratory Rate 20 Blood Pressure 150/93 H Pulse Oximetry 94 94 Oxygen Delivery Room Air Oxygen Flow Rate Fraction of Inspired Oxygen 03/20/24 12:00 03/20/24 14:00 03/20/24 14:00 Temperature Pulse Rate 102 H 102 H Respiratory Rate 20 Blood Pressure 150/93 H 163/105 H Pulse Oximetry 92 Oxygen Delivery Oxygen Flow Rate Fraction of Inspired Oxygen 03/20/24 16:00 03/20/24 16:00 03/20/24 16:00 Temperature Pulse Rate 120 H Respiratory Rate Blood Pressure 164/95 H Pulse Oximetry 92 Oxygen Delivery Room Air Oxygen Flow Rate Fraction of Inspired Oxygen 03/20/24 16:00 03/20/24 18:00 03/20/24 18:00 Temperature 99.6 F Pulse Rate 120 H 126 H 126 H Respiratory Rate 31 H 24 H Blood Pressure 164/95 H 144/105 H Pulse Oximetry 92 97 Oxygen Delivery Oxygen Flow Rate Fraction of Inspired Oxygen 03/20/24 20:00 03/20/24 20:00 03/20/24 20:00 Temperature 98.1 F Pulse Rate 101 H 96 Respiratory Rate 21 H Blood Pressure 137/83 Pulse Oximetry 94 Oxygen Delivery Room Air Oxygen Flow Rate Fraction of Inspired Oxygen 03/20/24 21:40 03/20/24 22:00 03/20/24 22:00 Temperature Pulse Rate 96 96 Respiratory Rate 17 Blood Pressure 153/99 H Pulse Oximetry 98 98 Oxygen Delivery Nasal Cannula Oxygen Flow Rate 2 Fraction of Inspired Oxygen 03/21/24 00:00 03/21/24 00:00 03/21/24 00:00 Temperature 98.1 F Pulse Rate 105 H 101 H Respiratory Rate 18 Blood Pressure 151/106 H Pulse Oximetry 92 92 Oxygen Delivery Nasal Cannula Oxygen Flow Rate 2 Fraction of Inspired Oxygen 03/21/24 02:00 03/21/24 02:00 03/21/24 04:00 Temperature Pulse Rate 101 H 101 H 89 Respiratory Rate 14 Blood Pressure 148/101 H Pulse Oximetry 94 Oxygen Delivery Oxygen Flow Rate Fraction of Inspired Oxygen 03/21/24 04:00 03/21/24 04:00 03/21/24 06:00 Temperature 97.7 F Pulse Rate 89 82 Respiratory Rate 14 Blood Pressure 132/88 Pulse Oximetry 95 95 Oxygen Delivery Nasal Cannula Oxygen Flow Rate 2 Fraction of Inspired Oxygen 03/21/24 06:00 03/21/24 08:00 03/21/24 09:21 Temperature 98.4 F Pulse Rate 82 96 Respiratory Rate 13 18 Blood Pressure 144/96 H 142/93 H Pulse Oximetry 98 98 93 Oxygen Delivery Room Air Oxygen Flow Rate Fraction of Inspired Oxygen 21 03/21/24 10:00 Temperature Pulse Rate 100 Respiratory Rate 15 Blood Pressure 140/94 H Pulse Oximetry 94 Oxygen Delivery Oxygen Flow Rate Fraction of Inspired Oxygen Intake/Output Intake/Output: Intake & Output 03/18/24 03/19/24 03/20/24 03/21/24 23:59 23:59 23:59 23:59 Intake Total 4225.8 1196.7 Output Total 1300 825 Balance 2925.8 371.7 Meds/Results Medications: Active Medications Generic Name Dose Route Start Last Admin Trade Name Freq PRN Reason Stop Dose Admin Chlordiazepoxide HCl 50 mg 03/20/24 09:00 03/21/24 09:39 Chlordiazepoxide (*Crx) 25 Mg Capsule PO 50 mg Q6H JERILYN Administration Dextrose 12.5 gm 03/20/24 05:46 Dextrose 50% 25 Gm/50 Ml Syringe IV PUSH PRN PRN Hypoglycemia Protocol Enoxaparin Sodium 40 mg 03/20/24 09:00 03/21/24 09:41 Enoxaparin 40 Mg/0.4 Ml Syringe SUB-Q 40 mg DAILY JERILYN Administration Folic Acid 1 mg 03/21/24 09:00 03/21/24 09:57 Folic Acid 1 Mg/0.2 Ml Inj IV PUSH 1 mg QAM JERILYN Administration Glucagon 1 mg 03/20/24 05:46 Glucagon For Inj 1 Mg Vial IM PRN PRN Hypoglycemia Protocol Glucose 15 gm 03/20/24 05:46 Glucose Oral Gel 15 Gm Of Glucse In 37.5 Gm Tube PO PRN PRN Hypoglycemia Protocol Hydralazine HCl 5 mg 03/20/24 13:32 03/20/24 14:08 Hydralazine Hcl 20 Mg/Ml Vial IV PUSH 5 mg Q8H PRN Administration Blood Pressure - High Insulin Human Regular 100 100 mls @ 5 mls/hr 03/20/24 05:50 03/21/24 08:15 units/ Sodium Chloride IV CONT 5 units/hr .Q20H JERILYN 5 mls/hr Infusion 5 UNITS/HR Dextrose 1,000 mls @ 100 mls/hr 03/20/24 05:46 Dextrose 5% 1,000 Ml IVPB PRN PRN Hypoglycemia Protocol Dextrose 100 ml/ Dextrose/ 1,100 mls @ 150 mls/hr 03/20/24 12:00 03/21/24 04:51 Lactated Ringer's IV CONT 150 mls/hr .Q7H20M JERILYN Administration Lorazepam 2 mg 03/20/24 05:20 03/21/24 07:52 Lorazepam Inj (*Crx) 2 Mg/Ml Vial IV PUSH 2 mg Q4H PRN Administration CIWA 8-15 Lorazepam 2 mg 03/20/24 09:31 Lorazepam Inj (*Crx) 2 Mg/Ml Vial IV PUSH Q2H PRN CIWA > 15 Losartan Potassium 50 mg 03/21/24 09:00 03/21/24 09:39 Losartan Potassium 50 Mg Tablet PO 50 mg QAM JERILYN Administration Morphine Sulfate 2 mg 03/21/24 10:07 Morphine Sulfate (*Crx) 4 Mg/Ml Inj IV PUSH Q3H PRN Pain Rated 7-10 Multivitamins Therapeutic 1 tablet 03/21/24 09:00 03/21/24 09:39 Multivitamins Therapeutic Tab (*Bkc) PO 1 tablet QAM JERILYN Administration Ondansetron HCl 4 mg 03/20/24 05:46 03/20/24 07:59 Ondansetron Inj 4 Mg/2 Ml Vial IV PUSH 4 mg Q4H PRN Administration Nausea Pantoprazole Sodium 40 mg 03/20/24 09:00 03/21/24 09:43 Pantoprazole Sodium Iv 40 Mg Vial IV PUSH 40 mg QAM JERILYN Administration Polyethylene Glycol 17 gm 03/21/24 10:04 Polyethylene Glycol 3350 17 Gm Powd.Pack PO QAM PRN Constipation Prednisone 40 mg 03/21/24 08:00 03/21/24 09:40 Prednisone 20 Mg Tablet PO 40 mg DAILY@0800 JERILYN Administration Sodium Chloride 10 ml 03/20/24 14:00 03/21/24 03:54 Central Line Flush IV PUSH 10 ml Q8HR JERILYN Administration Sodium Chloride 10 ml 03/20/24 13:09 Central Line Flush IV PUSH PRN PRN with TPN bag changes Sodium Chloride 20 ml 03/20/24 13:09 Central Line Flush IV PUSH PRN PRN after blood draws Thiamine HCl 100 mg 03/20/24 09:00 03/21/24 09:41 Thiamine Hcl 200 Mg/2 Ml Vial IV PUSH 100 mg DAILY JERILYN Administration Radiology Results: ITS Impressions Abdomen/Pelvis CT 03/20/24 09:26 IMPRESSION: 1. Minimal inflammatory stranding about the head of the pancreas suspicious for acute interstitial pancreatitis. Correlate with lipase levels. 2. Diffuse hepatic steatosis. 3. Small sliding-type hiatal hernia. Chest X-Ray 03/20/24 13:27 IMPRESSION: 1. Right PICC line tip at the midsuperior vena cava. No acute cardiopulmonary disease. Labs Labs: Laboratory Results - last 24 hr 03/20/24 03/20/24 03/20/24 10:10 10:23 12:02 PT INR APTT Sodium 130 L Potassium 3.8 Chloride 107 Carbon Dioxide 18 L Anion Gap 5 BUN 11 Creatinine 0.60 L Estim Creat Clear Calc 261 Estimated GFR > 60 Glucose 100 POC Capillary Glucose 129 H Lactic Acid Calcium 7.4 L Phosphorus 3.5 Magnesium 1.0 L Total Bilirubin 1.6 H AST 1858 H ALT 710 H Alkaline Phosphatase 167 H Total Creatine Kinase Total Protein 6.0 L Albumin 3.2 L Triglycerides Lipase Nasal MRSA (PCR) Not detected 03/20/24 03/20/24 03/20/24 13:04 14:07 14:19 PT INR APTT Sodium Potassium Chloride Carbon Dioxide Anion Gap BUN Creatinine Estim Creat Clear Calc Estimated GFR Glucose POC Capillary Glucose 126 H 137 H Lactic Acid 1.8 Calcium Phosphorus Magnesium Total Bilirubin AST ALT Alkaline Phosphatase Total Creatine Kinase Total Protein Albumin Triglycerides > 2625 H Lipase Nasal MRSA (PCR) 03/20/24 03/20/24 03/20/24 16:12 18:30 20:06 PT INR APTT Sodium Potassium Chloride Carbon Dioxide Anion Gap BUN Creatinine Estim Creat Clear Calc Estimated GFR Glucose POC Capillary Glucose 131 H 158 H 182 H Lactic Acid Calcium Phosphorus Magnesium Total Bilirubin AST ALT Alkaline Phosphatase Total Creatine Kinase Total Protein Albumin Triglycerides Lipase Nasal MRSA (PCR) 03/20/24 03/20/24 03/21/24 20:33 22:12 00:04 PT INR APTT Sodium Potassium Chloride Carbon Dioxide Anion Gap BUN Creatinine Estim Creat Clear Calc Estimated GFR Glucose POC Capillary Glucose 190 H 186 H Lactic Acid Calcium Phosphorus Magnesium Total Bilirubin AST ALT Alkaline Phosphatase Total Creatine Kinase Total Protein Albumin Triglycerides > 2625 H Lipase Nasal MRSA (PCR) 03/21/24 03/21/24 03/21/24 01:51 03:50 03:59 PT 15.2 H INR 1.2 APTT 32.7 Sodium Potassium Chloride Carbon Dioxide Anion Gap BUN Creatinine Estim Creat Clear Calc Estimated GFR Glucose POC Capillary Glucose 178 H 180 H Lactic Acid 1.4 Calcium Phosphorus Magnesium Total Bilirubin AST ALT Alkaline Phosphatase Total Creatine Kinase Total Protein Albumin Triglycerides Lipase Nasal MRSA (PCR) 03/21/24 03/21/24 03/21/24 05:48 05:51 07:45 PT INR APTT Sodium Potassium Chloride Carbon Dioxide Anion Gap BUN Creatinine Estim Creat Clear Calc Estimated GFR Glucose POC Capillary Glucose 160 H 154 H Lactic Acid Calcium Phosphorus Magnesium Total Bilirubin AST ALT Alkaline Phosphatase Total Creatine Kinase Total Protein Albumin Triglycerides > 2625 H Lipase Nasal MRSA (PCR) 03/21/24 03/21/24 08:12 09:59 PT INR APTT Sodium 127 L Potassium 4.7 Chloride 104 Carbon Dioxide 22 Anion Gap 1 L BUN 3 L D Creatinine 0.50 L Estim Creat Clear Calc 197 Estimated GFR > 60 Glucose 129 H POC Capillary Glucose 178 H Lactic Acid Calcium 7.2 L Phosphorus 2.8 Magnesium 0.9 L Total Bilirubin 3.6 H AST 1236 H ALT 722 H Alkaline Phosphatase 150 H Total Creatine Kinase 94 Total Protein 7.0 Albumin 3.6 Triglycerides > 2625 H Lipase 373 H Nasal MRSA (PCR) Quality VTE Prophylaxis VTE prophylaxis: pharmacologic ordered
[2024-03-21 11:58] LABS: Glucose Point of Care 168 mg/dl (65-105)
[2024-03-21] MEDS: OMEGA 3 POLYUNSAT FATTY ACIDS 1 GM CAP 2 GM PO ×2 (12:24→16:50)
[2024-03-21] MEDS: polyethylene glycoL 3350 17 GM POWD.PACK PO (12:24)
[2024-03-21] MEDS: INSULIN HUMAN REGULAR (*BKC) 100 UNITS in SODIUM CHLORIDE 0.9% IV 99 ML IV CONT (13:48)
[2024-03-21 14:36] LABS: Glucose Point of Care 184 mg/dl (65-105)
[2024-03-21 14:40] LABS: Triglycerides > 2625 mg/dL (<150)
[2024-03-21 16:28] LABS: Glucose Point of Care 163 mg/dl (65-105)
[2024-03-21 18:07] LABS: Glucose Point of Care 218 mg/dl (65-105)
[2024-03-21 20:16] LABS: Glucose Point of Care 152 mg/dl (65-105)
[2024-03-21 21:34] LABS: Triglycerides 2473 mg/dL (<150)
--- NOTE | 2024-03-21 21:48 | PC.NURSE ---
Discussed most recent triglyceride results with Dr. Matthew. No new orders. Pt to stay on insulin 8 units over night.
[2024-03-21 22:03] LABS: Glucose Point of Care 102 mg/dl (65-105)
[2024-03-21] MEDS: ONDANSETRON INJ 4 MG/2 ML VIAL IV PUSH (23:16)
[2024-03-21 23:17] LABS: Glucose Point of Care 103 mg/dl (65-105)
[2024-03-22] VITALS (10 sets, daily range): BP systolic 101–145; BP diastolic 62–108; PULSE 81–124; RESP 12–22; TEMP 36.5–36.7; O2SAT 90–99
[2024-03-22] MEDS: LORazepam INJ (*CRX) 2 MG/ML VIAL IV PUSH ×2 (01:01→05:45)
[2024-03-22 01:05] LABS: Glucose Point of Care 91 mg/dl (65-105)
[2024-03-22] MEDS: chlordiazePOXIDE (*CRX) 25 MG CAPSULE 50 MG PO ×2 (02:31→08:26)
[2024-03-22] MEDS: LACTATED RINGERS IV CONT (02:33)
[2024-03-22] MEDS: DEXTROSE IV CONT (02:33)
[2024-03-22] MEDS: INSULIN HUMAN REGULAR (*BKC) 100 UNITS in SODIUM CHLORIDE 0.9% IV 99 ML 8 UNITS IV CONT (02:34)
[2024-03-22] MEDS: MORPHINE SULFATE (*CRX) 4 MG/ML INJ 2 MG IV PUSH ×4 (02:41→11:30)
[2024-03-22 02:42] LABS: Glucose Point of Care 81 mg/dl (65-105)
[2024-03-22] MEDS: DEXTROSE 50% 25 GM/50 ML SYRINGE IV PUSH ×3 (03:47→07:33)
[2024-03-22 04:55] LABS: Alanine Aminotransferase 607 U/L (6-50); Albumin Level 3.6 g/dL (3.5-5.1); Alkaline Phosphatase 152 U/L (38-126); Anion Gap 4 mmol/L (4-12); Bilirubin,Total 2.4 mg/dL (0.2-1.3); Carbon Dioxide 28 mmol/L (22-30); Chloride 102 mmol/L (98-107); Estimated CRCL calculation 167 ml/min; Estimated Glomerular Filt Rate > 60; Glucose 90 mg/dL (65-110); Lipase 639 U/L (23-300); Magnesium 1.1 mg/dL (1.6-2.3); Phosphorus 3.2 mg/dL (2.5-4.5); Potassium 4.1 mmol/L (3.4-5.0); Sodium 134 mmol/L (137-145)
[2024-03-22 04:56] LABS: Partial Thromboplastin Time 26.1 Seconds (22.3-36.8)
[2024-03-22 04:56] LABS: Glucose Point of Care 78 mg/dl (65-105)
[2024-03-22 05:02] LABS: Aspartate Amino Transferase 760 U/L (17-59); Blood Urea Nitrogen < 2 mg/dL (9-20); Triglycerides 1469 mg/dL (<150)
[2024-03-22 05:05] LABS: Creatine Kinase 69 U/L (55-170)
[2024-03-22] MEDS: CENTRAL LINE FLUSH 10 ML IV PUSH ×2 (05:43→11:32)
[2024-03-22 05:48] LABS: Glucose Point of Care 139 mg/dl (65-105)
--- NOTE | 2024-03-22 05:50 | PC.NURSE ---
Discussed most recent blood glucose and lab results with BLAIR Olson. Resumed insulin @ 8 units/hr as previously ordered.
[2024-03-22] MEDS: LACTATED RINGERS 1,000 ML 75 ML IV CONT (07:30)
[2024-03-22] MEDS: DEXTROSE 20% 500 ML 75 ML IV CONT (07:30)
[2024-03-22 07:35] LABS: Reflex Lactic Acid Yes or No Add Lactic
[2024-03-22 07:36] LABS: Glucose Point of Care 69 mg/dl (65-105)
[2024-03-22 08:03] LABS: Lactic Acid 1.5 mmol/L (0.7-2.0)
[2024-03-22] MEDS: OMEGA 3 POLYUNSAT FATTY ACIDS 1 GM CAP 2 GM PO (08:25)
[2024-03-22] MEDS: predniSONE 20 MG TABLET 40 MG PO (08:25)
[2024-03-22] MEDS: ENOXAPARIN 40 MG/0.4 ML SYRINGE SUB-Q (08:25)
[2024-03-22] MEDS: MULTIVITAMINS THERAPEUTIC TAB (*BKC) 1 TABLET PO (08:26)
[2024-03-22] MEDS: LOSARTAN POTASSIUM 50 MG TABLET PO (08:26)
[2024-03-22] MEDS: THIAMINE HCL 200 MG/2 ML VIAL 100 MG IV PUSH (08:28)
[2024-03-22] MEDS: FOLIC ACID 1 MG/0.2 ML INJ IV PUSH (08:28)
[2024-03-22] MEDS: PANTOPRAZOLE SODIUM IV 40 MG VIAL IV PUSH (08:28)
[2024-03-22] MEDS: MAGNESIUM SULFATE 3GM/D5W100ML 3 GM/100 ML BAG IVPB (08:29)
--- NOTE | 2024-03-22 08:49 | WPDINTPN ---
Progress Note: A&P Assessment and Plan (1) Pancreatitis: Code(s): K85.90 - Acute pancreatitis without necrosis or infection, unspecified Status: Acute Assessment and Plan: 03/20: Patient presented with abdominal pain in the epigastric region and right upper quadrant, was found to have acute pancreatitis with elevated triglycerides and lipase. Also elevated LFTs -patient adequately fluid-resuscitated in the ER and ICU -PICC line was inserted on 03/20 -03/20: Preliminary blood cultures are negative x2 -pain control with morphine -patient has been switched to D20 LR infusion since he had episodes of hypoglycemia through the night -also on insulin infusion at 8 units/hr for hypertriglyceridemia, -triglycerides trending down (2) Acute alcoholic hepatitis: Code(s): K70.10 - Alcoholic hepatitis without ascites Status: Acute Assessment and Plan: Acute alcoholic hepatitis -Elevated LFTs and bilirubin -Maryjane's Discriminant Function is 16 (it was 38 on 03/20) -continue prednisone 40 mg p.o. daily (3) Hypertriglyceridemia: Code(s): E78.1 - Pure hyperglyceridemia Status: Acute Assessment and Plan: -Monitor triglycerides Q 6 hours -patient has been adequately fluid-resuscitated -currently on insulin infusion at 8 units/hr and D20 LR at 150 mL/hour -triglycerides trending down --unable to treat hypertriglyceridemia with fenofibrate and gemfibrozil due to liver dysfunction (4) Hypertension: Qualifiers: Hypertension type: unspecified Qualified Code(s): I10 - Essential (primary) hypertension Code(s): I10 - Essential (primary) hypertension Status: Chronic Assessment and Plan: Continue to monitor for now, patient on losartan/HCTZ -continue losartan and hold HCTZ (5) History of marijuana use: Code(s): Z87.898 - Personal history of other specified conditions Status: Chronic Assessment and Plan: Will monitor for withdrawal (6) Alcohol abuse: Code(s): F10.10 - Alcohol abuse, uncomplicated Status: Acute Assessment and Plan: CIWA protocol in place, with monitor patient for alcohol withdrawal and DTs -Librium has been ordered along with p.r.n. Ativan -will start Precedex infusion since patient is having tremors and is getting agitated (7) Electrolyte abnormality: Code(s): E87.8 - Other disorders of electrolyte and fluid balance, not elsewhere classified Status: Acute Assessment and Plan: Replace magnesium Plan DVT prophylaxis: Lovenox Stress ulcer prophylaxis: Protonix Nutrition: Full liquid diet, will advance as tolerated to heart healthy diet Code Status: Full code Critical Care Time Spent: 34 minutes Discussed with patient updated him regarding frequent Accu-Cheks as he is on insulin infusion and dextrose. I explained to him the reason for insulin infusion since his triglyceride levels were significantly elevated and that now the on the down trend. He has been requesting for pain medications around the clock, every 3 hours, as the ordered. Patient was getting agitated, bedside RN also explained to him that was not time for his pain medications. Due to a high probability of clinically significant, life threatening deterioration, the patient required my highest level of preparedness to intervene emergently and I personally spent this critical care time directly and personally managing the patient. This critical care time included obtaining a history; examining the patient; pulse oximetry; ordering and review of studies; arranging urgent treatment with development of a management plan; evaluation of patient's response to treatment; frequent reassessment; and discussions with other providers. It was exclusive of separately billable procedures and treating other patients and teaching time. Please see Assessment and Plan section and the rest of the note for further information on patient assessment and treatment This dictation may have been done utilizing a voice recognition system. Attempts have been made to correct errors. However, there may be uncorrected grammatical, spelling, and recognitions errors present. Subjective Date/time seen: 03/22/24 08:49 Interval history: Reason for consult: Pancreatitis, hypertriglyceridemia, elevated LFTs, alcohol intoxication 03/22/2024: Patient seen and examined the ICU, is awake, alert, having some tremors, states he is having shoulder pain and that he has not received his pain medications. Abdominal pain is improving. Off note patient has been requesting pain medications around the clock. Urine output has been adequate, hemodynamically stable, afebrile. Patient dropped his blood sugars overnight requiring half amp of D50. Patient has been started on D20 LR. Triglycerides trending down. Denies any shortness of breath, nausea, vomiting at this time. Review of Systems Review of Systems: All systems reviewed & are unremarkable except as noted in HPI and below Exam Narrative: General: Slightly aggressive this morning, complaining of left shoulder pain and requesting pain medications HEENT:? Pupils equal and reactive, sclerae is clear Neck:? Supple and thick Respiratory:? Clear to auscultation bilaterally, no wheezing, adequate air entry Cardiac:? S1-S2 is normal, sinus tachycardia Abdomen:? Soft, tender to palpation in the epigastric region and right upper quadrant. With normoactive bowels, abdomen is protuberant Extremities:? No edema, palpable pedal pulse Neuro:? Patient is awake, alert, oriented, nonfocal, answers to questions appropriately and follows simple command, upper extremity tremors noted Skin:? Warm and dry Psych:? Anxious and aggressive Objective Data Vital Signs Vital Signs: Vital Signs - 24 hr 03/21/24 09:21 03/21/24 10:00 03/21/24 10:00 Temperature Pulse Rate 100 100 Respiratory Rate 15 Blood Pressure 140/94 H Pulse Oximetry 93 94 Oxygen Delivery Room Air Oxygen Flow Rate Fraction of Inspired Oxygen 21 03/21/24 12:00 03/21/24 12:00 03/21/24 12:00 Temperature 98.6 F Pulse Rate 107 H 108 H Respiratory Rate 17 Blood Pressure 134/85 Pulse Oximetry 93 95 Oxygen Delivery Nasal Cannula Oxygen Flow Rate 2 Fraction of Inspired Oxygen 03/21/24 14:00 03/21/24 14:00 03/21/24 16:00 Temperature 98.4 F Pulse Rate 106 H 105 H 103 H Respiratory Rate 16 21 H Blood Pressure 129/92 H 136/87 Pulse Oximetry 93 92 Oxygen Delivery Oxygen Flow Rate Fraction of Inspired Oxygen 03/21/24 16:00 03/21/24 16:00 03/21/24 18:00 Temperature Pulse Rate 98 106 H Respiratory Rate Blood Pressure Pulse Oximetry 93 Oxygen Delivery Nasal Cannula Oxygen Flow Rate 2 Fraction of Inspired Oxygen 03/21/24 18:00 03/21/24 20:00 03/21/24 20:00 Temperature 97.9 F Pulse Rate 106 H 97 93 Respiratory Rate 17 17 Blood Pressure 150/76 H 137/81 Pulse Oximetry 94 93 Oxygen Delivery Oxygen Flow Rate Fraction of Inspired Oxygen 03/21/24 20:00 03/21/24 22:00 03/21/24 22:00 Temperature Pulse Rate 93 93 Respiratory Rate 14 Blood Pressure 147/94 H Pulse Oximetry 97 97 Oxygen Delivery Nasal Cannula Oxygen Flow Rate 2 Fraction of Inspired Oxygen 03/22/24 00:00 03/22/24 00:00 03/22/24 00:00 Temperature 98.0 F Pulse Rate 86 87 Respiratory Rate 12 Blood Pressure 124/78 Pulse Oximetry 93 93 Oxygen Delivery Nasal Cannula Oxygen Flow Rate 2 Fraction of Inspired Oxygen 03/22/24 02:00 03/22/24 02:00 03/22/24 04:00 Temperature Pulse Rate 81 81 Respiratory Rate 12 Blood Pressure 114/67 Pulse Oximetry 90 96 Oxygen Delivery Nasal Cannula Oxygen Flow Rate 2 Fraction of Inspired Oxygen 03/22/24 04:00 03/22/24 04:00 03/22/24 06:00 Temperature 97.7 F Pulse Rate 89 89 95 Respiratory Rate 12 Blood Pressure 131/86 Pulse Oximetry 96 Oxygen Delivery Oxygen Flow Rate Fraction of Inspired Oxygen 03/22/24 06:00 Temperature Pulse Rate 95 Respiratory Rate 20 Blood Pressure 142/86 H Pulse Oximetry 95 Oxygen Delivery Oxygen Flow Rate Fraction of Inspired Oxygen Intake/Output Intake/Output: Intake & Output 03/19/24 03/20/24 03/21/24 03/22/24 23:59 23:59 23:59 23:59 Intake Total 4225.8 5767.0 2369.4 Output Total 1300 3975 825 Balance 2925.8 1792.0 1544.4 Meds/Results Medications: Active Medications Generic Name Dose Route Start Last Admin Trade Name Freq PRN Reason Stop Dose Admin Chlordiazepoxide HCl 50 mg 03/20/24 09:00 03/22/24 08:26 Chlordiazepoxide (*Crx) 25 Mg Capsule PO 50 mg Q6H JERILYN Administration Dextrose 12.5 gm 03/20/24 05:46 Dextrose 50% 25 Gm/50 Ml Syringe IV PUSH PRN PRN Hypoglycemia Protocol Enoxaparin Sodium 40 mg 03/20/24 09:00 03/22/24 08:25 Enoxaparin 40 Mg/0.4 Ml Syringe SUB-Q 40 mg DAILY JERILYN Administration Fish Oil 2 gm 03/21/24 11:55 03/22/24 08:25 [place] 3 Polyunsat Fatty Acids 1 Gm Cap PO 2 gm BID JERILYN Administration Folic Acid 1 mg 03/21/24 09:00 03/22/24 08:28 Folic Acid 1 Mg/0.2 Ml Inj IV PUSH 1 mg QAM JERILYN Administration Glucagon 1 mg 03/20/24 05:46 Glucagon For Inj 1 Mg Vial IM PRN PRN Hypoglycemia Protocol Glucose 15 gm 03/20/24 05:46 Glucose Oral Gel 15 Gm Of Glucse In 37.5 Gm Tube PO PRN PRN Hypoglycemia Protocol Hydralazine HCl 5 mg 03/20/24 13:32 03/20/24 14:08 Hydralazine Hcl 20 Mg/Ml Vial IV PUSH 5 mg Q8H PRN Administration Blood Pressure - High Insulin Human Regular 100 100 mls @ 8 mls/hr 03/20/24 05:50 03/22/24 05:50 units/ Sodium Chloride IV CONT 8 units/hr .[id number] JERILYN 8 mls/hr Infusion 8 UNITS/HR Dextrose 1,000 mls @ 100 mls/hr 03/20/24 05:46 Dextrose 5% 1,000 Ml IVPB PRN PRN Hypoglycemia Protocol Lactated Ringer's 1,000 mls @ 75 mls/hr 03/22/24 06:55 03/22/24 07:30 Lr - Lactated Ringers Iv IV CONT 75 mls/hr .[id number] JERILYN Administration Dextrose 500 mls @ 75 mls/hr 03/22/24 06:55 03/22/24 07:30 IV CONT 75 mls/hr .[id number] JERILYN Administration Magnesium Sulfate/Dextrose 3 gm in 100 mls @ 33.333 mls/hr 03/22/24 07:45 03/22/24 08:29 Magnesium Sulfate 3gm/[id number] IVPB 03/22/24 10:44 33.33 mls/hr ONCE ONE Administration Dexmedetomidine HCl 400 mcg in 100 mls @ 5.885 mls/hr 03/22/24 08:45 Precedex 400 Mcg/100 Ml IV CONT .Q17H JERILYN Protocol 0.2 MCG/KG/HR Lorazepam 2 mg 03/20/24 05:20 03/22/24 05:45 Lorazepam Inj (*Crx) 2 Mg/Ml Vial IV PUSH 2 mg Q4H PRN Administration CIWA 8-15 Lorazepam 2 mg 03/20/24 09:31 03/22/24 01:01 Lorazepam Inj (*Crx) 2 Mg/Ml Vial IV PUSH 2 mg Q2H PRN Administration CIWA > 15 Losartan Potassium 50 mg 03/21/24 09:00 03/22/24 08:26 Losartan Potassium 50 Mg Tablet PO 50 mg QAM JERILYN Administration Morphine Sulfate 2 mg 03/21/24 10:07 03/22/24 08:28 Morphine Sulfate (*Crx) 4 Mg/Ml Inj IV PUSH 2 mg Q3H PRN Administration Pain Rated 7-10 Multivitamins Therapeutic 1 tablet 03/21/24 09:00 03/22/24 08:26 Multivitamins Therapeutic Tab (*Bkc) PO 1 tablet QAM JERILYN Administration Ondansetron HCl 4 mg 03/20/24 05:46 03/21/24 23:16 Ondansetron Inj 4 Mg/2 Ml Vial IV PUSH 4 mg Q4H PRN Administration Nausea Pantoprazole Sodium 40 mg 03/20/24 09:00 03/22/24 08:28 Pantoprazole Sodium Iv 40 Mg Vial IV PUSH 40 mg QAM JERILYN Administration Polyethylene Glycol 17 gm 03/21/24 10:04 03/21/24 12:24 Polyethylene Glycol 3350 17 Gm Powd.Pack PO 17 gm QAM PRN Administration Constipation Prednisone 40 mg 03/21/24 08:00 03/22/24 08:25 Prednisone 20 Mg Tablet PO 40 mg DAILY@0800 JERILYN Administration Sodium Chloride 10 ml 03/20/24 14:00 03/22/24 05:43 Central Line Flush IV PUSH 10 ml Q8HR JERILYN Administration Sodium Chloride 10 ml 03/20/24 13:09 Central Line Flush IV PUSH PRN PRN with TPN bag changes Sodium Chloride 20 ml 03/20/24 13:09 Central Line Flush IV PUSH PRN PRN after blood draws Thiamine HCl 100 mg 03/20/24 09:00 03/22/24 08:28 Thiamine Hcl 200 Mg/2 Ml Vial IV PUSH 100 mg DAILY JERILYN Administration Radiology Results: ITS Impressions Abdomen/Pelvis CT 03/20/24 09:26 IMPRESSION: 1. Minimal inflammatory stranding about the head of the pancreas suspicious for acute interstitial pancreatitis. Correlate with lipase levels. 2. Diffuse hepatic steatosis. 3. Small sliding-type hiatal hernia. Chest X-Ray 03/20/24 13:27 IMPRESSION: 1. Right PICC line tip at the midsuperior vena cava. No acute cardiopulmonary disease. Labs Labs: Laboratory Results - last 24 hr 03/21/24 03/21/24 03/21/24 05:16 08:12 09:59 PT INR APTT Sodium 127 L Potassium 4.7 Chloride 104 Carbon Dioxide 22 Anion Gap 1 L BUN 3 L D Creatinine 0.50 L Estim Creat Clear Calc 197 Estimated GFR > 60 Glucose 129 H POC Capillary Glucose 178 H Lactic Acid Calcium 7.2 L Phosphorus 2.8 Magnesium 0.9 L Total Bilirubin 3.6 H AST 1236 H ALT 722 H Alkaline Phosphatase 150 H Total Creatine Kinase 94 Total Protein 7.0 Albumin 3.6 Triglycerides Cancelled > 2625 H Lipase 373 H 03/21/24 03/21/24 03/21/24 11:55 14:11 14:34 PT INR APTT Sodium Potassium Chloride Carbon Dioxide Anion Gap BUN Creatinine Estim Creat Clear Calc Estimated GFR Glucose POC Capillary Glucose 168 H 184 H Lactic Acid Calcium Phosphorus Magnesium Total Bilirubin AST ALT Alkaline Phosphatase Total Creatine Kinase Total Protein Albumin Triglycerides > 2625 H Lipase 03/21/24 03/21/24 03/21/24 16:25 18:02 20:08 PT INR APTT Sodium Potassium Chloride Carbon Dioxide Anion Gap BUN Creatinine Estim Creat Clear Calc Estimated GFR Glucose POC Capillary Glucose 163 H 218 H 152 H Lactic Acid Calcium Phosphorus Magnesium Total Bilirubin AST ALT Alkaline Phosphatase Total Creatine Kinase Total Protein Albumin Triglycerides Lipase 03/21/24 03/21/24 03/21/24 20:18 22:01 23:11 PT INR APTT Sodium Potassium Chloride Carbon Dioxide Anion Gap BUN Creatinine Estim Creat Clear Calc Estimated GFR Glucose POC Capillary Glucose 102 103 Lactic Acid Calcium Phosphorus Magnesium Total Bilirubin AST ALT Alkaline Phosphatase Total Creatine Kinase Total Protein Albumin Triglycerides 2473 H Lipase 03/22/24 03/22/24 03/22/24 00:56 02:37 04:23 PT 14.0 INR 1.0 APTT 26.1 Sodium 134 L Potassium 4.1 Chloride 102 Carbon Dioxide 28 Anion Gap 4 BUN < 2 L Creatinine 0.60 L Estim Creat Clear Calc 167 Estimated GFR > 60 Glucose 90 POC Capillary Glucose 91 81 Lactic Acid 3.0 H Calcium 8.0 L Phosphorus 3.2 Magnesium 1.1 L Total Bilirubin 2.4 H AST 760 H ALT 607 H Alkaline Phosphatase 152 H Total Creatine Kinase 69 Total Protein 7.0 Albumin 3.6 Triglycerides 1469 H Lipase 639 H 03/22/24 03/22/24 03/22/24 04:51 05:43 07:29 PT INR APTT Sodium Potassium Chloride Carbon Dioxide Anion Gap BUN Creatinine Estim Creat Clear Calc Estimated GFR Glucose POC Capillary Glucose 78 139 H 69 Lactic Acid Calcium Phosphorus Magnesium Total Bilirubin AST ALT Alkaline Phosphatase Total Creatine Kinase Total Protein Albumin Triglycerides Lipase 03/22/24 07:46 PT INR APTT Sodium Potassium Chloride Carbon Dioxide Anion Gap BUN Creatinine Estim Creat Clear Calc Estimated GFR Glucose POC Capillary Glucose Lactic Acid 1.5 Calcium Phosphorus Magnesium Total Bilirubin AST ALT Alkaline Phosphatase Total Creatine Kinase Total Protein Albumin Triglycerides Lipase
[2024-03-22] MEDS: dexmedeTOMIDine 400 MCG/100 ML 400 MCG/100 ML BAG 5.89 MCG IV CONT (08:57)
[2024-03-22 09:38] LABS: Glucose Point of Care 120 mg/dl (65-105)
--- NOTE | 2024-03-22 09:52 | PC.NURSE ---
[id number] Patient setting off chair alarm and standing up when asked what he needed he stated I want to fall so I can bust my head open and then I can jaun this place and get a bunch of money. Patient redirected to sit down and patient sat back in chair.
[2024-03-22 11:36] LABS: Glucose Point of Care 151 mg/dl (65-105)
--- NOTE | 2024-03-22 13:19 | PC.NURSE ---
Patient wanting to go AMA. He answered all orientation questions correctly. Patient attempting to get ride home. Parents refusing to come get him. Dr. Johnson notified and here to see patient.
--- NOTE | 2024-03-22 13:38 | P.DS_ITS ---
DS: Admitting Diagnosis Discharge Date 03/22/2024 Admitting Diagnosis Pancreatitis DS: Discharge Diagnosis Discharge Diagnosis (1) Pancreatitis: Code(s): K85.90 - Acute pancreatitis without necrosis or infection, unspecified Status: Acute (2) Acute alcoholic hepatitis: Code(s): K70.10 - Alcoholic hepatitis without ascites Status: Acute (3) Hypertriglyceridemia: Code(s): E78.1 - Pure hyperglyceridemia Status: Acute (4) Hypertension: Qualifiers: Hypertension type: unspecified Qualified Code(s): I10 - Essential (primary) hypertension Code(s): I10 - Essential (primary) hypertension Status: Chronic (5) History of marijuana use: Code(s): Z87.898 - Personal history of other specified conditions Status: Chronic (6) Alcohol abuse: Code(s): F10.10 - Alcohol abuse, uncomplicated Status: Acute (7) Electrolyte abnormality: Code(s): E87.8 - Other disorders of electrolyte and fluid balance, not elsewhere classified Status: Acute DS: Summary Hospital Course Hospital Course: This is a 44-year-old male who presents to the ED with complaint of epigastric pain and flank pain. History of alcoholism. Last drink 4 hours prior to arrival to ED. History of pancreatitis in the past. On ED evaluation he was mildly tachycardic on vitals afebrile Laboratory evaluation showed hemoglobin of 14 hyponatremia with sodium of 130. Mild acidosis renal function was normal lipase level was elevated at 547. LFTs were elevated with AST of 1600 ALT of 700 Heri phosphorus of 202. Urinalysis was negative for infection. Alcohol level was 198. Triglyceride was more than 2625. CT abdomen pelvis with possible minimal focal acute interstitial edematous pancreatitis around the pancreatic head and uncinate process no radiopaque gallstones. Fatty hepatomegaly. Patient received IV fluid was also started on insulin infusion and was admitted to ICU for further treatment on 03/20/2024. Patient's triglyceride was monitored regularly and was trending down. Unable to do fibrates due to liver dysfunction. Elevated liver enzymes was related to acute alcoholic hepatitis with Maddrey discriminant function elevated at 38 on admission and was started on steroid. Patient was placed on CIWA protocol with Librium which was switched to Precedex. On 03/22/2020 for patient was agitated and wanted to leave against medical advise. Patient was alert and oriented x3 and reported eating wanted to stay any longer. Patient was counseled with vamshi sebastian risk of leaving against medical advise which potentially includes worsening condition even . Patient stated aware of this risk and still decided to leave against medical advise. This was also discussed with the metal casket assembler. Time Spent with Patient Time attestation: Total time spent providing and/or coordinating discharge services: 35 minutes Exam Narrative: General: Slightly aggressive HEENT:? Pupils equal and reactive, sclerae is clear Neck:? Supple and thick Respiratory:? Clear to auscultation bilaterally, no wheezing, adequate air entry Cardiac:? S1-S2 is normal, sinus tachycardia Abdomen:? Soft, With normoactive bowels, abdomen is protuberant Extremities:? No edema, palpable pedal pulse Neuro:? Patient is awake, alert, oriented, nonfocal, answers to questions appropriately and follows simple command, upper extremity tremors noted Skin:? Warm and dry Psych:? Anxious and aggressive DS: Data Data Completed and Pending Labs on day of discharge: Labs from last 24 hours 03/22/24 03/22/24 03/22/24 11:28 09:34 07:46 PT INR APTT Sodium Potassium Chloride Carbon Dioxide Anion Gap BUN Creatinine Estim Creat Clear Calc Estimated GFR Glucose POC Capillary Glucose 151 H 120 H Lactic Acid 1.5 Calcium Phosphorus Magnesium Total Bilirubin AST ALT Alkaline Phosphatase Total Creatine Kinase Total Protein Albumin Triglycerides Lipase 03/22/24 03/22/24 03/22/24 07:29 05:43 04:51 PT INR APTT Sodium Potassium Chloride Carbon Dioxide Anion Gap BUN Creatinine Estim Creat Clear Calc Estimated GFR Glucose POC Capillary Glucose 69 139 H 78 Lactic Acid Calcium Phosphorus Magnesium Total Bilirubin AST ALT Alkaline Phosphatase Total Creatine Kinase Total Protein Albumin Triglycerides Lipase 03/22/24 03/22/24 03/22/24 04:23 02:37 00:56 PT 14.0 INR 1.0 APTT 26.1 Sodium 134 L Potassium 4.1 Chloride 102 Carbon Dioxide 28 Anion Gap 4 BUN < 2 L Creatinine 0.60 L Estim Creat Clear Calc 167 Estimated GFR > 60 Glucose 90 POC Capillary Glucose 81 91 Lactic Acid 3.0 H Calcium 8.0 L Phosphorus 3.2 Magnesium 1.1 L Total Bilirubin 2.4 H AST 760 H ALT 607 H Alkaline Phosphatase 152 H Total Creatine Kinase 69 Total Protein 7.0 Albumin 3.6 Triglycerides 1469 H Lipase 639 H 12/30/24 12/30/24 12/30/24 23:11 22:01 20:18 PT INR APTT Sodium Potassium Chloride Carbon Dioxide Anion Gap BUN Creatinine Estim Creat Clear Calc Estimated GFR Glucose POC Capillary Glucose 103 102 Lactic Acid Calcium Phosphorus Magnesium Total Bilirubin AST ALT Alkaline Phosphatase Total Creatine Kinase Total Protein Albumin Triglycerides 2473 H Lipase 03/21/24 03/21/24 03/21/24 20:08 18:02 16:25 PT INR APTT Sodium Potassium Chloride Carbon Dioxide Anion Gap BUN Creatinine Estim Creat Clear Calc Estimated GFR Glucose POC Capillary Glucose 152 H 218 H 163 H Lactic Acid Calcium Phosphorus Magnesium Total Bilirubin AST ALT Alkaline Phosphatase Total Creatine Kinase Total Protein Albumin Triglycerides Lipase 03/21/24 03/21/24 03/21/24 14:34 14:11 05:16 PT INR APTT Sodium Potassium Chloride Carbon Dioxide Anion Gap BUN Creatinine Estim Creat Clear Calc Estimated GFR Glucose POC Capillary Glucose 184 H Lactic Acid Calcium Phosphorus Magnesium Total Bilirubin AST ALT Alkaline Phosphatase Total Creatine Kinase Total Protein Albumin Triglycerides > 2625 H Cancelled Lipase Preliminary micro results at discharge 03/20/24 10:10 Blood Culture - Preliminary Blood 03/20/24 10:13 Blood Culture - Preliminary Blood Imaging Radiologist's impression: ITS Impressions Abdomen/Pelvis CT 03/20/24 09:26 IMPRESSION: 1. Minimal inflammatory stranding about the head of the pancreas suspicious for acute interstitial pancreatitis. Correlate with lipase levels. 2. Diffuse hepatic steatosis. 3. Small sliding-type hiatal hernia. Chest X-Ray 03/20/24 13:27 IMPRESSION: 1. Right PICC line tip at the midsuperior vena cava. No acute cardiopulmonary disease. Discharge Plan Discharge Consulting providers: La Matthew; Maci Naranjo Patient Disposition: Left Against Medical Advice Patient Language: Romanian Discharge Medications: No Action magnesium oxide 400 mg (241.3 mg magnesium) Tablet 400 mg PO QAM Qty: 30 1RF losartan-hydrochlorothiazide 50-12.5 mg tablet 1 tablet PO DAILY multivitamin with folic acid [Thera] 400 mcg Tablet 1 tablet PO QAM Qty: 30 0RF loratadine 10 mg tablet 10 mg PO Q24H famotidine 40 mg tablet 40 mg PO Q12H Date of admission: 03/20/24 10:29 Primary Care Provider: Jose Manuel Gibbs Admitting Provider: Shalom Cifuentes V. Attending physician on admission: Shalom Cifuentes V. Condition: Stable
--- OUTSIDE RECORDS SUMMARY | 2024-03-27 02:01 | XMS_ITS | Encounter Summary ---
Author Organization [facility] Address [address] [place] [address]. [place] [address] [place] [address] Care Team Providers Care Paper Reeler Name Role Phone Brett Fabian MD Primary Care Provider [phone] Encounter Details Date Type Department Care Team (Late st Contact Info) Description 08/10/2016 Orders Only [place] [address] , Generic Conversion, Social History Tobacco Use Types Packs/Day Years Used Date Smoking Tobacco: Never Assessed Sex and Gender Information Value Date Recorded Sex Assigned at Not on file Legal Sex Male 5:14 PM CDT Gender Identity Not on file Sexual Orientation Not on file documented as of this encounter Plan of Treatment Not on file documented as of this encounter Procedures Procedure Name Priority Date/Time Associated Diagnosis Comments CBC W/DIFF AUTOMATED STAT 08/10/2016 3:43 AM CDT documented in this encounter Results * CBC W/DIFF AUTOMATED (08/10/2016 3:43 AM CDT) WBC 6.4 4.0 - 10.8 x10'3/uL 08/10/2016 2:52 AM CDT [facility] RBC 5.01 4.50 - 6.10 x10'6/uL 08/10/2016 2:52 AM CDT [facility] HGB 15.4 13.0 - 18.0 G/DL 08/10/2016 2:52 AM CDT [facility] HCT 44.0 37.0 - 52.0 % 08/10/2016 2:52 AM CDT [facility] MCV 87.8 78.0 - 100.0 FL 08/10/2016 2:52 AM CDT [facility] MCH 30.7 27.0 - 31.0 PG 08/10/2016 2:52 AM CDT [facility] MCHC 35.0 33.0 - 36.0 G/DL 08/10/2016 2:52 AM CDT [facility] RDW 12.7 11.5 - 14.5 % 08/10/2016 2:52 AM CDT [facility] PLT 285 150 - 350 x10'3/uL 08/10/2016 2:52 AM CDT [facility] MPV 8.8 7.4 - 10.4 FL 08/10/2016 2:52 AM CDT [facility] ABS. NEUTROPHILS TOTAL 3.48 1.60 - 8.30 x10'3/uL 08/10/2016 2:52 AM CDT [facility] ABS. LYMPHOCYTES 2.11 0.80 - 4.70 x10'3/uL 08/10/2016 2:52 AM CDT [facility] ABS. MONOCYTES 0.67 0.00 - 1.50 x10'3/uL 08/10/2016 2:52 AM CDT [facility] ABS. EOSINOPHILS 0.06 0.00 - 0.40 x10'3/uL 08/10/2016 2:52 AM CDT [facility] ABS. BASOPHILS 0.02 0.00 - 0.20 x10'3/uL 08/10/2016 2:52 AM CDT [facility] ABS. IMMATURE GRANULOCYTES 0.02 0.00 - 0.03 x10'3/uL 08/10/2016 2:52 AM CDT [facility] ABS. NUCLEATED RBC'S 0.00 0.0 x10'3/uL 08/10/2016 2:52 AM CDT [facility] PLASMA SPECIMEN / Unknown 08/10/2016 3:43 AM CDT 08/10/2016 2:45 AM CDT us Generic Conversion Md [facility] Final R esult [facility] [address] [place] [address], [id number] documented in this encounter Visit Diagnoses Not on filedocumented in this encounter Care Teams Paper Reeler Relationship Specialty Start Date End Date Brett Fabian MD PCP - General 12/22/15 documented as of this encounter
--- OUTSIDE RECORDS SUMMARY | 2024-03-27 02:01 | XMS_ITS | Encounter Summary ---
Author Organization [facility] Address [address] [place] [address]. [place] [address] [place] [address] Care Team Providers Care Drywall Hanger Name Role Phone Brett Fabian MD Primary Care Provider [phone] Encounter Details Date Type Department Care Team (Late st Contact Info) Description 08/10/2016 Orders Only [place] [address] , Generic ConversionMD Social History Tobacco Use Types Packs/Day Years [...] Procedure Name Priority Date/Time Associated Diagnosis Comments THYROID STIM HORMONE TSH STAT 08/10/2016 3:44 AM CDT documented in this encounter Results * THYROID STIM HORMONE, TSH (08/10/2016 3:44 AM CDT) TSH 1.346 0.35 - 4.94 uIU/ML 08/10/2016 3:25 AM CDT [facility] SERUM OR PLASMA SPECIMEN / Unknown 08/10/2016 3:44 AM CDT 08/10/2016 2:45 AM CDT us Generic Conversion Md [facility] Final R esult [facility] [address] [place] [address], [id number] documented in this encounter Visit Diagnoses Not on filedocumented in this encounter Care Teams Drywall Hanger Relationship Specialty Start Date End Date Brett Fabian MD PCP - General 12/22/15 documented as of this encounter
--- OUTSIDE RECORDS SUMMARY | 2024-03-27 02:01 | XMS_ITS | Encounter Summary ---
Author Organization [facility] Address [facility]. [place], [place] [id number] [place] [address] Care Team Providers Care Acrobatic Dancer Name Role Phone Brett Fabian MD Primary Care Provider [phone] Encounter Details Date Type Department Care Team (Late st Contact Info) Description 01/24/2017 [place] [address] , Generic ConversionMD Social History Tobacco Use Types Packs/Day Years Used Date Smoking Tobacco: Never Assessed Sex and Gender Information Value Date Recorded Sex Assigned at Not on file Legal Sex Male 5:14 PM CDT Gender Identity Not on file Sexual Orientation Not on file documented as of this encounter Plan of Treatment Not on file documented as of this encounter Visit Diagnoses Not on filedocumented in this encounter Care Teams Acrobatic Dancer Relationship Specialty Start Date End Date Brett Fabian MD PCP - General 12/22/15 documented as of this encounter
--- OUTSIDE RECORDS SUMMARY | 2024-03-27 02:01 | XMS_ITS | Encounter Summary ---
Author Organization [facility] Address [address] [place] [address]. [place] [address] [place] [address] Care Team Providers Care Seamless Tube Drawer Name Role Phone Brett Fabian MD Primary Care Provider [phone] Encounter Details Date Type Department Care Team (Late st Contact Info) Description 08/10/2016 Orders [place] [address] , Generic Conversion, Social History Tobacco Use [...] Procedure Name Priority Date/Time Associated Diagnosis Comments ETHANOL TIMED 08/10/2016 9:52 AM CDT documented in this encounter Results * (ABNORMAL) ETHANOL (08/10/2016 9:52 AM CDT) ALCOHOL S/P/B 0.154(H) 0 G/DL 08/10/2016 9:23 AM CDT [facility] SERUM OR PLASMA SPECIMEN / Unknown 08/10/2016 9:52 AM CDT 08/10/2016 8:57 AM CDT us Generic Conversion Md [facility] Final R esult [facility] [address] [place] [address], [id number] documented in this encounter Visit Diagnoses Not on filedocumented in this encounter Care Teams Seamless Tube Drawer Relationship Specialty Start Date End Date Brett Fabian MD PCP - General 12/22/15 documented as of this encounter
--- OUTSIDE RECORDS SUMMARY | 2024-03-27 02:01 | XMS_ITS | Encounter Summary ---
Author Organization [facility] Address [facility] [place] [address] [place] [address] Care Team Providers Care Division Sales Manager Name Role Phone Brett Fabian MD Primary Care Provider [phone] Encounter Details Date Type Department Care Team (Late st Contact Info) Description 08/10/2016 Orders [place] [address] , Generic Conversion, Social History [...] Procedure Name Priority Date/Time Associated Diagnosis Comments URINALYSIS Nurse Collected Priority 08/10/2016 4:08 AM CDT documented in this encounter Results * URINALYSIS (08/10/2016 4:08 AM CDT) COLOR (U) YELLOW 08/10/2016 3:21 AM CDT [facility] TRANSPARENCY CLEAR 08/10/2016 3:21 AM CDT [facility] SPECIFIC GRAVITY (U) 1.014 1.002 - 1.035 08/10/2016 3:21 AM CDT [facility] U PH 6.0 5 - 8 08/10/2016 3:21 AM CDT [facility] PROTEIN (U) NEGATIVE NEGATIVE 08/10/2016 3:21 AM CDT [facility] URINE GLUCOSE NEGATIVE NEGATIVE MG/DL 08/10/2016 3:21 AM CDT [facility] KETONES MG/DL (U) NEGATIVE NEGATIVE 08/10/2016 3:21 AM CDT [facility] BILIRUBIN (U) NEGATIVE NEGATIVE 08/10/2016 3:21 AM CDT [facility] BLOOD (U) NEGATIVE NEGATIVE 08/10/2016 3:21 AM CDT [facility] NITRITES NEGATIVE NEGATIVE 08/10/2016 3:21 AM CDT [facility] UROBILINOGEN NORMAL 0 - 1 EU/DL 08/10/2016 3:21 AM CDT [facility] LEUKOCYTES (U) NEGATIVE NEGATIVE 08/10/2016 3:21 AM CDT [facility] RBC/HPF <1 /HPF 08/10/2016 3:21 AM CDT [facility] WBC/HPF 1 /HPF 08/10/2016 3:21 AM CDT [facility] BACTERIA (U) NONE /HPF 08/10/2016 3:21 AM CDT [facility] SQUAMOUS EPITHELIALS <1 08/10/2016 3:21 AM CDT [facility] URINE SPECIMEN / Unknown 08/10/2016 4:08 AM CDT 08/10/2016 3:14 AM CDT us Generic Conversion Md [facility] URINE ORDERABLES Final Result [facility] [address] [place] [address], [id number] documented in this encounter Visit Diagnoses Not on filedocumented in this encounter Care Teams Division Sales Manager Relationship Specialty Start Date End Date Brett Fabian MD PCP - General 12/22/15 documented as of this encounter
--- OUTSIDE RECORDS SUMMARY | 2024-03-27 02:01 | XMS_ITS | Encounter Summary ---
Author Organization [facility] Address [address] [place] [address]. [place] [address] [place] [address] Care Team Providers Care Veterinary Milk Specialist Name Role Phone Brett Fabian MD Primary Care Provider [phone] Encounter Details Date Type Department Care Team (Late st Contact Info) Description 06/06/2017 Abstract [facility] CONVERSION [address] [place] [address] , Generic ConversionMD Social History Tobacco Use [...] on filedocumented in this encounter Care Teams Veterinary Milk Specialist Relationship Specialty Start Date End Date Brett Fabian MD PCP - General 12/22/15 documented as of this encounter
--- OUTSIDE RECORDS SUMMARY | 2024-03-27 02:01 | XMS_ITS | Encounter Summary ---
Author Organization [facility] Address [address] [place] [address]. [place] [address] [place] [address] Care Team Providers Care Labview Programmer Name Role Phone Brett Fabian MD Primary Care Provider [phone] Encounter Details Date Type Department Care Team (Late st Contact Info) Description 08/10/2016 Orders Only [place] [address] , Generic Conversion, Social History Tobacco Use [...] Name Priority Date/Time Associated Diagnosis Comments ETHANOL STAT 08/10/2016 3:44 AM CDT documented in this encounter Results * (ABNORMAL) ETHANOL (08/10/2016 3:44 AM CDT) ALCOHOL S/P/B 0.280(H) 0 G/DL 08/10/2016 3:05 AM CDT [facility] SERUM OR PLASMA SPECIMEN / Unknown 08/10/2016 3:44 AM CDT 08/10/2016 2:45 AM CDT us Generic Conversion Md [facility] Final R esult [facility] [address] [place] [address], [id number] documented in this encounter Visit Diagnoses Not on filedocumented in this encounter Care Teams Labview Programmer Relationship Specialty Start Date End Date Brett Fabian MD PCP - General 12/22/15 documented as of this encounter
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
--- OUTSIDE RECORDS SUMMARY | 2024-03-27 02:01 | XMS_ITS | Encounter Summary ---
Author Organization [facility] Address [address] [place] [address]. [place] [address] [place] [address] Care Team Providers Care Defensive Line Coach Name Role Phone Brett Fabian MD Primary Care Provider [phone] Encounter Details Date Type Department Care Team (Late st Contact Info) Description 08/10/2016 Orders Only [place] [address] , Generic Conversion, Social History [...] Procedure Name Priority Date/Time Associated Diagnosis Comments HEPATIC FUNCTION PANEL STAT 08/10/2016 3:44 AM CDT documented in this encounter Results * HEPATIC FUNCTION PANEL (08/10/2016 3:44 AM CDT) TOTAL PROTEIN S/P/B 7.4 6.0 - 8.3 G/DL 08/10/2016 3:08 AM CDT [facility] ALBUMIN S/P/B 4.4 3.4 - 4.9 G/DL 08/10/2016 3:08 AM CDT [facility] BILIRUBIN TOTAL S/P/B 0.3 0.2 - 1.2 MG/DL 08/10/2016 3:08 AM CDT [facility] BILIRUBIN DIRECT S/P/B 0.1 0.0 - 0.5 MG/DL 08/10/2016 3:08 AM CDT [facility] ALKALINE PHOSPHATASE S/P/B 66 45 - 115 U/L 08/10/2016 3:08 AM CDT [facility] AST 23 5 - 35 U/L 08/10/2016 3:08 AM CDT [facility] ALT 20 0 - 55 U/L 08/10/2016 3:08 AM CDT [facility] PLASMA SPECIMEN / Unknown 08/10/2016 3:44 AM CDT 08/10/2016 2:45 AM CDT us Generic Conversion Md [facility] Final R esult [facility] [address] [place] [address], [place] [phone] [id number] documented in this encounter Visit Diagnoses Not on filedocumented in this encounter Care Teams Defensive Line Coach Relationship Specialty Start Date End Date Brett Fabian MD PCP - General 12/22/15 documented as of this encounter
--- OUTSIDE RECORDS SUMMARY | 2024-03-27 02:01 | XMS_ITS | Encounter Summary ---
Author Organization [facility] Address [address] [place] [address]. [place] [address] [place] [address] Care Team Providers Care Sales Representative Name Role Phone Brett Fabian MD Primary Care Provider [phone] Encounter Details Date Type Department Care Team (Late st Contact Info) Description 12/22/[address] [facility] [place] [address] Freedom Fernandes MD [address] [place] [address] Social History Tobacco Use Types Packs/Day Years Used Date Smoking Tobacco: Never Assessed Sex and Gender Information Value Date Recorded Sex Assigned at Not on file Legal Sex Male 5:14 PM CDT Gender Identity Not on file Sexual Orientation Not on file documented as of this encounter Plan of Treatment Not on file documented as of this encounter Visit Diagnoses Diagnosis Hemangioma of intra-abdominal structures documented in this encounter Care Teams Sales Representative Relationship Specialty Start Date End Date Brett Fabian MD PCP - General 12/22/15 documented as of this encounter
--- OUTSIDE RECORDS SUMMARY | 2024-03-27 02:01 | XMS_ITS | Encounter Summary ---
Author Organization [facility] Address [address] [place] [address]. [place], [place] [address] [place] [address] Care Team Providers Care Supervisor Decorating Name Role Phone Brett Fabian MD Primary Care Provider [phone] Encounter Details Date Type Department Care Team (Late st Contact Info) Description 01/04/2001 Abstract [facility] CONVERSION [address] [place], [place] [id number] , Generic ConversionMD Social History Tobacco Use [...] on filedocumented in this encounter Care Teams Supervisor Decorating Relationship Specialty Start Date End Date Brett Fabian MD PCP - General 12/22/15 documented as of this encounter
--- OUTSIDE RECORDS SUMMARY | 2024-03-27 02:01 | XMS_ITS | Clinical Summary ---
Author Organization [facility] Address [address] [place] [address]. [place], [place] [address] [place] [address] Care Team Providers Care Clinical Trainer Name Role Phone Brett Fabian MD Primary Care Provider [phone] Social History Tobacco Use Types Packs/Day Years Used Date Smoking Tobacco: Never Assessed Sex and Gender Information Value Date Recorded Sex Assigned at Not on file Legal Sex Male 5:14 PM CDT Gender Identity Not on file Sexual Orientation Not on file Plan of Treatment Health Maintenance Due Date Last Done Comments Colorectal Cancer Screening Colonoscopy (10 Years) 1979 Annual Physical 1982 Hepatitis C 1997 DTaP, Tdap and Td Vaccines ( 1 - Tdap) 1998 Hepatitis B Vaccines (1 of 3 - 19+ 3-dose series) 1998 COVID-19 Vaccine (2023-2 5 season) 2023 Influenza Adult (#1) 2023 HPV Vaccines Aged Out No longer eligi ble based on patient's age to complete this topic Meningococcal Vaccine Aged Out No jasmin wilner eligible based on patient's age to complete this topic Pneumococcal Vaccine: Pediat rics (0 to 5 Years) and At-Risk Patients (6 to 64 Years) Aged Out No longer eligible b ased on patient's age to complete this topic RSV Immunizations Under 20 Months Aged Out No longer eligible based on patient's age to complete this topic Care Teams Clinical Trainer Relationship Specialty Start Date End Date Brett Fabian MD PCP - General 12/22/15
--- OUTSIDE RECORDS SUMMARY | 2024-03-27 02:01 | XMS_ITS | Encounter Summary ---
Author Organization [facility] Address [address] [place] [address]. [place], [place] [id number] [place] [address] Care Team Providers Care Corporate Legal Intern Name Role Phone Brett Fabian MD Primary Care Provider [phone] Encounter Details Date Type Department Care Team (Late st Contact Info) Description 12/19/2001 Abstract [facility] CONVERSION [address] [place] [address] , Generic ConversionMD Social History Tobacco Use [...] on filedocumented in this encounter Care Teams Corporate Legal Intern Relationship Specialty Start Date End Date Brett Fabian MD PCP - General 12/22/15 documented as of this encounter
--- OUTSIDE RECORDS SUMMARY | 2024-03-27 02:01 | XMS_ITS | Encounter Summary ---
Author Organization [facility] Address [facility] [place] [address] [place] [address] Care Team Providers Care Oil Well Cable Tool Driller Name Role Phone Brett Fabian MD Primary Care Provider [phone] Encounter Details Date Type Department Care Team (Late st Contact Info) Description 08/10/2016 Orders Only [place] [address] , Generic Conversion, Social History [...] Procedure Name Priority Date/Time Associated Diagnosis Comments BASIC METABOLIC PANEL STAT 08/10/2016 3:44 AM CDT documented in this encounter Results * BASIC METABOLIC PANEL (08/10/2016 3:44 AM CDT) SODIUM S/P/B 142 135 - 147 MMOL/L 08/10/2016 3:05 AM CDT [facility] POTASSIUM S/P/B 3.8 3.5 - 5.0 MMOL/L 08/10/2016 3:05 AM CDT [facility] CHLORIDE S/P/B 105 98 - 107 MMOL/L 08/10/2016 3:05 AM CDT [facility] CALCIUM S/P/B 8.7 8.4 - 10.2 MG/DL 08/10/2016 3:05 AM CDT [facility] CO2 25.4 22 - 29 MMOL/L 08/10/2016 3:05 AM CDT [facility] GLUCOSE 100 70 - 109 MG/DL 08/10/2016 3:05 AM CDT [facility] BUN 12 9 - 21 MG/DL 08/10/2016 3:05 AM CDT [facility] CREATININE S/P/B 1.05 0.70 - 1.30 MG/DL 08/10/2016 3:05 AM CDT [facility] OSMOLALITY (CALC) 283 08/10/2016 3:05 AM CDT [facility] ANION GAP 12 MMOL/L 08/10/2016 3:05 AM CDT [facility] PLASMA SPECIMEN / Unknown 08/10/2016 3:44 AM CDT 08/10/2016 2:45 AM CDT us Generic Conversion Md [facility] Final R esult [facility] [address] [place] [id number] documented in this encounter Visit Diagnoses Not on filedocumented in this encounter Care Teams Oil Well Cable Tool Driller Relationship Specialty Start Date End Date Brett Fabian MD PCP - General 12/22/15 documented as of this encounter
--- OUTSIDE RECORDS SUMMARY | 2024-03-27 02:01 | XMS_ITS | Encounter Summary ---
Author Organization [facility] Address [address] [place] [address]. [place] [address] [place] [address] Care Team Providers Care Train Operator Name Role Phone Brett Fabian MD Primary Care Provider [phone] Encounter Details Date Type Department Care Team (Late st Contact Info) Description 08/10/2016 Orders Only [place] [address] , Generic Conversion, Social History Tobacco Use [...] Date/Time Associated Diagnosis Comments ETHANOL TIMED 08/10/2016 1:49 PM CDT documented in this encounter Results * (ABNORMAL) ETHANOL (08/10/2016 1:49 PM CDT) ALCOHOL S/P/B 0.053(H) 0 G/DL 08/10/2016 1:15 PM CDT [facility] SERUM OR PLASMA SPECIMEN / Unknown 08/10/2016 1:49 PM CDT 08/10/2016 12:50 PM CDT us Generic Conversion Md [facility] Final R esult [facility] [address] [place] [address], [id number] documented in this encounter Visit Diagnoses Not on filedocumented in this encounter Care Teams Train Operator Relationship Specialty Start Date End Date Brett Fabian MD PCP - General 12/22/15 documented as of this encounter
--- OUTSIDE RECORDS SUMMARY | 2024-03-27 02:01 | XMS_ITS | Encounter Summary ---
Author Organization [facility] Address [facility] [facility] [place] [address] [place] [address] Care Team Providers Care Pot Filler Name Role Phone Brett Fabian MD Primary Care Provider [phone] Encounter Details Date Type Department Care Team (Late st Contact Info) Description 04/01/2014 Abstract [facility] Emergency Room [address] [place] [address] Myles Lopez Jr., MD [address] [address] Social History Tobacco Use Types Packs/Day Years Used Date Smoking Tobacco: Never Assessed Sex and Gender Information Value Date Recorded Sex Assigned at Not on file Legal Sex Male 5:14 PM CDT Gender Identity Not on file Sexual Orientation Not on file documented as of this encounter Plan of Treatment Not on file documented as of this encounter Visit Diagnoses Diagnosis Open wound of scalp Open wound of scalp, without mention of complication documented in this encounter Care Teams Pot Filler Relationship Specialty Start Date End Date Brett Fabian MD PCP - General 12/22/15 documented as of this encounter
--- OUTSIDE RECORDS SUMMARY | 2024-03-27 02:01 | XMS_ITS | Encounter Summary ---
Author Organization [facility] - [facility] Address [facility] [facility] [place] [address] [place] [address] Care Team Providers Care Ferry Pilot Name Role Phone Brett Fabian MD Primary Care Provider [phone] Encounter Details Date Type Department Care Team (Late st Contact Info) Description 08/10/2016 Emergency [facility] Emergency [address] [place] [address] Patricia Yoder, DO [address] [place] [id number] Social History Tobacco Use Types Packs/Day Years Used Date Smoking Tobacco: Never Assessed Sex and Gender Information Value Date Recorded Sex Assigned at Not on file Legal Sex Male 5:14 PM CDT Gender Identity Not on file Sexual Orientation Not on file documented as of this encounter Plan of Treatment Not on file documented as of this encounter Visit Diagnoses Diagnosis Major depressive disorder, single episode Major depressive disorder, single episode, unspecified documented in this encounter Care Teams Ferry Pilot Relationship Specialty Start Date End Date Brett Fabian MD PCP - General 12/22/15 documented as of this encounter
--- OUTSIDE RECORDS SUMMARY | 2024-03-27 02:01 | XMS_ITS | Encounter Summary ---
Author Organization [facility] Address [facility] [facility] [place] [address] [place] [address] Care Team Providers Care Senior Linux Unix Engineer Name Role Phone Brett Fabian MD Primary Care Provider [phone] Encounter Details Date Type Department Care Team (Late st Contact Info) Description 11/06/2015 Abstract [place] [address] Freedom Fernandes MD [address] [place] [address] Social History Tobacco Use Types Packs/Day Years [...] on filedocumented in this encounter Care Teams Senior Linux Unix Engineer Relationship Specialty Start Date End Date Brett Fabian MD PCP - General 12/22/15 documented as of this encounter
--- OUTSIDE RECORDS SUMMARY | 2024-03-27 02:01 | XMS_ITS | Encounter Summary ---
Author Organization [facility] Address [facility] [place] [address] [place] [address] Care Team Providers Care Department Store General Manager Name Role Phone Brett Fabian MD Primary Care Provider [phone] Encounter Details Date Type Department Care Team (Late st Contact Info) Description 08/10/2016 Orders [place] [address] , Generic Conversion, Social History [...] Procedure Name Priority Date/Time Associated Diagnosis Comments DRUG SCREEN RAPID Nurse Collected Priority 08/10/2016 4:08 AM CDT documented in this encounter Results * (ABNORMAL) DRUG SCREEN RAPID (08/10/2016 4:08 AM CDT) PHENCYCLIDINE PCP (U) NEGATIVE NEGATIVE 08/10/2016 3:36 AM CDT [facility] BENZODIAZEPINES SCREEN (U) NEGATIVE NEGATIVE 08/10/2016 3:36 AM CDT [facility] COCAINE METABOLITES (U) NEGATIVE NEGATIVE 08/10/2016 3:36 AM CDT [facility] AMPHETAMINE (U) NEGATIVE NEGATIVE 7 3:36 AM CDT [facility] CANNABINOIDS SCREEN (U) POSITIVE-NOT CONFIRMED(A) NEGATIVE 08/10/2016 3:37 AM CDT [facility] Comment: POSITIVE SCREEN RESULT, IF CONFIRMATION DESIRED PLEASE CONTACT LAB WITHIN ONE WEEK. OPIATE SCREEN (U) NEGATIVE NEGATIVE 017 3:36 AM CDT [facility] BARBITURATES SCREEN (U) NEGATIVE NEGATIVE 08/10/2016 3:36 AM CDT [facility] TRICYCLIC ANTIDEPRESSANT SCREEN (U) NEGATIVE NEGATIVE 08/10/2016 3:36 AM T [facility] URINE TOX COMMENT Unconfirmed screening results are to be used only for medical purposes. 08/10/2016 3:09 AM CDT [facility] CUTOFF CONCENTRATION (U) Cut-off Concentration for a positive result 08/10/2016 3:09 AM T [facility] Comment: Phencyclidine ? 25 ng/mL Benzodiazepines ? 300 ng/mL Cocaine ? 300 ng/mL Amphetamine ? 1000 ng/mL Cannabinoids ?50 ng/mL Opiates ? 300 ng/mL Barbiturates ?300 ng/mL TSA ? 1000 ng/mL URINE SPECIMEN / Unknown 08/10/2016 4:08 AM CDT 08/10/2016 3:14 AM CDT us Generic Conversion Md [facility] URINE ORDERABLES Final Result [facility] [address] [place] [address], [id number] documented in this encounter Visit Diagnoses Not on filedocumented in this encounter Care Teams Department Store General Manager Relationship Specialty Start Date End Date Brett Fabian MD PCP - General 12/22/15 documented as of this encounter
--- OUTSIDE RECORDS SUMMARY | 2024-03-27 02:03 | XMS_ITS | Clinical Summary ---
Author Organization [facility] Address [address] [place] [address] Phone Care Team Providers Care Medical Assistant Cardiology Name Role Phone Unavailable Primary Care Provider Unavailabl e Social History Tobacco Use Types Packs/Day Years Used Date Smoking Tobacco: Never Assessed Sex and Gender Information Value Date Recorded Sex Assigned at Not on file Legal Sex Male 1:21 PM CDT Gender Identity Not on file Sexual Orientation Not on file Plan of Treatment Not on file Insurance MEDICAID [employer]
--- OUTSIDE RECORDS SUMMARY | 2024-03-27 02:03 | XMS_ITS | CONTINUITY OF CARE DOCUMENT ---
Author Name gilberto macias Address Unknown Organization [facility] Address [address] [facility] [address] [place] [address] Phone [phone] Care Team Providers Care Svp Of Digital Name Role Phone Salty Padron MD Unavailable [phone] Salty Padron MD Unavailable [phone] INSURANCE PROVIDERS Payer name Policy type / Coverage type Rosy red constitution party ID [id number] [employer] Medicaid [id number]
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
== END 2024-03-22 13:34 | disposition left against medical advice (07) | DRG 282 ==
LOC: ANHED 05:50 → ANHICU 06:14
PROVIDERS: Internal Medicine; Admitting Provider Internal Medicine; Emergency Provider Emergency Medicine; PCP Internal Medicine; Visit Provider Internal Medicine
DX: K85.80 Other acute pancreatitis without necrosis or infection (principal); F10.229 Alcohol dependence with intoxication, unspecified; K70.10 Alcoholic hepatitis without ascites; E78.1 Pure hyperglyceridemia; I10 Essential (primary) hypertension; E87.8 Other disorders of electrolyte and fluid balance, not elsewhere classified; E87.1 Hypo-osmolality and hyponatremia; F31.9 Bipolar disorder, unspecified; F41.9 Anxiety disorder, unspecified; E78.5 Hyperlipidemia, unspecified; Y90.6 Blood alcohol level of 120-199 mg/100 ml; Z87.898 Personal history of other specified conditions; Z87.891 Personal history of nicotine dependence
CPT/HCPCS: 36415; 36569; 74177; 80053; 81001; 82077; 82550; 82948; 83605; 83690; 83735; 84100; 84478; 85014; 85018; 85025; 85610; 85730; 86140; 87040; 87641; 96361; 96365; 96375; 96376; 99285; A9270; C1751; G0379; J0360; J1650; J1815; J2060; J2270; J2405; J2470; J3411; J3475; J7030; J7120; J7121; J7512; Q9967

== ENCOUNTER 2024-07-03 20:24 | Observation (INO) | payer OTHER, SELFPAY ==
[2024-07-03] VITALS (18 sets, daily range): BP systolic 131–175; BP diastolic 86–102; PULSE 70–92; RESP 13–22; TEMP 36.2; O2SAT 98–100
--- NOTE | ~2024-07-03 | CT_ITS ---
CT of the Abdomen and Pelvis: Indication: Abdominal pain Technique: 2.5 mm axial scans were obtained through the abdomen and pelvis following intravenous adm inistration of 100 cc of Omnipaque 350. Dose reduction technique was used on this scan by utilizing a utomated exposure control and iterative reconstruction technique. The dose-length product (DLP) was 8 30.81 mGy-cm. COMPARISON: 03/20/2024 Findings: Scans through the lung bases are unremarkable. 3.9 cm left hepatic lobe lesion with discontinuous peripheral nodular enhancement is compatible with hemangioma. Improved fatty infiltration as compared to prior exam. The spleen, pancreas, gallbladder, adrenals and kidneys are within normal limits. No evidence of aortic aneurysm. No lymphadenopathy. No bowel obstruction or bowel wall thickening. There is no evidence to suggest acute appendicitis. Images through the pelvis were performed. Urinary bladder unremarkable. No pelvic mass. No ascites. Impression: No acute abnormality. Hepatic hemangioma. Decreased fatty infiltration of liver as compared to prior exam. Reviewed, dictated and finalized at [facility]. Impression: No acute abnormality. Hepatic hemangioma. Decreased fatty infiltration of liver as compared to prior exam.
--- NOTE | ~2024-07-03 | CT_ITS ---
Non-contrast Head CT History: Syncope Technique: Axial non-contrast imaging of the brain was performed. Dose reduction technique was used on this scan by utilizing automated exposure control and iterative reconstruction technique. The dose -length product (DLP) was 681.00 mGy-cm. Findings: There is no evidence of intracranial hemorrhage, mass lesion, or acute infarct. Brain par enchyma appears normal. The ventricles and subarachnoid spaces are normal in size. The calvarium ap pears normal. The visualized paranasal sinuses and mastoid air cells are clear. Impression: No significant abnormality seen. Reviewed, dictated and finalized at location . Impression: No significant abnormality seen.
--- NOTE | ~2024-07-03 | XR_ITS ---
Clinical Indication: Shortness of breath PA and lateral views of the chest: Comparison: 03/20/2024 Findings: The lungs are clear, without evidence of focal consolidation or pleural effusion. Cardiome diastinal silhouette is within normal limits. Bones and soft tissues are unremarkable. Impression: Normal chest. Reviewed, dictated and finalized at location . Impression: Normal chest.
--- OUTSIDE RECORDS SUMMARY | 2024-07-03 20:26 | XMS_ITS | Clinical Summary ---
Author Organization [facility] Address [address] [place] [address] Phone Care Team Providers Care Showroom Manager Name Role Phone Unavailable Primary Care Provider [...]
--- OUTSIDE RECORDS SUMMARY | 2024-07-03 20:26 | XMS_ITS | Clinical Summary ---
Author Organization [facility] Address [address] [place] [address] Care Team Providers Care Visitor Information Assistant Name Role Phone Jose Manuel Gibbs MD Primary Care Provider [phone] Allergies Active Allergy Reactions Criticality Noted Date [...] Encounters Date Type Department Care Team Description 06/06/2024 Telephone [facility] ([facility]) - [facility] ENT [address] [facility] 11th [place] [address] [place] [address] Kirstie Mayberry, from Last 3 Months Social History Tobacco Use Types Packs/Day Years Used Date Smoking Tobacco: Never Smokeless Tobacco: Never Tobacco Cessation:Counseling Given: Not Answered [facility] Utilities Answer Date Recorded In the past 12 months has th e electric, gas, oil, or water company [...] week 03/29/2024 How often do you attend jehovah's witness or judaism serv ices? Never 03/29/2024 Do you belong to any clubs o r organizations such as jehovah's witness groups, unions, fraternal or athletic groups, or [...] any time in the past 12 m [facility], were you homeless or living in a penitentiary (including now)? No 03/29/2024 Personal Safety Answer Date Recorded Have you ever been in or are you currently in a harmful physical or emotional relationship or is someone making you feel afraid or unsafe? Denies 03/26/2024 Sex and Gender Information Value Date Recorded Sex Assigned at Not on file Legal Sex Male 10:51 PM TICK SEWER Gender Identity Not on file Sexual Orientation Not on file Obstetrics History Last Filed Vital Signs Vital Sign Reading Time Taken Comments Blood Pressure 127/76 03/31/2024 7:06 AM TICK SEWER Pulse 100 03/31/2024 7:06 AM TICK SEWER Temperature 36.7 C (98.1 F) 03/31/2024 7:06 AM TICK SEWER Respiratory Rate 18 03/31/2024 7:06 AM TICK SEWER Oxygen Saturation 96% 03/31/2024 7:06 AM TICK SEWER Inhaled Oxygen Concentration - - Weight 123.7 kg (272 lb 12.8 oz) 03/25/2024 7:56 PM TICK SEWER Height 175.3 cm (5' 9 ) 03/25/2024 7:56 PM TICK SEWER Body Mass Index 40.29 03/25/2024 7:56 PM TICK SEWER Plan of Treatment Health Maintenance Due Date Last Done Comments Colon Cancer Screening-Colonoscopy 1979 Depression Screening 1979 Hepatitis B Screening 1997 Regular Well Visit/Exam 18-64 1997 Covid-19 Vaccine ( - 2023-2 5 season) 2023 03/13/2021, 07/17/2020, 06/26/2020 Influenza Vaccine (Season Ended) 2024 03/06/2021 DTaP/Tdap/Td Vaccine (3 - Td or Tdap) 08/27/2030 08/27/2020, 04/01/2014 Hepatitis C Screening Completed 03/30/2024 , 03/29/2024, 10/01/2015 HPV Vaccines Aged Out No longer eligi ble based on patient's age to complete this topic Pneumococcal vaccine <65 Aged Out No longer eligible based on patient's age to complete this topic Procedures Procedure Name Priority Date/Time Associated Diagnosis Comments HEPATITIS C RNA, QUANTITATIVE, PCR Add-On 03/30/2024 8:36 AM TICK SEWER from Last 3 Months or Most Recently Relevant to Health Maintenance Results * Hepatitis C (HCV) RNA PCR, quantitative Blood (03/30/2024 8:36 AM TICK SEWER) Pathologist [facility] HCV RNA result Not Detected [facility] Comment: The quantifiable range of this assay is 15 IU/mL to 100,000,000 IU/mL (1.18 log IU/mL to 8.00 log IU/mL). Testing was performed by the [facility] 6800 HCV Test ([employer] Testing performed at [facility] Current Interpretive Data was last revised on 2020 Testing performed by: [facility], [address] [place]., [address] Blood 03/30/2024 8:36 AM TICK SEWER 03/30/2024 12:13 PM TICK SEWER us Ricardo Alcocer MD LAB MICROBIOLOGY - GENERAL ORDERABLES Final Result [facility] [address] [facility] Department [place] [address] [facility] from Last 3 Months or Most Recently Relevant to Health Maintenance Insurance [facility] Advance Directives For more information, please contact: [phone] * Full Code (Latest Code Status on File) Date Activated Date Inactivated Comments 03/25/2024 8:01 PM 03/31/2024 2:47 PM Care Teams Visitor Information Assistant Relationship Specialty Start Date End Date Jose Manuel Gibbs MD [address] [place] [address] [place] [address] PCP - General Internal Medicine 03/25/24
--- OUTSIDE RECORDS SUMMARY | 2024-07-03 20:26 | XMS_ITS | Continuity of Care Document ---
Author Organization [facility] Address [address] [place] [address] [place] [address] Phone Care Team Providers Care Gas Tender Name Role Phone Brett Fabian MD Unavailable [...] Diagnoses Date Provider Providers Copied on Encounter [facility], [address], [place], [place], [address], [place] tel:[phone] [facility] Medicine No Information [address], [place], [place], [address] , [place]. tel:[phone] Referring Provider: Brett Fabian, [address], [place], [place], [address]. tel:[phone] OFFICE/OUTPA TIENT VISIT, [facility], [address], [place], [place], [address], [place] tel:[phone] [facility] Medicine leg pain1 (chief complaint) alcohol1 (chief complaint) HLP (chief complaint) Alcohol abuse, uncomplicatedChroni c pain syndromeHyperlipide gilma Nov- 7 [address], [place], [place], [address] , [place]. tel:[phone] Referring Provider: [address], [place], [place], [address]. tel:[phone] OFFICE/OUTPA TIENT VISIT, EST [facility], [address], [place], [place], [address], [place] tel:[phone] [facility] depression 1 (chief complaint) HTN (chief complaint) GERD1 (chief complaint) alcohol1 (chief complaint) GERD w/ esophagitisAlcohol abuse, uncomplicatedEssent ial (primary) hypertensionInsomni a Nov- 7 [address], [place], [place], [address] , [place]. tel:[phone] Referring Provider: [address], [place], [place], [address]. tel:[phone] PREV VISIT, EST, AGE 18-39 [facility], [address], [place], [place], [address], [place] tel:[phone] [facility] Physical (chief complaint) Encntr for general adult medical exam w/o abnormal findings 7 [address], [place], [place], [address] , [place]. tel:[phone] Referring Provider: [address], [place], [place], [address]. tel:[phone] OFFICE/OUTPA TIENT VISIT, [facility], [address], [place], [place], [address], [place] tel:[phone] [facility] anxiety1 (chief complaint) GERD1 (chief complaint) HTN (chief complaint) GERD w/ esophagitisGenerali zed anxiety disorderEssential (primary) hypertensionChronic pain syndrome 7 [address], [place], [place], [address] , [place]. tel:[phone] Referring Provider: [address], [place], [place], [address]. tel:[phone] OFFICE/OUTPA TIENT VISIT, [facility], [address], [place], [place], [address], [place] tel:[phone] [facility] anxiety1 (chief complaint) knee pain1 (chief complaint) alcohol1 (chief complaint) Pain in right kneeGeneralized anxiety disorderAlcohol abuse, uncomplicatedLiver disease [address]ui [address]. [address], [place], [place], [address] , [place]. tel:[phone] Referring Provider: [address], [place], [place], [address]. tel:[phone] OFFICE/OUTPA TIENT VISIT, [facility], [address], [place], [place], [address], [place] tel:[phone] [facility] HTN (chief complaint) GERD1 (chief complaint) anxiety1 (chief complaint) alcohol1 (chief complaint) Liver diseaseAlcohol abuse, uncomplicatedGenera lized anxiety disorderEssential (primary) hypertension 7 [address], [place], [place], [address] , [place]. tel:[phone] Referring Provider: [address], [place], [place], [address]. tel:[phone] OFFICE/OUTPA TIENT VISIT, [facility], [address], [place], [place], [address], [place] tel:[phone] [facility] ED1 (chief complaint) alcohol1 (chief complaint) HTN (chief complaint) GERD1 (chief complaint) Generalized anxiety disorderLiver diseaseAlcohol abuse, uncomplicatedEssent ial (primary) hypertension 6 [address], [place], [place], [address] , [place]. [phone] Referring Provider: [address], [place], [place], [address]. tel:[phone] OFFICE/OUTPA TIENT VISIT, [facility], [address], [place], [place], [address], [place] tel:[phone] [facility] anxiety1 (chief complaint) GERD1 (chief complaint) alcohol1 (chief complaint) right leg pain1 (chief complaint) Liver diseaseGeneralized anxiety disorderAlcohol abuse, uncomplicatedChroni c pain syndrome 6 [address], [place], [place], [address] , [place]. [phone] Referring Provider: [address], [place], [place], [address]. tel:[phone] OFFICE/OUTPA TIENT VISIT, [facility], [address], [place], [place], [address], [place] tel:[phone] [facility] LFT (chief complaint) insomnia1 (chief complaint) anxiety1 (chief complaint) alcohol (chief complaint) Liver diseaseAlcohol abuse, uncomplicatedInsomn iaGeneralized anxiety disorder 0 6 [address], [place], [place], [address] , . tel:[phone] Referring Provider: Pb [place], [address]. tel:[phone] OFFICE/OUTPA TIENT VISIT, EST [facility], [address] [place], [place], [address], tel:[phone] [facility] Anxiety1 (chief complaint) alcohol (chief complaint) insomnia1 (chief complaint) lab (chief complaint) leg spasm (chief complaint) Liver diseaseHyperlipidem iaAlcohol abuse, uncomplicatedInsomn ia [address] [facility] [place], [address] , [place]. tel:[phone] Referring Provider: Pb [address] [place], [address]. tel:[phone] PREV VISIT, NEW, AGE 18-39 [facility], [address] [place], [address], [place] tel:[phone] [facility] Physical (chief complaint) Encntr for general adult medical exam w/o abnormal findings 6 [address] [facility] [place], [address] , [place]. tel:[phone] Referring Provider: [address] [place], [address]. tel:[phone] Family History Family Member Type Diagnosis Age [...] findings) ordered Referral Referred To: Alvarado Burrell [address] [place], [phone] Ordered: Referrals: Alvarado Burrell. Evaluate and treat ordered History Of Present Illness Encounter Date Complaint History Of Prese nt Illness HLP Pt has mild high cholesterol on lab work recently alcohol1 Pt just left [facility] for alcohol and he drank more [...] that he does not like psychiatrist at [facility] and he wont be going back to [...] [facility]. Pt has been having [...] alcohol1 Pt failed alcoho l program at [facility] and also he is seeing substance abuse counselor now and he has reucrrent alcohol relapase and he is on the waiting list for inpatient program at [facility]. pt is seeing substance control counselor now. [...] Pt feels better mood alcohol Pt finished [facility] program and was released and he was told to go to [facility] but he could not make it to [place] due to transportation issue. Pt relapsed 6 [...] spells Instructions Date Instruction Additional Infor alex Prescribed Diet Educ ation/Lifestyle Education Regarding Diet Related to Dietary Surveillance and Counseling Increase physical activity Relat ed to Alcohol abuse, uncomplicated Quit smoking Related to Alcoh ol abuse, uncomplicated Weight management Related to Alc ohol abuse, uncomplicated Prescribed Activity and Exercise Education Related to Dietary Surveillance and Counseling Eat smaller meals, n o eating three hours prior to bedtime Related to GERD w/ esophagitis Elevate head of bed prior to sle ep Related to GERD w/ esophagitis Prescribed Activity and Exercise Education Related to Dietary Surveillance and Counseling Prescribed Diet Educ ation/Lifestyle Education Regarding Diet Related to Dietary Surveillance and Counseling Avoid provocative fo ods: citrus, alcohol, coffee, chocolate, mints Related to GERD w/ esophagitis Prescribed Diet [...]
--- OUTSIDE RECORDS SUMMARY | 2024-07-03 20:26 | XMS_ITS | Encounter Summary ---
Author Organization [facility] Address [facility] [place] [address] Care Team Providers Care Trimming Machine Operator Name Role Phone Brett Fabian MD Primary Care Provider [phone] Encounter Details Date Type Department Care Team (Late st Contact Info) Description 06/06/2017 Abstract [facility] CONVERSION [address] [place] [address] , Generic ConversionMD Social History Tobacco Use [...] on filedocumented in this encounter Care Teams Trimming Machine Operator Relationship Specialty Start Date End Date Brett Fabian MD PCP - General 12/22/15 documented as of this encounter
--- OUTSIDE RECORDS SUMMARY | 2024-07-03 20:26 | XMS_ITS | Clinical Summary ---
Author Organization [facility] Address [facility] [place] [address] Care Team Providers Care Bin Packer Name Role Phone Brett Fabian MD Primary Care Provider [phone] Social History Tobacco Use Types Packs/Day Years [...] 1998 COVID-19 Vaccine (2023-2 5 season) 2023 HPV Vaccines Aged Out No longer eligi ble based on patient's age to complete this topic Meningococcal B Vaccine Aged Out No l onger eligible based on patient's age to complete this topic Meningococcal Vaccine Aged Out No jasmin wilner eligible based on patient's age to complete this topic Pneumococcal Vaccine: Pediat rics (0 to 5 Years) and At-Risk Patients (6 to 49 Years) Aged Out No longer eligible b ased on patient's age to complete this topic RSV Immunizations Under 20 Months Aged Out No longer eligible based on patient's age to complete this topic Care Teams Bin Packer Relationship Specialty Start Date End Date Brett Fabian MD PCP - General 12/22/15
--- OUTSIDE RECORDS SUMMARY | 2024-07-03 20:26 | XMS_ITS | CONTINUITY OF CARE DOCUMENT ---
Author Name gilberto macias Address Unknown Organization [facility] Address [address] [facility] [address] [place] [address] Phone [phone] Care Team Providers Care Validation Engineer Name Role Phone Salty Padron MD Unavailable [phone] Salty Padron MD Unavailable [phone] INSURANCE PROVIDERS Payer name Policy type / Coverage type [employer] party ID KELSY [employer] Medicaid [id number]
--- OUTSIDE RECORDS SUMMARY | 2024-07-03 20:26 | XMS_ITS | Referral Summary ---
Author Organization [facility] Address [address] [place] [address] Care Team Providers Care Commissioned Defence [employer] Officer Name Role Phone Jose Manuel Gibbs MD Primary Care Provider [phone] Encounters Date Type Department Care Team Description 06/06/2024 Telephone [facility] [address] [facility] 11th [place] [address] [place] [address] Kirstie Mayberry MS from Last 3 Months Allergies Active Allergy [...] Tobacco: Never Tobacco Cessation:Counseling Given: Not Answered [facility] Utilities Answer Date Recorded In the past [...] week 03/29/2024 How often do you attend jew or jain serv ices? Never 03/29/2024 Do you belong to any clubs o r organizations such as jew groups, unions, fraternal or athletic groups, or [...] any time in the past 12 m [facility], were you homeless or living in a [facility] (including now)? No 03/29/2024 Personal Safety Answer Date Recorded Have you ever been in or are you currently in a harmful physical or emotional relationship or is someone making you feel afraid or unsafe? Denies 03/26/2024 Sex and Gender Information Value Date Recorded Sex Assigned at Not on file Legal Sex Male 10:51 PM PACKAGING MANAGER Gender Identity Not on file Sexual Orientation Not on file Last Filed Vital Signs Vital Sign Reading Time Taken Comments Blood Pressure 127/76 03/31/2024 7:06 AM PACKAGING MANAGER Pulse 100 03/31/2024 7:06 AM PACKAGING MANAGER Temperature 36.7 C (98.1 F) 03/31/2024 7:06 AM PACKAGING MANAGER Respiratory Rate 18 03/31/2024 7:06 AM PACKAGING MANAGER Oxygen Saturation 96% 03/31/2024 7:06 AM PACKAGING MANAGER Inhaled Oxygen Concentration - - Weight 123.7 kg (272 lb 12.8 oz) 03/25/2024 7:56 PM PACKAGING MANAGER Height 175.3 cm (5' 9 ) 03/25/2024 7:56 PM PACKAGING MANAGER Body Mass Index 40.29 03/25/2024 7:56 PM PACKAGING MANAGER Plan of Treatment Not on file Procedures Procedure Name Priority Date/Time Associated Diagnosis Comments HEPATITIS C RNA, QUANTITATIVE, PCR Add-On 03/30/2024 8:36 AM PACKAGING MANAGER from Last 3 Months or Most Recently Relevant to Health Maintenance Results * Hepatitis C (HCV) RNA PCR, quantitative Blood (03/30/2024 8:36 AM PACKAGING MANAGER) Pathologist [facility] [place] HCV RNA result Not Detected [facility] Comment: The quantifiable range of this assay is 15 IU/mL to 100,000,000 IU/mL (1.18 log IU/mL to 8.00 log IU/mL). Testing was performed by the SHERWIN 6800 HCV Test ([employer] Testing performed at [facility] Current Interpretive Data was last revised on 2020 Testing performed by: [facility], [address] [facility], [place]., [address] Blood 03/30/2024 8:36 AM PACKAGING MANAGER 03/30/2024 12:13 PM PACKAGING MANAGER Ricardo Alcocer MD LAB MICROBIOLOGY - GENERAL ORDERABLES Final Result Performing Organization Address City/State/ZIP Co nc Phone Number TAMIKA [address] [facility] [place] [address] [facility] from Last 3 Months or Most Recently Relevant to Health Maintenance Insurance [facility] Advance Directives For more information, please contact: [phone] * Full Code (Latest Code Status on File) Date Activated Date Inactivated Comments 03/25/2024 8:01 PM 03/31/2024 2:47 PM Care Teams Commissioned Defence Force Officer Relationship Specialty Start Date End Date Jose Manuel Gibbs MD [address] [facility] [place] [address] PCP - General Internal Medicine 03/25/24
--- OUTSIDE RECORDS SUMMARY | 2024-07-03 20:26 | XMS_ITS | Data Portability ---
[facility] Address [address] [place] [address] Assessment Encounter Date Assessment Date Assessment LastModified [...] ed. Medication Orders None record ed. Patient TargetsNo targets recorded. Patient InstructionsNo instructions recorded. Reason for Referral None Reported. Medical Equipment None Reported. Allergies Allergen ID Allergen Name Allergen Category Reaction Reaction Severity Criticality Documentation Date Start Date Code Code System Note Provider Name and Address Organization Details Recorded Time 17190722 Ceclor medicatio n Not available Not available Not available 08/20/202339039 5 RxNorm Not Available Not Available Not Available 17190723 cephalogl ycin Not available Not available Not available Not available 08/20/2023 11754 UNK Not Available Not Available Not Available [...] Updated DateTime 4 175.26 cm 32.3 kg/m2 61444.7 3 g 96 % 96 % 107 /min 144 mm[Hg] 80 mm[Hg] Britt Penny MA [facility] 4 10:28:38 Social History Question Answer Notes LastModified by Organizat ion Details LastModified Time Tobacco Smoking Status Former Smoker Britt Penny MA null, [place] - [place] 08/20/2023 10:34:30 What Is Your [...] Use Any Illicit Or Recreational Drugs? 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 Health Concerns Section Related Observation LastModified by Organization Detai ls LastModified Time None Recorded Concern Status LastModified by Organization Details LastModified Time None Recorded Advance Directives Directive None Recorded Payers Encounter Date Sequence Insurance Name Policy Number Policy Read Covered Member ID Read Member ID Guarantor Name 08/20/2023 1 [facility] ON OR AFTER 09/20/20 (MEDICAID REPLACEMENT - HMO) Teodoro Waddell [id number] Teodoro Waddell Notes Date Note Type Note [...] Had falling out at smiley morris at [place]. Said they had him on seroquel and Li, quit taking d/t felt like a zombie. Reports his brother 18mths ago....has uncontrollable crying every day. Nephew tried to kill himself recently and family did not tell Pt about it and this is upsetting.- - - - - -Referred by: self, [place] [facility] via [place] x past 1yr. 14 yrs at [place] with various providersTherapist/Support Gps (e.g KENYA)? noPCP? Dr. Jose Manuel Gibbs at [place] x 4yrs MedicationsAllergies: ceclor, cephaxlin,Current medications: Compliant/Non-Compliant. [...] Appetite: eats too much; eats mostly pizza, burger PHQ9 - 4GAD7 - 16MDQ - 4 + cluster + moderatePCL5 - 61 Depression: 10/30 with 10 being the worst - feel like a failure, like I haven't accomplished anythingAnxiety: 10/30 with 10 being the worst - feels alone, no airport shuttle driver's license in 20yrsAnger/Irritability: 12/30 with 10 being the worst - gets in physical fights with strangersGrief: 2003 middle brother accidental OD cocaine/xanax 28yo; 2021 oldest brother age 50yo liver failure, [place], [place]. Pt has been crying al lthe [...] psychiatric hospitalizations: multiple SISA (when, where, how): 2004 heroine d/t depression over brotherLabs->148 AST, 172 ALT Social [facility] with mom/dadSingle 0_kids My heart got broken a long time ago and I don't really care about it anymore. 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 _just got off 2yrs, Felony kind? _disarming a PD; went to intermediate (for 26mths and violated probation d/t using heroine while on thorizine) for personal use of heroine and theft of a walkboard (2009) DrugsTHC smokes daily; makes me happier, better mood, Tobacco__quit 18mths ago 1/2pk/d, EtOH_12 pk daily x 25yrs, whole family drinks; makes him feel less depressed Last heroine use was 15yrs ago. EtOH [facility], [place], [place], [facility] => helped , used [facility]rol and [...] ago; doesn't agree with their policies [place] Raised by? Mom/Dad. 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 VICENTA NICOLE-IRIS SHEIKH, BIOMETRIC TECHNICIAN-C Attn: Accounting,[address] [place], [address], [facility] 08/20/2023 21:53:29
--- NOTE | 2024-07-03 20:38 | ECG_ITS ---
Test Date: 2024-07-03 20:41:47 Measurements Intervals [place] Rate: 82 P: 62 MO: 141 QRS: 66 QRSD: 96 T: 55 QT: 398 QTc: 465 Interpretive Statements SINUS RHYTHM WITH SINUS ARRHYTHMIA BASELINE ARTIFACT- I, II, III, AVR, AVL ,AVF, V4-V5 NORMAL ECG No previous ECG available for comparison Electronically Signed On 07-04-2024 06:20:32 CDT by Onur Rob D.O.
--- NOTE | 2024-07-03 21:29 | PC.NURSE ---
Patient states he had hx of withdrawal seizures. Seizure pads placed on bed as precaution. Call light within reach. Patient states last drink was 1400 today.
[2024-07-03 21:32] LABS: Basophils Percent Auto 0.2 % (0.2-1.2); Eosinophils Absolute Auto 0.1 K/mm3 (0-0.3); Eosinophils Percent Auto 0.5 % (0-4.4); Hematocrit 41.1 % (42.0-52.0); Hemoglobin 13.6 g/dL (14.0-18.0); Immature Granulocyte Absolute 0.03 K/mm3 (0.00-0.031); Immature Granulocyte Percent A 0.3 % (0-0.5); Lymphocytes Absolute Auto 1.98 K/mm3 (0.9-3.2); Lymphocytes Percent Auto 19.6 % (18.3-44.2); Mean Corpuscular HGB Conc 33.1 g/dl (32-36); Mean Corpuscular Hemoglobin 30.1 pg (26-34); Mean Corpuscular Volume 90.9 fl (80-100); Mean Platelet Volume 8.8 fl (7.4-10.4); Monocytes Percent Auto 9.9 % (2.6-8.5); Neutrophils Percent Auto 69.5 % (45.5-73.1); Platelet Count Result 351 k/mm3 (150-375); Red Blood Count 4.52 M/mm3 (4.6-6.20); Red Cell Distribution Width 13.8 % (11.5-14.5); White Blood Count 10.1 K/mm3 (4.5-10.0)
[2024-07-03 21:43] LABS: Ethanol < 10 mg/dL (<10)
[2024-07-03 21:50] LABS: Alanine Aminotransferase 37 U/L (6-50); Albumin Level 4.7 g/dL (3.5-5.1); Alkaline Phosphatase 82 U/L (38-126); Anion Gap 16 mmol/L (4-12); Aspartate Amino Transferase 51 U/L (17-59); Blood Urea Nitrogen 9 mg/dL (9-20); Calcium 9.3 mg/dL (8.4-10.2); Carbon Dioxide 21 mmol/L (22-30); Chloride 99 mmol/L (98-107); Estimated CRCL calculation 130 ml/min; Estimated Glomerular Filt Rate > 60; Glucose 93 mg/dL (65-110); Potassium 3.2 mmol/L (3.4-5.0); Sodium 136 mmol/L (137-145)
[2024-07-03] MEDS: SODIUM CHLORIDE 0.9% IV 1,000 ML 999 ML IV CONT (21:58)
[2024-07-03] MEDS: LORazepam INJ (*CRX) 2 MG/ML VIAL 1 MG IV PUSH (21:58)
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
--- OUTSIDE RECORDS SUMMARY | 2024-07-03 22:08 | XMS_ITS | Clinical Summary ---
Author Organization [facility] Address [address] [place] [address] Phone Care Team Providers Care Merchandise Team Manager Name Role Phone Unavailable Primary Care [...]
--- OUTSIDE RECORDS SUMMARY | 2024-07-03 22:08 | XMS_ITS | Clinical Summary ---
Author Organization [facility] Address [facility] [place] [address] Care Team Providers Care Junior Sales Assistant Name Role Phone Brett Fabian MD Primary Care Provider [phone] Social History Tobacco Use Types Packs/Day Years [...] age to complete this topic Care Teams Junior Sales Assistant Relationship Specialty Start Date End Date Brett Fabian MD PCP - General 12/22/15
--- OUTSIDE RECORDS SUMMARY | 2024-07-03 22:08 | XMS_ITS | Referral Summary ---
Author Organization [facility] Address [address] [place] [address] Care Team Providers Care Air Conditioning Service Technician Name Role Phone Jose Manuel Gibbs MD Primary Care Provider [phone] Encounters Date Type Department Care Team Description 06/06/2024 Telephone [facility] - [facility] ENT [address] [facility] [address]th [place] [address] [place] [address] Kirstie Mayberry MS from Last [...] Tobacco: Never Tobacco Cessation:Counseling Given: Not Answered [facility] Utilities Answer Date Recorded In the [...] week 03/29/2024 How often do you attend yazidism or restorationism serv ices? Never 03/29/2024 Do you belong to any clubs o r organizations such as yazidism groups, unions, fraternal or athletic groups, or [...] any time in the past 12 m [facility], were you homeless or living in a nursing home (including now)? No 03/29/2024 Personal Safety Answer Date Recorded Have you ever been in or are you currently in a harmful physical or emotional relationship or is someone making you feel afraid or unsafe? Denies 03/26/2024 Sex and Gender Information Value Date Recorded Sex Assigned at Not on file Legal Sex Male 10:51 PM RESIDENT INTERN Gender Identity Not on file Sexual Orientation Not on file Last Filed Vital Signs Vital Sign Reading Time Taken Comments Blood Pressure 127/76 03/31/2024 7:06 AM RESIDENT INTERN Pulse 100 03/31/2024 7:06 AM RESIDENT INTERN Temperature 36.7 C (98.1 F) 03/31/2024 7:06 AM RESIDENT INTERN Respiratory Rate 18 03/31/2024 7:06 AM RESIDENT INTERN Oxygen Saturation 96% 03/31/2024 7:06 AM RESIDENT INTERN Inhaled Oxygen Concentration - - Weight 123.7 kg (272 lb 12.8 oz) 03/25/2024 7:56 PM RESIDENT INTERN Height 175.3 cm (5' 9 ) 03/25/2024 7:56 PM RESIDENT INTERN Body Mass Index 40.29 03/25/2024 7:56 PM RESIDENT INTERN Plan of Treatment Not on file Procedures Procedure Name Priority Date/Time Associated Diagnosis Comments HEPATITIS C RNA, QUANTITATIVE, PCR Add-On 03/30/2024 8:36 AM RESIDENT INTERN from Last 3 Months or Most Recently Relevant to Health Maintenance Results * Hepatitis C (HCV) RNA PCR, quantitative Blood (03/30/2024 8:36 AM RESIDENT INTERN) Pathologist [facility] HCV RNA result Not Detected [facility] Comment: The quantifiable range of this assay is 15 IU/mL to 100,000,000 IU/mL (1.18 log IU/mL to 8.00 log IU/mL). Testing was performed by the SHERWIN 6800 HCV Test ([employer] Testing performed at [facility] Current Interpretive Data was last revised on 2020 Testing performed by: [facility], [address] [facility], [place]., [address] Blood 03/30/2024 8:36 AM RESIDENT INTERN 03/30/2024 12:13 PM RESIDENT INTERN Ricardo Alcocer MD LAB MICROBIOLOGY - GENERAL ORDERABLES Final Result Performing Organization Address City/State/ZIP Co sd Phone Number TAMIKA [address] [facility] Department [place] [address] [facility] from Last 3 Months or Most Recently Relevant to Health Maintenance Insurance [facility] Advance Directives For more information, please contact: [phone] * Full Code (Latest Code Status on File) Date Activated Date Inactivated Comments 03/25/2024 8:01 PM 03/31/2024 2:47 PM Care Teams Air Conditioning Service Technician Relationship Specialty Start Date End Date Jose Manuel Gibbs MD [address] [facility] [place] [address] PCP - General Internal Medicine 03/25/24
--- OUTSIDE RECORDS SUMMARY | 2024-07-03 22:08 | XMS_ITS | Encounter Summary ---
Author Organization [facility] Address [facility] [place] [address] Care Team Providers Care Appian Bpm Developer Name Role Phone Brett Fabian MD Primary Care Provider [phone] Encounter Details Date Type Department Care Team (Late st Contact Info) Description 06/06/2017 Abstract [facility] CONVERSION [address] [place] [address] , Generic ConversionMD Social History Tobacco Use [...] on filedocumented in this encounter Care Teams Appian Bpm Developer Relationship Specialty Start Date End Date Brett Fabian MD PCP - General 12/22/15 documented as of this encounter
--- OUTSIDE RECORDS SUMMARY | 2024-07-03 22:08 | XMS_ITS | CONTINUITY OF CARE DOCUMENT ---
Author Name gilberto macias Address Unknown Organization [facility] Address [address] [address] [place] [address] Phone [phone] Care Team Providers Care Tool Analyst Name Role Phone Salty Padron MD Unavailable [phone] Salty Padron MD Unavailable [phone] INSURANCE PROVIDERS Payer name Policy type / Coverage type Rosy red constitution party ID KELSY MCD Medicaid [id number]
--- OUTSIDE RECORDS SUMMARY | 2024-07-03 22:08 | XMS_ITS | Clinical Summary ---
Author Organization [facility] Address [address] [place] [address] Care Team Providers Care Administrative Associate Name Role Phone Jose Manuel Gibbs MD Primary Care Provider [phone] Allergies Active Allergy Reactions Criticality Noted Date [...] Type Department Care Team Description 06/06/2024 Telephone [facility] ([facility]) - [facility] ENT [address] 11th [place] [address] [place] [address] Kirstie Mayberry, from Last 3 Months Social History Tobacco Use Types Packs/Day Years Used Date Smoking Tobacco: Never Smokeless Tobacco: Never Tobacco Cessation:Counseling Given: Not Answered [facility] Utilities Answer Date Recorded In the [...] week 03/29/2024 How often do you attend rastafari or alevism serv ices? Never 03/29/2024 Do you belong to any clubs o r organizations such as rastafari groups, unions, fraternal or athletic groups, or [...] any time in the past 12 m [facility], were you homeless or living in a penitentiary (including now)? No 03/29/2024 Personal Safety Answer Date Recorded Have you ever been in or are you currently in a harmful physical or emotional relationship or is someone making you feel afraid or unsafe? Denies 03/26/2024 Sex and Gender Information Value Date Recorded Sex Assigned at Not on file Legal Sex Male 10:51 PM HOUSEMAN Gender Identity Not on file Sexual Orientation Not on file Obstetrics History Last Filed Vital Signs Vital Sign Reading Time Taken Comments Blood Pressure 127/76 03/31/2024 7:06 AM HOUSEMAN Pulse 100 03/31/2024 7:06 AM HOUSEMAN Temperature 36.7 C (98.1 F) 03/31/2024 7:06 AM HOUSEMAN Respiratory Rate 18 03/31/2024 7:06 AM HOUSEMAN Oxygen Saturation 96% 03/31/2024 7:06 AM HOUSEMAN Inhaled Oxygen Concentration - - Weight 123.7 kg (272 lb 12.8 oz) 03/25/2024 7:56 PM HOUSEMAN Height 175.3 cm (5' 9 ) 03/25/2024 7:56 PM HOUSEMAN Body Mass Index 40.29 03/25/2024 7:56 PM HOUSEMAN Plan of Treatment Health Maintenance Due Date [...] RNA, QUANTITATIVE, PCR Add-On 03/30/2024 8:36 AM HOUSEMAN from Last 3 Months or Most Recently Relevant to Health Maintenance Results * Hepatitis C (HCV) RNA PCR, quantitative Blood (03/30/2024 8:36 AM HOUSEMAN) Pathologist [facility] HCV RNA result Not Detected [facility] Comment: The quantifiable range of this assay is 15 IU/mL to 100,000,000 IU/mL (1.18 log IU/mL to 8.00 log IU/mL). Testing was performed by the [facility] 6800 HCV Test ([employer] Testing performed at [facility] Current Interpretive Data was last revised on 2020 Testing performed by: [facility], [address] [facility] [place]., [address] Blood 03/30/2024 8:36 AM HOUSEMAN 03/30/2024 12:13 PM HOUSEMAN us Ricardo Alcocer MD LAB MICROBIOLOGY - GENERAL ORDERABLES Final Result [facility] [id number] [facility] Department [place] [address] [facility] from Last 3 Months or Most Recently Relevant to Health Maintenance Insurance [facility] Advance Directives For more information, please contact: [phone] * Full Code (Latest Code Status on File) Date Activated Date Inactivated Comments 03/25/2024 8:01 PM 03/31/2024 2:47 PM Care Teams Administrative Associate Relationship Specialty Start Date End Date Jose Manuel Gibbs MD [address] [place] [address] [place] [address] PCP - General Internal Medicine 03/25/24
--- OUTSIDE RECORDS SUMMARY | 2024-07-03 22:08 | XMS_ITS | Continuity of Care Document ---
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 Role Phone Brett Fabian MD Unavailable Unavailable Allergies, Adverse Reactions, Alerts Substance Reaction Status Criticality cefaclor Active No Information Medications Medication Instructions Dosage Effective Dates (start - stop) Status Comments Robaxin-750 750 mg tablet take 1 tablet by oral route every 6 hours as needed 750 MG - Active PRN for pain, avoid drivig or operaet machines Prozac 20 mg capsule take 3 Capsule by oral route every day in the morning 60 MG - Active omeprazole 20 mg capsule,delayed release take 1 capsule by oral route every day before a meal 20 MG - Active clonidine HCl 0.1 mg tablet take 1 tablet by oral route 2 times every day 0.1 MG - Active amitriptyline 50 mg tablet take 1 tablet by oral route every day at bedtime 50 MG - Active Procedures Procedure Date OFFICE/OUTPATIENT [...] Diagnoses Date Provider Providers Copied on Encounter [facility], [address], [place], [place], [address], [place] tel:[phone] [facility] No Information [address], [place], [place], [address] , [place]. tel:[phone] Referring Provider: Brett Fabian, [address], [place], [place], [address]. tel:[phone] OFFICE/OUTPA TIENT VISIT, [facility], [place], [address], [place], [place], [address], [place] tel:[phone] [facility] leg pain1 (chief complaint) alcohol1 (chief complaint) HLP (chief complaint) Alcohol abuse, uncomplicatedChroni c pain syndromeHyperlipide gilma Nov- 7 [address], [place], [place], [address] , [place]. tel:[phone] Referring Provider: [address], [place], [place], [address]. tel:[phone] OFFICE/OUTPA TIENT VISIT, EST [facility], [address], [place], [place], [address], [place] tel:[phone] [facility] depression 1 (chief complaint) HTN (chief complaint) GERD1 (chief complaint) alcohol1 (chief complaint) GERD w/ esophagitisAlcohol abuse, uncomplicatedEssent ial (primary) hypertensionInsomni a Nov- 7 [address], [address], [place], [place], [address] , [place]. tel:[phone] Referring Provider: Pb [address], [place], [place], [address]. tel:[phone] PREV VISIT, EST, AGE 18-39 [facility], [address], [place], [place], [address], [place] tel:[phone] [facility] Physical (chief complaint) Encntr for general adult medical exam w/o abnormal findings 7 [address]. [address], [place], [place], [address] , [place]. tel:[phone] Referring Provider: Pb [address], [place], [place], [address]. tel:[phone] OFFICE/OUTPA TIENT VISIT, [facility], [place], [address], [place], [place], [address], [place] tel:[phone] [facility] anxiety1 (chief complaint) GERD1 (chief complaint) HTN (chief complaint) GERD w/ esophagitisGenerali zed anxiety disorderEssential (primary) hypertensionChronic pain syndrome 7 Rui [address], [place], [place], [address] , [place]. tel:[phone] Referring Provider: Pb [address], [place], [place], [address]. tel:[phone] OFFICE/OUTPA TIENT VISIT, [facility] [place], [address], [place], [place], [address], [place] tel:[phone] [facility] anxiety1 (chief complaint) knee pain1 (chief complaint) alcohol1 (chief complaint) Pain in right kneeGeneralized anxiety disorderAlcohol abuse, uncomplicatedLiver disease [facility] [address]. [address], [address], [place], [place], [address] , [place]. tel:[phone] Referring Provider: Pb [address], [place], [place], [address]. tel:[phone] OFFICE/OUTPA TIENT VISIT, [facility] [place], [address], [place], [place], [address], [place] tel:[phone] [facility] HTN (chief complaint) GERD1 (chief complaint) anxiety1 (chief complaint) alcohol1 (chief complaint) Liver diseaseAlcohol abuse, uncomplicatedGenera lized anxiety disorderEssential (primary) hypertension 7 [address]. [address], [address], [place], [place], [address] , [place]. tel:[phone] Referring Provider: Pb [address], [place], [place], [address]. tel:[phone] OFFICE/OUTPA TIENT VISIT, [facility] [place], [address], [place], [place], [address], [place] tel:[phone] [facility] ED1 (chief complaint) alcohol1 (chief complaint) HTN (chief complaint) GERD1 (chief complaint) Generalized anxiety disorderLiver diseaseAlcohol abuse, uncomplicatedEssent ial (primary) hypertension 6 [address], [address], [place], [place], [address] , [place]. [phone] Referring Provider: Pb [address], [place], [place], [address]. tel:[phone] OFFICE/OUTPA TIENT VISIT, [facility] [place], [address], [place], [place], [address], [place] tel:[phone] [facility] anxiety1 (chief complaint) GERD1 (chief complaint) alcohol1 (chief complaint) right leg pain1 (chief complaint) Liver diseaseGeneralized anxiety disorderAlcohol abuse, uncomplicatedChroni c pain syndrome 6 [address], [place], [place], [address] , [place]. [phone] Referring Provider: Pb [address], [place], [place], [address]. tel:[phone] OFFICE/OUTPA TIENT VISIT, [facility] [place], [address], [place], [place], [address], [place] tel:[phone] [facility] LFT (chief complaint) insomnia1 (chief complaint) anxiety1 (chief complaint) alcohol (chief complaint) Liver diseaseAlcohol abuse, uncomplicatedInsomn iaGeneralized anxiety disorder 0 6 [address], [place], [place], [address] , . tel:[phone] Referring Provider: Pb Rust [place], [address]. tel:[phone] OFFICE/OUTPA TIENT VISIT, EST [facility], [address] [place], [place], [address], tel:[phone] [facility] Anxiety1 (chief complaint) alcohol (chief complaint) insomnia1 (chief complaint) lab (chief complaint) leg spasm (chief complaint) Liver diseaseHyperlipidem iaAlcohol abuse, uncomplicatedInsomn ia 6 [address] [facility] [place] [address] , [place]. tel:[phone] Referring Provider: Pb Rust [place], [place], [address]. tel:[phone] PREV VISIT, NEW, AGE 18-39 [facility], [address] [place], [address], [place] tel:[phone] [facility] Physical (chief complaint) Encntr for general adult medical exam w/o abnormal findings 6 [address] [facility] [place], [address] , [place]. tel:[phone] Referring Provider: Pb Rust [place], [place], [address]. tel:[phone] Family History Family Member Type Diagnosis Age At Onset Father Problem (finding) Melanoma Brother Problem (finding) drug OD Mother Problem (finding) Alcoholism Payers Payer name Insurance type Covered alliance party ID Authoriza tion(s) No Information Social [...] findings) ordered Referral Referred To: Alvarado Burrell [address] [place], [phone] Ordered: Referrals: Alvarado Burrell. Evaluate and treat ordered History Of Present Illness Encounter Date Complaint History Of Prese nt Illness leg pain1 Pt c/o chronc ri ght lateral thigh pain. Pt was in [facility] 04 and he had right lateral thigh muscle and artery repair and he has chronic dullache right lateral thigh area. Pt denies any low back pain or any sciatica alcohol1 Pt just left [facility] for alcohol and he drank more alcohol two weeks ago. Pt has not enrolled in AA or anything. HLP Pt has mild high cholesterol on lab work recently depression1 Pt has chronic a nxiety and [...] that he does not like psychiatrist at [facility] and he wont be going back to [...] pt denies any loss of bladder cotnrol anxiety1 Pt has chronic a nxiety and [...] providers. Pt has been having panci attacks GERD1 Pt has GERd with esophagitis. Pt takes omeprazole and he denies any GERD symptoms HTN Pt has HTN. Pt t akes clonidine for HTN. Pt deenies any chest pain or headache. anxiety1 Pt has chronic a nxiety and [...] weeks now. Pt denies any withdraw symptoms. HTN Pt has HTN. Pt t akes clondine and doing ok. Pt denies any chest see or headache GERD1 Pt has esophagit is and history of liver lesion. Pt is seeing GI and he was told no need for liver biopsy per pt. He has hemangioma per GI physician on his liver per patient. Pt is on omeprazole and doing ok. Pt denies any abd pain anxiety1 Pt has chronic a nxiety and depression. Pt takes lexapro and doing ok. Pt denies any suicidal or homicdial thought. Pt also has insomnia and he takes vistaril qhs PRn and doing ok. Pt denie any snoring alcohol1 Pt failed alcoho l program at [facility] and also he is seeing substance abuse counselor now and he has reucrrent alcohol relapase and he is on the waiting list for inpatient program at [facility]. pt is seeing substance control counselor now. Last alcohol 3 nights ago. No withdraw symptoms ED1 Pt has ED. Pt garcia s good libido but he canot have adequate eretion to have sex. Pt states that sometimes he may have erection for less than 3 mins. Pt denie any testicular pain or nodule alcohol1 Pt continues to drink alcohol. Pt is noncompliant with AA meeting or any recommendation for alcohol cessation. Pt still drinks too much daily per patient. Pt states that 12 cans of beer daily HTN Pt has HTN. Pt t akes clondine. His BP is high. Pt denies any chest pain or headache GERD1 Pt has GERD and fatty liver. Pt takes omeprazole. Pt still drinking alcohol dialy anxiety1 Pt has chronic a nxiety and depression. Pt takes lexapro and doing ok. Pt denies any suicidal or homicdial thought. Pt denies any cyring spells GERD1 Pt has esopahgit is. Pt takes omeprazole daily. Pt was told to repeat EGD in one year. pt also seen GI for liver mass and was told no need for biopsy for now. Pt has fatty liver. Pt denies any abd pain alcohol1 Pt still has not quit completely. Pt states that he realy drinks now. Pt takes clonidine to keep him calm and also helps his BP right leg pain1 Pt has chronic l eft thigh and upper leg muscle spasm from histiory of injury. Pt denies any acute symptoms Pt takes flexeril PRN and doing ok. No calf pain LFT Pt has elevated LFT and liver nodule Pt seen GI and was told everything is fine and no need for any futhre work up Pt denies any abda pin . Pt also had EGD and was told everything is fine insomnia1 Pt has insomnia. Pt takes vistaril qhs and working ok anxiety1 Pt has chronic a nxiety and depression Pt takes lexapro. Pt doing ok. Pt denies any suicidal or homcidial thought alcohol Pt again relapse d for alcohol. Pt went to ER last month for alcohol intoxication again. Pt still drinking alcohol. Last time was over the weekend. Anxiety1 Pt has chronic a nxiety and depression. Pt takes lexapro and is helping. Pt denies any suicidal or homicdialt hought. Pt feels better mood insomnia1 Pt has been farhana menendez insomnia and he received ambien from hospital [facility] ref[facility] lab pt has elevated LFT HLP high MV and high ferritin during lab recenlty alcohol Pt finished [employer] program and was released and he was told to go to [facility] but he could not make it to [place] due to transportation issue. Pt relapsed 6 [...] Instructions Date Instruction Additional Infor alex Prescribed Activity and Exercise Education Related to [...]
[2024-07-03 22:12] LABS: Lipase 101 U/L (23-300); Magnesium 1.4 mg/dL (1.6-2.3)
[2024-07-03 22:18] LABS: Prothrombin Time 13.2 Seconds (11.1-14.7)
[2024-07-03 22:19] LABS: Partial Thromboplastin Time 28.2 Seconds (22.3-36.8)
[2024-07-03 22:21] LABS: Troponin I < 0.012 ng/mL (0.000-0.034)
[2024-07-03] MEDS: THIAMINE HCL INJ 100 MG, FOLIC ACID INJ 1 MG, MAGNESIUM SULFATE INJ 1 GM, MULTIVITAMINS... IV CONT (22:57)
[2024-07-04] VITALS (26 sets, daily range): BP systolic 136–167; BP diastolic 84–97; PULSE 66–110; RESP 15–24; TEMP 36.4–36.9; O2SAT 97–100; BMI 31.4
[2024-07-04] MEDS: PANTOPRAZOLE SODIUM IV 40 MG VIAL IV PUSH (00:29)
[2024-07-04] MEDS: chlordiazePOXIDE (*CRX) 25 MG CAPSULE 50 MG PO ×3 (00:29→20:45)
[2024-07-04 01:01] LABS: Glucose Point of Care 96 mg/dl (65-105)
[2024-07-04] MEDS: LORazepam INJ (*CRX) 2 MG/ML VIAL 1 MG IV PUSH (01:14)
[2024-07-04 01:25] LABS: Add Urine Microscopic? YES; Appearance Urine Clear (Clear); Bacteria Urine None Seen /hpf; Bilirubin Urine Negative (Negative); Blood Urine Negative (Negative); Color Urine Yellow (Yellow); Glucose Urine UA Negative (Negative); Ketones Urine 1+ mg/dL (Negative); Leukocyte Esterase Ur Negative LEU/UL (Negative); Nitrate Urine Negative (Negative); Non Pathogenic Casts 0-2; Protein Urine Trace mg/dL (Negative); RBC Urine 0-2 /hpf (0-2); Specific Grav Ur > 1.045 (1.001-1.035); Squamous Epithelial Cell Urine None Seen /hpf (Few); Urobilinogen Urine 0.2 mg/dL (<2.0); WBC Urine 0-5 /hpf (0-3); pH Urine 7.5 (5.0-9.0)
[2024-07-04 01:39] LABS: Amphetamine Screen Urine Negative (Negative); Barbiturate Screen Urine Negative (Negative); Benzodiazepines Screen Urine Negative (Negative); Cannabinoid Screen Urine Positive (Negative); Cocaine Screen Urine Negative (Negative); Methadone Screen Urine Negative (Negative); Opiate Screen Urine Negative (Negative); Phencyclidine Screen Urine Negative (Negative)
--- NOTE | 2024-07-04 02:31 | ADMGEN ---
This patient, Teodoro Waddell, was admitted to IMU Room 205-01. Patient/family oriented to hospital policies and general routines including ID bracelet, bed and alarms, visiting hours, pain management, procedures, bathroom and other care routines, personal items, smoking policy, room service/diet, and visiting hours. Information on how to activate the Rapid Response Team has been discussed. Patient/Family are encouraged to report perceived risks to care and to ask questions if they do not understand what they are told or what they should do.
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
[2024-07-04 04:11] LABS: Basophils Percent Auto 0.4 % (0.2-1.2); Eosinophils Absolute Auto 0.1 K/mm3 (0-0.3); Eosinophils Percent Auto 0.9 % (0-4.4); Hematocrit 41.5 % (42.0-52.0); Hemoglobin 13.4 g/dL (14.0-18.0); Immature Granulocyte Absolute 0.02 K/mm3 (0.00-0.031); Immature Granulocyte Percent A 0.3 % (0-0.5); Lymphocytes Absolute Auto 1.61 K/mm3 (0.9-3.2); Lymphocytes Percent Auto 23.5 % (18.3-44.2); Mean Corpuscular HGB Conc 32.3 g/dl (32-36); Mean Corpuscular Hemoglobin 30.2 pg (26-34); Mean Corpuscular Volume 93.7 fl (80-100); Mean Platelet Volume 8.9 fl (7.4-10.4); Monocytes Absolute Auto 0.7 K/mm3 (0.1-0.6); Monocytes Percent Auto 9.6 % (2.6-8.5); Neutrophils Absolute Auto 4.5 K/mm3 (1.3-6.7); Neutrophils Percent Auto 65.3 % (45.5-73.1); Platelet Count Result 290 k/mm3 (150-375); Red Blood Count 4.43 M/mm3 (4.6-6.20); Red Cell Distribution Width 13.8 % (11.5-14.5); White Blood Count 6.8 K/mm3 (4.5-10.0)
[2024-07-04 04:20] LABS: Alanine Aminotransferase 35 U/L (6-50); Albumin Level 4.2 g/dL (3.5-5.1); Alkaline Phosphatase 58 U/L (38-126); Anion Gap 11 mmol/L (4-12); Aspartate Amino Transferase 44 U/L (17-59); Bilirubin,Total 1.3 mg/dL (0.2-1.3); Blood Urea Nitrogen 7 mg/dL (9-20); Calcium 8.6 mg/dL (8.4-10.2); Carbon Dioxide 24 mmol/L (22-30); Chloride 102 mmol/L (98-107); Estimated CRCL calculation 125 ml/min; Estimated Glomerular Filt Rate > 60; Glucose 82 mg/dL (65-110); Potassium 3.2 mmol/L (3.4-5.0); Sodium 137 mmol/L (137-145)
[2024-07-04 04:21] LABS: Lactic Acid Reflex 1.5 mmol/L (0.7-2.0)
[2024-07-04] MEDS: chlordiazePOXIDE (*CRX) 25 MG CAPSULE PO ×2 (05:53→13:10)
[2024-07-04] MEDS: PANTOPRAZOLE 40 MG TABLET PO ×2 (05:53→20:45)
[2024-07-04] MEDS: CALCIUM CARBONATE (TUMS) 500 MG (200 MG ELEMENTAL) PO (05:53)
[2024-07-04] MEDS: LORazepam INJ (*CRX) 2 MG/ML VIAL IV PUSH ×2 (06:42→20:46)
--- NOTE | 2024-07-04 08:31 | PM.IMPN ---
Progress Note: A&P Assessment and Plan (1) History of marijuana use: Code(s): Z87.898 - Personal history of other specified conditions Status: Chronic (2) Bipolar 1 disorder: Code(s): F31.9 - Bipolar disorder, unspecified Status: Acute (3) Alcoholism /alcohol abuse: Code(s): F10.20 - Alcohol dependence, uncomplicated Status: Chronic (4) Alcohol withdrawal: Qualifiers: Complication of substance-induced condition: uncomplicated Qualified Code(s): F10.930 - Alcohol use, unspecified with withdrawal, uncomplicated Code(s): F10.939 - Alcohol use, unspecified with withdrawal, unspecified Status: Acute Plan Acute and principal conditions 1. Alcohol dependence; seeking assistance with withdrawal 2. Hypomagnesemia 3. Hypokalemia. 4. HAGMA. Rx: IVFs; Replete and monitor K, Mg Symptom triggered therapy with Benzodiazepines Thiamine, FA, MV f/u CXR and CTAP official reads 07/04 k 3.2-will add daily supplements add diet ok to stop accucheks -as nit diabetic and bs had been stable will add librium as scheduled as it is helping watch overnight in IMU-tomorrow either move out or discharge-depending on how he feels and symptoms. Chronic and stable conditions Dyslipidemia. GERD. Alcohol dependence. Hx of seizures. On Lamotrigine Marijuana user Seasonal allergies. Insomnia. Obesity, BMI 31 Miscellaneous care Code status. Full Nutrition. Regular VTE prophylaxis. SCDs; [facility] Time Spent With Patient Time with patient: 25 - 35 minutes Subjective Date/time seen: 07/04/24 08:31 Interval history: Teodoro Waddell is a 44yo M with a mHx significant for obesity, seizures, seasonal allergies, Hypertension, marijuana dependence, Insomnia, Hx of IVDU and GERD admitted for alcohol dependence with withdrawal Work-up findings WBC 10.1; HGB 13.6; MCV 90; PLT 351 Na 136; K 3.2; Cl 99; CO2 21; HGB 16; BUN 9; CR 0.7; GFR >60; Ca 6.3; Mg 1.4 AST 51; ALT 37; ALP 82; T. BIli 1 Lipase 101 UA: Unremarkable UDS: +Cannabinoids CTAP: Unremarkable on initial evaluation; awaiting official read CXR: Unremarkable; awaiting official read Pt is seen and examined. Diet is advanced. Pt is on CIWA protocol. Librium is helping-ordered as OPRN for now-will order scheduled. Pt is determined to quit drinking-encouraged. Review of Systems Review of Systems: All systems reviewed & are unremarkable except as noted in HPI and below Exam Const: General: comfortable and no acute distress HENMT: Ears: TM's normal bilaterally Face/Nose/Sinus: Normal nares present Mouth: Yes moist mucous membranes Eyes: General: appearance normal, both eyes and all related structures Sclera: sclerae normal Neck: Neck: supple Resp: Effort & Inspection: normal respiratory effort Cardio: Rate: regular rate Rhythm: regular rhythm GI: Auscultation: normal bowel sounds Skin: General skin exam: normal color Neuro: General: gait normal Speech: normal speech Motor exam (neuro): 5/5 motor strength present throughout Extrem: General: normal to inspection Psych: Mental Status: mental status grossly normal Affect: Anxious affect present Objective Data Vital Signs Vital Signs: Vital Signs - 24 hr 07/03/24 20:34 07/03/24 21:21 07/03/24 21:27 Temperature 97.2 F L Pulse Rate 92 88 82 Respiratory Rate 16 13 16 Blood Pressure 153/96 H 131/94 H Pulse Oximetry 100 100 100 Oxygen Delivery Room Air 07/03/24 21:30 07/03/24 21:31 07/03/24 21:31 Temperature Pulse Rate 83 77 85 Respiratory Rate 14 15 16 Blood Pressure 146/86 H 146/86 H Pulse Oximetry 99 99 99 Oxygen Delivery 07/03/24 21:45 07/03/24 22:00 07/03/24 22:19 Temperature Pulse Rate 85 84 85 Respiratory Rate 18 19 19 Blood Pressure Pulse Oximetry 98 99 98 Oxygen Delivery 07/03/24 22:30 07/03/24 22:31 07/03/24 22:50 Temperature Pulse Rate 77 73 76 Respiratory Rate 20 16 22 H Blood Pressure 144/91 H Pulse Oximetry 99 99 99 Oxygen Delivery 07/03/24 23:00 07/03/24 23:01 07/03/24 23:02 Temperature Pulse Rate 76 75 75 Respiratory Rate 21 H 22 H 20 Blood Pressure 175/102 H Pulse Oximetry 99 98 99 Oxygen Delivery 07/03/24 23:15 07/03/24 23:30 07/03/24 23:32 Temperature Pulse Rate 73 75 89 Respiratory Rate 21 H 20 18 Blood Pressure 170/92 H Pulse Oximetry 100 100 100 Oxygen Delivery 07/03/24 23:45 07/04/24 00:06 07/04/24 00:15 Temperature Pulse Rate 70 74 72 Respiratory Rate 20 24 H 18 Blood Pressure Pulse Oximetry 98 100 99 Oxygen Delivery 07/04/24 00:30 07/04/24 00:45 07/04/24 00:48 Temperature Pulse Rate 84 68 70 Respiratory Rate 17 21 H 18 Blood Pressure 167/97 H Pulse Oximetry 98 100 Oxygen Delivery 07/04/24 00:50 07/04/24 01:00 07/04/24 01:15 Temperature Pulse Rate 71 86 75 Respiratory Rate 15 15 16 Blood Pressure 167/97 H Pulse Oximetry 98 98 Oxygen Delivery 07/04/24 01:19 07/04/24 01:30 07/04/24 01:31 Temperature Pulse Rate 81 74 80 Respiratory Rate 21 H 19 19 Blood Pressure 137/94 H 144/90 H Pulse Oximetry 98 100 100 Oxygen Delivery 07/04/24 01:45 07/04/24 02:08 07/04/24 02:32 Temperature Pulse Rate 78 82 69 Respiratory Rate 19 16 Blood Pressure 149/87 H Pulse Oximetry 97 Oxygen Delivery 07/04/24 02:32 07/04/24 03:06 07/04/24 04:00 Temperature 97.7 F 98.4 F Pulse Rate 69 72 Respiratory Rate 16 18 Blood Pressure 151/86 H 151/86 H 142/84 H Pulse Oximetry 100 100 Oxygen Delivery 07/04/24 04:00 07/04/24 04:00 07/04/24 04:00 Temperature Pulse Rate 83 83 Respiratory Rate 18 Blood Pressure 142/84 H Pulse Oximetry 100 Oxygen Delivery Room Air 07/04/24 05:00 07/04/24 08:00 Temperature 97.6 F Pulse Rate 66 Respiratory Rate 16 Blood Pressure 142/84 H 136/87 Pulse Oximetry 100 Oxygen Delivery Intake/Output Intake/Output: Intake & Output 07/01/24 07/02/24 07/03/24 07/04/24 23:59 23:59 23:59 23:59 Intake Total 1000 240 Output Total 300 Balance 1000 -60 Meds/Results Medications: Active Medications Generic Name Dose Route Start Last Admin Trade Name Freq PRN Reason Stop Dose Admin Calcium Carbonate 200 mg 07/04/24 03:07 07/04/24 05:53 Calcium Carbonate (Tums) 500 Mg (200 Mg Elemental) PO 200 mg Q6H PRN Administration Indigestion Chlordiazepoxide HCl 25 mg 07/04/24 03:06 07/04/24 05:53 Chlordiazepoxide (*Crx) 25 Mg Capsule PO 25 mg Q6H PRN Administration Withdrawal Guaifenesin/Dextromethorphan 10 ml 07/04/24 03:06 Guaifenesin/Dextromethorphan 10 Ml Udc PO Q4H PRN Cough Lorazepam 2 mg 07/04/24 01:17 Lorazepam Inj (*Crx) 2 Mg/Ml Vial IV PUSH Q2H PRN CIWA > 15 Lorazepam 2 mg 07/04/24 03:06 07/04/24 06:42 Lorazepam Inj (*Crx) 2 Mg/Ml Vial IV PUSH 2 mg Q4H PRN Administration CIWA 8-15 Melatonin 5 mg 07/04/24 03:06 Melatonin 5 Mg Tablet PO HS PRN Insomnia Prochlorperazine Edisylate 10 mg 07/04/24 03:06 Prochlorperazine Edisylate 10 Mg/2 Ml Vial IV PUSH Q6H PRN Nausea And Vomiting Radiology Results: ITS Impressions Chest X-Ray 07/04/24 05:44 Impression: Normal chest. Head CT 07/04/24 05:44 Impression: No significant abnormality seen. Abdomen/Pelvis CT 07/04/24 06:09 Impression: No acute abnormality. Hepatic hemangioma. Decreased fatty infiltration of liver as compared to prior exam. Labs Labs: Laboratory Results - last 24 hr 07/03/24 07/03/24 07/03/24 21:25 21:26 21:27 WBC 10.1 H RBC 4.52 L Hgb 13.6 L Hct 41.1 L MCV 90.9 MCH 30.1 MCHC 33.1 RDW 13.8 Plt Count 351 D MPV 8.8 Immature Gran % (Auto) 0.3 Neut % (Auto) 69.5 Lymph % (Auto) 19.6 [place] % (Auto) 9.9 H Eos % (Auto) 0.5 Baso % (Auto) 0.2 Lymph # (Auto) 1.98 [place] # (Auto) 1.0 H Eos # (Auto) 0.1 Baso # (Auto) 0.0 Abs Immat Gran (auto) 0.03 Absolute Neuts (auto) 7.0 H Absolute Nucleated RBC 0.000 Nucleated RBC % 0.0 PT 13.2 INR 1.0 APTT 28.2 Sodium 136 L Potassium 3.2 L Chloride 99 Carbon Dioxide 21 L Anion Gap 16 H BUN 9 D Creatinine 0.71 Estim Creat Clear Calc 130 Estimated GFR > 60 Glucose 93 POC Capillary Glucose Lactic Acid Calcium 9.3 Magnesium 1.4 L Total Bilirubin 1.0 AST 51 ALT 37 Alkaline Phosphatase 82 Troponin I < 0.012 Total Protein 8.0 Albumin 4.7 Lipase 101 Urine Color Urine Appearance Urine pH Ur Specific [place] Urine Protein Urine Glucose (UA) Urine Ketones Ur Blood (Man) Urine Nitrate Urine Bilirubin Urine Urobilinogen Leukocyte Esterase Rfl Urine RBC Urine WBC Ur Squamous Epith Cells Urine Bacteria Urine Casts Urine Opiates Screen Urine Methadone Screen Ur Barbiturates Screen Ur Phencyclidine Scrn Ur Amphetamine Screen U Benzodiazepines Scrn Urine Cocaine Screen U Cannabinoids Screen Ethyl Alcohol < 10 07/04/24 07/04/24 07/04/24 00:57 01:13 03:56 WBC 6.8 RBC 4.43 L Hgb 13.4 L Hct 41.5 L MCV 93.7 MCH 30.2 MCHC 32.3 RDW 13.8 Plt Count 290 MPV 8.9 Immature Gran % (Auto) 0.3 Neut % (Auto) 65.3 Lymph % (Auto) 23.5 [place] % (Auto) 9.6 H Eos % (Auto) 0.9 Baso % (Auto) 0.4 Lymph # (Auto) 1.61 [place] # (Auto) 0.7 H Eos # (Auto) 0.1 Baso # (Auto) 0.0 Abs Immat Gran (auto) 0.02 Absolute Neuts (auto) 4.5 Absolute Nucleated RBC 0.000 Nucleated RBC % 0.0 PT INR APTT Sodium 137 Potassium 3.2 L Chloride 102 Carbon Dioxide 24 Anion Gap 11 BUN 7 L Creatinine 0.74 Estim Creat Clear Calc 125 Estimated GFR > 60 Glucose 82 POC Capillary Glucose 96 Lactic Acid 1.5 Calcium 8.6 Magnesium Total Bilirubin 1.3 AST 44 ALT 35 Alkaline Phosphatase 58 Troponin I Total Protein 7.0 Albumin 4.2 Lipase Urine Color Yellow Urine Appearance Clear Urine pH 7.5 Ur Specific [place] > 1.045 H Urine Protein Trace Urine Glucose (UA) Negative Urine Ketones 1+ H Ur Blood (Man) Negative Urine Nitrate Negative Urine Bilirubin Negative Urine Urobilinogen 0.2 Leukocyte Esterase Rfl Negative Urine RBC 0-2 Urine WBC 0-5 Ur Squamous Epith Cells None seen Urine Bacteria None seen Urine Casts 0-2 Urine Opiates Screen Negative Urine Methadone Screen Negative Ur Barbiturates Screen Negative Ur Phencyclidine Scrn Negative Ur Amphetamine Screen Negative U Benzodiazepines Scrn Negative Urine Cocaine Screen Negative U Cannabinoids Screen Positive A Ethyl Alcohol
[2024-07-04] MEDS: MONTELUKAST SODIUM 10 MG TABLET PO (09:53)
[2024-07-04] MEDS: FAMOTIDINE 20 MG TABLET 40 MG PO ×2 (09:53→20:45)
[2024-07-04] MEDS: LORATADINE 10 MG TABLET PO (09:53)
[2024-07-04] MEDS: ATORVASTATIN 20 MG TABLET PO (09:53)
[2024-07-04] MEDS: POTASSIUM CHLORIDE 20 MEQ ER TABLET 40 MEQ PO (09:54)
[2024-07-04] MEDS: hydroCHLOROthiazide 12.5 MG CAPSULE PO (09:54)
[2024-07-04] MEDS: LOSARTAN POTASSIUM 50 MG TABLET PO (09:54)
[2024-07-04] MEDS: MULTIVITAMINS THERAPEUTIC TAB (*BKC) 1 TABLET PO (09:54)
[2024-07-04] MEDS: lamoTRIgine 100 MG TABLET PO (11:00)
[2024-07-04] MEDS: MELATONIN 5 MG TABLET PO (20:45)
[2024-07-04] MEDS: PROCHLORPERAZINE EDISYLATE 10 MG/2 ML VIAL IV PUSH (20:46)
[2024-07-05] VITALS (10 sets, daily range): BP systolic 123–134; BP diastolic 78–98; PULSE 75–104; RESP 18–20; TEMP 36.4–36.7; O2SAT 99–100
[2024-07-05] MEDS: chlordiazePOXIDE (*CRX) 25 MG CAPSULE 50 MG PO ×3 (02:47→14:12)
[2024-07-05] MEDS: LORazepam INJ (*CRX) 2 MG/ML VIAL IV PUSH ×4 (02:47→12:17)
[2024-07-05 04:42] LABS: Basophils Percent Auto 0.5 % (0.2-1.2); Eosinophils Absolute Auto 0.1 K/mm3 (0-0.3); Eosinophils Percent Auto 1.2 % (0-4.4); Hematocrit 40.8 % (42.0-52.0); Hemoglobin 13.2 g/dL (14.0-18.0); Immature Granulocyte Absolute 0.03 K/mm3 (0.00-0.031); Immature Granulocyte Percent A 0.5 % (0-0.5); Lymphocytes Absolute Auto 1.16 K/mm3 (0.9-3.2); Lymphocytes Percent Auto 19.3 % (18.3-44.2); Mean Corpuscular HGB Conc 32.4 g/dl (32-36); Mean Corpuscular Hemoglobin 29.9 pg (26-34); Mean Corpuscular Volume 92.5 fl (80-100); Mean Platelet Volume 9.2 fl (7.4-10.4); Monocytes Absolute Auto 0.5 K/mm3 (0.1-0.6); Neutrophils Absolute Auto 4.2 K/mm3 (1.3-6.7); Neutrophils Percent Auto 69.5 % (45.5-73.1); Platelet Count Result 270 k/mm3 (150-375); Red Blood Count 4.41 M/mm3 (4.6-6.20); Red Cell Distribution Width 13.5 % (11.5-14.5)
[2024-07-05 05:00] LABS: Alanine Aminotransferase 32 U/L (6-50); Albumin Level 3.9 g/dL (3.5-5.1); Alkaline Phosphatase 79 U/L (38-126); Anion Gap 10 mmol/L (4-12); Aspartate Amino Transferase 34 U/L (17-59); Bilirubin,Total 0.7 mg/dL (0.2-1.3); Blood Urea Nitrogen 14 mg/dL (9-20); Calcium 8.8 mg/dL (8.4-10.2); Carbon Dioxide 24 mmol/L (22-30); Chloride 105 mmol/L (98-107); Estimated CRCL calculation 110 ml/min; Estimated Glomerular Filt Rate > 60; Glucose 103 mg/dL (65-110); Potassium 4.1 mmol/L (3.4-5.0); Sodium 139 mmol/L (137-145)
[2024-07-05] MEDS: hydroCHLOROthiazide 12.5 MG CAPSULE PO (08:21)
[2024-07-05] MEDS: MONTELUKAST SODIUM 10 MG TABLET PO (08:21)
[2024-07-05] MEDS: ARIPiprazole 5 MG TABLET PO (08:22)
[2024-07-05] MEDS: POTASSIUM CHLORIDE 20 MEQ ER TABLET 40 MEQ PO (08:22)
[2024-07-05] MEDS: LOSARTAN POTASSIUM 50 MG TABLET PO (08:23)
[2024-07-05] MEDS: lamoTRIgine 100 MG TABLET PO (08:24)
[2024-07-05] MEDS: MULTIVITAMINS THERAPEUTIC TAB (*BKC) 1 TABLET PO (08:24)
[2024-07-05] MEDS: PANTOPRAZOLE 40 MG TABLET PO (08:24)
[2024-07-05] MEDS: ATORVASTATIN 20 MG TABLET PO (08:24)
[2024-07-05] MEDS: LORATADINE 10 MG TABLET PO (08:24)
[2024-07-05] MEDS: FAMOTIDINE 20 MG TABLET 40 MG PO (08:24)
--- NOTE | 2024-07-05 14:42 | PM.DS ---
DS: Admitting Diagnosis Discharge Date 07/05 Admitting Diagnosis alcohol withdrawal DS: Discharge Diagnosis Discharge Diagnosis (1) History of marijuana use: Code(s): Z87.898 - Personal history of other specified conditions Status: Chronic (2) Bipolar 1 disorder: Code(s): F31.9 - Bipolar disorder, unspecified Status: Acute (3) Alcoholism /alcohol abuse: Code(s): F10.20 - Alcohol dependence, uncomplicated Status: Chronic (4) Alcohol withdrawal: Qualifiers: Complication of substance-induced condition: uncomplicated Qualified Code(s): F10.930 - Alcohol use, unspecified with withdrawal, uncomplicated Code(s): F10.939 - Alcohol use, unspecified with withdrawal, unspecified Status: Acute DS: Summary Hospital Course Hospital Course: Teodoro Waddell is a 44yo M with a mHx significant for obesity, seizures, seasonal allergies, Hypertension, marijuana dependence, Insomnia, Hx of IVDU and GERD admitted for alcohol dependence with withdrawal Acute and principal conditions 1. Alcohol dependence; seeking assistance with withdrawal 2. Hypomagnesemia 3. Hypokalemia. Pt was on IV fluids, K, Mg repleted. CT abd/pelvis: No acute abnormality. Hepatic hemangioma. Decreased fatty infiltration of liver as compared to prior exam. 07/04- librium was started as scheduled as pt was still c/o symptoms and was scoring high on CIWA. He was requesting Ativan around the clock. 07/05 CIWA score remains high and he was requesting more librium. He reported that he was treated at other facilities with a different regime for librium and was wanting to increase dose. Upon my examination, pt appeared calm and orietned, no auditory hallucination, he was not sweaty, shaky, appeared comfortable. NO nausea, vomiting or reported headache. NO tremors were observed. He did not appear to be anxious or agitated to me, however, RN reported he was anxious and agitated earlier. He reported that he was diagnosed wih hep c in April but not on any treatment. We were going to request records but then he decided to leave. Discussed that since his CIWA is still high, it is advised for him to stay to avoid any complications. He understood the risks and proceeded with leaving AMA He declined resources for rehab. Will send librium taper and instructed to f/u with PCP and/or return to ED if needed. Status at Discharge Functional status at discharge: independent ambulation Overall status at discharge: patient is progressing back to baseline Time Spent with Patient Time attestation: Total time spent providing and/or coordinating discharge services: Time spent: Less than 30 minutes Exam Const: General: comfortable and no acute distress HENMT: Ears: TM's normal bilaterally Face/Nose/Sinus: Normal nares present Mouth: Yes moist mucous membranes Eyes: General: appearance normal, both eyes and all related structures Sclera: sclerae normal Neck: Neck: supple Resp: Effort & Inspection: normal respiratory effort Cardio: Rate: regular rate Rhythm: regular rhythm GI: Auscultation: normal bowel sounds Skin: General skin exam: normal color Neuro: General: gait normal Speech: normal speech Motor exam (neuro): 5/5 motor strength present throughout Extrem: General: normal to inspection Psych: Mental Status: mental status grossly normal Affect: Anxious affect present DS: Data Data Completed and Pending Completed studies during hospitalization: ct abd/pelvis Labs on day of discharge: Labs from last 24 hours 07/05/24 03:57 WBC 6.0 RBC 4.41 L Hgb 13.2 L Hct 40.8 L MCV 92.5 MCH 29.9 MCHC 32.4 RDW 13.5 Plt Count 270 MPV 9.2 Immature Gran % (Auto) 0.5 Neut % (Auto) 69.5 Lymph % (Auto) 19.3 [place] % (Auto) 9.0 H Eos % (Auto) 1.2 Baso % (Auto) 0.5 Lymph # (Auto) 1.16 [place] # (Auto) 0.5 Eos # (Auto) 0.1 Baso # (Auto) 0.0 Abs Immat Gran (auto) 0.03 Absolute Neuts (auto) 4.2 Absolute Nucleated RBC 0.000 Nucleated RBC % 0.0 Sodium 139 Potassium 4.1 Chloride 105 Carbon Dioxide 24 Anion Gap 10 BUN 14 D Creatinine 0.86 Estim Creat Clear Calc 110 Estimated GFR > 60 Glucose 103 Calcium 8.8 Total Bilirubin 0.7 AST 34 ALT 32 Alkaline Phosphatase 79 Total Protein 7.0 Albumin 3.9 Discharge Plan Discharge Attending physician on discharge: Shahrzad Hood Discharging Clinician: Emily Oliveros Patient Disposition: Left Against Medical Advice Activity: may shower Diet: regular Discharge Instructions: You were admitted for alcohol withdrawal. Given libroum and ativan. YOu were still scoring high on your CIWA-so you were requiring Librium and ativan around the clock. IT is advised that you stay in the hospital for a proper medical management. WE offered you resources for rehab and you decline. Since you choose to leave AMA, it is important you f/u with PCP as soon as possible. Take librium as prescribed and stay away from alcohol, marijuana and any other drugs that are not prescribed to you by health care provider. Please return to ED if you have hallucinations, shaky, sweaty, headache and/or any other new or worsening symptoms. Patient Language: Turkmen Follow-up/Referrals: UNKNOWN,DOCTOR [Non-Staff] - 1 Week (f/u with your pcp as soon as possible) Discharge Medications: New chlordiazepoxide HCl 25 mg Capsule 50 mg PO Q4H Qty: 15 0RF Rx Instructions: please take 50 mg every 4 hours on day 1, take 50 mg every 8 hours on day 2, take 50 mg every 12 h on day 3 take 50 mg daily on day 4 take 50 mg as needed at bedtime Continued magnesium oxide 400 mg (241.3 mg magnesium) Tablet 400 mg PO QAM Qty: 30 1RF losartan-hydrochlorothiazide 50-12.5 mg tablet 1 tablet PO DAILY multivitamin with folic acid [Thera] 400 mcg Tablet 1 tablet PO QAM Qty: 30 0RF omeprazole 40 mg capsule,delayed release(DR/EC) 40 mg PO DAILY montelukast 10 mg tablet 10 mg PO DAILY trazodone 50 mg tablet 50 mg PO HS PRN (Reason: sleep) lamotrigine [Lamictal] 100 mg tablet 100 mg PO DAILY cyclobenzaprine 10 mg tablet 10 mg PO Q12H PRN (Reason: muscle spasm) atorvastatin [Lipitor] 20 mg tablet 20 mg PO DAILY loratadine 10 mg tablet 10 mg PO Q24H famotidine 40 mg tablet 40 mg PO Q12H Patient Comments: Pt. states not taking. aripiprazole 5 mg tablet 5 mg PO DAILY Date of admission: 07/04/24 01:10 Primary Care Provider: Jose Manuel Gibbs Admitting Provider: Angelo Huntley Attending physician on admission: Angelo Huntley Condition: Stable Hospitalist MIPS Heart Failure (Exclusion) Patient has history of Heart Transplant or Left Ventricular Assistive Device?: No IF YES, STOP HERE Heart Failure (Qualifier) Patient has current or prior documentation of LVEF less than or equal to 40%, or mod/servere depressed LVSF?: No IF NO, STOP HERE
--- NOTE | 2024-07-05 18:26 | PC.NURSE ---
Pt requesting Ativan. RN went to talk to MAGGI Diaz because it was too soon to be given. No new orders from MAGGI Diaz at this time. RN notified the patient. Pt requested to leave AMA with a prescription for Librium. RN educated pt on risks of leaving AMA and notified GANG KNIFE FISH CHOPPER. Pt signed AMA form, received a prescription for Librium, and left at 1511.
== END 2024-07-05 15:11 | disposition left against medical advice (07) ==
LOC: ANHED 07-04 01:17 → ANHIMU 07-04 16:22
PROVIDERS: Emergency Medicine; Admitting Provider Internal Medicine; Emergency Provider Physician Assistant; PCP Internal Medicine; Visit Provider Family Medicine
DX: F10.230 Alcohol dependence with withdrawal, uncomplicated (principal); E87.6 Hypokalemia; E83.42 Hypomagnesemia; E87.20 Acidosis, unspecified; G40.909 Epilepsy, unspecified, not intractable, without status epilepticus; I10 Essential (primary) hypertension; E78.5 Hyperlipidemia, unspecified; G47.00 Insomnia, unspecified; F12.20 Cannabis dependence, uncomplicated; F31.9 Bipolar disorder, unspecified; K21.9 Gastro-esophageal reflux disease without esophagitis; Z87.891 Personal history of nicotine dependence; E66.9 Obesity, unspecified; Z68.31 Body mass index [BMI] 31.0-31.9, adult
CPT/HCPCS: 36415; 70450; 71046; 74177; 80053; 80307; 81001; 82077; 82948; 83605; 83690; 83735; 84484; 85025; 85610; 85730; 93005; 96361; 96374; 96375; 96376; 99285; A9270; G0378; G0379; J0780; J2060; J2470; J3411; J3475; J7030; J7120; Q9967

== ENCOUNTER 2024-10-19 00:12 | Day surgery (SDC) | payer OTHER, SELFPAY ==
[2024-05-19 14:52] VITALS: BMI 34.0
--- OUTSIDE RECORDS SUMMARY | 2024-05-31 00:18 | XMS_ITS | Encounter Summary ---
Author Organization [facility] Address [facility] [place] [address] Care Team Providers Care Top And Seat Cover Fitter Name Role Phone Brett Fabian MD Primary Care Provider [phone] Encounter Details Date Type Department Care Team (Late st Contact Info) Description 06/06/2017 Abstract [facility] CONVERSION [address] [place] [address] , Generic ConversionMD Social History Tobacco Use [...] on filedocumented in this encounter Care Teams Top And Seat Cover Fitter Relationship Specialty Start Date End Date Brett Fabian MD PCP - General 12/22/15 documented as of this encounter
--- OUTSIDE RECORDS SUMMARY | 2024-05-31 00:18 | XMS_ITS | Clinical Summary ---
Author Organization [facility] Address [facility] [place] [address] Care Team Providers Care Crm Specialist Name Role Phone Brett Fabian MD Primary Care Provider [phone] Social History Tobacco Use Types Packs/Day Years [...] patient's age to complete this topic Meningococcal B Vaccine Aged Out No l onger eligible based on patient's age to complete [...] age to complete this topic Care Teams Crm Specialist Relationship Specialty Start Date End Date Brett Fabian MD PCP - General 12/22/15
--- OUTSIDE RECORDS SUMMARY | 2024-05-31 00:18 | XMS_ITS | Continuity of Care Document ---
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 Medicine No Information [address]. [address], [place], [place], [address] , [place]. tel:[phone] Referring Provider: Brett Fabian, [address], [place], [place], [address]. tel:[phone] OFFICE/OUTPA TIENT VISIT, [facility], [address], [place], [place], [address], [place] tel:[phone] [facility] Medicine leg pain1 (chief complaint) alcohol1 (chief complaint) HLP (chief complaint) Alcohol abuse, uncomplicatedChroni c pain syndromeHyperlipide gilma Nov- 7 Rui [address]. [address], [place], [place], [address] , [place]. tel:[phone] Referring Provider: [address], [place], [place], [address]. tel:[phone] OFFICE/OUTPA TIENT VISIT, EST [facility], [address], [place], [place], [address], [place] tel:[phone] [facility] depression 1 (chief complaint) HTN (chief complaint) GERD1 (chief complaint) alcohol1 (chief complaint) GERD w/ esophagitisAlcohol abuse, uncomplicatedEssent ial (primary) hypertensionInsomni a Nov- 7 Rui [address]. [address], [place], [place], [address] , [place]. tel:[phone] Referring Provider: [address], [place], [place], [address]. tel:[phone] PREV VISIT, EST, AGE 18-39 [facility], [address], [place], [place], [address], [place] tel:[phone] [facility] Physical (chief complaint) Encntr for general adult medical exam w/o abnormal findings 7 Rui [address]. [address], [place], [place], [address] , [place]. tel:[phone] Referring Provider: [address], [place], [place], [address]. tel:[phone] OFFICE/OUTPA TIENT VISIT, [facility], [address], [place], [place], [address], [place] tel:[phone] [facility] anxiety1 (chief complaint) GERD1 (chief complaint) HTN (chief complaint) GERD w/ esophagitisGenerali zed anxiety disorderEssential (primary) hypertensionChronic pain syndrome 7 Rui [address], [place], [place], [address] , [place]. tel:[phone] Referring Provider: [address], [place], [place], [address]. tel:[phone] OFFICE/OUTPA TIENT VISIT, [facility], [address], [place], [place], [address], [place] tel:[phone] [facility] anxiety1 (chief complaint) knee pain1 (chief complaint) alcohol1 (chief complaint) Pain in right kneeGeneralized anxiety disorderAlcohol abuse, uncomplicatedLiver disease Rui West. [address], [place], [place], [address] , [place]. tel:[phone] Referring Provider: [address], [place], [place], [address]. tel:[phone] OFFICE/OUTPA TIENT VISIT, [facility], [address], [place], [place], [address], [place] tel:[phone] [facility] HTN (chief complaint) GERD1 (chief complaint) anxiety1 (chief complaint) alcohol1 (chief complaint) Liver diseaseAlcohol abuse, uncomplicatedGenera lized anxiety disorderEssential (primary) hypertension 7 Rui [address]. [address], [place], [place], [address] , [place]. tel:[phone] Referring Provider: [address], [place], [place], [address]. tel:[phone] OFFICE/OUTPA TIENT VISIT, [facility], [address], [place], [place], [address], [place] tel:[phone] [facility] Medicine ED1 (chief complaint) alcohol1 (chief complaint) HTN (chief complaint) GERD1 (chief complaint) Generalized anxiety disorderLiver diseaseAlcohol abuse, uncomplicatedEssent ial (primary) hypertension 6 R[address]. [address], [place], [place], [address] , [place]. [phone] Referring Provider: [address], [place], [place], [address]. tel:[phone] OFFICE/OUTPA TIENT VISIT, [facility], [address], [place], [place], [address], [place] tel:[phone] [facility] anxiety1 (chief complaint) GERD1 (chief complaint) alcohol1 (chief complaint) right leg pain1 (chief complaint) Liver diseaseGeneralized anxiety disorderAlcohol abuse, uncomplicatedChroni c pain syndrome 6 [address]. [address], [place], [place], [address] , [place]. [phone] Referring Provider: [address], [place], [place], [address]. tel:[phone] OFFICE/OUTPA TIENT VISIT, [facility], [address], [place], [address], [place] tel:[phone] [facility] Medicine LFT (chief complaint) insomnia1 (chief complaint) anxiety1 (chief complaint) alcohol (chief complaint) Liver diseaseAlcohol abuse, uncomplicatedInsomn iaGeneralized anxiety disorder 0 6 [address], [place], [place], [address] , . tel:[phone] Referring Provider: [place], [address]. tel:[phone] OFFICE/OUTPA TIENT VISIT, EST [facility], [address] [place], [place], [address], tel:[phone] [facility] Anxiety1 (chief complaint) alcohol (chief complaint) insomnia1 (chief complaint) lab (chief complaint) leg spasm (chief complaint) Liver diseaseHyperlipidem iaAlcohol abuse, uncomplicatedInsomn ia 6 [address] [facility] [place] [address] , [place]. tel:[phone] Referring Provider: Pb Rust [place], [address]. tel:[phone] PREV VISIT, NEW, AGE 18-39 [facility], [address] [place], [address], [place] tel:[phone] [facility] Physical (chief complaint) Encntr for general adult medical exam w/o abnormal findings 6 [address]. [address] [facility] [place] [address] , [place]. tel:[phone] Referring Provider: Pb Rust [place], [place], [address]. tel:[phone] Family History Family Member Type Diagnosis Age At Onset Father Problem (finding) Melanoma Brother Problem (finding) drug OD Mother Problem (finding) Alcoholism Payers Payer name Insurance type Covered constitution party ID Authoriza tion(s) No Information Social History [...] findings) ordered Referral Referred To: Alvarado Burrell [address] [place], [id number] Ordered: Referrals: Alvarado Burrell. Evaluate and treat [...] that he does not like psychiatrist at [place] and he wont be going back to [...] Pt states that he canceled his appointemnt [facility] tomorrow He told me [facility] told him [facility] needs [facility]. Pt has been having panci [...] alcohol1 Pt failed alcoho l program at [facility] and also he is seeing substance abuse counselor now and he has reucrrent alcohol relapase and he is on the waiting list for inpatient program at [place]. pt is seeing substance control counselor now. [...] is fine insomnia1 Pt has been farhana menendez insomnia and he received ambien from hospital and [facility] ref[facility] lab pt has elevated LFT HLP high MV and high ferritin during lab recenlty Anxiety1 Pt has chronic a nxiety and depression. Pt takes lexapro and is helping. Pt denies any suicidal or homicdialt hought. Pt feels better mood alcohol Pt finished [facility] and was released and he was told to go to [place] but he could not make it to [place] due to transportation issue. Pt relapsed 6 [...]
--- OUTSIDE RECORDS SUMMARY | 2024-05-31 00:18 | XMS_ITS | CONTINUITY OF CARE DOCUMENT ---
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
--- OUTSIDE RECORDS SUMMARY | 2024-05-31 00:18 | XMS_ITS | Referral Summary ---
Author Organization [facility] Address [address] [place] [address] Care Team Providers Care Dog Hair Clipper Name Role Phone Jose Maunel Gibbs MD Primary Care Provider [phone] Encounters Date Type Department Care Team Description 03/25/2024 11:16 AM PHOTOVOLTAIC TECHNICIAN - 03/31/2024 10:35 AM PHOTOVOLTAIC TECHNICIAN Hospital Encounter [address] [address] Gregory Larkin MD Saravanan, Pathanjali, MD Chowdhury, Farhanaz, MD Singh, Arjun, MD Shaukat, Bushra, MD Altwal, Ricardo Moore MD Abdominal pain (Primary Dx); Alcohol-induced acute pancreatitis without infection or necrosis; Alcohol withdrawal syndrome without complication (HCC); Hypomagnesemia Discharge Disposition: Discharge to home or self care from Last 3 Months Allergies Active Allergy Reactions Criticality Noted Date Comments Cefaclor Hives Reaction: HIVES Cephalexin Other (See comments) Reaction: REACTION UNKNOWN, Medications loratadine (CLARITIN) 10 mg tablet Take 1 tablet (10 mg total) by mouth daily Active losartan-hydroC HLOROthiazide (HYZAAR) 50-12.5 mg per tablet Take 1 tablet by mouth daily Active magnesium oxide (MAG-OX) 400 mg (241.3 mg elemental magnesium) tabletIndicatio ns:hypomagnesem ia Take 1 tablet (400 mg total) by mouth daily Active montelukast (SINGULAIR) 10 mg tablet Take 1 tablet (10 mg total) by mouth nightly Active omeprazole (PriLOSEC) 40 mg capsule Take 1 capsule (40 mg total) by mouth daily Active chlordiazePOXID E (LIBRIUM) 25 mg capsule Take 1 capsule (25 mg total) by mouth 3 (three) times a day as needed for anxiety for up to 30 doses 30 capsule 03/31/2024 Active Active Problems Problem Noted Date Diagnosed Date Abdominal pain 03/25/2024 Alcohol withdrawal syndrome without complication 03/25/2024 Alcohol-induced acute pancre atitis without infection or necrosis 03/25/2024 Obesity (BMI 30.0-34.9) 03/25/2024 Social History Tobacco Use Types Packs/Day Years Used Date Smoking Tobacco: Never Smokeless Tobacco: Never Tobacco Cessation:Counseling Given: Not Answered [facility] Utilities Answer Date Recorded In the past 12 months has e electric, gas, oil, or water company threatened to shut off services in your home? No 03/29/2024 Social Connection and Isolation Panel [NHANES] A nswer Date Recorded In a typical week, how many times do you talk on the phone with family, friends, or neighbors? Once a week 03/29/2024 How often do you get together with friends or re latives? Once a week 03/29/2024 How often do you attend baptism or hinduism serv ices? Never 03/29/2024 Do you belong to any clubs o r organizations such as baptism groups, unions, fraternal or athletic groups, or school groups? No 03/29/2024 How often do you attend meet ings of the clubs or organizations you belong to? Never 03/29/2024 Are you , , di vorced, , never , or living with a partner? Never 03/29/2024 Overall Financial Resource Strain (CARDIA) Answe r Date Recorded How hard is it for you to pa y for the very basics like food, housing, medical care, and heating? Not hard at all 03/29/2024 Hunger Vital Sign Answer Date Recorded Within the past 12 months, y ou worried that your food would run out before you got the money to buy more. Never true 03/29/19 25 Within the past 12 months, t he food you bought just didn't last and you didn't have money to get more. Never true 03/29/2024 PRAPARE - Transportation Answer Date Re corded In the past 12 months, has l ack of transportation kept you from medical appointments or from getting medications? Yes 09/2024 In the past 12 months, has l ack of transportation kept you from meetings, work, or from getting things needed for daily living? Yes 03/29/2024 Housing Stability Vital Sign Answer Jayesh e Recorded In the last 12 months, was t here a time when you were not able to pay the mortgage or rent on time? No 03/29/2024 In the past 12 months, how m any times have you moved where you were living? 0 03/29/2024 At any time in the past 12 m [facility], were you homeless or living in a custodial (including now)? No 03/29/2024 Personal Safety Answer Date Recorded Have you ever been in or are you currently in a harmful physical or emotional relationship or is someone making you feel afraid or unsafe? Denies 03/26/2024 Sex and Gender Information Value Date Recorded Sex Assigned at Not on file Legal Sex Male 10:51 PM PHOTOVOLTAIC TECHNICIAN Gender Identity Not on file Sexual Orientation Not on file Last Filed Vital Signs Vital Sign Reading Time Taken Comments Blood Pressure 127/76 03/31/2024 7:06 AM PHOTOVOLTAIC TECHNICIAN Pulse 100 03/31/2024 7:06 AM PHOTOVOLTAIC TECHNICIAN Temperature 36.7 C (98.1 F) 03/31/2024 7:06 AM PHOTOVOLTAIC TECHNICIAN Respiratory Rate 18 03/31/2024 7:06 AM PHOTOVOLTAIC TECHNICIAN Oxygen Saturation 96% 03/31/2024 7:06 AM PHOTOVOLTAIC TECHNICIAN Inhaled Oxygen Concentration - - Weight 123.7 kg (272 lb 12.8 oz) 03/25/2024 7:56 PM PHOTOVOLTAIC TECHNICIAN Height 175.3 cm (5' 9) 03/25/2024 7:56 PM PHOTOVOLTAIC TECHNICIAN Body Mass Index 40.29 03/25/2024 7:56 PM PHOTOVOLTAIC TECHNICIAN Plan of Treatment Not on file Procedures Procedure Name Priority Date/Time Associated Diagnosis Comments MAGNESIUM Routine 03/31/2024 5:46 AM PHOTOVOLTAIC TECHNICIAN HEPATITIS C RNA, QUANTITATIVE, PCR Add-On 03/30/2024 8:36 AM PHOTOVOLTAIC TECHNICIAN EGFR Routine 03/30/2024 4:44 AM PHOTOVOLTAIC TECHNICIAN COMPREHENSIVE METABOLIC PANEL Routine 03/30/2024 4:44 AM PHOTOVOLTAIC TECHNICIAN MAGNESIUM Routine 03/30/2024 4:44 AM PHOTOVOLTAIC TECHNICIAN TRANSTHORACIC ECHO (TTE) COMPLETE W DOPPLER/CF WO CONTRAST Routine 03/29/2024 1:36 PM PHOTOVOLTAIC TECHNICIAN REFLEX HEPATITIS C RNA Routine 03/29/2024 10:30 AM PHOTOVOLTAIC TECHNICIAN HEPATITIS PANEL, ACUTE Routine 03/29/2024 10:30 AM PHOTOVOLTAIC TECHNICIAN DIFFERENTIAL AUTO Routine 03/29/2024 6:4 5 AM PHOTOVOLTAIC TECHNICIAN MAGNESIUM Routine 03/29/2024 6:45 AM PHOTOVOLTAIC TECHNICIAN CBC WITH AUTO DIFFERENTIAL Routine 03/29/2024 6:[address] ABDOMEN PELVIS WO CONTRAST ED Urgent/IP Urgent 03/28/2024 9:58 AM PHOTOVOLTAIC TECHNICIAN LIPASE STAT 03/28/2024 9:28 AM PHOTOVOLTAIC TECHNICIAN EGFR Routine 03/28/2024 8:33 AM PHOTOVOLTAIC TECHNICIAN LIPASE Routine 03/28/2024 8:33 AM PHOTOVOLTAIC TECHNICIAN MAGNESIUM Routine 03/28/2024 8:33 AM PHOTOVOLTAIC TECHNICIAN COMPREHENSIVE METABOLIC PANEL Routine 03/28/2024 8:33 AM PHOTOVOLTAIC TECHNICIAN LIPASE Routine 03/28/2024 8:33 AM PHOTOVOLTAIC TECHNICIAN EGFR Routine 03/27/2024 12:27 PM PHOTOVOLTAIC TECHNICIAN DIFFERENTIAL AUTO Routine 03/27/2024 12: 27 PM PHOTOVOLTAIC TECHNICIAN COMPREHENSIVE METABOLIC PANEL Routine 03/27/2024 12:27 PM PHOTOVOLTAIC TECHNICIAN CBC WITH AUTO DIFFERENTIAL Routine 03/27/2024 12:27 PM PHOTOVOLTAIC TECHNICIAN EGFR Routine 03/26/2024 6:45 AM PHOTOVOLTAIC TECHNICIAN DIFFERENTIAL AUTO Routine 03/26/2024 6:4 5 AM PHOTOVOLTAIC TECHNICIAN PHOSPHORUS Routine 03/26/2024 6:45 AM PHOTOVOLTAIC TECHNICIAN MAGNESIUM Routine 03/26/2024 6:45 AM PHOTOVOLTAIC TECHNICIAN COMPREHENSIVE METABOLIC PANEL Routine 03/26/2024 6:45 AM PHOTOVOLTAIC TECHNICIAN CBC WITH AUTO DIFFERENTIAL Routine 03/26/2024 6:45 AM PHOTOVOLTAIC TECHNICIAN URINALYSIS AND REFLEX TO MICROSCOPIC AND CULTURE STAT 03/25/2024 8:13 PM PHOTOVOLTAIC TECHNICIAN LACTATE Timed 03/25/2024 8:06 PM PHOTOVOLTAIC TECHNICIAN TROPONIN T HIGH-SENSITIVITY 4-HR Timed 03/25/2024 8:06 PM PHOTOVOLTAIC TECHNICIAN SEPSIS LACTATE WITH REFLEX Timed 03/25/2024 5:40 PM PHOTOVOLTAIC TECHNICIAN TROPONIN T HIGH-SENSITIVITY 6-HOUR Timed 03/25/2024 5:40 PM PHOTOVOLTAIC TECHNICIAN SEPSIS LACTATE WITH REFLEX Timed 03/25/2024 2:27 PM PHOTOVOLTAIC TECHNICIAN TROPONIN T HIGH-SENSITIVITY 2-HOUR Timed 03/25/2024 2:[address] CHEST PE ABDOMEN PELVIS W CONTRAST ED 03/25/2024 1:44 PM PHOTOVOLTAIC TECHNICIAN BLOOD CULTURE STAT 03/25/2024 1:03 PM PHOTOVOLTAIC TECHNICIAN BLOOD CULTURE STAT 03/25/2024 1:02 PM PHOTOVOLTAIC TECHNICIAN PRO B-TYPE NATRIURETIC PEPTIDE STAT 03/25/2024 11:59 AM PHOTOVOLTAIC TECHNICIAN TROPONIN T HIGH-SENSITIVITY SERIES (BASELINE, 2HR, 4HR, 6HR) STAT 03/25/2024 11:59 AM PHOTOVOLTAIC TECHNICIAN PHOSPHORUS STAT 03/25/2024 11:59 AM PHOTOVOLTAIC TECHNICIAN MAGNESIUM STAT 03/25/2024 11:59 AM PHOTOVOLTAIC TECHNICIAN ETHANOL STAT 03/25/2024 11:59 AM PHOTOVOLTAIC TECHNICIAN SEPSIS LACTATE WITH REFLEX STAT 03/25/2024 11:59 AM PHOTOVOLTAIC TECHNICIAN EGFR STAT 03/25/2024 11:28 AM PHOTOVOLTAIC TECHNICIAN DIFFERENTIAL AUTO STAT 03/25/2024 11: 28 AM PHOTOVOLTAIC TECHNICIAN LIPASE STAT 03/25/2024 11:28 AM PHOTOVOLTAIC TECHNICIAN COMPREHENSIVE METABOLIC PANEL STAT 03/25/2024 11:28 AM PHOTOVOLTAIC TECHNICIAN CBC WITH AUTO DIFFERENTIAL STAT 03/25/2024 11:28 AM PHOTOVOLTAIC TECHNICIAN ECG 12-LEAD STAT 03/25/2024 11:24 AM PHOTOVOLTAIC TECHNICIAN from Last 3 Months Results * Magnesium (03/31/2024 5:46 AM PHOTOVOLTAIC TECHNICIAN) Pathologist [facility] Magnesium 1.7 1.4 - 2.5 mg/dL Blood 03/31/2024 5:46 AM PHOTOVOLTAIC TECHNICIAN 03/31/2024 6:12 AM PHOTOVOLTAIC TECHNICIAN us Severino Andrews MD LAB BLOOD ORDERABLES Final Resul t JUAN JOSEZZP [address] [facility] Department [place] [address] * Hepatitis C (HCV) RNA PCR, quantitative Blood (03/30/2024 8:36 AM PHOTOVOLTAIC TECHNICIAN) Pathologist [facility] HCV RNA result Not Detected [facility] Comment: The quantifiable range of this assay is 15 IU/mL to 100,000,000 IU/mL (1.18 log IU/mL to 8.00 log IU/mL). Testing was performed by the [facility] 6800 HCV Test ([employer] Testing performed at [facility] Current Interpretive Data was last revised on 2020 Testing performed by: [facility], [address] [facility], [place]., [address] Blood 03/30/2024 8:36 AM PHOTOVOLTAIC TECHNICIAN 03/30/2024 12:13 PM PHOTOVOLTAIC TECHNICIAN Ricardo Alcocer MD LAB MICROBIOLOGY - GENERAL ORDERABLES Final Result Performing Organization Address City/[facility] Co de Phone Number TAMIKA [address] [facility] Department [place] [address] [facility] * eGFR (03/30/2024 4:44 AM PHOTOVOLTAIC TECHNICIAN) eGFR >90 >=60 mL/min/1. 73 m2 Comment: Interpretive Data Reference Interval Normal >/= 90 mL/min/1.73m2 Mildly decreased* 60 - 89 mL/min/1.73m2 Mildly to moderately decreased 45 - 59 mL/min/1.73m2 Moderately to severely decreased 30 - 44 mL/min/1.73m2 Severely decreased 15 - 29 mL/min/1.73m2 Kidney Failure < 15 mL/min/1.73m2 *Relative to young adult level Estimated glomerular filtration rate is determined by the 2020 CKD-EPI equation recommended by the National Kidney Foundation (A Unifying Approach to GFR Estimation: Recommendations of the NKF-ASK Task Force on Reassessing the Inclusion of Race in Diagnosing Kidney Disease, JASN 2020). The CKD-EPI equation should not be used for patients with unstable renal function and has not been validated in children and those over 70. Current interpretive data was last reviewed 2021. Blood 03/30/2024 4:44 AM PHOTOVOLTAIC TECHNICIAN 03/30/2024 5:13 AM PHOTOVOLTAIC TECHNICIAN us Ricardo Alcocer MD LAB BLOOD ORDERABLES Final Result Performing Organization Address City/[facility]/ZIP Co de Phone Number [place] [id number] [facility] [place] [address] * Magnesium (03/30/2024 4:44 AM PHOTOVOLTAIC TECHNICIAN) [facility] Magnesium 1.8 1.4 - 2.5 mg/dL Blood 03/30/2024 4:44 AM PHOTOVOLTAIC TECHNICIAN 03/30/2024 5:13 AM PHOTOVOLTAIC TECHNICIAN us Severino Andrews MD LAB BLOOD ORDERABLES Final Resul t Performing Organization Address [facility] Co de Phone Number [address] [address] * (ABNORMAL) Comprehensive metabolic panel (03/30/2024 4:44 AM PHOTOVOLTAIC TECHNICIAN) [facility] Sodium 136 135 - 145 mmol/L Potassium, pl 4.6 3.3 - 4.9 mmol/L [facility] Chloride 100 97 - 110 mmol/L [facility] CO2 26 22 - 32 mmol/L [facility] Anion gap 10 2 - 15 mmol/L [facility] BUN 5(L) 6 - 25 mg/dL [facility] Creatinine 0.81 0.80 - 1.30 mg/dL [facility] Glucose 106 70 - 199 mg/dL [facility] Comment: Interpretive Data Fasting glucose >/= 126 mg/dl is diagnostic for diabetes. Fasting is defined as no caloric intake for at least 8 hours. Fasting glucose between 100 mg/dl to 125 mg/dl is diagnostic of prediabetes. In a patient with classic symptoms of hyperglycemia or hyperglycemic crisis, a random glucose >/= 200 mg/dl is diagnostic for diabetes. In the absence of unequivocal hyperglycemia, results should be confirmed by repeat testing. The classification and Diagnosis of Diabetes Diabetes Care 2021; 46: S19-S40. Current interpretive data was last revised 2022. Calcium 9.8 8.5 - 10.3 mg/dL [facility] Bilirubin, total 0.5 0.1 - 1.2 mg/dL [facility] Protein, pl 7.2 6.5 - 8.5 g/dL [facility] Albumin 3.7 3.5 - 5.0 g/dL [facility] Alk phos 157(H) 40 - 130 Units/L [facility] ALT 73(H) 7 - 55 Units/L TAMIKA AST 46 10 - 50 Units/L [facility] Blood 03/30/2024 4:44 AM PHOTOVOLTAIC TECHNICIAN 03/30/2024 5:13 AM PHOTOVOLTAIC TECHNICIAN Ricardo Alcocer MD LAB BLOOD ORDERABLES Final Result T[facility]A [address] [facility] Department [place] [address] * TRANSTHORACIC ECHO (TTE) COMPLETE W DOPPLER/CF WO CONTRAST (03/29/2024 1:36 PM PHOTOVOLTAIC TECHNICIAN) Anatomical Region Laterality Modality Ultrasound 03/29/2024 1:00 PM PHOTOVOLTAIC TECHNICIAN Narrative 03/29/2024 2:14 PM PHOTOVOLTAIC TECHNICIAN Adult Echocardiogram + ----- + :Name: PAL DODD Martin Study Date: 03/29/2024 Status: B : : Patient Location: [facility] [address] [facility]^[id number]^MHHeight: 69 in : : Weight: 272 lbBP: 147/91 mmHg: :: 1980 Gender: Male BSA: 2.4 m2 : :Reason For Study: edema : :Ordering Physician: : :RICARDO ALCOCER : : : :Performed By: Tesha : :CORNEL Jose : + ----- + Procedure A two-dimensional transthoracic echocardiogram with color flow and Doppler was performed. The study was technically difficult due to patient's 'body habitus'. Left Ventricle The left ventricle is normal in size. There is normal left ventricular wall thickness. Left ventricular systolic function is normal. Ejection Fraction = 55-60%. The left ventricular wall motion is normal. There is no obvious thrombus noted. Right Ventricle The right ventricle is normal size. The right ventricular systolic function is normal. Atria The left atrial size is normal. Right atrial size is normal. The interatrial septum is intact with no evidence for an atrial septal defect. Mitral Valve The mitral valve is normal in structure and function. Tricuspid Valve The tricuspid valve is normal. There is mild tricuspid regurgitation. Cannot assess RVSP due to lack of sufficient TR jet. Aortic Valve Aortic valve structure is normal. No aortic stenosis . No aortic regurgitation is present. Pulmonic Valve The pulmonic valve is not well visualized. Great Vessels The aortic root is normal size. IVC appears normal in size. Normal right heart pressures. Pericardium Small pericardial effusion. There are no echocardiographic indications of cardiac tamponade. There is no pleural effusion. Diastology Grade I diastolic dysfunction, (abnormal relaxation pattern). E/E prime ratio is <8 suggesting normal pulmonary wedge pressure and no LV diastolic dysfunction. Interpretation Summary Left ventricular systolic function is normal. Ejection Fraction = 55-60%. There is mild tricuspid regurgitation. Normal right heart pressures. Small pericardial effusion. There are no echocardiographic indications of cardiac tamponade. + + :Measurements with Normals : : (0.6-1.2 LVIDd: (3.5-5.7 Ao root diam: (2.0-3.7 : :IVSd: 1.1 cmcm) 5.6 cm cm) 3.3 cm cm) : :LVPWd: (0.6-1.1 LVIDs: (3.1-4.6 LA dimension: (1.9-4.0 : :1.0 cm cm) 3.9 cm cm) 3.6 cm cm) : + + MMode/2D Measurements & Calculations FS: 31.3 % Ao root area: 8.6 cm2 LVOT diam: 2.2 cm EDV(Teich): 153.7 ml LVOT area: 3.8 cm2 ESV(Teich): 63.9 ml Doppler Measurements & Calculations MV E max vin: MV dec slope: Ao V2 max: LV V1 max P.1 cm/sec 261.0 cm/sec2 173.0 cm/sec 7.6 mmHg MV A max vin: MV dec time: 0.23 secAo max PG: LV V1 max: 73.2 cm/sec 12.0 mmHg 138.0 cm/sec MV E/A: 0.83 EVIN(V,D): 3.0 cm2 PA V2 max: RV V1 max: RAP systole: 117.0 cm/sec 81.4 cm/sec 3.0 mmHg PA max P.5 mmHg Electronically signed by: Sultan Jj MD 03/29/2024 02:14 PM Procedure Note Sultan Angela Gardner MD - 03/29/2024 Adult Echocardiogram + ----- + :Name: TORSTENPAL MART Martin Study Date: 03/29/2024Status: MHB : : Patient Location: [facility] 1CTR^[id number]^MHHeight: 69 in : : : 272 lbBP: 147/91 mmHg: :: 1980 Gender: MaleBSA: 2.4 m2 : :Reason For Study: edema: :Ordering Physician:: :RICARDO ALCOCER: :: :Performed By: Tesha: :CORNEL Jose: + ----- + Procedure A two-dimensional transthoracic echocardiogram with color flow and Dopplerwas performed. The study was technically difficult due to patient's 'body habitus'. Left Ventricle The left ventricle is normal in size. There is normal left ventricularwall thickness. Left ventricular systolic function is normal. Ejection Fraction= 55-60%. The left ventricular wall motion is normal. There is no obvious thrombus noted. Right Ventricle The right ventricle is normal size. The right ventricular systolicfunction is normal. Atria The left atrial size is normal. Right atrial size is normal. Theinteratrial septum is intact with no evidence for an atrial septal defect. Mitral Valve The mitral valve is normal in structure and function. Tricuspid Valve The tricuspid valve is normal. There is mild tricuspid regurgitation.Cannot assess RVSP due to lack of sufficient TR jet. Aortic Valve Aortic valve structure is normal. No aortic stenosis . No aorticregurgitation is present. Pulmonic Valve The pulmonic valve is not well visualized. Great Vessels The aortic root is normal size. IVC appears normal in size. Normal rightheart pressures. Pericardium Small pericardial effusion. There are no echocardiographic indicationsof cardiac tamponade. There is no pleural effusion. Diastology Grade I diastolic dysfunction, (abnormal relaxation pattern). E/E primeratio is <8 suggesting normal pulmonary wedge pressure and no LV diastolic dysfunction. Interpretation Summary Left ventricular systolic function is normal. Ejection Fraction = 55-60%. There is mild tricuspid regurgitation. Normal right heart pressures. Small pericardial effusion. There are no echocardiographic indications of cardiac tamponade. + + :Measurements with Normals: : (0.6-1.2 LVIDd: (3.5-5.7 Ao root diam:(2.0-3.7 : :IVSd: 1.1 cmcm) 5.6 cm cm) 3.3 cm cm): :LVPWd: (0.6-1.1 LVIDs: (3.1-4.6 LA dimension:(1.9-4.0 : :1.0 cm cm) 3.9 cm cm) 3.6 cm cm): + + MMode/2D Measurements & Calculations FS: 31.3 % Ao root area: 8.6 cm2 LVOT diam: 2.2 cm EDV(Teich): 153.7 ml LVOT area: 3.8 cm2 ESV(Teich): 63.9 ml Doppler Measurements & Calculations MV E max vin: MV dec slope: Ao V2 max: LV V1 maxP.1 cm/sec 261.0 cm/sec2 173.0 cm/sec 7.6 mmHg MV A max vin: MV dec time: 0.23 secAo max PG: LV V1 max: 73.2 cm/sec 12.0 mmHg 138.0 cm/sec MV E/A: 0.83 EVIN(V,D): 3.0 cm2 PA V2 max: RV V1 max: RAP systole: 117.0 cm/sec 81.4 cm/sec 3.0 mmHg PA max P.5 mmHg Electronically signed by: Sultan Jj MD 03/29/2024 02:14 PM Ricardo Alcocer MD CV ECHO PROCEDURES Final Re sult * Reflex Hepatitis C RNA, Quantitative (03/29/2024 10:30 AM PHOTOVOLTAIC TECHNICIAN) [facility] HCV RNA result Not Detected [facility] Comment: The quantifiable range of this assay is 15 IU/mL to 100,000,000 IU/mL (1.18 log IU/mL to 8.00 log IU/mL). Testing was performed by the [facility] 6800 HCV Test ([employer] Testing performed at [facility] Current Interpretive Data was last revised on 2020 Testing performed by: [facility], [address] [place]., [address] Blood 03/29/2024 10:3 0 AM PHOTOVOLTAIC TECHNICIAN 03/29/2024 3:11 PM PHOTOVOLTAIC TECHNICIAN Ricardo Alcocer MD LAB BLOOD ORDERABLES Final Result [address] Department [place] [address] [facility] * (ABNORMAL) Hepatitis panel, acute Blood (03/29/2024 10:30 AM PHOTOVOLTAIC TECHNICIAN) Hep A IgM Nonreactive Nonreactive Comment: Interpretive Data: If Hep A IgM Ab is reported as Equivocal, a new sample should be drawn in two weeks for testing. Current interpretive data was last revised on 19. Hep B core IgM Nonreactive Nonreactive [facility] Comment: Interpretive Data If HepB Core IgM Ab is reported as Equivocal, a new sample should be drawn in two weeks for testing. Current interpretive data was last revised on 19. Hep C Ab Reactive(A) Nonreactive [facility] Comment: Reactive for HCV antibodies. This may represent current or past HCV infection. Supplemental molecular testing will be automatically performed to determine current infection status in accordance with current CDC screening recommendations. Current interpretive data was last revised on 21 Interpretive Data Nonreactive: Antibodies to HCV not detected. Does NOT exclude the possibility of recent exposure to HCV. Equivocal: Equivocal for HCV antibodies. Supplemental molecular testing will be automatically performed to determine infection status in accordance with current CDC screening recommendations. Reactive: Positive for HCV antibodies. This may represent current or past HCV infection. Supplemental molecular testing will be automatically performed to determine current infection status in accordance with current CDC screening recommendations. Interpretive data was last revised on 2019. HepBsAg Nonreactive Nonreactive [facility] Blood 03/29/2024 10:3 0 AM PHOTOVOLTAIC TECHNICIAN 03/29/2024 11:03 AM PHOTOVOLTAIC TECHNICIAN Ricardo Alcocer MD LAB MICROBIOLOGY - GENERAL ORDERABLES Final Result Performing Organization Address City/[facility]/ZIP Co de Phone Number [facility] [address] Department [place] [address] * (ABNORMAL) Differential, auto (03/29/2024 6:45 AM PHOTOVOLTAIC TECHNICIAN) Neutrophil abs 5.2 1.5 - 6.5 K/cumm Imm gran abs 0.5(H) 0.0 - 0.1 K/cumm [facility] Lymphocyte abs 1.3 0.8 - 3.3 K/cumm [facility] Monocyte abs 1.3(H) 0.2 - 0.8 K/cumm [facility] Eosinophil abs 0.2 0.0 - 0.5 K/cumm [facility] Basophil abs 0.0 0.0 - 0.1 K/cumm [facility] Neutrophil pct 61.4 % [facility] Comment: Interpretive Data Percent cell count reference ranges are not reported, since discordance with absolute values may lead to misinterpretation of CBC data. Current Interpretive Data was last revised on 2017. Imm gran pct 5.4 % [facility] Comment: Interpretive Data Percent cell count reference ranges are not reported, since discordance with absolute values may lead to misinterpretation of CBC data. Current Interpretive Data was last revised on 2017. Lymphocyte pct 15.3 % [facility] Comment: Interpretive Data Percent cell count reference ranges are not reported, since discordance with absolute values may lead to misinterpretation of CBC data. Current Interpretive Data was last revised on 2017. Monocyte pct 15.2 % [facility] Comment: Interpretive Data Percent cell count reference ranges are not reported, since discordance with absolute values may lead to misinterpretation of CBC data. Current Interpretive Data was last revised on 2017. Eosinophil pct 2.2 % [facility] Comment: Interpretive Data Percent cell count reference ranges are not reported, since discordance with absolute values may lead to misinterpretation of CBC data. Current Interpretive Data was last revised on 2017. Basophil pct 0.5 % [facility] Comment: Interpretive Data Percent cell count reference ranges are not reported, since discordance with absolute values may lead to misinterpretation of CBC data. Current Interpretive Data was last revised on 2017. Blood 03/29/2024 6:45 AM PHOTOVOLTAIC TECHNICIAN 03/29/2024 6:52 AM PHOTOVOLTAIC TECHNICIAN Luke Victoria MD LAB BLOOD ORDERABLES Final Result Performing Organization Address City/[facility] Co de Phone Number TAMIKA [address] [address] * (ABNORMAL) CBC with auto differential (03/29/2024 6:45 AM PHOTOVOLTAIC TECHNICIAN) [facility] WBC 8.5 3.8 - 9.9 K/cumm Hgb 10.3(L) 13.0 - 17.5 g/dL [facility] Hct 31.3(L) 38.9 - 50.3 % [facility] Plt 264 150 - 400 K/cumm [facility] MPV 8.8(L) 9.1 - 12.3 fL [facility] RBC 3.05(L) 4.30 - 5.80 M/cumm [facility] MCV 102.6(H) 81.3 - 96.4 fL [facility] MCH 33.8(H) 27.1 - 33.3 pg [facility] MCHC 32.9 32.3 - 35.7 g/dL [facility] RDW CV 14.6 11.1 - 14.9 % [facility] RDW SD 54.4(H) 35.7 - 48.1 fL [facility] NRBC abs 0.00 0.00 - 0.01 K/cumm [facility] Blood 03/29/2024 6:45 AM PHOTOVOLTAIC TECHNICIAN 03/29/2024 6:52 AM PHOTOVOLTAIC TECHNICIAN Luke Victoria MD LAB BLOOD ORDERABLES Final Result Performing Organization Address City/[facility]/ZIP Co de Phone Number TAMIKA [address] [address] * Magnesium (03/29/2024 6:45 AM PHOTOVOLTAIC TECHNICIAN) [facility] Magnesium 1.8 1.4 - 2.5 mg/dL Blood 03/29/2024 6:45 AM PHOTOVOLTAIC TECHNICIAN 03/29/2024 6:52 AM PHOTOVOLTAIC TECHNICIAN us Severino Andrews MD LAB BLOOD ORDERABLES Final Resul t [facility]A [facility] [address] [facility] [place] [address] * CT Abdomen Pelvis WO Contrast (03/28/2024 9:58 AM PHOTOVOLTAIC TECHNICIAN) Anatomical Region Laterality Modality Body N/A Computed Tomogra phy 03/28/2024 10:0 2 AM PHOTOVOLTAIC TECHNICIAN Narrative 03/28/2024 10:10 AM PHOTOVOLTAIC TECHNICIAN EXAM DESCRIPTION: CT ABDOMEN PELVIS WO CONTRAST REASON FOR STUDY: Epigastric pain, Acute pancreatitis acute pancreatitis/abdominal distention 44-year-old male with past medical history of obesity, alcohol use disorder, alcohol withdrawal. He was admitted with abdominal pain. He was diagnosed as acute alcoholic pancreatitis with hepatitis and obesity. No prior surgery TECHNIQUE: CT scan of the abdomen and pelvis performed without intravenous and without oral contrast using helical scanning technique. Reconstructed coronal and sagittal MPR images reviewed. All images stored on PACS. Automated exposure control was used as a dose optimization technique for this examination. COMPARISON: CT chest, abdomen pelvis dated March 25, 2024. FINDINGS: The sensitivity for detection of visceral lesions is diminished without the use of intravenous contrast. LOWER CHEST: No significant pulmonary abnormalities. No effusion. LIVER: The liver is enlarged measuring 18 cm in craniocaudal dimension. There is severe hypoattenuation compatible with severe hepatic steatosis. Involving hepatic segment II there are 2 areas of hyperenhancement. The larger area measures a maximum of 3 x 2.9 cm (axial image 35). The smaller area measures a maximum of 0.9 cm (series 2, image 30). These are indeterminate. GALLBLADDER: No stones identified. No wall thickening or inflammatory changes. BILE DUCTS: No intrahepatic or extrahepatic ductal dilatation. SPLEEN: Normal size. No focal lesions. PANCREAS: No identified cystic or solid masses. No significant calcifications. No adjacent inflammation. Previously visualized peripancreatic inflammatory change with secondary involvement of the duodenum has near completely resolved. Along the inferior aspect of the pancreatic tail there is a elongated fluid collection measuring 4.1 x 1.5 cm (series 4, image 82) which may represent a pseudocyst.. Pancreatic duct not dilated. ADRENALS: Normal. KIDNEYS/URINARY TRACT: No identified significant cystic or solid masses. No stones. No hydronephrosis or hydroureter. Urinary bladder is unremarkable. GI: No dilated bowel loops. No obvious wall thickening. The colon is fluid-filled suggestive underlying diarrheal state. No significant diverticular disease. PERITONEUM: No ascites or free air. RETROPERITONEUM: No mass or adenopathy. REPRODUCTIVE: No significant abnormality. VASCULATURE: No abdominal aortic aneurysm. MUSCULOSKELETAL: No significant abnormality. OTHER: There is nonspecific subcutaneous edema and stranding along the anterior abdominal wall. Tiny pockets of soft tissue subcutaneous air is seen which may relate to subcutaneous injection. IMPRESSION: Near complete resolution of the previously visualized peripancreatic inflammatory change with secondary involvement of the duodenum. Along the inferior aspect of the pancreatic tail there is a elongated fluid collection measuring 4.1 x 1.5 cm which may represent a pseudocyst. Hepatomegaly with severe hepatic steatosis. Indeterminate hepatic segment II hyperenhancing lesions as above. Further evaluation with nonemergent contrast enhanced MRI is recommended. Fluid-filled colon suggestive underlying diarrheal state. Nonspecific subcutaneous edema and stranding along the anterior abdominal wall. Tiny pockets of soft tissue subcutaneous air is seen which may relate to subcutaneous injection. THIS IS AN ELECTRONICALLY VERIFIED FINAL REPORT 03/28/2024 10:10 AM - Electronically signed by Elmer MUÑIZ T: Report ID: [id number] Reading Location: [place] [id number] Procedure Note Elmer Sigala MD - 03/28/2024 EXAM DESCRIPTION: CT ABDOMEN PELVIS WO CONTRAST REASON FOR STUDY: Epigastric pain, Acute pancreatitis acute pancreatitis/abdominal distention 44-year-old male with past medical history of obesity, alcohol usedisorder, alcohol withdrawal. He was admitted with abdominal pain. He wasdiagnosed as acute alcoholic pancreatitis with hepatitis and obesity. No priorsurgery TECHNIQUE: CT scan of the abdomen and pelvis performed without intravenousand without oral contrast using helical scanning technique. Reconstructed coronal and sagittal MPR images reviewed. All images stored on PACS.Automated exposure control was used as a dose optimization technique for this examination. COMPARISON: CT chest, abdomen pelvis dated March 25, 2024. FINDINGS: The sensitivity for detection of visceral lesions is diminished without the use of intravenous contrast. LOWER CHEST: No significant pulmonary abnormalities. No effusion. LIVER: The liver is enlarged measuring 18 cm in craniocaudal dimension. There is severe hypoattenuation compatible with severe hepatic steatosis. Involving hepatic segment II there are 2 areas of hyperenhancement. The larger area measures a maximum of 3 x 2.9 cm (axial image 35). Thesmaller area measures a maximum of 0.9 cm (series 2, image 30). These are indeterminate. GALLBLADDER: No stones identified. No wall thickening or inflammatory changes. BILE DUCTS: No intrahepatic or extrahepatic ductal dilatation. SPLEEN: Normal size. No focal lesions. PANCREAS: No identified cystic or solid masses. No significant calcifications. No adjacent inflammation. Previously visualized peripancreatic inflammatory change with secondary involvement of theduodenum has near completely resolved. Along the inferior aspect of the pancreatic tail there is a elongated fluid collection measuring 4.1 x 1.5 cm (series4, image 82) which may represent a pseudocyst.. Pancreatic duct not dilated. ADRENALS: Normal. KIDNEYS/URINARY TRACT: No identified significant cystic or solid masses.No stones. No hydronephrosis or hydroureter. Urinary bladder isunremarkable. GI: No dilated bowel loops. No obvious wall thickening. The colon is fluid-filled suggestive underlying diarrheal state. No significant diverticular disease. PERITONEUM: No ascites or free air. RETROPERITONEUM: No mass or adenopathy. REPRODUCTIVE: No significant abnormality. VASCULATURE: No abdominal aortic aneurysm. MUSCULOSKELETAL: No significant abnormality. OTHER: There is nonspecific subcutaneous edema and stranding along the anterior abdominal wall. Tiny pockets of soft tissue subcutaneous air isseen which may relate to subcutaneous injection. IMPRESSION: Near complete resolution of the previously visualized peripancreatic inflammatory change with secondary involvement of the duodenum. Along the inferior aspect of the pancreatic tail there is a elongated fluidcollection measuring 4.1 x 1.5 cm which may represent a pseudocyst. Hepatomegaly with severe hepatic steatosis. Indeterminate hepatic segment II hyperenhancing lesions as above. Further evaluation with nonemergent contrast enhanced MRI is recommended. Fluid-filled colon suggestive underlying diarrheal state. Nonspecific subcutaneous edema and stranding along the anterior abdominal wall. Tiny pockets of soft tissue subcutaneous air is seen which mayrelate to subcutaneous injection. THIS IS AN ELECTRONICALLY VERIFIED FINAL REPORT 03/28/2024 10:10 AM - Electronically signed by Elmer MUÑIZ T: Report ID: [id number] Reading Location: [id number] us Ellie Park MD IMG CT PROCEDURES Final Result * (ABNORMAL) Lipase (03/28/2024 9:28 AM PHOTOVOLTAIC TECHNICIAN) Lipase 133(H) 10 - 99 Units/L Blood 03/28/2024 9:28 AM PHOTOVOLTAIC TECHNICIAN 03/28/2024 9:31 AM PHOTOVOLTAIC TECHNICIAN us Ellie Pakr MD LAB BLOOD ORDERABLES Final Res ult JUAN JOSEIEA [address] [facility] Department [place] [address] * eGFR (03/28/2024 8:33 AM PHOTOVOLTAIC TECHNICIAN) eGFR >90 >=60 mL/min/1. 73 m2 Comment: Interpretive Data Reference Interval Normal >/= 90 mL/min/1.73m2 Mildly decreased* 60 - 89 mL/min/1.73m2 Mildly to moderately decreased 45 - 59 mL/min/1.73m2 Moderately to severely decreased 30 - 44 mL/min/1.73m2 Severely decreased 15 - 29 mL/min/1.73m2 Kidney Failure < 15 mL/min/1.73m2 *Relative to young adult level Estimated glomerular filtration rate is determined by the 2020 CKD-EPI equation recommended by the National Kidney Foundation (A Unifying Approach to GFR Estimation: Recommendations of the NKF-ASK Task Force on Reassessing the Inclusion of Race in Diagnosing Kidney Disease, JASN 2020). The CKD-EPI equation should not be used for patients with unstable renal function and has not been validated in children and those over 70. Current interpretive data was last reviewed 2021. Blood 03/28/2024 8:33 AM PHOTOVOLTAIC TECHNICIAN 03/28/2024 9:32 AM PHOTOVOLTAIC TECHNICIAN us Luke Victoria MD LAB BLOOD ORDERABLES Final Result Performing Organization Address [facility]/ZIP Co de Phone Number JUAN JOSE[address] [place] [address] * Magnesium (03/28/2024 8:33 AM PHOTOVOLTAIC TECHNICIAN) Magnesium 1.9 1.4 - 2.5 mg/dL Blood 03/28/2024 8:33 AM PHOTOVOLTAIC TECHNICIAN 03/28/2024 9:32 AM PHOTOVOLTAIC TECHNICIAN Severino Andrews MD LAB BLOOD ORDERABLES Final Resul t Performing Organization Address [facility] Co de Phone Number JUAN JOSE[address] [place] [address] * (ABNORMAL) Lipase (03/28/2024 8:33 AM PHOTOVOLTAIC TECHNICIAN) Lipase 120(H) 10 - 99 Units/L Blood 03/28/2024 8:33 AM PHOTOVOLTAIC TECHNICIAN 03/28/2024 9:32 AM PHOTOVOLTAIC TECHNICIAN Severino Andrews MD LAB BLOOD ORDERABLES Final Resul t Performing Organization Address [facility] Co de Phone Number JUAN JOSE[address] [place] [address] * (ABNORMAL) Lipase (03/28/2024 8:33 AM PHOTOVOLTAIC TECHNICIAN) Lipase 121(H) 10 - 99 Units/L Blood 03/28/2024 8:33 AM PHOTOVOLTAIC TECHNICIAN 03/28/2024 9:32 AM PHOTOVOLTAIC TECHNICIAN Severino Andrews MD LAB BLOOD ORDERABLES Final Resul t Performing Organization Address [facility] Co de Phone Number JUAN JOSE[address] [place] [address] * (ABNORMAL) Comprehensive metabolic panel (03/28/2024 8:33 AM PHOTOVOLTAIC TECHNICIAN) Sodium 130(L) 135 - 145 mmol/L Potassium, pl 4.1 3.3 - 4.9 mmol/L [facility] Chloride 96(L) 97 - 110 mmol/L [facility] CO2 24 22 - 32 mmol/L [facility] Anion gap 10 2 - 15 mmol/L [facility] BUN 4(L) 6 - 25 mg/dL [facility] Creatinine 0.68(L) 0.80 - 1.30 mg/dL [facility] Glucose 85 70 - 199 mg/dL [facility] Comment: Interpretive Data Fasting glucose >/= 126 mg/dl is diagnostic for diabetes. Fasting is defined as no caloric intake for at least 8 hours. Fasting glucose between 100 mg/dl to 125 mg/dl is diagnostic of prediabetes. In a patient with classic symptoms of hyperglycemia or hyperglycemic crisis, a random glucose >/= 200 mg/dl is diagnostic for diabetes. In the absence of unequivocal hyperglycemia, results should be confirmed by repeat testing. The classification and Diagnosis of Diabetes Diabetes Care 2021; 46: S19-S40. Current interpretive data was last revised 2022. Calcium 8.3(L) 8.5 - 10.3 mg/dL [facility] Bilirubin, total 0.8 0.1 - 1.2 mg/dL [facility] Protein, pl 6.5 6.5 - 8.5 g/dL [facility] Albumin 3.5 3.5 - 5.0 g/dL [facility] Alk phos 186(H) 40 - 130 Units/L [facility] ALT 105(H) 7 - 55 Units/L [facility] AST 68(H) 10 - 50 Units/L [facility] Blood 03/28/2024 8:33 AM PHOTOVOLTAIC TECHNICIAN 03/28/2024 9:32 AM PHOTOVOLTAIC TECHNICIAN us Luke Victoria MD LAB BLOOD ORDERABLES Final Result [facility] [address] [facility] Department [place] [address] * eGFR (03/27/2024 12:27 PM PHOTOVOLTAIC TECHNICIAN) eGFR >90 >=60 mL/min/1. 73 m2 Comment: Interpretive Data Reference Interval Normal >/= 90 mL/min/1.73m2 Mildly decreased* 60 - 89 mL/min/1.73m2 Mildly to moderately decreased 45 - 59 mL/min/1.73m2 Moderately to severely decreased 30 - 44 mL/min/1.73m2 Severely decreased 15 - 29 mL/min/1.73m2 Kidney Failure < 15 mL/min/1.73m2 *Relative to young adult level Estimated glomerular filtration rate is determined by the 2020 CKD-EPI equation recommended by the National Kidney Foundation (A Unifying Approach to GFR Estimation: Recommendations of the NKF-ASK Task Force on Reassessing the Inclusion of Race in Diagnosing Kidney Disease, JASN 2020). The CKD-EPI equation should not be used for patients with unstable renal function and has not been validated in children and those over 70. Current interpretive data was last reviewed 2021. Blood 03/27/2024 12:2 7 PM PHOTOVOLTAIC TECHNICIAN 03/27/2024 12:43 PM PHOTOVOLTAIC TECHNICIAN us Luke Victoria MD LAB BLOOD ORDERABLES Final Result [facility] [address] [facility] Department [place] [address] * (ABNORMAL) Differential, auto (03/27/2024 12:27 PM PHOTOVOLTAIC TECHNICIAN) Neutrophil abs 4.9 1.5 - 6.5 K/cumm Imm gran abs 0.3(H) 0.0 - 0.1 K/cumm [facility] Lymphocyte abs 1.1 0.8 - 3.3 K/cumm [facility] Monocyte abs 0.9(H) 0.2 - 0.8 K/cumm [facility] Eosinophil abs 0.1 0.0 - 0.5 K/cumm [facility] Basophil abs 0.0 0.0 - 0.1 K/cumm [facility] Neutrophil pct 66.1 % [facility] Comment: Interpretive Data Percent cell count reference ranges are not reported, since discordance with absolute values may lead to misinterpretation of CBC data. Current Interpretive Data was last revised on 2017. Imm gran pct 3.5 % [facility] Comment: Interpretive Data Percent cell count reference ranges are not reported, since discordance with absolute values may lead to misinterpretation of CBC data. Current Interpretive Data was last revised on 2017. Lymphocyte pct 15.5 % [facility] Comment: Interpretive Data Percent cell count reference ranges are not reported, since discordance with absolute values may lead to misinterpretation of CBC data. Current Interpretive Data was last revised on 2017. Monocyte pct 12.7 % [facility] Comment: Interpretive Data Percent cell count reference ranges are not reported, since discordance with absolute values may lead to misinterpretation of CBC data. Current Interpretive Data was last revised on 2017. Eosinophil pct 1.9 % [facility] Comment: Interpretive Data Percent cell count reference ranges are not reported, since discordance with absolute values may lead to misinterpretation of CBC data. Current Interpretive Data was last revised on 2017. Basophil pct 0.3 % [facility] Comment: Interpretive Data Percent cell count reference ranges are not reported, since discordance with absolute values may lead to misinterpretation of CBC data. Current Interpretive Data was last revised on 2017. Blood 03/27/2024 12:2 7 PM PHOTOVOLTAIC TECHNICIAN 03/27/2024 12:43 PM PHOTOVOLTAIC TECHNICIAN us Luke Victoria MD LAB BLOOD ORDERABLES Final Result [facility] [address] [facility] Department [place] [address] * (ABNORMAL) CBC with auto differential (03/27/2024 12:27 PM PHOTOVOLTAIC TECHNICIAN) Pathologist [facility] WBC 7.3 3.8 - 9.9 K/cumm Hgb 10.4(L) 13.0 - 17.5 g/dL [facility] Hct 31.3(L) 38.9 - 50.3 % [facility] Plt 163 150 - 400 K/cumm [facility] MPV 9.7 9.1 - 12.3 fL [facility] RBC 3.08(L) 4.30 - 5.80 M/cumm [facility] MCV 101.6(H) 81.3 - 96.4 fL [facility] MCH 33.8(H) 27.1 - 33.3 pg [facility] MCHC 33.2 32.3 - 35.7 g/dL [facility] RDW CV 15.3(H) 11.1 - 14.9 % [facility] RDW SD 57.0(H) 35.7 - 48.1 fL [facility] NRBC abs 0.00 0.00 - 0.01 K/cumm [facility] Blood 03/27/2024 12:2 7 PM PHOTOVOLTAIC TECHNICIAN 03/27/2024 12:43 PM PHOTOVOLTAIC TECHNICIAN us Luke Victoria MD LAB BLOOD ORDERABLES Final Result [facility] [address] [facility] Department [place] [address] * (ABNORMAL) Comprehensive metabolic panel (03/27/2024 12:27 PM PHOTOVOLTAIC TECHNICIAN) Sodium 132(L) 135 - 145 mmol/L Potassium, pl 3.6 3.3 - 4.9 mmol/L [facility] Chloride 96(L) 97 - 110 mmol/L [facility] CO2 25 22 - 32 mmol/L [facility] Anion gap 11 2 - 15 mmol/L [facility] BUN 5(L) 6 - 25 mg/dL [facility] Creatinine 0.62(L) 0.80 - 1.30 mg/dL [facility] Glucose 138 70 - 199 mg/dL [facility] Comment: Interpretive Data Fasting glucose >/= 126 mg/dl is diagnostic for diabetes. Fasting is defined as no caloric intake for at least 8 hours. Fasting glucose between 100 mg/dl to 125 mg/dl is diagnostic of prediabetes. In a patient with classic symptoms of hyperglycemia or hyperglycemic crisis, a random glucose >/= 200 mg/dl is diagnostic for diabetes. In the absence of unequivocal hyperglycemia, results should be confirmed by repeat testing. The classification and Diagnosis of Diabetes Diabetes Care 202; 46: S19-S40. Current interpretive data was last revised 2022. Calcium 8.3(L) 8.5 - 10.3 mg/dL [facility] Bilirubin, total 0.9 0.1 - 1.2 mg/dL [facility] Protein, pl 6.6 6.5 - 8.5 g/dL [facility] Albumin 3.6 3.5 - 5.0 g/dL [facility] Alk phos 192(H) 40 - 130 Units/L [facility] ALT 139(H) 7 - 55 Units/L [facility] AST 82(H) 10 - 50 Units/L [facility] Blood 03/27/2024 12:2 7 PM PHOTOVOLTAIC TECHNICIAN 03/27/2024 12:43 PM PHOTOVOLTAIC TECHNICIAN Luek Victoria MD LAB BLOOD ORDERABLES Final Result Performing Organization Address [facility] Co de Phone Number [address] [address] * eGFR (03/26/2024 6:45 AM PHOTOVOLTAIC TECHNICIAN) eGFR >90 >=60 mL/min/1. 73 m2 Comment: Interpretive Data Reference Interval Normal >/= 90 mL/min/1.73m2 Mildly decreased* 60 - 89 mL/min/1.73m2 Mildly to moderately decreased 45 - 59 mL/min/1.73m2 Moderately to severely decreased 30 - 44 mL/min/1.73m2 Severely decreased 15 - 29 mL/min/1.73m2 Kidney Failure < 15 mL/min/1.73m2 *Relative to young adult level Estimated glomerular filtration rate is determined by the 2020 CKD-EPI equation recommended by the National Kidney Foundation (A Unifying Approach to GFR Estimation: Recommendations of the NKF-ASK Task Force on Reassessing the Inclusion of Race in Diagnosing Kidney Disease, JASN 2020). The CKD-EPI equation should not be used for patients with unstable renal function and has not been validated in children and those over 70. Current interpretive data was last reviewed 2021. Blood 03/26/2024 6:45 AM PHOTOVOLTAIC TECHNICIAN 03/26/2024 7:12 AM PHOTOVOLTAIC TECHNICIAN Kim May MD LAB BLOOD ORDERABLES Fin al Result Performing Organization Address City/[facility]/ZIP Co de Phone Number [address] [address] * (ABNORMAL) Differential, auto (03/26/2024 6:45 AM PHOTOVOLTAIC TECHNICIAN) Pathologist [facility] Neutrophil abs 7.3(H) 1.5 - 6.5 K/cumm Imm gran abs 0.2(H) 0.0 - 0.1 K/cumm [facility] Lymphocyte abs 1.0 0.8 - 3.3 K/cumm [facility] Monocyte abs 1.2(H) 0.2 - 0.8 K/cumm [facility] Eosinophil abs 0.1 0.0 - 0.5 K/cumm [facility] Basophil abs 0.0 0.0 - 0.1 K/cumm [facility] Neutrophil pct 74.3 % [facility] Comment: Interpretive Data Percent cell count reference ranges are not reported, since discordance with absolute values may lead to misinterpretation of CBC data. Current Interpretive Data was last revised on 2017. Imm gran pct 2.4 % [facility] Comment: Interpretive Data Percent cell count reference ranges are not reported, since discordance with absolute values may lead to misinterpretation of CBC data. Current Interpretive Data was last revised on 2017. Lymphocyte pct 10.3 % [facility] Comment: Interpretive Data Percent cell count reference ranges are not reported, since discordance with absolute values may lead to misinterpretation of CBC data. Current Interpretive Data was last revised on 2017. Monocyte pct 11.6 % [facility] Comment: Interpretive Data Percent cell count reference ranges are not reported, since discordance with absolute values may lead to misinterpretation of CBC data. Current Interpretive Data was last revised on 2017. Eosinophil pct 1.1 % [facility] Comment: Interpretive Data Percent cell count reference ranges are not reported, since discordance with absolute values may lead to misinterpretation of CBC data. Current Interpretive Data was last revised on 2017. Basophil pct 0.3 % [facility] [facility] Comment: Interpretive Data Percent cell count reference ranges are not reported, since discordance with absolute values may lead to misinterpretation of CBC data. Current Interpretive Data was last revised on 2017. Blood 03/26/2024 6:45 AM PHOTOVOLTAIC TECHNICIAN 03/26/2024 7:12 AM PHOTOVOLTAIC TECHNICIAN Kim May MD LAB BLOOD ORDERABLES Fin al Result TAMIKA [address] [place] [address] * (ABNORMAL) CBC with auto differential (03/26/2024 6:45 AM PHOTOVOLTAIC TECHNICIAN) Pathologist [facility] WBC 9.9 3.8 - 9.9 K/cumm Hgb 10.6(L) 13.0 - 17.5 g/dL [facility] Hct 31.7(L) 38.9 - 50.3 % [facility] Plt 145(L) 150 - 400 K/cumm [facility] MPV 9.7 9.1 - 12.3 fL [facility] RBC 3.13(L) 4.30 - 5.80 M/cumm [facility] MCV 101.3(H) 81.3 - 96.4 fL [facility] MCH 33.9(H) 27.1 - 33.3 pg [facility] MCHC 33.4 32.3 - 35.7 g/dL [facility] RDW CV 15.9(H) 11.1 - 14.9 % [facility] RDW SD 59.0(H) 35.7 - 48.1 fL [facility] NRBC abs 0.03(H) 0.00 - 0.01 K/cumm [facility] Blood 03/26/2024 6:45 AM PHOTOVOLTAIC TECHNICIAN 03/26/2024 7:12 AM PHOTOVOLTAIC TECHNICIAN Kim May MD LAB BLOOD ORDERABLES Fin al Result TAMIKA [address] [address] * Phosphorus (03/26/2024 6:45 AM PHOTOVOLTAIC TECHNICIAN) Pathologist [facility] Phosphorus, pl 3.8 2.3 - 4.5 mg/dL Blood 03/26/2024 6:45 AM PHOTOVOLTAIC TECHNICIAN 03/26/2024 7:12 AM PHOTOVOLTAIC TECHNICIAN Kim May MD LAB BLOOD ORDERABLES Fin al Result Performing Organization Address City/[facility] Co de Phone Number JUAN JOSE[address] [address] * (ABNORMAL) Magnesium (03/26/2024 6:45 AM PHOTOVOLTAIC TECHNICIAN) [facility] Magnesium 1.2(L) 1.4 - 2.5 mg/dL Blood 03/26/2024 6:45 AM PHOTOVOLTAIC TECHNICIAN 03/26/2024 7:12 AM PHOTOVOLTAIC TECHNICIAN Kim May MD LAB BLOOD ORDERABLES Fin al Result Performing Organization Address [facility] de Phone Number [address] [address] * (ABNORMAL) Comprehensive metabolic panel (03/26/2024 6:45 AM PHOTOVOLTAIC TECHNICIAN) [facility] Sodium 136 135 - 145 mmol/L Potassium, pl 3.5 3.3 - 4.9 mmol/L [facility] Chloride 98 97 - 110 mmol/L [facility] CO2 29 22 - 32 mmol/L [facility] Anion gap 9 2 - 15 mmol/L [facility] BUN 6 6 - 25 mg/dL [facility] Creatinine 0.68(L) 0.80 - 1.30 mg/dL [facility] Glucose 90 70 - 199 mg/dL [facility] Comment: Interpretive Data Fasting glucose >/= 126 mg/dl is diagnostic for diabetes. Fasting is defined as no caloric intake for at least 8 hours. Fasting glucose between 100 mg/dl to 125 mg/dl is diagnostic of prediabetes. In a patient with classic symptoms of hyperglycemia or hyperglycemic crisis, a random glucose >/= 200 mg/dl is diagnostic for diabetes. In the absence of unequivocal hyperglycemia, results should be confirmed by repeat testing. The classification and Diagnosis of Diabetes Diabetes Care 202; 46: S19-S40. Current interpretive data was last revised 2022. Calcium 8.3(L) 8.5 - 10.3 mg/dL [facility] Bilirubin, total 0.9 0.1 - 1.2 mg/dL [facility] Protein, pl 5.8(L) 6.5 - 8.5 g/dL [facility] Albumin 3.4(L) 3.5 - 5.0 g/dL [facility] Alk phos 218(H) 40 - 130 Units/L [facility] ALT 191(H) 7 - 55 Units/L [facility] AST 139(H) 10 - 50 Units/L [facility] Blood 03/26/2024 6:45 AM PHOTOVOLTAIC TECHNICIAN 03/26/2024 7:12 AM PHOTOVOLTAIC TECHNICIAN Kim May MD LAB BLOOD ORDERABLES Fin al Result [facility] [address] [facility] Department [place] [address] * Urinalysis reflex to microscopic and culture Urine (03/25/2024 8:13 PM PHOTOVOLTAIC TECHNICIAN) Color, ur Yellow Yellow Clarity, ur Clear Clear [facility] Specific gravity, ur 1.028 1.003 - 1.030 [facility] pH, urine 7.0 [facility] Comment: Interpretive Data U rine pH is affected by diet, medications, systemic acid-base disturbances, and renal tubular function. pH may affect urinary stone formation. For example, urine pH below 6.0 may help reduce the tendency for calcium phosphate stones and pH greater than 6.0 may reduce the tendency for uric acid stone formation. Source: [facility] Current Interpretive Data was last revised on 2017 Protein, ur ql Negative Negative [facility] Glucose, ur ql Negative Negative [facility] Ketones, ur Negative Negative [facility] Bilirubin, ur Negative Negative [facility] Blood, ur Negative Negative [facility] Urobilinogen, ur <2.0 <2.0 mg/dL [facility] Nitrite, ur Negative Negative [facility] Leukocyte esterase, ur Negative Negative [facility] UA reflex comment Reflex conditions for microscopic UA and culture not met. [facility] Urine 03/25/2024 8:13 PM PHOTOVOLTAIC TECHNICIAN 03/25/2024 8:32 PM PHOTOVOLTAIC TECHNICIAN Gregory Larkin MD LAB MICROBIOLOGY - GENE RAL ORDERABLES Final Result Performing Organization Address City/[facility]/ZIP Co de Phone Number [address] [address] * Troponin T high-sensitivity 4-hour (03/25/2024 8:06 PM PHOTOVOLTAIC TECHNICIAN) [facility] Trop T hs 20 <=22 ng/L Comment: Interpretive Data For further hscTnT resources including the diagnostic algorithm and an aid in interpretation, copy and paste this link: https://nrl.testcatalog.org/show/hsTrop Current Interpretive Data last revised 2020. Trop T hs delta See Comment ng/L TAMIKA Comment:Inappropriate collec tion time to report a delta. Trop T hs pct delta See Comment % TAMIKA Comment:Inappropriate collec tion time to report a delta. Trop T hs interp See Comment TAMIKA Comment:Inappropriate collec tion time to report a delta. Blood 03/25/2024 8:06 PM PHOTOVOLTAIC TECHNICIAN 03/25/2024 8:31 PM PHOTOVOLTAIC TECHNICIAN Gregory Larkin MD LAB BLOOD ORDERABLES Fi nal Result Performing Organization Address [facility]/ZIP Co de Phone Number [address] [address] * Lactate (03/25/2024 8:06 PM PHOTOVOLTAIC TECHNICIAN) [facility] Lactate 1.8 0.7 - 2.0 mmol/L Blood 03/25/2024 8:06 PM PHOTOVOLTAIC TECHNICIAN 03/25/2024 8:31 PM PHOTOVOLTAIC TECHNICIAN Kim May MD LAB BLOOD ORDERABLES Fin al Result Performing Organization Address City/[facility]/ZIP Co de Phone Number [address] [place] [address] * Troponin T high-sensitivity 6-hour (03/25/2024 5:40 PM PHOTOVOLTAIC TECHNICIAN) [facility] Trop T hs 18 <=22 ng/L Comment: Interpretive Data For further hscTnT resources including the diagnostic algorithm and an aid in interpretation, copy and paste this link: https://nrl.testcatClear [employer].org/show/hsTrop Current Interpretive Data last revised 2020. Trop T hs delta 1 ng/L JUAN JOSENER Trop T hs interp Insignificant [facility] Blood 03/25/2024 5:40 PM PHOTOVOLTAIC TECHNICIAN 03/25/2024 5:44 PM PHOTOVOLTAIC TECHNICIAN Result [facility] Gregory Larkin MD LAB BLOOD ORDERABLES Fi nal Result [address] [place] [address] * Sepsis Lactate w/ Reflex (03/25/2024 5:40 PM PHOTOVOLTAIC TECHNICIAN) [facility] Sepsis Lactate 1.8 0.7 - 2.0 mmol/L Blood 03/25/2024 5:40 PM PHOTOVOLTAIC TECHNICIAN 03/25/2024 5:44 PM PHOTOVOLTAIC TECHNICIAN Result [facility] Gregory Larkin MD LAB BLOOD ORDERABLES Fi nal Result Performing Organization Address City/[facility]/ZIP Co de Phone Number [address] [place] [address] * Troponin T high-sensitivity 2-hour (03/25/2024 2:27 PM PHOTOVOLTAIC TECHNICIAN) [facility] Trop T hs 19 <=22 ng/L Comment: Interpretive Data For further hscTnT resources including the diagnostic algorithm and an aid in interpretation, copy and paste this link: https://nrl.testcatClear Creek [employer].org/show/hsTrop Current Interpretive Data last revised 2020. Trop T hs delta 2 ng/L [facility] Trop T hs interp Insignificant [facility] Blood 03/25/2024 2:27 PM PHOTOVOLTAIC TECHNICIAN 03/25/2024 2:30 PM PHOTOVOLTAIC TECHNICIAN us Gregory Larkin MD LAB BLOOD ORDERABLES nal Result Performing Organization Address City/[facility]/ZIP Co de Phone Number TAMIKA [facility] [place] [address] * (ABNORMAL) Sepsis Lactate w/ Reflex (03/25/2024 2:27 PM PHOTOVOLTAIC TECHNICIAN) Sepsis Lactate 2.3(C) 0.7 - 2.0 mmol/L Comment:Critical Result call ed to and read back by [id number], DATE: 2024-03-25 14:58:39 BY: [id number] Blood 03/25/2024 2:27 PM PHOTOVOLTAIC TECHNICIAN 03/25/2024 2:30 PM PHOTOVOLTAIC TECHNICIAN Gregory Larkin MD LAB BLOOD ORDERABLES [facility] Result Performing Organization Address [facility] Co de Phone Number TAMIKA [facility] [place] [address] * CT Chest PE (CTA) Abdomen Pelvis W Contrast (03/25/2024 1:44 PM PHOTOVOLTAIC TECHNICIAN) Anatomical Region Laterality Modality Body N/A Computed Tomogra phy 03/25/2024 2:00 PM PHOTOVOLTAIC TECHNICIAN Narrative 03/25/2024 2:06 PM PHOTOVOLTAIC TECHNICIAN EXAM DESCRIPTION: CT CHEST PE (CTA) ABDOMEN PELVIS W CONTRAST REASON FOR STUDY: other, sob, pain with deep breaths, hx of alcohol abuse and recently diagnosed pancreatitis 44 y.o. male presenting to the ED c/o Abdominal pain. Patient was brought by EMS for concerns of worsening abdominal pain going on for 1 week. Patient notes that the pain feels like a sharp pain throughout his entire abdomen. Patient notes that he was recently admitted for his abdominal pain and diagnosed with pancreatitis but he left against medical advice at that time. Patient states he also has not had consistent bowel movements. His last bowel movement was earlier this morning. Patient denies any blood in his urine or his stool. Patient denies dysuria. Patient notes shortness of breath and pain with deep breaths. Patient denies any chest pain. Patient notes nausea and vomiting that is nonbloody nonbilious. Patient drinks alcohol in his history of alcohol withdrawal as above. Patient states he last drank 10 hours ago. Patient states he drinks 12 20 oz drinks of hard alcohol a day. TECHNIQUE: CT angiogram of the chest with routine abdomen and pelvis performed with intravenous and without oral contrast using helical scanning technique with dynamic intravenous contrast injection. Reconstructed coronal and sagittal MPR images reviewed. All images stored on PACS. 3D MIP images of the chest rendered on scanning unit and reviewed at time of interpretation. Automated exposure control was used as a dose optimization technique for this examination. CONTRAST TYPE/DOSE: 100mL of IOVERSOL 350 MG IODINE/ML INTRAVENOUS SYRINGE injected via intravenous COMPARISON: None. FINDINGS: CHEST CHEST VASCULATURE: No filling defects are seen in the pulmonary arterial system. The subsegmental arteries are not optimally opacified but there is no obvious filling defects seen. The thoracic aorta is nonaneurysmal. Ascending thoracic aorta 3.9 cm, descending thoracic aorta 3.7 cm. LUNGS: Respiratory motion artifact present. PLEURA: No pleural effusion or pneumothorax. MEDIASTINUM/FLORA: No mediastinal or hilar mass. HEART: Heart size is mildly enlarged. Prominent left ventricular cavity size. AXILLA: No axillary lymphadenopathy. CHEST WALL: No chest wall mass or subcutaneous emphysema. HARDWARE/LINES/TUBES: None. MUSCULOSKELETAL CHEST: Bone windows demonstrate no acute or aggressive osseous abnormality. Vertebral body height and the alignment are normal. Small sclerotic focus in the left 9th rib may be a small bone island. ABDOMEN/PELVIS LIVER: Liver is enlarged and diffusely low in density evidence of hepatic steatosis. The liver size is 25 cm craniocaudal. The portal and hepatic vein and venous contributory areas appear patent. No focal hepatic lesion. GALLBLADDER: Gallbladder is contracted but otherwise unremarkable. BILE DUCTS: No biliary ductal dilation. SPLEEN: Spleen size is normal. No focal splenic lesion. PANCREAS: Diffuse inflammatory change of the pancreas with peripancreatic fluid. Findings are characteristic of acute pancreatitis. No pancreatic mass. There is maintained enhancement of the pancreas. There are few mildly prominent likely reactive peripancreatic lymph nodes. No organized peripancreatic fluid collection. ADRENALS: Normal. KIDNEYS/URINARY TRACT: Normal enhancement of the kidneys. No hydronephrosis or hydroureter. No renal calculus. No ureteral calculus. Urinary bladder unremarkable. GI: No evidence of bowel obstruction. Terminal ileum and stomach are normal. There is some mild dilation of small bowel in the left upper quadrant may be a localized focal ileus. No pneumatosis. Prominent food material in the stomach. Inflammatory change of the second and 3rd portion the duodenum is likely due to the regional inflammatory change from the pancreas. Small amount of non organized fluid. PERITONEUM: No ascites or free air. No mesenteric mass or lymphadenopathy. There is the fat containing umbilical hernia. RETROPERITONEUM: No retroperitoneal mass or lymphadenopathy. REPRODUCTIVE: No significant abnormalities are seen. VASCULATURE ABDOMEN: Abdominal aorta nonaneurysmal. MUSCULOSKELETAL ABDOMEN PELVIS: Bone windows demonstrate no acute or aggressive osseous abnormality. OTHER: No significant abnormality. IMPRESSION: No evidence of an acute pulmonary embolism. Acute pancreatitis with peripancreatic fluid. No organized peripancreatic fluid collection. Inflammatory change of the second and 3rd portion the duodenum likely due to the regional inflammatory change from the pancreatitis. Hepatomegaly and hepatic steatosis. Mild dilation of small bowel in the left upper quadrant may be a localized focal ileus. Mild cardiomegaly with prominent left ventricular cavity size. THIS IS AN ELECTRONICALLY VERIFIED FINAL REPORT 03/25/2024 2:06 PM - Electronically signed by Sebas Jeffers M.D. T: Report ID: [id number] Reading Location: [id number] Procedure Note Sebas Jeffers Jr., MD - 03/25/2024 EXAM DESCRIPTION: CT CHEST PE (CTA) ABDOMEN PELVIS W CONTRAST REASON FOR STUDY: other, sob, pain with deep breaths, hx of alcohol abuseand recently diagnosed pancreatitis 44 y.o. male presenting to the ED c/o Abdominal pain. Patient wasbrought by EMS for concerns of worsening abdominal pain going on for 1 week.Patient notes that the pain feels like a sharp pain throughout his entire abdomen. Patient notes that he was recently admitted for his abdominal pain and diagnosed with pancreatitis but he left against medical advice at thattime. Patient states he also has not had consistent bowel movements. His lastbowel movement was earlier this morning. Patient denies any blood in hisurine or his stool. Patient denies dysuria. Patient notes shortness of breath and pain with deep breaths. Patient denies any chest pain. Patient notesnausea and vomiting that is nonbloody nonbilious. Patient drinks alcohol inhis history of alcohol withdrawal as above. Patient states he last drank 10hours ago. Patient states he drinks 12 20 oz drinks of hard alcohol a day. TECHNIQUE: CT angiogram of the chest with routine abdomen and pelvisperformed with intravenous and without oral contrast using helical scanningtechnique with dynamic intravenous contrast injection. Reconstructed coronal and sagittal MPR images reviewed. All images stored on PACS. 3D MIP images ofthe chest rendered on scanning unit and reviewed at time of interpretation. Automated exposure control was used as a dose optimization technique forthis examination. CONTRAST TYPE/DOSE: 100mL of IOVERSOL 350 MG IODINE/ML INTRAVENOUS SYRINGE injected via intravenous COMPARISON: None. FINDINGS: CHEST CHEST VASCULATURE: No filling defects are seen in the pulmonary arterial system. The subsegmental arteries are not optimally opacified but thereis no obvious filling defects seen. The thoracic aorta is nonaneurysmal.Ascending thoracic aorta 3.9 cm, descending thoracic aorta 3.7 cm. LUNGS: Respiratory motion artifact present. PLEURA: No pleural effusion or pneumothorax. MEDIASTINUM/FLORA: No mediastinal or hilar mass. HEART: Heart size is mildly enlarged. Prominent left ventricular cavity size. AXILLA: No axillary lymphadenopathy. CHEST WALL: No chest wall mass or subcutaneous emphysema. HARDWARE/LINES/TUBES: None. MUSCULOSKELETAL CHEST: Bone windows demonstrate no acute or aggressive osseous abnormality. Vertebral body height and the alignment are normal. Small sclerotic focus in the left 9th rib may be a small bone island. ABDOMEN/PELVIS LIVER: Liver is enlarged and diffusely low in density evidence of hepatic steatosis. The liver size is 25 cm craniocaudal. The portal and hepaticvein and venous contributory areas appear patent. No focal hepatic lesion. GALLBLADDER: Gallbladder is contracted but otherwise unremarkable. BILE DUCTS: No biliary ductal dilation. SPLEEN: Spleen size is normal. No focal splenic lesion. PANCREAS: Diffuse inflammatory change of the pancreas with peripancreatic fluid. Findings are characteristic of acute pancreatitis. No pancreatic mass. There is maintained enhancement of the pancreas. There are fewmildly prominent likely reactive peripancreatic lymph nodes. No organized peripancreatic fluid collection. ADRENALS: Normal. KIDNEYS/URINARY TRACT: Normal enhancement of the kidneys. Nohydronephrosis or hydroureter. No renal calculus. No ureteral calculus. Urinarybladder unremarkable. GI: No evidence of bowel obstruction. Terminal ileum and stomach arenormal. There is some mild dilation of small bowel in the left upper quadrant maybe a localized focal ileus. No pneumatosis. Prominent food material in the stomach. Inflammatory change of the second and 3rd portion the duodenumis likely due to the regional inflammatory change from the pancreas. Small amount of non organized fluid. PERITONEUM: No ascites or free air. No mesenteric mass orlymphadenopathy. There is the fat containing umbilical hernia. RETROPERITONEUM: No retroperitoneal mass or lymphadenopathy. REPRODUCTIVE: No significant abnormalities are seen. VASCULATURE ABDOMEN: Abdominal aorta nonaneurysmal. MUSCULOSKELETAL ABDOMEN PELVIS: Bone windows demonstrate no acute or aggressive osseous abnormality. OTHER: No significant abnormality. IMPRESSION: No evidence of an acute pulmonary embolism. Acute pancreatitis with peripancreatic fluid. No organized peripancreatic fluid collection. Inflammatory change of the second and 3rd portion the duodenum likely dueto the regional inflammatory change from the pancreatitis. Hepatomegaly and hepatic steatosis. Mild dilation of small bowel in the left upper quadrant may be alocalized focal ileus. Mild cardiomegaly with prominent left ventricular cavity size. THIS IS AN ELECTRONICALLY VERIFIED FINAL REPORT 03/25/2024 2:06 PM - Electronically signed by Sebas Jeffers M.D. T: Report ID: [id number] Reading Location: [place] [address] Gregory Larkin MD IMG CT PROCEDURES Final Result * Blood culture Blood (03/25/2024 1:03 PM PHOTOVOLTAIC TECHNICIAN) Report Final Report: No growth Comment:Testing performed by : [facility], [address] [facility] [place]., [address] Blood 03/25/2024 1:03 PM PHOTOVOLTAIC TECHNICIAN 03/25/2024 4:00 PM PHOTOVOLTAIC TECHNICIAN Narrative TAMIKA - 03/30/2024 7:00 AM PHOTOVOLTAIC TECHNICIAN Collection->Peripheral 1. Blood cultures are incubated for 4 days on a continuously monitored blood culture system. The first report of a negative culture is issued within 24 hours of receipt of the specimen in the laboratory. 2. Positive culture results are reported as soon as they are detected. 3. The most important factor for detection of microbes in the setting of bloodstream infection is the volume of blood submitted for culture. Failure to collect an optimal blood volume can result in false negative blood cultures. 4. For pediatric patients, the recommended blood volume to collect follows a weight based strategy. See the electronic test catalog for collection instructions. 5. For positive blood cultures, a rapid molecular test may be performed for organism identification using the barbara ePlex blood culture identification panel for gram positive (BCID-GP) and gram negative (BCID-GN) organisms. This nucleic acid amplification test detects microbial DNA in positive blood culture broth. This assay has been cleared by the [place] Food and Drug Administration and its performance characteristics have been verified by the [facility]. For questions about this culture, contact the Microbiology Laboratory at [phone]. Interpretive data was last revised on 24. Gregory Larkin MD LAB MICROBIOLOGY - [facility] ORDERABLES Final Result TAMIKA [address] [facility] Department [place] [address] * Blood culture Blood (03/25/2024 1:02 PM PHOTOVOLTAIC TECHNICIAN) Report Final Report: No growth Comment:Testing performed by : [facility], [address] [facility] [place] [address] Blood 03/25/2024 1:02 PM PHOTOVOLTAIC TECHNICIAN 03/25/2024 4:00 PM PHOTOVOLTAIC TECHNICIAN [facility] TAMIKA - 03/30/2024 7:00 AM PHOTOVOLTAIC TECHNICIAN Collection->Peripheral 1. Blood cultures are incubated for 4 days on a continuously monitored blood culture system. The first report of a negative culture is issued within 24 hours of receipt of the specimen in the laboratory. 2. Positive culture results are reported as soon as they are detected. 3. The most important factor for detection of microbes in the setting of bloodstream infection is the volume of blood submitted for culture. Failure to collect an optimal blood volume can result in false negative blood cultures. 4. For pediatric patients, the recommended blood volume to collect follows a weight based strategy. See the electronic test catalog for collection instructions. 5. For positive blood cultures, a rapid molecular test may be performed for organism identification using the barbara ePlex blood culture identification panel for gram positive (BCID-GP) and gram negative (BCID-GN) organisms. This nucleic acid amplification test detects microbial DNA in positive blood culture broth. This assay has been cleared by the [place] Food and Drug Administration and its performance characteristics have been verified by the [facility]. For questions about this culture, contact the Microbiology Laboratory at [phone]. Interpretive data was last revised on 24. Gregory Larkin MD LAB MICROBIOLOGY - GENE RAL ORDERABLES Final Result Performing Organization Address [facility] Co de Phone Number TAMIKA [address] [address] * Troponin T high-sensitivity series (baseline, 2hr, 4hr, 6hr) (03/25/2024 11:59 AM PHOTOVOLTAIC TECHNICIAN) Pathologist [facility] Trop T hs 17 <=22 ng/L Comment: Interpretive Data For further hscTnT resources including the diagnostic algorithm and an aid in interpretation, copy and paste this link: [email or web address] Current Interpretive Data last revised 2020. Blood 03/25/2024 11:5 9 AM PHOTOVOLTAIC TECHNICIAN 03/25/2024 12:02 PM PHOTOVOLTAIC TECHNICIAN Gregory Larkin MD LAB BLOOD ORDERABLES Fi nal Result Performing Organization Address [facility] Co de Phone Number TAMIKA [address] [address] * (ABNORMAL) Sepsis Lactate w/ Reflex (03/25/2024 11:59 AM PHOTOVOLTAIC TECHNICIAN) Sepsis Lactate 3.7(C) 0.7 - 2.0 mmol/L Comment:Critical Result call ed to and read back by Claire [id number], DATE: 2024-03-25 12:39:46 BY: [id number] Blood 03/25/2024 11:5 9 AM PHOTOVOLTAIC TECHNICIAN 03/25/2024 12:04 PM PHOTOVOLTAIC TECHNICIAN Gregory Larkin MD LAB BLOOD ORDERABLES Fi nal Result Performing Organization Address [facility]/ZIP Co de Phone Number TAMIKA [address] [facility] [place] [address] * Pro B-type natriuretic peptide (03/25/2024 11:59 AM PHOTOVOLTAIC TECHNICIAN) NT-proBNP 68 <=300 pg/mL Comment: Interpretive Comments: A. Dyspnea in Acute Care Setting All Ages: < 300 pg/ml, acute heart failure unlikely. < 50 yrs: 300 - 450 pg/ml, further investigation warranted. > 450 pg/ml, acute heart failure likely. 50 - 74 yrs: 300 - 900 pg/ml, further investigation warranted. > 900 pg/ml, acute heart failure likely . > or = 75 yrs: 450 - 1800 pg/ml, further investigation warranted. > 1800 pg/ml, acute heart failure likely. B. Non-acute Setting < 75 yrs < 125 pg/ml, rules out heart failure. > or = 125 pg/ml, further investigation warranted. > or = 75 yrs < 450 pg/ml, rules out heart failure. > or = 450 pg/ml, further investigation warranted. - Knowledge of each individual patient's NT-proBNP range may be more useful than using similar cut-points for every patient. Please note that marked elevations in NT-proBNP levels may be observed in state other than Left Ventricular Congestive Failure, including: acute coronary syndromes, right heart strain/failure (including pulmonary embolism and cor pulmonale), critical illness, renal failure, as well as advanced age. - References: 1. Jamie WOOD et.al. Eur Heart J. 2006:27:330-337. 2. Pepe RW, Cortes OSBORNE. J. AM Manohar Cardiol: Cardiovasc Imag. 2009;2: 216- 225. Interpretive Data Last Revised Date: 2017. Blood 03/25/2024 11:5 9 AM PHOTOVOLTAIC TECHNICIAN 03/25/2024 12:02 PM PHOTOVOLTAIC TECHNICIAN Gregory Larkin MD LAB BLOOD ORDERABLES Fi nal Result Performing Organization Address [facility]/ZIP Co de Phone Number TAMIKA [address] [address] * Phosphorus (03/25/2024 11:59 AM PHOTOVOLTAIC TECHNICIAN) Phosphorus, pl 4.0 2.3 - 4.5 mg/dL Blood 03/25/2024 11:5 9 AM PHOTOVOLTAIC TECHNICIAN 03/25/2024 12:04 PM PHOTOVOLTAIC TECHNICIAN Gregory Larkin MD LAB BLOOD ORDERABLES Fi nal Result Performing Organization Address [facility] Co de Phone Number TAMIKA [address] [address] * (ABNORMAL) Magnesium (03/25/2024 11:59 AM PHOTOVOLTAIC TECHNICIAN) Pathologist [facility] Magnesium 1.0(L) 1.4 - 2.5 mg/dL Blood 03/25/2024 11:5 9 AM PHOTOVOLTAIC TECHNICIAN 03/25/2024 12:04 PM PHOTOVOLTAIC TECHNICIAN Result [facility] Gregory Larkin MD LAB BLOOD ORDERABLES Fi nal Result Performing Organization Address [facility] de Phone Number [address] [address] * (ABNORMAL) Ethanol (03/25/2024 11:59 AM PHOTOVOLTAIC TECHNICIAN) Pathologist [facility] Ethanol 44(H) <=10 mg/dL Comment: Interpretive Data Legal limit of intoxication > or = 80 mg/dL Levels > or = 400 mg/dL are potentially TOXIC. Current interpretive data was last revised on 2018. Blood 03/25/2024 11:5 9 AM PHOTOVOLTAIC TECHNICIAN 03/25/2024 12:04 PM PHOTOVOLTAIC TECHNICIAN Gregory Larkin MD LAB BLOOD ORDERABLES Fi nal Result Performing Organization Address City/[facility] Co de Phone Number [address] [address] * eGFR (03/25/2024 11:28 AM PHOTOVOLTAIC TECHNICIAN) Pathologist [facility] eGFR >90 >=60 mL/min/1. 73 m2 Comment: Interpretive Data Reference Interval Normal >/= 90 mL/min/1.73m2 Mildly decreased* 60 - 89 mL/min/1.73m2 Mildly to moderately decreased 45 - 59 mL/min/1.73m2 Moderately to severely decreased 30 - 44 mL/min/1.73m2 Severely decreased 15 - 29 mL/min/1.73m2 Kidney Failure < 15 mL/min/1.73m2 *Relative to young adult level Estimated glomerular filtration rate is determined by the 2020 CKD-EPI equation recommended by the National Kidney [employer] (A Unifying Approach to GFR Estimation: Recommendations of the NKF-ASK Task Force on Reassessing the Inclusion of Race in Diagnosing Kidney Disease, JASN 2020). The CKD-EPI equation should not be used for patients with unstable renal function and has not been validated in children and those over 70. Current interpretive data was last reviewed 2021. Blood 03/25/2024 11:2 8 AM PHOTOVOLTAIC TECHNICIAN 03/25/2024 11:34 AM PHOTOVOLTAIC TECHNICIAN us Gregory Larkin MD LAB BLOOD ORDERABLES nal Result [facility] [address] [facility] Department [place] [address] * (ABNORMAL) Differential, auto (03/25/2024 11:28 AM PHOTOVOLTAIC TECHNICIAN) Pathologist [facility] Neutrophil abs 8.4(H) 1.5 - 6.5 K/cumm Imm gran abs 0.5(H) 0.0 - 0.1 K/cumm [facility] Lymphocyte abs 1.5 0.8 - 3.3 K/cumm [facility] Monocyte abs 1.4(H) 0.2 - 0.8 K/cumm [facility] Eosinophil abs 0.1 0.0 - 0.5 K/cumm [facility] Basophil abs 0.0 0.0 - 0.1 K/cumm [facility] Neutrophil pct 70.7 % [facility] Comment: Interpretive Data Percent cell count reference ranges are not reported, since discordance with absolute values may lead to misinterpretation of CBC data. Current Interpretive Data was last revised on 2017. Imm gran pct 3.9 % [facility] Comment: Interpretive Data Percent cell count reference ranges are not reported, since discordance with absolute values may lead to misinterpretation of CBC data. Current Interpretive Data was last revised on 2017. Lymphocyte pct 12.6 % [facility] Comment: Interpretive Data Percent cell count reference ranges are not reported, since discordance with absolute values may lead to misinterpretation of CBC data. Current Interpretive Data was last revised on 2017. Monocyte pct 11.5 % [facility] Comment: Interpretive Data Percent cell count reference ranges are not reported, since discordance with absolute values may lead to misinterpretation of CBC data. Current Interpretive Data was last revised on 2017. Eosinophil pct 1.0 % [facility] Comment: Interpretive Data Percent cell count reference ranges are not reported, since discordance with absolute values may lead to misinterpretation of CBC data. Current Interpretive Data was last revised on 2017. Basophil pct 0.3 % [facility] Comment: Interpretive Data Percent cell count reference ranges are not reported, since discordance with absolute values may lead to misinterpretation of CBC data. Current Interpretive Data was last revised on 2017. Blood 03/25/2024 11:2 8 AM PHOTOVOLTAIC TECHNICIAN 03/25/2024 11:34 AM PHOTOVOLTAIC TECHNICIAN us Gregory Larkin MD LAB BLOOD ORDERABLES [facility] Result [facility] [address] [facility] Department [place] [address] * (ABNORMAL) CBC with auto differential (03/25/2024 11:28 AM PHOTOVOLTAIC TECHNICIAN) WBC 11.9(H) 3.8 - 9.9 K/cumm Hgb 11.5(L) 13.0 - 17.5 g/dL [facility] Hct 33.4(L) 38.9 - 50.3 % [facility] Plt 157 150 - 400 K/cumm [facility] MPV 9.3 9.1 - 12.3 fL [facility] RBC 3.39(L) 4.30 - 5.80 M/cumm [facility] MCV 98.5(H) 81.3 - 96.4 fL [facility] MCH 33.9(H) 27.1 - 33.3 pg [facility] MCHC 34.4 32.3 - 35.7 g/dL [facility] RDW CV 15.9(H) 11.1 - 14.9 % [facility] RDW SD 56.6(H) 35.7 - 48.1 fL [facility] NRBC abs 0.04(H) 0.00 - 0.01 K/cumm [facility] Blood Venous blood specimen / Unknown 03/25/2024 11:28 AM PHOTOVOLTAIC TECHNICIAN 03/25/2024 11:34 AM PHOTOVOLTAIC TECHNICIAN Gregory Larkin MD LAB BLOOD ORDERABLES Fi nal Result Performing Organization Address [facility] Co de Phone Number [address] [address] * (ABNORMAL) Lipase (03/25/2024 11:28 AM PHOTOVOLTAIC TECHNICIAN) [facility] Lipase 12,000(H) 10 - 99 Units/L Comment:Hemolyzed; result mi ght be falsely decreased Blood Venous blood specimen / Unknown 03/25/2024 11:28 AM PHOTOVOLTAIC TECHNICIAN 03/25/2024 11:34 AM PHOTOVOLTAIC TECHNICIAN Gregory Larkin MD LAB BLOOD ORDERABLES Fi nal Result Performing Organization Address City/[facility]/ZIP Co de Phone Number [address] [address] * (ABNORMAL) Comprehensive metabolic panel (03/25/2024 11:28 AM PHOTOVOLTAIC TECHNICIAN) [facility] Sodium 139 135 - 145 mmol/L Potassium, pl 4.0 3.3 - 4.9 mmol/L [facility] Comment:Hemolyzed; Potassium value may be falsely elevated by as much as 1.0 mmol/L. Suggest redraw and reanalysis. Chloride 99 97 - 110 mmol/L [facility] CO2 28 22 - 32 mmol/L [facility] Anion gap 12 2 - 15 mmol/L [facility] BUN 6 6 - 25 mg/dL [facility] Creatinine 0.73(L) 0.80 - 1.30 mg/dL [facility] Glucose 176 70 - 199 mg/dL [facility] Comment: Interpretive Data Fasting glucose >/= 126 mg/dl is diagnostic for diabetes. Fasting is defined as no caloric intake for at least 8 hours. Fasting glucose between 100 mg/dl to 125 mg/dl is diagnostic of prediabetes. In a patient with classic symptoms of hyperglycemia or hyperglycemic crisis, a random glucose >/= 200 mg/dl is diagnostic for diabetes. In the absence of unequivocal hyperglycemia, results should be confirmed by repeat testing. The classification and Diagnosis of Diabetes Diabetes Care 2021; 46: S19-S40. Current interpretive data was last revised 2022. Calcium 8.9 8.5 - 10.3 mg/dL [facility] Bilirubin, total 0.7 0.1 - 1.2 mg/dL [facility] Protein, pl 5.7(L) 6.5 - 8.5 g/dL [facility] Albumin 3.4(L) 3.5 - 5.0 g/dL [facility] Alk phos 282(H) 40 - 130 Units/L [facility] ALT 227(H) 7 - 55 Units/L [facility] Comment:Specimen is Lipemic; results may be inaccurate due to high levels of lipids. AST 186(H) 10 - 50 Units/L [facility] Comment:Hemolyzed; result ma y be falsely elevatedSpecimen is Lipemic; results may be inaccurate due to high levels of lipids. Blood 03/25/2024 11:2 8 AM PHOTOVOLTAIC TECHNICIAN 03/25/2024 11:34 AM PHOTOVOLTAIC TECHNICIAN us Gregory Larkin MD LAB BLOOD ORDERABLES Fi nal Result [facility] [address] [facility] Department [place] [address] * ECG 12 lead (03/25/2024 11:24 AM PHOTOVOLTAIC TECHNICIAN) Ventricular Rate EKG/Min 108 BPM [facility] Atrial Rate 108 BPM [facility] WA-Interval (MSEC) 138 ms [facility] QRS-Interval (MSEC) 84 ms [facility] QT-Interval (MSEC) 334 ms [facility] QTc 447 ms [facility] P [place] 48 degrees [facility] R [place] 14 degrees [facility] T [place] 32 degrees [facility] Diagnosis Sinus tachycardia Otherwise normal ECG No previous ECGs available Confirmed by JENIFER WILLIS M.D. ([id number]) on 03/25/2024 11:38:38 PM [facility] 03/25/2024 11:2 4 AM PHOTOVOLTAIC TECHNICIAN 03/25/2024 11:38 PM PHOTOVOLTAIC TECHNICIAN us Gregory Larkin MD ECG ORDERABLES Final R esult [facility] from Last 3 Months Insurance [facility] Advance Directives For more information, please contact: [phone] * Full Code (Latest Code Status on File) Date Activated Date Inactivated Comments 03/25/2024 8:01 PM 03/31/2024 2:47 PM Care Teams Dog Hair Clipper Relationship Specialty Start Date End Date Jose Manuel Gibbs MD [address] [facility] [place] [address] PCP - General Internal Medicine 03/25/24
--- OUTSIDE RECORDS SUMMARY | 2024-05-31 00:18 | XMS_ITS | Clinical Summary ---
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 Name Role Phone Jose Manuel Gibbs MD Primary Care Provider [phone] Allergies Active Allergy Reactions Criticality Noted Date [...] or necrosis 03/25/2024 Obesity (BMI 30.0-34.9) 03/25/2024 Encounters Date Type Department Care Team Description 03/25/2024 11:16 AM BUSINESS ARCHITECT - 03/31/2024 10:35 AM BUSINESS ARCHITECT Hospital Encounter [address] [place] [address] Gregory Larkin MD Saravanan, Pathanjali, MD Chowdhury, Farhanaz, MD Singh, Arjun, MD Shaukat, Bushra, MD Altwal, Ricardo Moore MD Abdominal pain (Primary Dx); Alcohol-induced acute pancreatitis without infection or necrosis; Alcohol withdrawal syndrome without complication (HCC); Hypomagnesemia Discharge Disposition: Discharge to home or self care from Last 3 Months Social History Tobacco Use Types Packs/Day Years Used Date Smoking Tobacco: Never Smokeless Tobacco: Never Tobacco Cessation:Counseling Given: Not Answered [facility] Utilities Answer Date Recorded In the past 12 months has e [employer], gas, oil, or water Spare Backup threatened to shut off services in your home? No 03/29/2024 Social Connection and Isolation Panel [NHANES] A nswer Date Recorded In a typical week, how many times do you talk on the phone with family, friends, or neighbors? Once a week 03/29/2024 How often do you get together with friends or re latives? Once a week 03/29/2024 How often do you attend restorationism or gnosticism serv ices? Never 03/29/2024 Do you belong to any clubs o r organizations such as restorationism groups, unions, fraternal or athletic groups, or [...] any time in the past 12 m [facility], were you homeless or living in a fci (including now)? No 03/29/2024 Personal Safety Answer Date Recorded Have you ever been in or are you currently in a harmful physical or emotional relationship or is someone making you feel afraid or unsafe? Denies 03/26/2024 Sex and Gender Information Value Date Recorded Sex Assigned at Not on file Legal Sex Male 10:51 PM BUSINESS ARCHITECT Gender Identity Not on file Sexual Orientation Not on file Obstetrics History Last Filed Vital Signs Vital Sign Reading Time Taken Comments Blood Pressure 127/76 03/31/2024 7:06 AM BUSINESS ARCHITECT Pulse 100 03/31/2024 7:06 AM BUSINESS ARCHITECT Temperature 36.7 C (98.1 F) 03/31/2024 7:06 AM BUSINESS ARCHITECT Respiratory Rate 18 03/31/2024 7:06 AM BUSINESS ARCHITECT Oxygen Saturation 96% 03/31/2024 7:06 AM BUSINESS ARCHITECT Inhaled Oxygen Concentration - - Weight 123.7 kg (272 lb 12.8 oz) 03/25/2024 7:56 PM BUSINESS ARCHITECT Height 175.3 cm (5' 9) 03/25/2024 7:56 PM BUSINESS ARCHITECT Body Mass Index 40.29 03/25/2024 7:56 PM BUSINESS ARCHITECT Plan of Treatment Health Maintenance Due Date Last Done Comments Colon Cancer Screening-Colonoscopy 1979 Depression Screening 1979 Hepatitis B Screening 1997 Regular Well Visit/Exam 18-64 1997 Covid-19 Vaccine (2023-2 5 season) 2023 03/13/2021, 07/17/2020, 06/26/2020 Influenza Vaccine (#1) 2023 03/06/2021 DTaP/Tdap/Td Vaccine (3 - Td or Tdap) 08/27/2030 08/27/2020, 04/01/2014 Hepatitis C Screening Completed 03/30/2024 , 03/29/2024, 10/01/2015 HPV Vaccines Aged Out No longer eligi ble based on patient's age to complete this topic Pneumococcal vaccine <65 Aged Out No longer eligible based on patient's age to complete this topic Procedures Procedure Name Priority Date/Time Associated Diagnosis Comments MAGNESIUM Routine 03/31/2024 5:46 AM BUSINESS ARCHITECT HEPATITIS C RNA, QUANTITATIVE, PCR Add-On 03/30/2024 8:36 AM BUSINESS ARCHITECT EGFR Routine 03/30/2024 4:44 AM BUSINESS ARCHITECT COMPREHENSIVE METABOLIC PANEL Routine 03/30/2024 4:44 AM BUSINESS ARCHITECT MAGNESIUM Routine 03/30/2024 4:44 AM BUSINESS ARCHITECT TRANSTHORACIC ECHO (TTE) COMPLETE W DOPPLER/CF WO CONTRAST Routine 03/29/2024 1:36 PM BUSINESS ARCHITECT REFLEX HEPATITIS C RNA Routine 03/29/2024 10:30 AM BUSINESS ARCHITECT HEPATITIS PANEL, ACUTE Routine 03/29/2024 10:30 AM BUSINESS ARCHITECT DIFFERENTIAL AUTO Routine 03/29/2024 6:4 5 AM BUSINESS ARCHITECT MAGNESIUM Routine 03/29/2024 6:45 AM BUSINESS ARCHITECT CBC WITH AUTO DIFFERENTIAL Routine 03/29/2024 6:[address] ABDOMEN PELVIS WO CONTRAST ED Urgent/IP Urgent 03/28/2024 9:58 AM BUSINESS ARCHITECT LIPASE STAT 03/28/2024 9:28 AM BUSINESS ARCHITECT EGFR Routine 03/28/2024 8:33 AM BUSINESS ARCHITECT LIPASE Routine 03/28/2024 8:33 AM BUSINESS ARCHITECT MAGNESIUM Routine 03/28/2024 8:33 AM BUSINESS ARCHITECT COMPREHENSIVE METABOLIC PANEL Routine 03/28/2024 8:33 AM BUSINESS ARCHITECT LIPASE Routine 03/28/2024 8:33 AM BUSINESS ARCHITECT EGFR Routine 03/27/2024 12:27 PM BUSINESS ARCHITECT DIFFERENTIAL AUTO Routine 03/27/2024 12: 27 PM BUSINESS ARCHITECT COMPREHENSIVE METABOLIC PANEL Routine 03/27/2024 12:27 PM BUSINESS ARCHITECT CBC WITH AUTO DIFFERENTIAL Routine 03/27/2024 12:27 PM BUSINESS ARCHITECT EGFR Routine 03/26/2024 6:45 AM BUSINESS ARCHITECT DIFFERENTIAL AUTO Routine 03/26/2024 6:4 5 AM BUSINESS ARCHITECT PHOSPHORUS Routine 03/26/2024 6:45 AM BUSINESS ARCHITECT MAGNESIUM Routine 03/26/2024 6:45 AM BUSINESS ARCHITECT COMPREHENSIVE METABOLIC PANEL Routine 03/26/2024 6:45 AM BUSINESS ARCHITECT CBC WITH AUTO DIFFERENTIAL Routine 03/26/2024 6:45 AM BUSINESS ARCHITECT URINALYSIS AND REFLEX TO MICROSCOPIC AND CULTURE STAT 03/25/2024 8:13 PM BUSINESS ARCHITECT LACTATE Timed 03/25/2024 8:06 PM BUSINESS ARCHITECT TROPONIN T HIGH-SENSITIVITY 4-HR Timed 03/25/2024 8:06 PM BUSINESS ARCHITECT SEPSIS LACTATE WITH REFLEX Timed 03/25/2024 5:40 PM BUSINESS ARCHITECT TROPONIN T HIGH-SENSITIVITY 6-HOUR Timed 03/25/2024 5:40 PM BUSINESS ARCHITECT SEPSIS LACTATE WITH REFLEX Timed 03/25/2024 2:27 PM BUSINESS ARCHITECT TROPONIN T HIGH-SENSITIVITY 2-HOUR Timed 03/25/2024 2:[address] CHEST PE ABDOMEN PELVIS W CONTRAST ED 03/25/2024 1:44 PM BUSINESS ARCHITECT BLOOD CULTURE STAT 03/25/2024 1:03 PM BUSINESS ARCHITECT BLOOD CULTURE STAT 03/25/2024 1:02 PM BUSINESS ARCHITECT PRO B-TYPE NATRIURETIC PEPTIDE STAT 03/25/2024 11:59 AM BUSINESS ARCHITECT TROPONIN T HIGH-SENSITIVITY SERIES (BASELINE, 2HR, 4HR, 6HR) STAT 03/25/2024 11:59 AM BUSINESS ARCHITECT PHOSPHORUS STAT 03/25/2024 11:59 AM BUSINESS ARCHITECT MAGNESIUM STAT 03/25/2024 11:59 AM BUSINESS ARCHITECT ETHANOL STAT 03/25/2024 11:59 AM BUSINESS ARCHITECT SEPSIS LACTATE WITH REFLEX STAT 03/25/2024 11:59 AM BUSINESS ARCHITECT EGFR STAT 03/25/2024 11:28 AM BUSINESS ARCHITECT DIFFERENTIAL AUTO STAT 03/25/2024 11: 28 AM BUSINESS ARCHITECT LIPASE STAT 03/25/2024 11:28 AM BUSINESS ARCHITECT COMPREHENSIVE METABOLIC PANEL STAT 03/25/2024 11:28 AM BUSINESS ARCHITECT CBC WITH AUTO DIFFERENTIAL STAT 03/25/2024 11:28 AM BUSINESS ARCHITECT ECG 12-LEAD STAT 03/25/2024 11:24 AM BUSINESS ARCHITECT from Last 3 Months Results * Magnesium (03/31/2024 5:46 AM BUSINESS ARCHITECT) [facility] Magnesium 1.7 1.4 - 2.5 mg/dL Blood 03/31/2024 5:46 AM BUSINESS ARCHITECT 03/31/2024 6:12 AM BUSINESS ARCHITECT us Severino Andrews MD LAB BLOOD ORDERABLES Final Resul t Performing Organization Address [facility] de Phone Number [address] [place] [address] * Hepatitis C (HCV) RNA PCR, quantitative Blood (03/30/2024 8:36 AM BUSINESS ARCHITECT) [facility] HCV RNA result Not Detected [facility] Comment: The quantifiable range of this assay is 15 IU/mL to 100,000,000 IU/mL (1.18 log IU/mL to 8.00 log IU/mL). Testing was performed by the BARBARA 6800 HCV Test ([employer] Testing performed at [facility] Current Interpretive Data was last revised on 2020 Testing performed by: [facility], [address] [facility], [place]., [address] Blood 03/30/2024 8:36 AM BUSINESS ARCHITECT 03/30/2024 12:13 PM BUSINESS ARCHITECT us Ricardo Alcocer MD LAB MICROBIOLOGY - GENERAL ORDERABLES Final Result Performing Organization Address [facility] de Phone Number [address] [place] [address] [facility] * eGFR (03/30/2024 4:44 AM BUSINESS ARCHITECT) [facility] eGFR >90 >=60 mL/min/1. 73 m2 Comment: [...] last reviewed 2021. Blood 03/30/2024 4:44 AM BUSINESS ARCHITECT 03/30/2024 5:13 AM BUSINESS ARCHITECT Ricardo Alcocer MD LAB BLOOD ORDERABLES Final Result Performing Organization Address [facility] Co de Phone Number [address] [address] * Magnesium (03/30/2024 4:44 AM BUSINESS ARCHITECT) [facility] Magnesium 1.8 1.4 - 2.5 mg/dL Blood 03/30/2024 4:44 AM BUSINESS ARCHITECT 03/30/2024 5:13 AM BUSINESS ARCHITECT Severino Andrews MD LAB BLOOD ORDERABLES Final Resul t Performing Organization Address [facility] Co de Phone Number [address] [address] * (ABNORMAL) Comprehensive metabolic panel (03/30/2024 4:44 AM BUSINESS ARCHITECT) Sodium 136 135 - 145 mmol/L Potassium, pl 4.6 3.3 - 4.9 mmol/L [facility] Chloride 100 97 - 110 mmol/L [facility] CO2 26 22 - 32 mmol/L [facility] Anion gap 10 2 - 15 mmol/L [facility] BUN 5(L) 6 - 25 mg/dL [facility] Creatinine 0.81 0.80 - 1.30 mg/dL [facility] Glucose 106 70 - 199 mg/dL [facility] Comment: Interpretive Data Fasting glucose >/= 126 [...] 2022. Calcium 9.8 8.5 - 10.3 mg/dL [facility] Bilirubin, total 0.5 0.1 - 1.2 mg/dL [facility] Protein, pl 7.2 6.5 - 8.5 g/dL [facility] Albumin 3.7 3.5 - 5.0 g/dL [facility] Alk phos 157(H) 40 - 130 Units/L [facility] ALT 73(H) 7 - 55 Units/L [facility] AST 46 10 - 50 Units/L [facility] Blood 03/30/2024 4:44 AM BUSINESS ARCHITECT 03/30/2024 5:13 AM BUSINESS ARCHITECT us Ricardo Alcocer MD LAB BLOOD ORDERABLES Final Result [facility] [address] [facility] Department [place] [address] * TRANSTHORACIC ECHO (TTE) COMPLETE W DOPPLER/CF WO CONTRAST (03/29/2024 1:36 PM BUSINESS ARCHITECT) Anatomical Region Laterality Modality Ultrasound 03/29/2024 1:00 PM BUSINESS ARCHITECT Narrative 03/29/2024 2:14 PM BUSINESS ARCHITECT Adult Echocardiogram + ----- + :Name: PAL DODD Study Date: 03/29/2024 Status: [facility] : : Patient Location: [facility] 1 [id number]^MHHeight: 69 in : : Weight: 272 lbBP: [...] 03/29/2024 Adult Echocardiogram + ----- + :Name: PAL DODD Study Date: 03/29/2024Status: [facility] : : Patient Location: [facility] 1CTR^[id number]^MHHeight: 69 in : : : 272 lbBP: [...] by: Sultan Jj MD 03/29/2024 02:14 PM us Ricardo Alcocer MD CV ECHO PROCEDURES Final Re sult * Reflex Hepatitis C RNA, Quantitative (03/29/2024 10:30 AM BUSINESS ARCHITECT) Pathologist [facility] HCV RNA result Not Detected [facility] Comment: The quantifiable range of this assay is 15 IU/mL to 100,000,000 IU/mL (1.18 log IU/mL to 8.00 log IU/mL). Testing was performed by the BARBARA 6800 HCV Test ([employer] Testing performed at [facility] Current Interpretive Data was last revised on 2020 Testing performed by: [facility], [address] [place]., [address] Blood 03/29/2024 10:3 0 AM BUSINESS ARCHITECT 03/29/2024 3:11 PM BUSINESS ARCHITECT us Ricardo Alcocer MD LAB BLOOD ORDERABLES Final Result [facility] [address] [facility] Department [place] [address] [facility] * (ABNORMAL) Hepatitis panel, acute Blood (03/29/2024 10:30 AM BUSINESS ARCHITECT) [facility] Hep A IgM Nonreactive Nonreactive Comment: Interpretive Data: If Hep A IgM Ab is reported as Equivocal, a new sample should be drawn in two weeks for testing. Current interpretive data was last revised on 19. Hep B core IgM Nonreactive Nonreactive [facility] Comment: Interpretive Data If HepB Core IgM Ab is reported as Equivocal, a new sample should be drawn in two weeks for testing. Current interpretive data was last revised on 19. Hep C Ab Reactive(A) Nonreactive [facility] Comment: Reactive for HCV antibodies. This may [...] last revised on 2019. HepBsAg Nonreactive Nonreactive [facility] Blood 03/29/2024 10:3 0 AM BUSINESS ARCHITECT 03/29/2024 11:03 AM BUSINESS ARCHITECT us Ricardo Alcocer MD LAB MICROBIOLOGY - GENERAL ORDERABLES Final Result [place] [address] [facility] Department [place] [address] * (ABNORMAL) Differential, auto (03/29/2024 6:45 AM BUSINESS ARCHITECT) Neutrophil abs 5.2 1.5 - 6.5 K/cumm Imm gran abs 0.5(H) 0.0 - 0.1 K/cumm [facility] Lymphocyte abs 1.3 0.8 - 3.3 K/cumm [facility] Monocyte abs 1.3(H) 0.2 - 0.8 K/cumm [facility] Eosinophil abs 0.2 0.0 - 0.5 K/cumm [facility] Basophil abs 0.0 0.0 - 0.1 K/cumm [facility] Neutrophil pct 61.4 % [facility] Comment: Interpretive Data Percent cell count reference ranges are not reported, since discordance with absolute values may lead to misinterpretation of CBC data. Current Interpretive Data was last revised on 2017. Imm gran pct 5.4 % [facility] Comment: Interpretive Data Percent cell count reference ranges are not reported, since discordance with absolute values may lead to misinterpretation of CBC data. Current Interpretive Data was last revised on 2017. Lymphocyte pct 15.3 % [facility] Comment: Interpretive Data Percent cell count reference ranges are not reported, since discordance with absolute values may lead to misinterpretation of CBC data. Current Interpretive Data was last revised on 2017. Monocyte pct 15.2 % [facility] Comment: Interpretive Data Percent cell count reference ranges are not reported, since discordance with absolute values may lead to misinterpretation of CBC data. Current Interpretive Data was last revised on 2017. Eosinophil pct 2.2 % [facility] Comment: Interpretive Data Percent cell count reference ranges are not reported, since discordance with absolute values may lead to misinterpretation of CBC data. Current Interpretive Data was last revised on 2017. Basophil pct 0.5 % [facility] Comment: Interpretive Data Percent cell count reference ranges are not reported, since discordance with absolute values may lead to misinterpretation of CBC data. Current Interpretive Data was last revised on 2017. Blood 03/29/2024 6:45 AM BUSINESS ARCHITECT 03/29/2024 6:52 AM BUSINESS ARCHITECT Luke Victoria MD LAB BLOOD ORDERABLES Final Result [place] [address] [facility] Department of Laboratories [place], [place] [id number] * (ABNORMAL) CBC with auto differential (03/29/2024 6:45 AM BUSINESS ARCHITECT) WBC 8.5 3.8 - 9.9 K/cumm Hgb 10.3(L) 13.0 - 17.5 g/dL [facility] Hct 31.3(L) 38.9 - 50.3 % [facility] Plt 264 150 - 400 K/cumm [facility] MPV 8.8(L) 9.1 - 12.3 fL [facility] RBC 3.05(L) 4.30 - 5.80 M/cumm [facility] MCV 102.6(H) 81.3 - 96.4 fL [facility] MCH 33.8(H) 27.1 - 33.3 pg [facility] MCHC 32.9 32.3 - 35.7 g/dL [facility] RDW CV 14.6 11.1 - 14.9 % [facility] RDW SD 54.4(H) 35.7 - 48.1 fL [facility] NRBC abs 0.00 0.00 - 0.01 K/cumm [facility] Blood 03/29/2024 6:45 AM BUSINESS ARCHITECT 03/29/2024 6:52 AM BUSINESS ARCHITECT Luke Victoria MD LAB BLOOD ORDERABLES Final Result Performing Organization Address [facility] de Phone Number [address] [place] [address] * Magnesium (03/29/2024 6:45 AM BUSINESS ARCHITECT) Magnesium 1.8 1.4 - 2.5 mg/dL Blood 03/29/2024 6:45 AM BUSINESS ARCHITECT 03/29/2024 6:52 AM BUSINESS ARCHITECT Severino Andrews MD LAB BLOOD ORDERABLES Final Resul t Performing Organization Address [facility] de Phone Number [address] [address] * CT Abdomen Pelvis WO Contrast (03/28/2024 9:58 AM BUSINESS ARCHITECT) Anatomical Region Laterality Modality Body N/A Computed Tomogra phy 03/28/2024 10:0 2 AM BUSINESS ARCHITECT Narrative 03/28/2024 10:10 AM BUSINESS ARCHITECT EXAM DESCRIPTION: CT ABDOMEN PELVIS WO CONTRAST [...] signed by Elmer MUÑIZ T: Report ID: [id number] Reading Location: [id number] Procedure Note Elmer Sigala MD - 03/28/2024 [...] signed by Elmer MUÑIZ T: Report ID: [id number] Reading Location: [place] [address] us Ellie Park MD IMG CT PROCEDURES Final Result * (ABNORMAL) Lipase (03/28/2024 9:28 AM BUSINESS ARCHITECT) Pathologist [facility] Lipase 133(H) 10 - 99 Units/L Blood 03/28/2024 9:28 AM BUSINESS ARCHITECT 03/28/2024 9:31 AM BUSINESS ARCHITECT us Ellie Park MD LAB BLOOD ORDERABLES Final Res ult JUAN JOSETRZ WO [address] [facility] Department [place] [address] * eGFR (03/28/2024 8:33 AM BUSINESS ARCHITECT) Pathologist [facility] eGFR >90 >=60 mL/min/1. 73 m2 Comment: [...] last reviewed 2021. Blood 03/28/2024 8:33 AM BUSINESS ARCHITECT 03/28/2024 9:32 AM BUSINESS ARCHITECT Luke Victoria MD LAB BLOOD ORDERABLES Final Result Performing Organization Address [facility] de Phone Number [address] [place] [address] * Magnesium (03/28/2024 8:33 AM BUSINESS ARCHITECT) Magnesium 1.9 1.4 - 2.5 mg/dL Blood 03/28/2024 8:33 AM BUSINESS ARCHITECT 03/28/2024 9:32 AM BUSINESS ARCHITECT Severino Andrews MD LAB BLOOD ORDERABLES Final Resul t Performing Organization Address [facility] de Phone Number [address] [place] [address] * (ABNORMAL) Lipase (03/28/2024 8:33 AM BUSINESS ARCHITECT) Lipase 120(H) 10 - 99 Units/L Blood 03/28/2024 8:33 AM BUSINESS ARCHITECT 03/28/2024 9:32 AM BUSINESS ARCHITECT Severino Andrews MD LAB BLOOD ORDERABLES Final Resul t Performing Organization Address [facility] de Phone Number [address] [place] [address] * (ABNORMAL) Lipase (03/28/2024 8:33 AM BUSINESS ARCHITECT) Pathologist [facility] Lipase 121(H) 10 - 99 Units/L Blood 03/28/2024 8:33 AM BUSINESS ARCHITECT 03/28/2024 9:32 AM BUSINESS ARCHITECT Severino Andrews MD LAB BLOOD ORDERABLES Final Resul t [address] Department [place] [address] * (ABNORMAL) Comprehensive metabolic panel (03/28/2024 8:33 AM BUSINESS ARCHITECT) [facility] Sodium 130(L) 135 - 145 mmol/L Potassium, pl 4.1 3.3 - 4.9 mmol/L [facility] Chloride 96(L) 97 - 110 mmol/L [facility] CO2 24 22 - 32 mmol/L [facility] Anion gap 10 2 - 15 mmol/L [facility] BUN 4(L) 6 - 25 mg/dL [facility] Creatinine 0.68(L) 0.80 - 1.30 mg/dL [facility] Glucose 85 70 - 199 mg/dL [facility] Comment: Interpretive Data Fasting glucose >/= 126 [...] 2022. Calcium 8.3(L) 8.5 - 10.3 mg/dL [facility] Bilirubin, total 0.8 0.1 - 1.2 mg/dL [facility] Protein, pl 6.5 6.5 - 8.5 g/dL [facility] Albumin 3.5 3.5 - 5.0 g/dL [facility] Alk phos 186(H) 40 - 130 Units/L [facility] ALT 105(H) 7 - 55 Units/L [facility] AST 68(H) 10 - 50 Units/L [facility] Blood 03/28/2024 8:33 AM BUSINESS ARCHITECT 03/28/2024 9:32 AM BUSINESS ARCHITECT Luke Victoria MD LAB BLOOD ORDERABLES Final Result Performing Organization Address City/[facility] Co de Phone Number [facility] [address] [address] * eGFR (03/27/2024 12:27 PM BUSINESS ARCHITECT) Pathologist [facility] eGFR >90 >=60 mL/min/1. 73 m2 Comment: [...] reviewed 2021. Blood 03/27/2024 12:2 7 PM BUSINESS ARCHITECT 03/27/2024 12:43 PM BUSINESS ARCHITECT us Luke Victoria MD LAB BLOOD ORDERABLES Final Result Performing Organization Address City/[facility]/ZIP Co de Phone Number JUAN JOSE[address] [place] [address] * (ABNORMAL) Differential, auto (03/27/2024 12:27 PM BUSINESS ARCHITECT) Neutrophil abs 4.9 1.5 - 6.5 K/cumm Imm gran abs 0.3(H) 0.0 - 0.1 K/cumm [facility] Lymphocyte abs 1.1 0.8 - 3.3 K/cumm [facility] Monocyte abs 0.9(H) 0.2 - 0.8 K/cumm [facility] Eosinophil abs 0.1 0.0 - 0.5 K/cumm [facility] Basophil abs 0.0 0.0 - 0.1 K/cumm [facility] Neutrophil pct 66.1 % [facility] Comment: Interpretive Data Percent cell count reference ranges are not reported, since discordance with absolute values may lead to misinterpretation of CBC data. Current Interpretive Data was last revised on 2017. Imm gran pct 3.5 % [facility] Comment: Interpretive Data Percent cell count reference ranges are not reported, since discordance with absolute values may lead to misinterpretation of CBC data. Current Interpretive Data was last revised on 2017. Lymphocyte pct 15.5 % [facility] Comment: Interpretive Data Percent cell count reference ranges are not reported, since discordance with absolute values may lead to misinterpretation of CBC data. Current Interpretive Data was last revised on 2017. Monocyte pct 12.7 % [facility] Comment: Interpretive Data Percent cell count reference ranges are not reported, since discordance with absolute values may lead to misinterpretation of CBC data. Current Interpretive Data was last revised on 2017. Eosinophil pct 1.9 % [facility] Comment: Interpretive Data Percent cell count reference ranges are not reported, since discordance with absolute values may lead to misinterpretation of CBC data. Current Interpretive Data was last revised on 2017. Basophil pct 0.3 % [facility] Comment: Interpretive Data Percent cell count reference ranges are not reported, since discordance with absolute values may lead to misinterpretation of CBC data. Current Interpretive Data was last revised on 2017. Blood 03/27/2024 12:2 7 PM BUSINESS ARCHITECT 03/27/2024 12:43 PM BUSINESS ARCHITECT Luke Victoria MD LAB BLOOD ORDERABLES Final Result Performing Organization Address City/State/[facility] de Phone Number T[facility]IKA [address] [place] [address] * (ABNORMAL) CBC with auto differential (03/27/2024 12:27 PM BUSINESS ARCHITECT) [facility] WBC 7.3 3.8 - 9.9 K/cumm Hgb 10.4(L) 13.0 - 17.5 g/dL [facility] Hct 31.3(L) 38.9 - 50.3 % [facility] Plt 163 150 - 400 K/cumm [facility] [facility] MPV 9.7 9.1 - 12.3 fL [facility] RBC 3.08(L) 4.30 - 5.80 M/cumm [facility] MCV 101.6(H) 81.3 - 96.4 fL [facility] MCH 33.8(H) 27.1 - 33.3 pg [facility] MCHC 33.2 32.3 - 35.7 g/dL [facility] RDW CV 15.3(H) 11.1 - 14.9 % [facility] RDW SD 57.0(H) 35.7 - 48.1 fL [facility] NRBC abs 0.00 0.00 - 0.01 K/cumm [facility] Blood 03/27/2024 12:2 7 PM BUSINESS ARCHITECT 03/27/2024 12:43 PM BUSINESS ARCHITECT us Luke Victoria MD LAB BLOOD ORDERABLES Final Result Performing Organization Address [facility] Co de Phone Number TAMIKA [address] [place] [address] * (ABNORMAL) Comprehensive metabolic panel (03/27/2024 12:27 PM BUSINESS ARCHITECT) [facility] Sodium 132(L) 135 - 145 mmol/L Potassium, pl 3.6 3.3 - 4.9 mmol/L [facility] Chloride 96(L) 97 - 110 mmol/L [facility] CO2 25 22 - 32 mmol/L [facility] Anion gap 11 2 - 15 mmol/L [facility] BUN 5(L) 6 - 25 mg/dL [facility] Creatinine 0.62(L) 0.80 - 1.30 mg/dL [facility] Glucose 138 70 - 199 mg/dL [facility] Comment: Interpretive Data Fasting glucose >/= 126 [...] 2022. Calcium 8.3(L) 8.5 - 10.3 mg/dL [facility] Bilirubin, total 0.9 0.1 - 1.2 mg/dL [facility] Protein, pl 6.6 6.5 - 8.5 g/dL [facility] Albumin 3.6 3.5 - 5.0 g/dL [facility] Alk phos 192(H) 40 - 130 Units/L [facility] ALT 139(H) 7 - 55 Units/L [facility] AST 82(H) 10 - 50 Units/L [facility] Blood 03/27/2024 12:2 7 PM BUSINESS ARCHITECT 03/27/2024 12:43 PM BUSINESS ARCHITECT us Luke Victoria MD LAB BLOOD ORDERABLES Final Result [facility] [address] [facility] Department [place] [address] * eGFR (03/26/2024 6:45 AM BUSINESS ARCHITECT) eGFR >90 >=60 mL/min/1. 73 m2 Comment: [...] last reviewed 2021. Blood 03/26/2024 6:45 AM BUSINESS ARCHITECT 03/26/2024 7:12 AM BUSINESS ARCHITECT us Kim May MD LAB BLOOD ORDERABLES Fin al Result [facility] [address] [facility] Department [place] [address] * (ABNORMAL) Differential, auto (03/26/2024 6:45 AM BUSINESS ARCHITECT) Neutrophil abs 7.3(H) 1.5 - 6.5 K/cumm Imm gran abs 0.2(H) 0.0 - 0.1 K/cumm [facility] Lymphocyte abs 1.0 0.8 - 3.3 K/cumm [facility] Monocyte abs 1.2(H) 0.2 - 0.8 K/cumm [facility] Eosinophil abs 0.1 0.0 - 0.5 K/cumm [facility] Basophil abs 0.0 0.0 - 0.1 K/cumm [facility] Neutrophil pct 74.3 % [facility] Comment: Interpretive Data Percent cell count reference ranges are not reported, since discordance with absolute values may lead to misinterpretation of CBC data. Current Interpretive Data was last revised on 2017. Imm gran pct 2.4 % [facility] Comment: Interpretive Data Percent cell count reference ranges are not reported, since discordance with absolute values may lead to misinterpretation of CBC data. Current Interpretive Data was last revised on 2017. Lymphocyte pct 10.3 % [facility] Comment: Interpretive Data Percent cell count reference ranges are not reported, since discordance with absolute values may lead to misinterpretation of CBC data. Current Interpretive Data was last revised on 2017. Monocyte pct 11.6 % [facility] Comment: Interpretive Data Percent cell count reference ranges are not reported, since discordance with absolute values may lead to misinterpretation of CBC data. Current Interpretive Data was last revised on 2017. Eosinophil pct 1.1 % [facility] Comment: Interpretive Data Percent cell count reference ranges are not reported, since discordance with absolute values may lead to misinterpretation of CBC data. Current Interpretive Data was last revised on 2017. Basophil pct 0.3 % [facility] Comment: Interpretive Data Percent cell count reference ranges are not reported, since discordance with absolute values may lead to misinterpretation of CBC data. Current Interpretive Data was last revised on 2017. Blood 03/26/2024 6:45 AM BUSINESS ARCHITECT 03/26/2024 7:12 AM BUSINESS ARCHITECT Kim May MD LAB BLOOD ORDERABLES Fin al Result [place] [address] [facility] Department [place] [address] * (ABNORMAL) CBC with auto differential (03/26/2024 6:45 AM BUSINESS ARCHITECT) WBC 9.9 3.8 - 9.9 K/cumm Hgb 10.6(L) 13.0 - 17.5 g/dL [facility] Hct 31.7(L) 38.9 - 50.3 % [facility] Plt 145(L) 150 - 400 K/cumm [facility] MPV 9.7 9.1 - 12.3 fL [facility] RBC 3.13(L) 4.30 - 5.80 M/cumm [facility] MCV 101.3(H) 81.3 - 96.4 fL [facility] MCH 33.9(H) 27.1 - 33.3 pg [facility] MCHC 33.4 32.3 - 35.7 g/dL [facility] RDW CV 15.9(H) 11.1 - 14.9 % [facility] RDW SD 59.0(H) 35.7 - 48.1 fL [facility] NRBC abs 0.03(H) 0.00 - 0.01 K/cumm [facility] Blood 03/26/2024 6:45 AM BUSINESS ARCHITECT 03/26/2024 7:12 AM BUSINESS ARCHITECT Kim May MD LAB BLOOD ORDERABLES Fin al Result Performing Organization Address [facility] de Phone Number [address] [place] [address] * Phosphorus (03/26/2024 6:45 AM BUSINESS ARCHITECT) [facility] Phosphorus, pl 3.8 2.3 - 4.5 mg/dL Blood 03/26/2024 6:45 AM BUSINESS ARCHITECT 03/26/2024 7:12 AM BUSINESS ARCHITECT Kim May MD LAB BLOOD ORDERABLES Fin al Result Performing Organization Address [facility] de Phone Number [address] [place] [address] * (ABNORMAL) Magnesium (03/26/2024 6:45 AM BUSINESS ARCHITECT) [facility] Magnesium 1.2(L) 1.4 - 2.5 mg/dL Blood 03/26/2024 6:45 AM BUSINESS ARCHITECT 03/26/2024 7:12 AM BUSINESS ARCHITECT Kim May MD LAB BLOOD ORDERABLES Fin al Result Performing Organization Address [facility] Co de Phone Number [address] [place] [address] * (ABNORMAL) Comprehensive metabolic panel (03/26/2024 6:45 AM BUSINESS ARCHITECT) [facility] Sodium 136 135 - 145 mmol/L Potassium, pl 3.5 3.3 - 4.9 mmol/L [facility] Chloride 98 97 - 110 mmol/L [facility] CO2 29 22 - 32 mmol/L [facility] Anion gap 9 2 - 15 mmol/L [facility] BUN 6 6 - 25 mg/dL [facility] Creatinine 0.68(L) 0.80 - 1.30 mg/dL [facility] Glucose 90 70 - 199 mg/dL [facility] Comment: Interpretive Data Fasting glucose >/= 126 [...] 2022. Calcium 8.3(L) 8.5 - 10.3 mg/dL [facility] Bilirubin, total 0.9 0.1 - 1.2 mg/dL [facility] Protein, pl 5.8(L) 6.5 - 8.5 g/dL [facility] Albumin 3.4(L) 3.5 - 5.0 g/dL [facility] Alk phos 218(H) 40 - 130 Units/L [facility] ALT 191(H) 7 - 55 Units/L [facility] AST 139(H) 10 - 50 Units/L [facility] Blood 03/26/2024 6:45 AM BUSINESS ARCHITECT 03/26/2024 7:12 AM BUSINESS ARCHITECT Kim May MD LAB BLOOD ORDERABLES Fin al Result [facility] [address] [facility] Department [place] [address] * Urinalysis reflex to microscopic and culture Urine (03/25/2024 8:13 PM BUSINESS ARCHITECT) Color, ur Yellow Yellow Clarity, ur Clear Clear [facility] Specific gravity, ur 1.028 1.003 - 1.030 [facility] pH, urine 7.0 [facility] Comment: Interpretive Data U rine pH is affected by diet, medications, systemic acid-base disturbances, and renal tubular function. pH may affect urinary stone formation. For example, urine pH below 6.0 may help reduce the tendency for calcium phosphate stones and pH greater than 6.0 may reduce the tendency for uric acid stone formation. Source: [facility] Current Interpretive Data was last revised on 2017 Protein, ur ql Negative Negative [facility] Glucose, ur ql Negative Negative [facility] Ketones, ur Negative Negative [facility] Bilirubin, ur Negative Negative [facility] Blood, ur Negative Negative [facility] Urobilinogen, ur <2.0 <2.0 mg/dL [facility] Nitrite, ur Negative Negative [facility] Leukocyte esterase, ur Negative Negative [facility] UA reflex comment Reflex conditions for microscopic UA and culture not met. TAMIKA Urine 03/25/2024 8:13 PM BUSINESS ARCHITECT 03/25/2024 8:32 PM BUSINESS ARCHITECT Gregory Larkin MD LAB MICROBIOLOGY - GENE RAL ORDERABLES Final Result Performing Organization Address [facility] Co de Phone Number TAMIKA [address] [facility] Department [place] [address] * Troponin T high-sensitivity 4-hour (03/25/2024 8:06 PM BUSINESS ARCHITECT) Trop T hs 20 <=22 ng/L Comment: [...] report a delta. Blood 03/25/2024 8:06 PM BUSINESS ARCHITECT 03/25/2024 8:31 PM BUSINESS ARCHITECT Gregory Larkin MD LAB BLOOD ORDERABLES Fi nal Result Performing Organization Address City/[facility] Co de Phone Number JUAN JOSE[address] [address] * Lactate (03/25/2024 8:06 PM BUSINESS ARCHITECT) Lactate 1.8 0.7 - 2.0 mmol/L Blood 03/25/2024 8:06 PM BUSINESS ARCHITECT 03/25/2024 8:31 PM BUSINESS ARCHITECT Kim May MD LAB BLOOD ORDERABLES Fin al Result Performing Organization Address [facility] Co de Phone Number JUAN JOSE[address] [address] * Troponin T high-sensitivity 6-hour (03/25/2024 5:40 PM BUSINESS ARCHITECT) Trop T hs 18 <=22 ng/L Comment: Interpretive Data For further hscTnT resources including the diagnostic algorithm and an aid in interpretation, copy and paste this link: https://nrl.testcatalog.org/show/hsTrop Current Interpretive Data last revised 2020. Trop T hs delta 1 ng/L [facility] Trop T hs interp Insignificant [facility] Blood 03/25/2024 5:40 PM BUSINESS ARCHITECT 03/25/2024 5:44 PM BUSINESS ARCHITECT Gregory Larkin MD LAB BLOOD ORDERABLES Fi nal Result Performing Organization Address [facility] Co de Phone Number JUAN JOSE[address] [address] * Sepsis Lactate w/ Reflex (03/25/2024 5:40 PM BUSINESS ARCHITECT) Sepsis Lactate 1.8 0.7 - 2.0 mmol/L Blood 03/25/2024 5:40 PM BUSINESS ARCHITECT 03/25/2024 5:44 PM BUSINESS ARCHITECT Gregory Larkin MD LAB BLOOD ORDERABLES Fi nal Result Performing Organization Address [facility] Co de Phone Number JUAN JOSE[address] [address] * Troponin T high-sensitivity 2-hour (03/25/2024 2:27 PM BUSINESS ARCHITECT) Pathologist [facility] Trop T hs 19 <=22 ng/L Comment: Interpretive Data For further hscTnT resources including the diagnostic algorithm and an aid in interpretation, copy and paste this link: https://nrl.testcatalog.org/show/hsTrop Current Interpretive Data last revised 2020. Trop T hs delta 2 ng/L [facility] Trop T hs interp Insignificant [facility] Blood 03/25/2024 2:27 PM BUSINESS ARCHITECT 03/25/2024 2:30 PM BUSINESS ARCHITECT Gregory Larkin MD LAB BLOOD ORDERABLES Fi nal Result Performing Organization Address [facility] Co de Phone Number [address] [address] * (ABNORMAL) Sepsis Lactate w/ Reflex (03/25/2024 2:27 PM BUSINESS ARCHITECT) Pathologist [facility] Sepsis Lactate 2.3(C) 0.7 - 2.0 mmol/L Comment:Critical Result call ed to and read back by [id number], DATE: 2024-03-25 14:58:39 BY: [id number] Blood 03/25/2024 2:27 PM BUSINESS ARCHITECT 03/25/2024 2:30 PM BUSINESS ARCHITECT Gregory Larkin MD LAB BLOOD ORDERABLES Fi nal Result Performing Organization Address [facility] Co de Phone Number [address] [address] * CT Chest PE (CTA) Abdomen Pelvis W Contrast (03/25/2024 1:44 PM BUSINESS ARCHITECT) Anatomical Region Laterality Modality Body N/A Computed Tomogra phy 03/25/2024 2:00 PM BUSINESS ARCHITECT Narrative 03/25/2024 2:06 PM BUSINESS ARCHITECT EXAM DESCRIPTION: CT CHEST PE (CTA) ABDOMEN [...] by Sebas Jeffers M.D. T: Report ID: [id number] Reading Location: [id number] Procedure Note Sebas Jeffers Jr., MD - [...] by Sebas Jeffers M.D. T: Report ID: [id number] Reading Location: [place] [address] Gregory Larkin MD IMG CT PROCEDURES Final Result * Blood culture Blood (03/25/2024 1:03 PM BUSINESS ARCHITECT) Report Final Report: No growth Comment:Testing performed by : [facility], [address] [place]., [address] Blood 03/25/2024 1:03 PM BUSINESS ARCHITECT 03/25/2024 4:00 PM BUSINESS ARCHITECT Narrative TAMIKA AMBRIZ - 03/30/2024 7:00 AM BUSINESS ARCHITECT Collection->Peripheral 1. Blood cultures are incubated for [...] performance characteristics have been verified by the [facility]. For questions about this culture, contact the Microbiology Laboratory at [phone]. Interpretive data was last revised on 24. us Gregory Larkin MD LAB MICROBIOLOGY - GENE RAL ORDERABLES Final Result TAMIKA [address] [facility] Department [place] [address] * Blood culture Blood (03/25/2024 1:02 PM BUSINESS ARCHITECT) Report Final Report: No growth Comment:Testing performed by : [facility], [address] [facility] [place]., [address] Blood 03/25/2024 1:02 PM BUSINESS ARCHITECT 03/25/2024 4:00 PM BUSINESS ARCHITECT Narrative TAMIKA AMBRIZ - 03/30/2024 7:00 AM BUSINESS ARCHITECT Collection->Peripheral 1. Blood cultures are incubated for [...] performance characteristics have been verified by the [facility]. For questions about this culture, contact the Microbiology Laboratory at [phone]. Interpretive data was last revised on 24. Gregory Larkin MD LAB MICROBIOLOGY - GENE [facility] ORDERABLES Final Result TAMIKA [address] [facility] Department [place] [address] * Troponin T high-sensitivity series (baseline, 2hr, 4hr, 6hr) (03/25/2024 11:59 AM BUSINESS ARCHITECT) Trop T hs 17 <=22 ng/L Comment: Interpretive Data For further hscTnT resources including the diagnostic algorithm and an aid in interpretation, copy and paste this link: https://nrl.testcatalog.org/show/hsTrop Current Interpretive Data last revised 2020. Blood 03/25/2024 11:5 9 AM BUSINESS ARCHITECT 03/25/2024 12:02 PM BUSINESS ARCHITECT Gregory Larkin MD LAB BLOOD ORDERABLES nal Result Performing Organization Address [facility] Co de Phone Number TAMIKA [address] [place] [address] * (ABNORMAL) Sepsis Lactate w/ Reflex (03/25/2024 11:59 AM BUSINESS ARCHITECT) [facility] Sepsis Lactate 3.7(C) 0.7 - 2.0 mmol/L Comment:Critical Result call ed to and read back by Claire [id number], DATE: 2024-03-25 12:39:46 BY: [id number] Blood 03/25/2024 11:5 9 AM BUSINESS ARCHITECT 03/25/2024 12:04 PM BUSINESS ARCHITECT Gregory Larkin MD LAB BLOOD ORDERABLES [facility] Result Performing Organization Address [facility] Co de Phone Number TAMIKA [address] [place] [address] * Pro B-type natriuretic peptide (03/25/2024 11:59 AM BUSINESS ARCHITECT) [facility] NT-proBNP 68 <=300 pg/mL Comment: Interpretive Comments: [...] Date: 2017. Blood 03/25/2024 11:5 9 AM BUSINESS ARCHITECT 03/25/2024 12:02 PM BUSINESS ARCHITECT Gregory Larkin MD LAB BLOOD ORDERABLES Fi nal Result Performing Organization Address [facility] Co de Phone Number [address] [place] [address] * Phosphorus (03/25/2024 11:59 AM BUSINESS ARCHITECT) Phosphorus, pl 4.0 2.3 - 4.5 mg/dL Blood 03/25/2024 11:5 9 AM BUSINESS ARCHITECT 03/25/2024 12:04 PM BUSINESS ARCHITECT Gregory Larkin MD LAB BLOOD ORDERABLES Fi nal Result Performing Organization Address [facility] de Phone Number [address] [place] [address] * (ABNORMAL) Magnesium (03/25/2024 11:59 AM BUSINESS ARCHITECT) Magnesium 1.0(L) 1.4 - 2.5 mg/dL Blood 03/25/2024 11:5 9 AM BUSINESS ARCHITECT 03/25/2024 12:04 PM BUSINESS ARCHITECT Gregory Larkin MD LAB BLOOD ORDERABLES Fi nal Result Performing Organization Address [facility] Co de Phone Number [address] [place] [address] * (ABNORMAL) Ethanol (03/25/2024 11:59 AM BUSINESS ARCHITECT) Ethanol 44(H) <=10 mg/dL Comment: Interpretive Data Legal limit of intoxication > or = 80 mg/dL Levels > or = 400 mg/dL are potentially TOXIC. Current interpretive data was last revised on 2018. Blood 03/25/2024 11:5 9 AM BUSINESS ARCHITECT 03/25/2024 12:04 PM BUSINESS ARCHITECT Gregory Larkin MD LAB BLOOD ORDERABLES Fi nal Result Performing Organization Address [facility] Co de Phone Number TAMIKA [address] [facility] Department [place] [address] * eGFR (03/25/2024 11:28 AM BUSINESS ARCHITECT) eGFR >90 >=60 mL/min/1. 73 m2 Comment: [...] reviewed 2021. Blood 03/25/2024 11:2 8 AM BUSINESS ARCHITECT 03/25/2024 11:34 AM BUSINESS ARCHITECT us Gregory Larkin MD LAB BLOOD ORDERABLES Fi nal Result Performing Organization Address [facility] Co de Phone Number TAMIKA [address] [facility] Department [place] [address] * (ABNORMAL) Differential, auto (03/25/2024 11:28 AM BUSINESS ARCHITECT) Neutrophil abs 8.4(H) 1.5 - 6.5 K/cumm Imm gran abs 0.5(H) 0.0 - 0.1 K/cumm [facility] Lymphocyte abs 1.5 0.8 - 3.3 K/cumm [facility] Monocyte abs 1.4(H) 0.2 - 0.8 K/cumm [facility] Eosinophil abs 0.1 0.0 - 0.5 K/cumm [facility] Basophil abs 0.0 0.0 - 0.1 K/cumm [facility] Neutrophil pct 70.7 % [facility] Comment: Interpretive Data Percent cell count reference ranges are not reported, since discordance with absolute values may lead to misinterpretation of CBC data. Current Interpretive Data was last revised on 2017. Imm gran pct 3.9 % [facility] Comment: Interpretive Data Percent cell count reference ranges are not reported, since discordance with absolute values may lead to misinterpretation of CBC data. Current Interpretive Data was last revised on 2017. Lymphocyte pct 12.6 % [facility] Comment: Interpretive Data Percent cell count reference ranges are not reported, since discordance with absolute values may lead to misinterpretation of CBC data. Current Interpretive Data was last revised on 2017. Monocyte pct 11.5 % [facility] Comment: Interpretive Data Percent cell count reference ranges are not reported, since discordance with absolute values may lead to misinterpretation of CBC data. Current Interpretive Data was last revised on 2017. Eosinophil pct 1.0 % [facility] Comment: Interpretive Data Percent cell count reference ranges are not reported, since discordance with absolute values may lead to misinterpretation of CBC data. Current Interpretive Data was last revised on 2017. Basophil pct 0.3 % [facility] Comment: Interpretive Data Percent cell count reference ranges are not reported, since discordance with absolute values may lead to misinterpretation of CBC data. Current Interpretive Data was last revised on 2017. Blood 03/25/2024 11:2 8 AM BUSINESS ARCHITECT 03/25/2024 11:34 AM BUSINESS ARCHITECT Gregory Larkin MD LAB BLOOD ORDERABLES Fi nal Result Performing Organization Address [facility] Co de Phone Number TAMIKA [address] [place] [address] * (ABNORMAL) CBC with auto differential (03/25/2024 11:28 AM BUSINESS ARCHITECT) Pathologist [facility] WBC 11.9(H) 3.8 - 9.9 K/cumm Hgb 11.5(L) 13.0 - 17.5 g/dL [facility] Hct 33.4(L) 38.9 - 50.3 % [facility] Plt 157 150 - 400 K/cumm [facility] MPV 9.3 9.1 - 12.3 fL [facility] RBC 3.39(L) 4.30 - 5.80 M/cumm [facility] MCV 98.5(H) 81.3 - 96.4 fL [facility] MCH 33.9(H) 27.1 - 33.3 pg [facility] MCHC 34.4 32.3 - 35.7 g/dL [facility] RDW CV 15.9(H) 11.1 - 14.9 % [facility] RDW SD 56.6(H) 35.7 - 48.1 fL [facility] NRBC abs 0.04(H) 0.00 - 0.01 K/cumm [facility] Blood Venous blood specimen / Unknown 03/25/2024 11:28 AM BUSINESS ARCHITECT 03/25/2024 11:34 AM BUSINESS ARCHITECT Gregory Larkin MD LAB BLOOD ORDERABLES Fi nal Result TAMIKA [address] [place] [address] * (ABNORMAL) Lipase (03/25/2024 11:28 AM BUSINESS ARCHITECT) Pathologist [facility] Lipase 12,000(H) 10 - 99 Units/L Comment:Hemolyzed; result mi ght be falsely decreased Blood Venous blood specimen / Unknown 03/25/2024 11:28 AM BUSINESS ARCHITECT 03/25/2024 11:34 AM BUSINESS ARCHITECT us Gregory Larkin MD LAB BLOOD ORDERABLES Fi nal Result [facility] [address] [facility] Department [place] [address] * (ABNORMAL) Comprehensive metabolic panel (03/25/2024 11:28 AM BUSINESS ARCHITECT) Sodium 139 135 - 145 mmol/L Potassium, pl 4.0 3.3 - 4.9 mmol/L [facility] Comment:Hemolyzed; Potassium value may be falsely elevated by as much as 1.0 mmol/L. Suggest redraw and reanalysis. Chloride 99 97 - 110 mmol/L [facility] CO2 28 22 - 32 mmol/L [facility] Anion gap 12 2 - 15 mmol/L [facility] BUN 6 6 - 25 mg/dL [facility] Creatinine 0.73(L) 0.80 - 1.30 mg/dL [facility] [facility] Glucose 176 70 - 199 mg/dL [facility] Comment: Interpretive Data Fasting glucose >/= 126 [...] 2022. Calcium 8.9 8.5 - 10.3 mg/dL [facility] Bilirubin, total 0.7 0.1 - 1.2 mg/dL [facility] Protein, pl 5.7(L) 6.5 - 8.5 g/dL [facility] Albumin 3.4(L) 3.5 - 5.0 g/dL [facility] Alk phos 282(H) 40 - 130 Units/L [facility] ALT 227(H) 7 - 55 Units/L [facility] Comment:Specimen is Lipemic; results may be inaccurate due to high levels of lipids. AST 186(H) 10 - 50 Units/L [facility] Comment:Hemolyzed; result ma y be falsely elevatedSpecimen is Lipemic; results may be inaccurate due to high levels of lipids. Blood 03/25/2024 11:2 8 AM BUSINESS ARCHITECT 03/25/2024 11:34 AM BUSINESS ARCHITECT Gregory Larkin MD LAB BLOOD ORDERABLES Fi nal Result Performing Organization Address City/[facility]/ZIP Co de Phone Number [facility] [address] [facility] Department [place] [address] * ECG 12 lead (03/25/2024 11:24 AM BUSINESS ARCHITECT) Ventricular Rate EKG/Min 108 BPM [facility] Atrial Rate 108 BPM [facility] OR-Interval (MSEC) 138 ms [facility] QRS-Interval (MSEC) 84 ms [facility] QT-Interval (MSEC) 334 ms [facility] QTc 447 ms [facility] P [place] 48 degrees [facility] R [place] 14 degrees [facility] T [place] 32 degrees [facility] Diagnosis Sinus tachycardia Otherwise normal ECG No previous ECGs available Confirmed by JENIFER WILLIS M.D. ([id number]) on 03/25/2024 11:38:38 PM [facility] 03/25/2024 11:2 4 AM BUSINESS ARCHITECT 03/25/2024 11:38 PM BUSINESS ARCHITECT Gregory Larkin MD ECG ORDERABLES Final R esult Performing Organization Address City/[facility]/ZIP Co de Phone Number [facility] from Last 3 Months Insurance [facility] Advance Directives For more information, please contact: [phone] * Full Code (Latest Code Status on File) Date Activated Date Inactivated Comments 03/25/2024 8:01 PM 03/31/2024 2:47 PM Care Teams Pocket Setter Lockstitch Relationship Specialty Start Date End Date Jose Manuel Gibbs MD [address] [id number] PCP - General Internal Medicine 03/25/24
--- OUTSIDE RECORDS SUMMARY | 2024-05-31 00:18 | XMS_ITS | Data Portability ---
Author Organization [facility] Address [address] [place] [address] Assessment Encounter Date Assessment Date Assessment LastModified [...] n Not available Not available Not available 08/20/202356259 5 RxNorm Not Available Not Available Not Available [id number] cephalogl ycin Not available Not available Not available Not available 08/20/2023 41449 UNK Not Available Not Available Not Available Medications Name Sig Start Date Stop Date [...] Updated DateTime 4 175.26 cm 32.3 kg/m2 49123.7 3 g 96 % 96 % 107 /min 144 mm[Hg] 80 mm[Hg] Britt Penny MA [facility] 10:28:38 Social History Question Answer Notes LastModified by Organizat ion Details LastModified Time Tobacco Smoking Status Former Smoker Britt Penny MA null, [place] - [place] 08/20/2023 10:34:30 What Is Your [...] Use Any Illicit Or Recreational Drugs? 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 Health Concerns Section Related Observation LastModified by Organization Detai ls LastModified Time None Recorded Concern Status LastModified by Organization Details LastModified Time None Recorded Advance Directives Directive None Recorded Payers Encounter Date Sequence Insurance Name Policy Number Policy Read Covered Member ID Read Member ID Guarantor Name 08/20/2023 1 [facility] ON OR AFTER 09/20/20 (MEDICAID REPLACEMENT - HMO) Teodoro Waddell [id number] Teodoro Waddell Notes Date Note Type Note [...] Had falling out at [facility] mor[facility] at [place]. Said they had him on seroquel and Li, quit taking d/t felt like a zombie. Reports his brother 18mths ago....has uncontrollable crying every day. Nephew tried to kill himself recently and family did not tell Pt about it and this is upsetting.- - - - - -[place] by: self, [place] [facility] [place] x past 1yr. 14 yrs at [place] with various providersTherapist/Support Gps (e.g AA)? noPCP? Dr. Jose Manuel Gibbs at [facility] x 4yrs MedicationsAllergies: ceclor, cephaxlin,Current medications: Compliant/Non-Compliant. quit psych meds 18mths ago, states that he now feels better, energetic, thinner Wellbutrin XL 300mg qd (gives energy, doesn't gain weight) [losartan + HCTZ] x 5yrs Current SEs?: Previous medication trials: Li (increased mood swing), seroquel (gained weight, zombie), amitriptyline (switched not sure why), paxil (liked it), gabapentin, buspar (good), Effexor (doesn't remember), depakote in longterm (made moods worse and afraid of gynomastica), doxepin (helped well with sleep), trazadone (likes at 150mg) CURRENT SYMPTOMSSleep: not good, only good if drunk. Sleeps 3-4hrs, can't breathe through deviated septum, snores; has not had sleep study; has weird crazy dreams scary all the timeAppetite: eats too much; eats mostly pikellenagabrielle PHQ9 - 4GAD7 - 16MDQ - 4 + cluster + moderatePCL5 - 61 Depression: 10/30 with 10 being the worst - feel like a failure, like I haven't accomplished anythingAnxiety: 10/30 with 10 being the worst - feels alone, no escort car driver's license in 20yrsAnger/Irritability: 12/30 with 10 being the worst - gets in physical fights with strangersGrief: 2003 middle brother accidental OD cocaine/xanax 28yo; 2021 oldest brother age 50yo liver failure, [place], [place]. 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 _just got off 2yrs, Felony kind? _disarming a PD; went to shelter (for 26mths and violated probation d/t using heroine while on thorizine) for personal use of heroine and theft of a walkboard (2009) DrugsTHC smokes daily; makes me happier, better mood, Tobacco__quit 18mths ago 1/2pk/d, EtOH_12 pk daily x 25yrs, whole family drinks; makes him feel less depressed Last heroine use was 15yrs ago. EtOH rehab: [facility], [facility], [facility], [facility] => helped , used viv[facility]rol and [...] ago; doesn't agree with their policies Trauma[place]ised by? Mom/Dad. 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 VICENTA NICOLE-IRIS MAN, CANAL BOAT OPERATOR-C Attn: Accounting,[address] [facility], [place], [address], [facility] - SI 08/20/2023 21:53:29
--- OUTSIDE RECORDS SUMMARY | 2024-05-31 00:18 | XMS_ITS | Clinical Summary ---
Author Organization [facility] Address [address] [place] [address] Phone Care Team Providers Care Truck Loader Overhead Crane Name Role Phone Unavailable Primary Care Provider [...]
[2024-10-05 12:10] VITALS: BMI 31.7
--- OUTSIDE RECORDS SUMMARY | 2024-10-19 00:14 | XMS_ITS | Encounter Summary ---
Author Organization [facility] Address [facility] [place] [address] Care Team Providers Care Custom Feed Mill Operator Name Role Phone Brett Fabian MD Primary Care Provider [phone] Encounter Details Date Type Department Care Team (Late st Contact Info) Description 06/06/2017 Abstract [facility] CONVERSION [address] [place] [address] , Generic ConversionMD Social History Tobacco Use [...] on filedocumented in this encounter Care Teams Custom Feed Mill Operator Relationship Specialty Start Date End Date Brett Fabian MD PCP - General 12/22/15 documented as of this encounter
--- OUTSIDE RECORDS SUMMARY | 2024-10-19 00:14 | XMS_ITS | Continuity of Care Document ---
Author Organization [facility] Address [address] [place] [address] [place] [address] Phone Care Team Providers Care Public Health Registrar Name Role Phone Brett Fabian MD Unavailable [...] Diagnoses Date Provider Providers Copied on Encounter [facility], [address], [place], [place], [address], [place] tel:[phone] [facility] Medicine No Information [address], [place], [place], [address] , [place]. tel:[phone] Referring Provider: Brett Fabian, [address], [place], [place], [address]. tel:[phone] OFFICE/OUTPA TIENT VISIT, [facility], [address], [place], [place], [address], [place] tel:[phone] [facility] Medicine leg pain1 (chief complaint) alcohol1 (chief complaint) HLP (chief complaint) Alcohol abuse, uncomplicatedChroni c pain syndromeHyperlipide gilma Nov- 7 [address], [place], [place], [address] , [place]. tel:[phone] Referring Provider: [address], [place], [place], [address]. tel:[phone] OFFICE/OUTPA TIENT VISIT, EST [facility], [address], [place], [place], [address], [place] tel:[phone] [facility] depression 1 (chief complaint) HTN (chief complaint) GERD1 (chief complaint) alcohol1 (chief complaint) GERD w/ esophagitisAlcohol abuse, uncomplicatedEssent ial (primary) hypertensionInsomni a Nov- 7 [address], [place], [place], [address] , [place]. tel:[phone] Referring Provider: [address], [place], [place], [address]. tel:[phone] PREV VISIT, EST, AGE 18-39 [facility], [address], [place], [place], [address], [place] tel:[phone] [facility] Physical (chief complaint) Encntr for general adult medical exam w/o abnormal findings [address], [place], [place], [address] , [place]. tel:[phone] Referring Provider: [address], [place], [place], [address]. tel:[phone] OFFICE/OUTPA TIENT VISIT, [facility], [address], [place], [place], [address], [place] tel:[phone] [facility] anxiety1 (chief complaint) GERD1 (chief complaint) HTN (chief complaint) GERD w/ esophagitisGenerali zed anxiety disorderEssential (primary) hypertensionChronic pain syndrome [address], [place], [place], [address] , [place]. tel:[phone] Referring Provider: [address], [place], [place], [address]. tel:[phone] OFFICE/OUTPA TIENT VISIT, [facility], [address], [place], [place], [address], [place] tel:[phone] [facility] anxiety1 (chief complaint) knee pain1 (chief complaint) alcohol1 (chief complaint) Pain in right kneeGeneralized anxiety disorderAlcohol abuse, uncomplicatedLiver disease [address]. [address], [place], [place], [address] , [place]. tel:[phone] Referring Provider: [address], [place], [place], [address]. tel:[phone] OFFICE/OUTPA TIENT VISIT, [facility], [address], [place], [place], [address], [place] tel:[phone] [facility] HTN (chief complaint) GERD1 (chief complaint) anxiety1 (chief complaint) alcohol1 (chief complaint) Liver diseaseAlcohol abuse, uncomplicatedGenera lized anxiety disorderEssential (primary) hypertension 7 [address], [place], [place], [address] , [place]. tel:[phone] Referring Provider: [address], [place], [place], [address]. tel:[phone] OFFICE/OUTPA TIENT VISIT, [facility], [address], [place], [place], [address], [place] tel:[phone] [facility] Medicine ED1 (chief complaint) alcohol1 (chief complaint) HTN (chief complaint) GERD1 (chief complaint) Generalized anxiety disorderLiver diseaseAlcohol abuse, uncomplicatedEssent ial (primary) hypertension 6 [address], [place], [place], [address] , [place]. [phone] Referring Provider: [address], [place], [place], [address]. tel:[phone] OFFICE/OUTPA TIENT VISIT, [facility], [address], [place], [place], [address], [place] tel:[phone] [facility] anxiety1 (chief complaint) GERD1 (chief complaint) alcohol1 (chief complaint) right leg pain1 (chief complaint) Liver diseaseGeneralized anxiety disorderAlcohol abuse, uncomplicatedChroni c pain syndrome 6 [address], [place], [place], [address] , [place]. [phone] Referring Provider: [address], [place], [place], [address]. tel:[phone] OFFICE/OUTPA TIENT VISIT, [facility], [address], [place], [place], [address], [place] tel:[phone] [facility] Medicine LFT (chief complaint) insomnia1 (chief complaint) anxiety1 (chief complaint) alcohol (chief complaint) Liver diseaseAlcohol abuse, uncomplicatedInsomn iaGeneralized anxiety disorder 0 [address], [place], [place], [address] , . tel:[phone] Referring Provider: Pb [address] [place], [place], [address]. tel:[phone] OFFICE/OUTPA TIENT VISIT, EST [facility], [address] [place], [address], tel:[phone] [facility] Anxiety1 (chief complaint) alcohol (chief complaint) insomnia1 (chief complaint) lab (chief complaint) leg spasm (chief complaint) Liver diseaseHyperlipidem iaAlcohol abuse, uncomplicatedInsomn ia [address] [facility] [place], [address] , [place]. tel:[phone] Referring Provider: Pb [address] [place], [place], [address]. tel:[phone] PREV VISIT, NEW, AGE 18-39 [facility], [address] [place], [address], [place] tel:[phone] [facility] Physical (chief complaint) Encntr for general adult medical exam w/o abnormal findings 6 [address] [facility] [place], [address] , [place]. tel:[phone] Referring Provider: Pb [address] [place], [place], [address]. tel:[phone] Family History Family Member Type Diagnosis Age At Onset Father Problem (finding) Melanoma Brother Problem (finding) drug OD Mother Problem (finding) Alcoholism Payers Payer name Insurance type Covered democrat ID Authoriza tion(s) No Information Social History [...] findings) ordered Referral Referred To: Alvarado Burrell [address] [place], [phone] Ordered: Referrals: Alvarado Burrell. Evaluate and treat [...] that he does not like psychiatrist at [place] and he wont be going back to [...] to chest[facility] if [facility]. Pt has been having panci [...] alcohol1 Pt failed alcoho l program at [facility] and also he is seeing substance abuse counselor now and he has reucrrent alcohol relapase and he is on the waiting list for inpatient program at [place]. pt is seeing substance control counselor now. [...] Pt feels better mood alcohol Pt finished [facility] program and was released and he was told to go to [place] but he could not make it to [place] due to transportation issue. Pt relapsed 6 [...]
--- OUTSIDE RECORDS SUMMARY | 2024-10-19 00:14 | XMS_ITS | Clinical Summary ---
Author Organization [facility] Address [address] [place] [address] Care Team Providers Care State Fire Marshal Name Role Phone Jose Manuel Gibbs MD Primary Care Provider [phone] Allergies Active Allergy Reactions Criticality Noted Date [...] Tobacco: Never Tobacco Cessation:Counseling Given: Not Answered [facility] Utilities Answer Date Recorded In the [...] week 03/29/2024 How often do you attend voodoo or alevism serv ices? Never 03/29/2024 Do you belong to any clubs o r organizations such as voodoo groups, unions, fraternal or athletic groups, or [...] any time in the past 12 m [facility], were you homeless or living in a long term (including now)? No 03/29/2024 Personal Safety Answer Date Recorded Have you ever been in or are you currently in a harmful physical or emotional relationship or is someone making you feel afraid or unsafe? Denies 03/26/2024 Sex and Gender Information Value Date Recorded Sex Assigned at Not on file Legal Sex Male 10:51 PM TUFTER Gender Identity Not on file Sexual Orientation Not on file Obstetrics History Last Filed Vital Signs Vital Sign Reading Time Taken Comments Blood Pressure 127/76 03/31/2024 7:06 AM TUFTER Pulse 100 03/31/2024 7:06 AM TUFTER Temperature 36.7 C (98.1 F) 03/31/2024 7:06 AM TUFTER Respiratory Rate 18 03/31/2024 7:06 AM TUFTER Oxygen Saturation 96% 03/31/2024 7:06 AM TUFTER Inhaled Oxygen Concentration - - Weight 123.7 kg (272 lb 12.8 oz) 03/25/2024 7:56 PM TUFTER Height 175.3 cm (5' 9) 03/25/2024 7:56 PM TUFTER Body Mass Index 40.29 03/25/2024 7:56 PM TUFTER Plan of Treatment Health Maintenance Due Date Last Done Comments Colon Cancer Screening-Colonoscopy 1979 Depression Screening 1979 Hepatitis B Screening 1997 Regular Well Visit/Exam 18-64 1997 HPV Vaccines (1 - 3-dose SCD M series) 2006 Covid-19 Vaccine ( - 2023-2 5 season) 2023 03/13/2021, 07/17/2020, 06/26/2020 Influenza Vaccine (#1) 2024 03/06/2021 DTaP/Tdap/Td Vaccine (3 - Td or Tdap) 08/27/2030 08/27/2020, 04/01/2014 Hepatitis C Screening Completed 03/30/2024 , 03/29/2024, 10/01/2015 Pneumococcal vaccine <65 Aged Out No longer eligible based on patient's age to complete this topic Procedures Procedure Name Priority Date/Time Associated Diagnosis Comments HEPATITIS C RNA, QUANTITATIVE, PCR Add-On 03/30/2024 8:36 AM TUFTER from Last 3 Months or Most Recently Relevant to Health Maintenance Results * Hepatitis C (HCV) RNA PCR, quantitative Blood (03/30/2024 8:36 AM TUFTER) [facility] HCV RNA result Not Detected [facility] Comment: The quantifiable range of this assay is 15 IU/mL to 100,000,000 IU/mL (1.18 log IU/mL to 8.00 log IU/mL). Testing was performed by the SHERWIN 6800 HCV Test ([employer] Testing performed at [facility] Current Interpretive Data was last revised on 2020 Testing performed by: [facility], [address] [facility], [place]., [address] Blood 03/30/2024 8:36 AM TUFTER 03/30/2024 12:13 PM TUFTER Ricardo Alcocer MD LAB MICROBIOLOGY - GENERAL ORDERABLES Final Result [id number] [facility] Department [place] [address] [facility] from Last 3 Months or Most Recently Relevant to Health Maintenance Insurance [facility] Advance Directives For more information, please contact: [phone] * Full Code (Latest Code Status on File) Date Activated Date Inactivated Comments 03/25/2024 8:01 PM 03/31/2024 2:47 PM Care Teams State Fire Marshal Relationship Specialty Start Date End Date Jose Manuel Gibbs MD [address] [facility] [place] [address] PCP - General Internal Medicine 03/25/24
--- OUTSIDE RECORDS SUMMARY | 2024-10-19 00:14 | XMS_ITS | Clinical Summary ---
Author Organization [facility] Address [facility] [place] [address] Care Team Providers Care Equipment Coordinator Name Role Phone Brett Fabian MD Primary Care Provider [phone] Social History Tobacco Use Types Packs/Day Years [...] of 3 - 19+ 3-dose series) 1998 HPV Vaccines (1 - 3-dose SCD M series) 2006 COVID-19 Vaccine (1 - 2023-2 5 season) 2023 Meningococcal B Vaccine Aged Out No l [...] age to complete this topic Care Teams Equipment Coordinator Relationship Specialty Start Date End Date Brett Fabian MD PCP - General 12/22/15
--- OUTSIDE RECORDS SUMMARY | 2024-10-19 00:14 | XMS_ITS | Referral Summary ---
Author Organization [facility] Address [address] [place] [address] Care Team Providers Care Motion Picture Narrator Name Role Phone Jose Manuel Gibbs MD Primary Care Provider [phone] Allergies Active Allergy Reactions Criticality Noted Date [...] week 03/29/2024 How often do you attend anglican or advent serv ices? Never 03/29/2024 Do you belong to any clubs o r organizations such as anglican groups, unions, fraternal or athletic groups, or [...] any time in the past 12 m [facility], were you homeless or living in a custodial (including now)? No 03/29/2024 Personal Safety Answer Date Recorded Have you ever been in or are you currently in a harmful physical or emotional relationship or is someone making you feel afraid or unsafe? Denies 03/26/2024 Sex and Gender Information Value Date Recorded Sex Assigned at Not on file Legal Sex Male 10:51 PM UI DEVELOPER DESIGNER Gender Identity Not on file Sexual Orientation Not on file Last Filed Vital Signs Vital Sign Reading Time Taken Comments Blood Pressure 127/76 03/31/2024 7:06 AM UI DEVELOPER DESIGNER Pulse 100 03/31/2024 7:06 AM UI DEVELOPER DESIGNER Temperature 36.7 C (98.1 F) 03/31/2024 7:06 AM UI DEVELOPER DESIGNER Respiratory Rate 18 03/31/2024 7:06 AM UI DEVELOPER DESIGNER Oxygen Saturation 96% 03/31/2024 7:06 AM UI DEVELOPER DESIGNER Inhaled Oxygen Concentration - - Weight 123.7 kg (272 lb 12.8 oz) 03/25/2024 7:56 PM UI DEVELOPER DESIGNER Height 175.3 cm (5' 9) 03/25/2024 7:56 PM UI DEVELOPER DESIGNER Body Mass Index 40.29 03/25/2024 7:56 PM UI DEVELOPER DESIGNER Plan of Treatment Not on file Procedures Procedure Name Priority Date/Time Associated Diagnosis Comments HEPATITIS C RNA, QUANTITATIVE, PCR Add-On 03/30/2024 8:36 AM UI DEVELOPER DESIGNER from Last 3 Months or Most Recently Relevant to Health Maintenance Results * Hepatitis C (HCV) RNA PCR, quantitative Blood (03/30/2024 8:36 AM UI DEVELOPER DESIGNER) [facility] HCV RNA result Not Detected [facility] Comment: The quantifiable range of this assay is 15 IU/mL to 100,000,000 IU/mL (1.18 log IU/mL to 8.00 log IU/mL). Testing was performed by the SHERWIN 6800 HCV Test ([employer] Testing performed at [facility] Current Interpretive Data was last revised on 2020 Testing performed by: [facility], [address], [place]., [address] Blood 03/30/2024 8:36 AM UI DEVELOPER DESIGNER 03/30/2024 12:13 PM UI DEVELOPER DESIGNER Ricardo Alcocer MD LAB MICROBIOLOGY - GENERAL ORDERABLES Final Result [id number] [facility] Department [place] [address] [facility] from Last 3 Months or Most Recently Relevant to Health Maintenance Insurance [facility] Advance Directives For more information, please contact: [phone] * Full Code (Latest Code Status on File) Date Activated Date Inactivated Comments 03/25/2024 8:01 PM 03/31/2024 2:47 PM Care Teams Motion Picture Narrator Relationship Specialty Start Date End Date Jose Manuel Gibbs MD [address] [facility] [place] [address] PCP - General Internal Medicine 03/25/24
--- OUTSIDE RECORDS SUMMARY | 2024-10-19 00:14 | XMS_ITS | Clinical Summary ---
Author Organization [facility] Address [address] [place] [address] Phone Care Team Providers Care Chopped Strand Operator Name Role Phone Unavailable Primary Care Provider [...]
[2024-10-19 10:13] VITALS: BP 121/63; PULSE 95; RESP 16; TEMP 36.4; O2SAT 95; BMI 31.3
[2024-10-19] MEDS: LACTATED RINGERS 1,000 ML 150 ML IV CONT (10:24)
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
[2024-10-19 11:47] VITALS: BP 101/62; PULSE 95; RESP 25; O2SAT 100
[2024-10-19 11:57] VITALS: BP 116/69; PULSE 102; RESP 24; O2SAT 100
[2024-10-19 12:07] VITALS: BP 123/74; PULSE 86; RESP 22; O2SAT 100
== END 2024-10-19 12:20 | disposition home or self-care (01) ==
PROVIDERS: PCP Internal Medicine; Referring Provider Internal Medicine; Visit Provider Internal Medicine Gastroenterology
PROC: 0DJD8ZZ Inspection of Lower Intestinal Tract, Via Natural or Artificial Opening Endoscopic (ICD-10-PCS; CPT 45378; principal; 2024-10-19 11:00)
DX: Z12.11 Encounter for screening for malignant neoplasm of colon (principal); I10 Essential (primary) hypertension; E78.5 Hyperlipidemia, unspecified; J45.909 Unspecified asthma, uncomplicated; M62.82 Rhabdomyolysis; F41.8 Other specified anxiety disorders; F31.9 Bipolar disorder, unspecified; F12.90 Cannabis use, unspecified, uncomplicated; E66.9 Obesity, unspecified; Z68.31 Body mass index [BMI] 31.0-31.9, adult; Z98.890 Other specified postprocedural states; Z87.891 Personal history of nicotine dependence; Z80.42 Family history of malignant neoplasm of prostate; Z84.0 Family history of diseases of the skin and subcutaneous tissue
CPT/HCPCS: 45378; J2003; J2704; J7120

== ENCOUNTER 2025-01-25 23:13 | Emergency (ER) | payer OTHER, SELFPAY ==
--- NOTE | ~2025-01-25 | XR_ITS ---
Examination: XR chest 1V portable Clinical History: etoh withdrawal Comparison: 07/03/2024 Technique: Portable AP Findings: Heart size normal. Lungs clear. No acute bony abnormality. IMPRESSION: 1. No acute cardiopulmonary findings given portable technique. Reviewed, dictated and finalized at location R. [employer] INSPECTOR
--- NOTE | ~2025-01-25 | CT_ITS ---
EXAMINATION: CT abdomen pelvis w con DATE: 01/26/2025 01:55 INDICATION: Abdominal distention. TECHNIQUE: Computed tomography (CT) of the abdomen and pelvis was performed with 100 mL Omnipaque 350 intravenous contrast. Automated exposure control and iterative reconstruction technique were employed. The dose-length product was 1089.06 mGy-cm. COMPARISON: CT abdomen and pelvis 07/03/2024 FINDINGS: The visualized portions of the lung bases demonstrate mild atelectasis. No pleural effusion. The heart size is normal. No pericardial effusion. There is a 3.6 cm mass in left hepatic lobe that demonstrated interrupted peripheral puddling of contrast on the prior CT, consistent with a hemangioma. The gallbladder, spleen, pancreas, adrenal glands, and kidneys are normal. There are dilated loops of small bowel. The appendix is normal. There are no pathologically enlarged lymph nodes. There is no ascites. There is an umbilical hernia containing fat. There is mild thoracic spondylosis and moderate lumbar spondylosis. IMPRESSION: 1. Dilated loops of small bowel, likely adynamic ileus. 2. Umbilical hernia containing fat. Reviewed, dictated and finalized at location E. PRINTER
[2025-01-25 23:11] VITALS: BP 165/92; PULSE 96; RESP 16; TEMP 36.6; O2SAT 96
--- NOTE | 2025-01-26 00:09 | ECG_ITS ---
Test Date: 2025-01-26 00:17:47 Measurements Intervals Berry Rate: 84 P: 7 MI: 142 QRS: 35 QRSD: 93 T: 46 QT: 370 QTc: 439 Interpretive Statements SINUS RHYTHM Compared to ECG 07/03/2024 20:41:47 Sinus arrhythmia no longer present Electronically Signed On 01-26-2025 07:18:20 [employer]PER[employer] by Duane Hager D.O
[2025-01-26 00:23] LABS: Add Urine Microscopic? NO; Appearance Urine Clear (Clear); Glucose Urine UA Negative (Negative); Leukocyte Esterase Ur Negative LEU/UL (Negative); Nitrate Urine Negative (Negative); Specific Grav Ur 1.029 (1.001-1.035)
[2025-01-26 00:37] LABS: INR 0.8; Prothrombin Time 11.7 Seconds (11.1-14.7)
[2025-01-26 00:38] LABS: Partial Thromboplastin Time 31.4 Seconds (22.3-36.8)
[2025-01-26 00:40] LABS: Cannabinoid Screen Urine Positive (Negative)
[2025-01-26] MEDS: ONDANSETRON INJ 4 MG/2 ML VIAL IV PUSH (00:47)
[2025-01-26] MEDS: FAMOTIDINE 20 MG/2 ML VIAL IV PUSH (00:47)
[2025-01-26] MEDS: SODIUM CHLORIDE 0.9% IV 1,000 ML 999 ML IV CONT (00:47)
[2025-01-26 00:51] LABS: Hematocrit 34.3 % (42.0-52.0); Hemoglobin 11.6 g/dL (14.0-18.0); Immature Granulocyte Percent A 0.5 % (0-0.5); Lymphocytes Absolute Auto 1.88 K/mm3 (0.9-3.2); Mean Corpuscular HGB Conc 33.8 g/dl (32-36); Mean Corpuscular Hemoglobin 32.0 pg (26-34); Mean Corpuscular Volume 94.8 fl (80-100); Nucleated Red Blood Cells Absolute Auto 0.000 K/mm3 (0.0-0.012); Nucleated Red Blood Cells Perc 0.0 % (0.0-0.2); Platelet Count Result 223 k/mm3 (150-375); Red Blood Count 3.62 M/mm3 (4.6-6.20)
--- NOTE | 2025-01-26 00:51 | PC.NURSE ---
Per MD do not Give Phenobarbital until liver enzimes result
[2025-01-26 00:54] LABS: White Blood Count 7.9 K/mm3 (4.5-10.0)
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
[2025-01-26 01:31] LABS: Alanine Aminotransferase 95 U/L (6-50); Albumin Level 3.7 g/dL (3.5-5.1); Alkaline Phosphatase 98 U/L (38-126); Anion Gap 8 mmol/L (4-12); Aspartate Amino Transferase 117 U/L (17-59); Bilirubin,Total 0.6 mg/dL (0.2-1.3); Blood Urea Nitrogen 13 mg/dL (9-20); Calcium 8.2 mg/dL (8.4-10.2); Carbon Dioxide 22 mmol/L (22-30); Chloride 97 mmol/L (98-107); Estimated CRCL calculation 117 ml/min; Estimated Glomerular Filt Rate > 60; Glucose 102 mg/dL (65-110); Lipase 80 U/L (23-300); Magnesium 1.5 mg/dL (1.6-2.3); Sodium 127 mmol/L (137-145); Total Protein 6.8 g/dL (6.3-8.2)
[2025-01-26] MEDS: SODIUM CHLORIDE 0.9% IVPB (02:31)
[2025-01-26] MEDS: PHENOBARBITAL SODIUM IVPB (02:31)
[2025-01-26 05:01] LABS: Potassium 3.7 mmol/L (3.4-5.0)
--- OUTSIDE RECORDS SUMMARY | 2025-01-26 15:55 | XMS_ITS | Clinical Summary ---
Author Organization [facility] Address [facility] [place] [address] Care Team Providers Care Manager Food Beverage Name Role Phone Brett Fabian MD Primary Care Provider [phone] Social History Tobacco Use Types Packs/Day Years [...] 3-dose SCD M series) 2006 COVID-19 Vaccine ( - 2024-2 6 season) 2024 Influenza Adult (#1) 2024 Hepatitis A Vaccines Aged Out No long er eligible based on patient's age to complete [...] age to complete this topic Care Teams Manager Food Beverage Relationship Specialty Start Date End Date Brett Fabian MD PCP - General 12/22/15
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
--- OUTSIDE RECORDS SUMMARY | 2025-01-26 15:55 | XMS_ITS | Clinical Summary ---
Author Organization [facility] Address [address] [place] [address] Care Team Providers Care Pug Machine Operator Name Role Phone Jose Manuel Gibbs MD Primary Care Provider [phone] Allergies Active Allergy Reactions Criticality Noted Date [...] Tobacco: Never Tobacco Cessation:Counseling Given: Not Answered [facility] Utilities Answer Date Recorded In the past 12 months has th e electric, gas, oil, or water company threatened to shut off services in your home? No 03/29/2024 Social Connection and Isolation Panel Answer Date Recorded In a typical week, how many times do you talk on the phone with family, friends, or neighbors? Once a week 03/29/2024 How often do you get together with friends or re latives? Once a week 03/29/2024 How often do you attend faith or spiritism serv ices? Never 03/29/2024 Do you belong to any clubs o r organizations such as faith groups, unions, fraternal or athletic groups, or [...] any time in the past 12 m [facility], were you homeless or living in a fpc (including now)? No 03/29/2024 Personal Safety Answer Date Recorded Have you ever been in or are you currently in a harmful physical or emotional relationship or is someone making you feel afraid or unsafe? Denies 03/26/2024 Sex and Gender Information Value Date Recorded Sex Assigned at Not on file Legal Sex Male 10:51 PM VITICULTURE TEACHER Gender Identity Not on file Sexual Orientation Not on file Last Filed Vital Signs Vital Sign Reading Time Taken Comments Blood Pressure 127/76 03/31/2024 7:06 AM VITICULTURE TEACHER Pulse 100 03/31/2024 7:06 AM VITICULTURE TEACHER Temperature 36.7 C (98.1 F) 03/31/2024 7:06 AM VITICULTURE TEACHER Respiratory Rate 18 03/31/2024 7:06 AM VITICULTURE TEACHER Oxygen Saturation 96% 03/31/2024 7:06 AM VITICULTURE TEACHER Inhaled Oxygen Concentration - - Weight 123.7 kg (272 lb 12.8 oz) 03/25/2024 7:56 PM VITICULTURE TEACHER Height 175.3 cm (5' 9) 03/25/2024 7:56 PM VITICULTURE TEACHER Body Mass Index 40.29 03/25/2024 7:56 PM VITICULTURE TEACHER Plan of Treatment Health Maintenance Due Date Last Done Comments Colon Cancer Screening-Colonoscopy 1979 Depression Screening 1979 Hepatitis B Screening 1997 Regular Well Visit/Exam 18-64 1997 HPV Vaccines (1 - 3-dose SCD M series) 2006 Covid-19 Vaccine (2024-2 6 season) 2024 03/13/2021, 07/17/2020, 06/26/2020 Influenza Vaccine (#1) 2024 03/06/2021 DTaP/Tdap/Td Vaccine (3 - Td or Tdap) 08/27/2030 08/27/2020, 04/01/2014 Hepatitis C Screening Completed 03/30/2024 , 03/29/2024, 10/01/2015 Pneumococcal vaccine <65 Aged Out No longer eligible based on patient's age to complete this topic Procedures Procedure Name Priority Date/Time Associated Diagnosis Comments HEPATITIS C RNA, QUANTITATIVE, PCR Add-On 03/30/2024 8:36 AM VITICULTURE TEACHER from Last 3 Months or Most Recently Relevant to Health Maintenance Results * Hepatitis C (HCV) RNA PCR, quantitative Blood (03/30/2024 8:36 AM VITICULTURE TEACHER) [facility] HCV RNA result Not Detected [facility] Comment: The quantifiable range of this assay is 15 IU/mL to 100,000,000 IU/mL (1.18 log IU/mL to 8.00 log IU/mL). Testing was performed by the [facility] 6800 HCV Test ([employer] Testing performed at [facility] Current Interpretive Data was last revised on 2020 Testing performed by: [facility], [address] [place] [address] Blood 03/30/2024 8:36 AM VITICULTURE TEACHER 03/30/2024 12:13 PM VITICULTURE TEACHER Ricardo Alcocer MD LAB MICROBIOLOGY - GENERAL ORDERABLES Final Result [facility] [id number] [facility] Department of Laboratories [place], [place] [id number] [facility] from Last 3 Months or Most Recently Relevant to Health Maintenance Insurance [facility] Advance Directives For more information, please contact: [phone] * Full Code (Latest Code Status on File) Date Activated Date Inactivated Comments 03/25/2024 8:01 PM 03/31/2024 2:47 PM Care Teams Pug Machine Operator Relationship Specialty Start Date End Date Jose Manuel Gibbs MD [address] [place] [address] [place] [address] PCP - General Internal Medicine 03/25/24
--- OUTSIDE RECORDS SUMMARY | 2025-01-26 15:55 | XMS_ITS | Clinical Summary ---
Author Organization [facility] Address [address] [place] [address] Phone Care Team Providers Care Lean Leader Name Role Phone Unavailable Primary Care Provider [...]
--- OUTSIDE RECORDS SUMMARY | 2025-01-26 15:55 | XMS_ITS | Encounter Summary ---
Author Organization [facility] Address [facility] [place] [address] Care Team Providers Care Repair Department Manager Name Role Phone Brett Fabian MD Primary Care Provider [phone] Encounter Details Date Type Department Care Team (Late st Contact Info) Description 06/06/2017 Abstract [facility] CONVERSION [address] [place] [address] , Generic ConversionMD Social History Tobacco Use [...] on filedocumented in this encounter Care Teams Repair Department Manager Relationship Specialty Start Date End Date Brett Fabian MD PCP - General 12/22/15 documented as of this encounter
== END 2025-01-26 03:36 | disposition home or self-care (01) ==
PROVIDERS: Emergency Provider Emergency Medicine; PCP Internal Medicine
DX: F10.239 Alcohol dependence with withdrawal, unspecified (principal); Y90.0 Blood alcohol level of less than 20 mg/100 ml; R16.0 Hepatomegaly, not elsewhere classified; J45.909 Unspecified asthma, uncomplicated; I10 Essential (primary) hypertension; E78.5 Hyperlipidemia, unspecified; F41.8 Other specified anxiety disorders; F31.9 Bipolar disorder, unspecified; F17.210 Nicotine dependence, cigarettes, uncomplicated; Z98.62 Peripheral vascular angioplasty status
CPT/HCPCS: 36415; 71045; 74177; 80053; 80307; 81003; 82077; 83605; 83690; 83735; 84100; 85025; 85610; 85730; 93005; 96361; 96365; 96374; 96375; 99284; J2405; J2560; J7030; Q9967